=== PATIENT | female | born 1970 | race Caucasian/White ===

== ENCOUNTER 2023-12-22 23:09 | Emergency (ER) | payer MEDICAID, SELFPAY ==
[2023-12-22] VITALS (11 sets, daily range): BP systolic 143–160; BP diastolic 89–111; PULSE 83–94; RESP 13–23; O2SAT 97–100
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
[2023-12-22] MEDS: fentaNYL 100 MCG/2 ML VIAL 50 MCG IVP ×2 (23:14→23:21)
[2023-12-22] MEDS: fentaNYL 100 MCG/2 ML VIAL ×2 (23:15→23:32)
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
[2023-12-22 23:34] LABS: Anion Gap 10.9 mmol/L (3-11); BUN 10 mg/dL (7-18); CO2 23.1 mmol/L (21.0-32.0); CREATININE 0.5 mg/dL (0.55-1.02); Calcium 9.3 mg/dL (8.5-10.1); Chloride 105 mmol/L (98-107); Estimated GFR 113.48 (mL/min/1.73m2); Glucose 92 mg/dL (74-106); Potassium 3.9 mmol/L (3.5-5.1); Sodium 139 mmol/L (136-145)
[2023-12-22 23:44] LABS: Abs Immature Grans 0.09 10^3/uL (0.0-0.06); Absolute Basophil Count 0.07 10^3/uL (0.0-0.2); Absolute Eosinophil Count 0.04 10^3/uL (0.0-0.7); Absolute Monocyte Count 0.66 10^3/uL (0.1-0.8); Absolute Neutrophil Count 8.78 10^3/uL (1.2-6.7); Basophils % 0.6 %; Eosinophils % 0.4 %; HCT 28.7 % (36.0-46.0); HGB 8.2 g/dL (11.2-15.7); Immature Grans % 0.8 %; Lymphocytes % 11.2 %; MCH 18.6 pg (27.0-33.0); MCHC 28.6 % (32.0-36.0); MCV 65 fL (80-95); MPV 9.3 fL (8.0-11.0); Monocytes % 6.1 %; Neutrophils % 80.9 %; Platelet Count 322 10^3/uL (130-400); WBC 10.85 10^3/uL (4.4-10.8)
[2023-12-22] MEDS: Ondansetron 4 MG/2 ML VIAL IVP (23:44)
[2023-12-22 23:45] LABS: Absolute Lymphocyte Count 1.22 10^3/uL (1.2-3.4); Microcytosis 3+
[2023-12-22 23:50] LABS: Hypochromasia 2+
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
[2023-12-23] VITALS (32 sets, daily range): BP systolic 133–175; BP diastolic 82–110; PULSE 84–111; RESP 14–30; O2SAT 87–100
[2023-12-23] MEDS: Normal Saline - Diluent 50 ML VIAL IJ (00:07)
[2023-12-23] MEDS: Omnipaque 350 MG/ML 100 ML BTL IJ (00:10)
[2023-12-23 00:14] LABS: Amylase 32 U/L (25-115); Lipase 50 U/L (16-77); Troponin I < 50 ng/L (< or =60)
[2023-12-23] MEDS: fentaNYL 100 MCG/2 ML VIAL ×3 (00:14→01:28)
[2023-12-23] MEDS: Lidocaine 2% Multi-Dose 50 ML VIAL (00:26)
[2023-12-23] MEDS: fentaNYL 100 MCG/2 ML VIAL 50 MCG IVP ×2 (00:31→02:30)
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
--- OUTSIDE RECORDS SUMMARY | 2023-12-23 00:59 | XMS_ITS | Encounter Summary ---
Author Organization [facility] Address [address] [place] [address] Care Team Providers Care Supervisor Transcribing Operators Name Role Phone Phoenix Polanco MD Primary Care Provider + Encounter Details Date Type Department Care Team (Latest Contact Info) Description 03/15/2023 Travel Social History Tobacco Use Types Packs/Day Years Used Date Smoking Tobacco: Former Cigarettes 0.5 20 1 05/27/1996 - 03/26/2017 Smokeless Tobacco: Never Alcohol Use Standard Drinks/Week Comments Yes 21 (1 standard drink = 0.6 oz pure alcohol) a couple of white claws a night, pt is unsure of the size Interpersonal Safety Answer Date Record ed Physically Hurt Never 11/25/2019 Verbally Threaten Not on file 11/25/2019 Sex and Gender Information Value Date Recorded Sex Assigned at Female 02/05/2020 13:48 EDT Gender Identity Female 06/26/2019 14:43 EST Sexual Orientation Not on file documented as of this encounter Functional Status Functional Status Response Date of Assess ment Because of a physical, menta l, or emotional condition, does this person have difficulty doing errands alone such as visiting a doctor's office or shopping? Yes 10/01/2019 Cognitive Status Response Date of Assessm ent Because of a physical, menta l, or emotional condition, does this person have serious difficulty concentrating, remembering, or making decisions? No 10/01/2019 documented as of this encounter Plan of Treatment Not on file documented as of this encounter Visit Diagnoses Not on filedocumented in this encounter Additional Health Concerns Infection Onset Date Last Indicated Resolved Time R/O COVID-19 03/15/2023 03/15/2023 03/15/2023 17:4 2 EST documented as of this encounter Care Teams Supervisor Transcribing Operators Relationship Specialty Start Date End Date Phoenix Polanco MD [address] [place] [id number] PCP - General 12/27/13 documented as of this encounter
--- OUTSIDE RECORDS SUMMARY | 2023-12-23 00:59 | XMS_ITS | Encounter Summary ---
Author Organization [facility] Address [address] [place] [address] Care Team Providers Care Loan Workout Officer Name Role Phone Phoenix Polanco MD Primary Care Provider + Reason for Visit * Reason Comments Chest Pain Shortness of Breath BIBEMS from home. March dden onset aching central chest pain that radiates into lower back. + SOB, +dyspnea, +dry heaving. Temp 103.3 by EMS. Denies sick contacts. States she was in the ICU with sepsis in August. Encounter Details Date Type Department Care Team (Late st Contact Info) Description 03/15/2023 14:41 EST - 03/15/2023 19:17 EST Emergency [facility] Emergency Department - Main [address] [phone] Savana Andrews PA-C [address] [place] [phone] Ila Hankins MD [address] [place] [phone] Pneumonia of right upper lobe due to infectious organism (Primary Dx); Hepatic steatosis; Splenomegaly Discharge Disposition: Home or Self Care Social History Tobacco Use Types Packs/Day Years Used Date Smoking Tobacco: Former Cigarettes 0.5 20 1 05/27/1996 - 03/26/2017 Smokeless Tobacco: Never Tobacco Cessation:Counseling Given: Not Answered Alcohol Use Standard Drinks/Week Comments Yes 21 [...] on file documented as of this encounter Last Filed Vital Signs Vital Sign Reading Time Taken Comments Blood Pressure 103/68 03/15/2023 191 EST Pulse 102 03/15/20231910 EST Temperature 37.6 ??C (99.6 ??F) 03/15/2023 1748 EST Respiratory Rate 16 03/15/2023 191 EST Oxygen Saturation 98% 03/15/2023 191 EST Inhaled Oxygen Concentration - - Weight 86.2 kg (190 lb) 03/15/2023 1450 EST Height 165.1 cm (5' 5) 03/15/2023 1450 EST Body Mass Index 31.62 03/15/2023 1450 EST documented in this encounter Functional Status Functional Status Response [...] No 10/01/2019 documented as of this encounter Discharge Instructions * Discharge Instructions* Savana Andrews PA-C - 03/15/2023 18:46 EST You were seen in the emergency department for sudden onset lower back pain with ongoing cough You were found to have a pneumonia You were started on doxycycline, please take this twice a day for 7 days This was sent to our pharmacy upstairs As discussed, please take this with a full glass of water, wait 1 hour before lying flat after taking this medication to decrease chance of GI issues Please take Tylenol 650mg every 4-6 hours as needed for pain, do not exceed 4000mg a day. Also takeMotrin (Advil, Ibuprofen) 600mg every 8 hours as needed. Please stop if you get abdominal pain or bloody stools. Reasons to return to the emergency department include new or worsening pain or shortness of breath,inability to eat or drink, blood in your stool or vomit, or any other new or concerning symptoms toysalvatore * Attachments The following attachments cannot be sent through Care Everywhere. * Pneumonia (Pakistani) documented in this encounter Medications at Time of Discharge Medication Sig Dispensed Refills Start Date End Date acetaminophen (TYLENOL) 500 mg tablet Take 1,300 mg by mouth 3 times daily as needed for Pain. amitriptyline (ELAVIL) 5 mg/ml suspension Take 15 mg by mouth at bedtime. diclofenac sodium 1 % gelIndications:Pain in joint, multiple sites,Malaise and fatigue,MIKEY positive,Elevated sed rate,Microcytic anemia Apply 2g-4g of 1% gel to affected area 4 times daily. Maximum total body dose of 1% gel should not exceed 32 g per day 1 Tube 2 06/26/2019 DULoxetine (CYMBALTA) 60 mg capsule Take 40 mg by mouth daily. fluoxetine HCl (PROZAC ORAL) Take 60 mg by mouth daily. naltrexone (REVIA) 50 mg tablet Take 1 tablet daily for 7 days then increase to 2 tablets daily. 30 Tablet 1 08/26/2022 pantoprazole (PROTONIX) 40 mg tablet Take 1 Tablet by mouth 2 times daily. 60 Tablet 2 08/26/2022 pregabalin (LYRICA) 100 mg capsule Take 1 Capsule by mouth 3 times daily. thiamine (VITAMIN B1) 100 mg tablet Take 1 Tablet by mouth daily. 1 Tablet 08/27/2022 doxycycline (VIBRA-TABS) 100 mg tablet Take 1 Tablet by mouth 2 times daily for 7 days. 14 Tablet 03/15/2023 03/22/2023 documented as of this encounter Ordered Prescriptions Prescription Sig Dispensed Refills Start Date End Da te doxycycline (VIBRA-TABS) 100 mg tablet Take 1 Tablet by mouth 2 times daily for 7 days. 14 Tablet 03/15/2023 03/22/2023 documented in this encounter Discharge Disposition Disposition Code Departure Means Destination Comment s Home or Self Group Home documented in this encounter ED Notes * Debra Broussard, MEREDITH - 03/15/2023 1914 EST 1710: Report received from offgoing RN. 1745: Pt is resting in stretcher, she is eating, education provided on the need to stay NPO until imaging has resulted. Pt reports that her pain is a 4/10 and is a lot better. Declines having any needs at this time. 1835: Pt is resting in stretcher, asked to provide a urine sample. Provided with education on how to provide a clean catch urine sample. Pt ambulated to the bathroom independently and with a steady gait. 1914: DC instructions reviewed with Pt and her family members who are at bedside. Their questions were answered. Pt changed, gathered her belongings and ambulated out of the department independently and with a steady gait. * Umer Irby - 03/15/2023 1532 EST IUMER, notified Dr. HANKINS of PH VENOUS 7.61 on 03/15/2023 at 15:32. * Savana Andrews PA-C - 03/15/2023 1441 EST Images from the original note were not included. Emergency Department Note Emergency Department Visit Medical Decision Making This is a 52 y.o. female with PMHx of alcohol use disorder (~14 drinks/day), gastric bypass (2000 done at [facility], unclear what type),??steatohepatitis,??iron deficiency anemia, fibromyalgia, and former smoker who is presenting to the Emergency Department with sudden onset anterior chest discomfort radiating to lower back with associated shortness of breath and nausea. She has had a cough over the past few days. Has not taken COVID test at home. Vital signs here notable for mild temp of 100.6F, all other vital signs reassuring. She has symmetric pulses to radial and DP pulses. She has reproducible low back pain. She has no CVA tenderness. Lung sounds are hard to appreciate as patient is hyperventilating on my examination. Differential diagnosis includes infectious etiology such as COVID-19,influenza, pneumonia, she does have low back pain and chest discomfort however with teasing this out it seems as though the chest discomfort is mainly with coughing and low back pain is new and separate. She denies any IV drug use, no saddle paresthesias therefore seems less likely to be epidural abscess or acute cauda equina or cord compression Will obtain labs including: CBC, CMP, lactate, vbg, blood cultures. Will provide pain control, observe and reassess. ED Course EKG: Sinus rhythm at 99 bpm, normal axis, submillimeter ST depression in lead II, T wave flatteningin aVL and V4, no acute ST or T wave changes Relevant Data as of 03/15/23 190MonMar 15, 2023 1536 Lactic Acid: 1.9 Lactate normal [HG] 1537 WBC(!): 12.81 Mild leukocytosis [HG] 1542 Magnesium(!): 1.3 We will replete IV [HG] 1559 Troponin I (ng/mL): <0.034 Negative, seems less likely to be cardiac in nature. [HG] 1623 XR CHEST PORTABLE 1 VIEW IMPRESSION Ill-defined opacity in the right midlung, partially overlying the alisson, is concerning for pneumonialikely in the right lower lobe superior segment. A lateral radiograph would be helpful for confirmation. ?? [HG] 1743 Flu A RNA Result: Negative COVID and flu negative [HG] 1816 CT ANGIO CHEST IMPRESSION 1. No evidence of acute aortic syndrome. 2. Consolidation in the inferior right middle lobe consistent with pneumonia. ?? [HG] 1829 CT ANGIO ABDOMEN PELVIS 1. ??No evidence of vascular abnormality within the abdomen or pelvis. 2. ??Mild hyperemia of the cecum and ascending colon liquid intraluminal contents which can be seenin diarrheal illness. 3. ??Status post remote cholecystectomy with increased common bile duct diameter measuring 1.3 cm from 1 cm on ultrasound 08/24/2022. No radiopaque stone within the common bile duct. 4. ??Hepatic steatosis. 5. ??Splenomegaly. [HG] 1835 On reassessment, patient is resting comfortably. Reports feeling much improved at this time. Ihave informed her that her CT ultimately reveals that she has pneumonia. There is also evidence of a possible diarrheal illness. Patient denies any recent diarrhea. This could be reflective of Legionella, will send antigen through urine. We will give dose of doxycycline here. [HG] 1901 Discussed findings and plan. Return precautions given. Patient well appearing. Discharge home to follow up with PCP [HG] Relevant Data User Index [HG] Savana Andrews PA-C Medical Decision Making Hepatic steatosis: acute illness or injury Pneumonia of right upper lobe due to infectious organism: acute illness or injury Splenomegaly: acute illness or injury Amount and/or Complexity of Data Reviewed Independent Historian: friend and EMS Labs: ordered. Decision-making details documented in ED Course. Radiology: ordered. Decision-making details documented in ED Course. Risk OTC drugs. Prescription drug management. Imaging CT ANGIO ABDOMEN PELVIS Preliminary Result 1. No evidence of vascular abnormality within the abdomen or pelvis. 2. Mild hyperemia of the cecum and ascending colon liquid intraluminal contents which can be seen in diarrheal illness. 3. Status post remote cholecystectomy with increased common bile duct diameter measuring 1.3 cm from 1 cm on ultrasound 08/24/2022. No radiopaque stone within the common bile duct. 4. Hepatic steatosis. 5. Splenomegaly. CT ANGIO CHEST Final Result 1. No evidence of acute aortic syndrome. 2. Right upper lobe pneumonia. I have personally reviewed the images and the above interpretation and agree with the findings. [id number] XR CHEST PORTABLE 1 VIEW Final Result Ill-defined opacity in the right midlung, partially overlying the alisson, is concerning for pneumonialikely in the right lower lobe superior segment. A lateral radiograph would be helpful for confirmation. I have personally reviewed the images and the above interpretation and agree with the findings. [id number] The following problems were addressed: Final diagnoses: Pneumonia of right upper lobe due to infectious organism Hepatic steatosis Splenomegaly Chief complaint: Chief Complaint Patient presents with ??? Chest Pain ??? Shortness of Breath BIBEMS from home. Sudden onset aching central chest pain that radiates into lower back. + SOB, +dyspnea, +dry heaving. Temp 103.3 by EMS. Denies sick contacts. States she was in the ICU with sepsis in August. HPI: 52 y.o. female with PMHx of alcohol use disorder (~14 drinks/day), gastric bypass (2000 done at [facility], unclear what type),??steatohepatitis,??iron deficiency anemia, fibromyalgia, and former smoker who is presenting to the Emergency Department with sudden onset anterior chest discomfort radiating to lower back with associated shortness of breath and nausea. Patient reports for the last few days she has had a nonproductive cough. Reports that she has had chest pain with coughing. Also reports sudden onset pain and shortness of breath to her lower back. Reports nausea with dry heaving no true emesis. No constipation or diarrhea. Per reports from EMS, temp of 103.3F. She denies any feversat home, no urinary symptoms, no rash. Denies any trauma to her back, no heavy lifting. No urinary symptoms. Patient denies experiencing similar symptoms in the past. History was provided by: Patient, patient's family members at bedside, records Patient's pertinent PMH, FH, SH were reviewed and edited as necessary. Nurse note reviewed and confirmed. Physical Exam Patient Vitals for the past 24 hrs: BP Temp Temp src Resp SpO2 Height Weight 03/15/23 1450 118/80 38.1 ??C (100.6 ??F) Oral 18 98 % 165.1 cm (65) 86.2 kg (190 lb) A medical screening exam was performed. Physical Exam Gen: BP 118/80 (BP Cuff Location: Right arm, BP Patient Position: Sitting) Temp 38.1 ??C (100.6 ??F) (Oral) Resp 18 Ht 165.1 cm (65) Wt 86.2 kg (190 lb) SpO2 98% BMI 31.62 kg/m?? . In mild distress, writhing on stretcher, moving all fours. Eyes: Anicteric. ENT: Atraumatic. Oropharynx no tonsillar erythema or exudates. Resp: Normal resp rate. Nonproductive cough on examination. Slightly diminished breath sounds at the bases, no wheezing or rhonchi appreciated. CV: RRR. 2+ radial and DP pulses. GI: Nondistended. Nontender to palpation. MSK: No deformities, well perfused extremities. No midline C/T/L/S spine tenderness palpation. Mildtenderness to left paralumbar muscles without palpable spasming. Skin: Warm, dry. no rash, no bruising. Neuro: Normal speech. Awake,alert, oriented, GCS 15 Psych: Normal affect. Disposition: Home Condition on Discharge: Good Reasons to return to the ED were reviewed in detail. The patient agrees with this plan and disposition. This chart was generated using voice-recognition software. I have read the note but there are oftensubtle changes that are difficult to identify. Please contact me for clarification if necessary. Associated attestation - Ila Hankins MD - 03/15/2023 2155 EST A medical screening exam was performed. I reviewed this case with the Advanced Practice Provider (ALFONZO) and have reviewed the ALFONZO's note. I evaluated this patient [id number] and provided a substantive portion of the patient's care.. My personal evaluation included a face to face history and physical exam, review of nursing notes, reviewof vital signs, review of relevant records, and review of diagnostic data. Based on these elements I formulated, and/or participated substantively in the medical decision making, including assessing the level of risk of the patient's complaints and condition, establishing a diagnosis and/or selecting management options. I agree with the findings and plan as outlined in our combined note. My personal documentation is as follows: 52-year-old female presenting with significant chest pain.I evaluated her after she had gotten a CAT scan as well as some medications and she overall appeared well. Speaking full sentences and not requiring oxygen. Had some leukocytosis and got a CT angio of the chest, abdomen, pelvis due to concern for dissection. This was negative for dissection but didresult in pneumonia. Patient given prescription for antibiotics as well as return precautions. Appropriate for outpatient management, subsequently discharged. Ila Hankins MD, Attending Physician Final diagnoses: Pneumonia of right upper lobe due to infectious organism Hepatic steatosis Splenomegaly This note was dictated using [employer] Dictation Software. Attempts at proofreading have been made, however errors may still occasionally occur. documented in this encounter Plan of Treatment Not on file documented as of this encounter Procedures Procedure Name Priority Date/Time Associated Diagnosis Comments ECG REPORT - SCANNED 03/27/2023 6:44 EST URINE CHEMICAL (DIP) & SEDIMENT (MICRO) WITH REFLEX TO CULTURE Routine 03/15/2023 18:42 EST LEGIONELLA ANTIGEN DETECTION, URINE Routine 03/15/2023 18:[address] ANGIO ABDOMEN PELVIS STAT 03/15/2023 17:[address] ANGIO CHEST STAT 03/15/2023 17:30 EST ZZCOVID-19 TEST [facility] PCR STAT 03/15/2023 16:25 EST COVID-19 TESTING STAT 03/15/2023 16:2 5 EST ZZHN INFLUENZA A AND B, RSV PCR STAT 03/15/2023 16:25 EST BACTERIAL CULTURE, BLOOD STAT 03/15/2023 16:25 EST BACTERIAL CULTURE, BLOOD STAT 03/15/2023 15:50 EST XR CHEST PORTABLE 1 VIEW STAT 03/15/2023 15:15 EST LACTIC ACID WITH REFLEX - USE FOR INITIAL SEPSIS EVALUATION STAT 03/15/2023 15:01 EST HOLD BLUE TOP STAT 03/15/2023 15:01 EST BLOOD GASES, VENOUS STAT 03/15/2023 1 5:01 EST TROPONIN I STAT 03/15/2023 15:01 EST COMPLETE BLOOD COUNT AND DIFFERENTIAL STAT 03/15/2023 15:01 EST MAGNESIUM STAT 03/15/2023 15:01 EST BASIC METABOLIC PANEL (BMP) STAT 03/15/2023 15:01 EST EKG 12-LEAD STAT 03/15/2023 14:54 EST documented in this encounter Results * ECG REPORT - SCANNED (03/27/2023 6:44 EST) 03/27/2023 6:44 EST Scan 2 [employer] Operator PROCEDURE/MINOR SHILPA GICAL ORDERABLES * (ABNORMAL) UA CHEMICAL & SEDIMENT + REFLEX TO CULTURE (03/15/2023 18:42 EST) Color UA Yellow Colorless, Yellow 03/15/2023 19:23 [facility] Clarity UA Clear Clear 03/15/2023 19:23 [facility] Glucose UA Negative Negative mg/dL 03/15/2023 19:23 [facility] Bilirubin UA Negative Negative 03/15/2023 19:23 [facility] Ketones UA 1+(A) Negative 03/15/2023 19:23 [facility] Specific [place], Urine >1.050(H) 1.001 - 1.030 03/15/2023 19:23 [facility] Comment:Urine Specific Gravi ty results greater than 1.035 suggest possible interference from glucose or radiographic dye. Blood UA Negative Negative 03/15/2023 19:23 [facility] Urobilinogen UA 0.2 0.2-1.0 mg/dL mg/dL 03/15/2023 19:23 [facility] Nitrite UA Negative Negative 03/15/2023 19:23 [facility] Leukocyte Esterase UA Negative Negative 03/15/2023 19:23 [facility] Protein UA Trace(A) Negative mg/dL 03/15/2023 19:23 [facility] pH, UA 6.0 <8.5 03/15/2023 19:23 [facility] Urine RBC Count, Auto 0 - 2 0 - 2 Cells/HPF 03/15/2023 19:23 [facility] Urine WBC Count, Auto 0 - 3 0 - 3 Cells/HPF 03/15/2023 19:23 [facility] Urine Squamous Count, Auto Few(A) None Seen Cells/HPF 03/15/2023 19:23 [facility] Urine Hyaline Cast Count, Auto <=10 <=10 Casts/LPF 03/15/2023 19:23 EST [facility] Urine Bacteria Count, Auto None Seen None Seen Bacteria/HPF 03/15/2023 19:23 EST [facility] Urine URINE SPECIMEN OBTAINED BY CLEAN CATCH PROCEDURE / Unknown 03/15/2023 18:42 EST 03/15/2023 18:47 EST Narrative [facility] - 03/15/2023 19:23 EST NOTE: Reflex to Urine Culture test is not indicated based on Urine Sediment Analysis results. Urine Sediment Analysis results are unreliable on urines that are unrefrigerated for >2 hrs or refrigerated >8 hrs. Savana Andrews PA-C URINALYSIS ORDERABLE S Performing Organization Address City/[facility]/ZIP Co de Phone Number [facility] [address] [place] [address] * LEGIONELLA ANTIGEN DETECTION, URINE (03/15/2023 18:42 EST) Legionella Antigen Detection Negative Negative 03/15/2023 20:41 EST [facility] Urine URINE / Unknown Urine Collect / Unknown 03/15/2023 18:42 EST 03/15/2023 18:47 EST Savana Andrews PA-C MICROBIOLOGY - GENER AL ORDERABLES Performing Organization Address City/[facility] Co de Phone Number [facility] [address] [place] [address] * CT ANGIO ABDOMEN PELVIS (03/15/2023 17:30 EST) Anatomical Region Laterality Modality Body, Abdomen, Pelvis, Abdomen and Pelvis Computed Tomography 03/15/2023 21:4 3 EST Impressions 03/15/2023 21:43 EST 1. ??No evidence of vascular abnormality within the abdomen or pelvis. 2. ??Mild hyperemia of the cecum and ascending colon liquid intraluminal contents which can be seen in diarrheal illness. 3. ??Status post remote cholecystectomy with increased common bile duct diameter measuring 1.3 cm from 1 cm on ultrasound 08/24/2022. No radiopaque stone within the common bile duct. 4. ??Hepatic steatosis. 5. ??Splenomegaly. I have personally reviewed the images and the above interpretation and agree with the findings. [id number] Narrative 03/15/2023 21:[address] Angiogram of the Abdomen and Pelvis CLINICAL HISTORY: Sudden onset chest pain shortness of breath and low back pain; Sudden onset chest pain shortness of breath and low back pain; TECHNIQUE: Helical computed tomography was performed through the abdomen and pelvis before and after the uneventful intravenous administration of 95 mL of Omnipaque, including arterial and venous phase imaging. ??Oral contrast was not administered. Multiplanar reformatted images were generated from the source data. Maximum intensity projection and volume rendered 3-D reconstructions were generated/reviewed on an independent workstation. Total DLP is 3195.8 mGy*cm. COMPARISON: Ultrasound abdomen 08/24/2022. FINDINGS: VASCULAR STRUCTURES: The abdominal aorta is normal in course and caliber. ?? The major mesenteric vessels in the abdomen, including the celiac axis, superior mesenteric artery, inferior mesenteric artery, and their respective branches, are patent. The renal arteries are patent bilaterally. The right common, internal, and external iliac arteries are patent. The right common femoral artery is patent. The partially imaged right superficial femoral and profunda femoris arteries are patent. The left common, internal, and external iliac arteries are patent. The left common femoral artery is patent. The partially imaged left superficial femoral and profunda femoris arteries are patent. The imaged systemic venous structures are grossly within normal limits. INFERIOR THORAX/LUNG BASES: Mild atelectasis. No pleural or pericardial effusion. LIVER: Diffusely decreased attenuation of the liver. No hepatic mass identified on arterial or venous phase imaging. The portal and hepatic veins are patent. Scattered subcentimeter hypodensities, too small accurately characterize on CT, likely cyst. GALLBLADDER AND BILIARY SYSTEM: Status post remote cholecystectomy. The common bile duct measures 1.3 cm at the john hepatis, previously 1 cm on 08/24/2022. No radiopaque calculus within the common bile duct. There is mild intrahepatic duct dilation. PANCREAS: No suspicious lesion. Normal caliber main pancreatic duct. SPLEEN: The spleen is enlarged measuring 15.6 cm craniocaudal. No suspicious lesion. ADRENAL GLANDS: ??Unremarkable. GENITOURINARY: Kidneys enhance symmetrically. No suspicious lesion. Subcentimeter right lower renal pole hypodensity, too small to characterize on CT, likely cyst. No renal calculus, or hydroureteronephrosis. The bladder is grossly within normal limits. GASTROINTESTINAL: There is mild hyperemia of the cecum and ascending colon with liquid intraluminal contents. A normal appendix identified status post remote Saji-en-Y gastric bypass with gastrojejunostomy and jejunojejunostomy anastomoses. GENERAL: No free air or free fluid. LYMPH NODES: No enlarged lymph nodes within the abdomen or pelvis. OSSEOUS STRUCTURES: No aggressive osseous lesions. SOFT TISSUES: Unremarkable. Procedure Note Thony Severino MD - 03/15/2023 CT Angiogram of the Abdomen and Pelvis CLINICAL HISTORY: Sudden onset chest pain shortness of breath and low backpain; Sudden onset chest pain shortness of breath and low back pain; TECHNIQUE: Helical computed tomography was performed through the abdomenand pelvis before and after the uneventful intravenous administration of95 mL of Omnipaque, including arterial and venous phase imaging. Oralcontrast was not administered. Multiplanar reformatted images weregenerated from the source data. Maximum intensity projection and volumerendered 3-D reconstructions were generated/reviewed on an independentworkstation. Total DLP is 3195.8 mGy*cm. COMPARISON: Ultrasound abdomen 08/24/2022. FINDINGS: VASCULAR STRUCTURES: The abdominal aorta is normal in course and caliber. The major mesenteric vessels in the abdomen, including the celiac axis,superior mesenteric artery, inferior mesenteric artery, and theirrespective branches, are patent. The renal arteries are patent bilaterally. The right common, internal, and external iliac arteries are patent. Theright common femoral artery is patent. The partially imaged rightsuperficial femoral and profunda femoris arteries are patent. The left common, internal, and external iliac arteries are patent. Theleft common femoral artery is patent. The partially imaged leftsuperficial femoral and profunda femoris arteries are patent. The imaged systemic venous structures are grossly within normal limits. INFERIOR THORAX/LUNG BASES: Mild atelectasis. No pleural or pericardialeffusion. LIVER: Diffusely decreased attenuation of the liver. No hepatic massidentified on arterial or venous phase imaging. The portal and hepaticveins are patent. Scattered subcentimeter hypodensities, too smallaccurately characterize on CT, likely cyst. GALLBLADDER AND BILIARY SYSTEM: Status post remote cholecystectomy. Thecommon bile duct measures 1.3 cm at the john hepatis, previously 1 cm on08/24/2022. No radiopaque calculus within the common bile duct. There ismild intrahepatic duct dilation. PANCREAS: No suspicious lesion. Normal caliber main pancreatic duct. SPLEEN: The spleen is enlarged measuring 15.6 cm craniocaudal. Nosuspicious lesion. ADRENAL GLANDS: Unremarkable. GENITOURINARY: Kidneys enhance symmetrically. No suspicious lesion.Subcentimeter right lower renal pole hypodensity, too small tocharacterize on CT, likely cyst. No renal calculus, orhydroureteronephrosis. The bladder is grossly within normal limits. GASTROINTESTINAL: There is mild hyperemia of the cecum and ascending colonwith liquid intraluminal contents. A normal appendix identified statuspost remote Saji-en-Y gastric bypass with gastrojejunostomy andjejunojejunostomy anastomoses. GENERAL: No free air or free fluid. LYMPH NODES: No enlarged lymph nodes within the abdomen or pelvis. OSSEOUS STRUCTURES: No aggressive osseous lesions. SOFT TISSUES: Unremarkable. IMPRESSION 1. No evidence of vascular abnormality within the abdomen or pelvis. 2. Mild hyperemia of the cecum and ascending colon liquid intraluminalcontents which can be seen in diarrheal illness. 3. Status post remote cholecystectomy with increased common bile ductdiameter measuring 1.3 cm from 1 cm on ultrasound 08/24/2022. No radiopaquestone within the common bile duct. 4. Hepatic steatosis. 5. Splenomegaly. I have personally reviewed the images and the above interpretation andagree with the findings. [id number] Savana Andrews PA-C Chi CT ORDERABLES * CT ANGIO CHEST (03/15/2023 17:30 EST) Anatomical Region Laterality Modality Chest Computed Tomogra phy 03/15/2023 18:3 3 EST Impressions 03/15/2023 18:33 EST 1. ??No evidence of acute aortic syndrome. 2. ??Right upper lobe pneumonia. I have personally reviewed the images and the above interpretation and agree with the findings. [id number] Narrative 03/15/2023 18:[address] ANGIO CHEST ??03/15/2023 4:55 PM Clinical History/Comments: Sudden onset chest pain shortness of breath; Sudden onset chest pain shortness of breath; Technique: An initial unenhanced CT scan of the chest was performed. This was followed by a prospectively ECG-triggered CT angiogram of the chest with IV contrast material. 3D advanced post-processing was performed utilizing a combination of MIP and MPR techniques with physician participation and supervision. This CT used either dose modulation and/or iterative reconstruction techniques to lower radiation dose. Comparison: Chest x-ray same day, 08/22/2022. Findings: Opacification of the aorta is poor, but adequate. No dissection, aneurysm or other aortic abnormality identified. Lower neck: No abnormalities. Mediastinum and alisson (non-vascular): No enlarged mediastinal or hilar lymph nodes. ??The esophagus appears normal. Cardiovascular: The great vessels and cardiac chambers are normal in size. No evidence of central pulmonary embolism. Lungs and airways: Large central airways are patent. Mild diffuse airways thickening. There is airspace consolidation with surrounding groundglass opacity in the inferior aspect of the anterior segment of the right upper lobe (sagittal image 138). Scattered micronodules. Calcified granuloma in the posterior basal segment of the right lower lobe. Mild dependent atelectasis. Pleura: Normal. Upper abdomen (limited to upper abdomen, not optimized for abdominal imaging): A separate CT of the abdomen or abdomen and pelvis was performed on the same date. ??Please see that report. Chest wall soft tissues: Surgical clips present in the right breast. Calcification in the left axilla. Bones: No suspicious osseous lesions. Mild multilevel degenerative changes of the thoracic spine. ?? Procedure Note Benjie Pichardo MD - 03/15/2023 CT ANGIO CHEST 03/15/2023 4:55 PM Clinical History/Comments: Sudden onset chest pain shortness of breath; Sudden onset chest painshortness of breath; Technique: An initial unenhanced CT scan of the chest was performed. This wasfollowed by a prospectively ECG-triggered CT angiogram of the chest withIV contrast material. 3D advanced post-processing was performed utilizinga combination of MIP and MPR techniques with physician participation andsupervision. This CT used either dose modulation and/or iterative reconstructiontechniques to lower radiation dose. Comparison: Chest x-ray same day, 08/22/2022. Findings: Opacification of the aorta is poor, but adequate. No dissection, aneurysmor other aortic abnormality identified. Lower neck: No abnormalities. Mediastinum and alisson (non-vascular): No enlarged mediastinal or hilarlymph nodes. The esophagus appears normal. Cardiovascular: The great vessels and cardiac chambers are normal in size.No evidence of central pulmonary embolism. Lungs and airways: Large central airways are patent. Mild diffuse airwaysthickening. There is airspace consolidation with surrounding groundglass opacity inthe inferior aspect of the anterior segment of the right upper lobe(sagittal image 138). Scattered micronodules. Calcified granuloma in the posterior basal segmentof the right lower lobe. Mild dependent atelectasis. Pleura: Normal. Upper abdomen (limited to upper abdomen, not optimized for abdominalimaging): A separate CT of the abdomen or abdomen and pelvis was performedon the same date. Please see that report. Chest wall soft tissues: Surgical clips present in the right breast.Calcification in the left axilla. Bones: No suspicious osseous lesions. Mild multilevel degenerative changesof the thoracic spine. IMPRESSION 1. No evidence of acute aortic syndrome. 2. Right upper lobe pneumonia. I have personally reviewed the images and the above interpretation andagree with the findings. [id number] Savana Andrews PA-C IMG CT ORDERABLES * COVID-19 TEST [facility] PCR (03/15/2023 16:25 EST) Swab NASOPHARYNGEAL STRUCTURE / Unknown Swab / Unknown 03/15/2023 16:25 EST 03/15/2023 16:30 EST Savana Andrews PA-C MICROBIOLOGY - GENER AL ORDERABLES [facility] [address] [place] [id number] * BACTERIAL CULTURE, BLOOD (03/15/2023 16:25 EST) Organism ID No Growth at 5 days 03/20/2023 17:01 EST [facility] Blood VENOUS BLOOD / Unknown Venipuncture / Unknown 03/15/2023 16:25 EST 03/15/2023 16:47 EST Savana Andrews PA-C MICROBIOLOGY - GENER AL ORDERABLES Performing Organization Address [facility] de Phone Number [facility] [address] [place] [address] * COVID-19 TESTING (03/15/2023 16:25 EST) COVID-19 rt-PCR Result Negative Negative 03/15/2023 17:42 EST [facility] Comment: This test has not been FDA cleared or approved. This test has been authorized by FDA under an EUA for use by authorized laboratories. This test has been authorized only for detection of nucleic acid from 2019-nCoV, not for any other viruses or pathogens. This test is only authorized for the duration of the declaration that circumstances exist justifying the authorization of emergency use of in vitro diagnostic tests for detection and/or diagnosis of 2019-nCoV under section 564(b)(1) of Act, 21 U.S.C ?? 360bbb-3(b) (1), unless the authorization is terminated or revoked sooner. Negative results do not preclude 2019-nCoV infection and should not be used as the sole basis for treatment or other patient management decisions. Negative results must be combined with clinical observations, patient history, and epidemiological information. Performed on the [employer] GeneXpert Instrument Performing Lab GeneXpert [facility] 03/15/2023 17:42 EST [facility] Swab NASOPHARYNGEAL STRUCTURE / Unknown Swab / Unknown 03/15/2023 16:25 EST 03/15/2023 16:30 EST Savana Andrews PA-C MICROBIOLOGY - GENER AL ORDERABLES Performing Organization Address [facility] Co de Phone Number [facility] [address] [place] [address] * INFLUENZA A AND B,RSV PCR (03/15/2023 16:25 EST) FLU A RNA Result (FLARES) Negative Negative 03/15/2023 17:42 EST [facility] FLU B RNA Result (FLBRES) Negative Negative 03/15/2023 17:42 EST [facility] RSV RNA Result (RSVRES) Negative Negative 03/15/2023 17:42 EST [facility] Swab NASOPHARYNGEAL STRUCTURE / Unknown Swab / Unknown 03/15/2023 16:25 EST 03/15/2023 16:30 EST Savana Andrews PA-C MICROBIOLOGY - GENER AL ORDERABLES Performing Organization Address [facility] Co de Phone Number [facility] [address] [place] [address] * BACTERIAL CULTURE, BLOOD (03/15/2023 15:50 EST) Organism ID No Growth at 5 days 03/20/2023 16:01 EST [facility] Blood VENOUS BLOOD / Unknown Venipuncture / Unknown 03/15/2023 15:50 EST 03/15/2023 15:58 EST Savana Andrews PA-C MICROBIOLOGY - GENER AL ORDERABLES Performing Organization Address [facility] de Phone Number [facility] [address] [place] [address] * XR CHEST PORTABLE 1 VIEW (03/15/2023 15:15 EST) Anatomical Region Laterality Modality Computed Radiogr aphy 03/15/2023 15:5 1 EST Impressions 03/15/2023 15:51 EST Ill-defined opacity in the right midlung, partially overlying the alisson, is concerning for pneumonia likely in the right lower lobe superior segment. A lateral radiograph would be helpful for confirmation. I have personally reviewed the images and the above interpretation and agree with the findings. [id number] Narrative 03/15/2023 15:51 EST XR CHEST PORTABLE 1 VIEW ??03/15/2023 3:10 PM Clinical History/comments: shortness of breath; Comparison: Chest radiographs 08/22/2022. Technique: Single portable AP view of the chest. Findings: Lungs: In the right midlung, partially overlying the right alisson, there is a ill-defined opacity that is new from prior studies. The pulmonary vasculature is normal. Pleura: No visible pleural abnormalities. Cardiac and mediastinal contours: The cardiomediastinal silhouette is within normal limits for technique. Soft tissues and extrathoracic findings: No significant normality. Bones: Unremarkable for age. Procedure Note Phoenix Mon MD - 03/15/2023 XR CHEST PORTABLE 1 VIEW 03/15/2023 3:10 PM Clinical History/comments: shortness of breath; Comparison: Chest radiographs 08/22/2022. Technique: Single portable AP view of the chest. Findings: Lungs: In the right midlung, partially overlying the right alisson, there farhat ill-defined opacity that is new from prior studies. The pulmonaryvasculature is normal. Pleura: No visible pleural abnormalities. Cardiac and mediastinal contours: The cardiomediastinal silhouette iswithin normal limits for technique. Soft tissues and extrathoracic findings: No significant normality. Bones: Unremarkable for age. IMPRESSION Ill-defined opacity in the right midlung, partially overlying the alisson, isconcerning for pneumonia likely in the right lower lobe superior segment.A lateral radiograph would be helpful for confirmation. I have personally reviewed the images and the above interpretation andagree with the findings. [id number] Savana Andrews PA-C IM DIAGNOSTIC IMAGI NG ORDERABLES * HOLD BLUE TOP (03/15/2023 15:01 EST) Hold Hold 03/15/2023 16:15 EST [facility] Blood VENOUS BLOOD / Unknown Venipuncture / Unknown 03/15/2023 15:01 EST 03/15/2023 15:09 EST Savana Andrews PA-C LAB INFO SERVICE AND SUPPORT & PHONE RESULT [facility] [address] [place] [id number] * (ABNORMAL) MAGNESIUM (03/15/2023 15:01 EST) Magnesium 1.3(L) 1.7 - 2.8 mg/dL 03/15/2023 15:38 EST [facility] Comment:Slight hemolysis azeb ntified, interpret with caution as results may be affected due to hemolysis. Blood VENOUS BLOOD / Unknown Venipuncture / Unknown 03/15/2023 15:01 EST 03/15/2023 15:06 EST Savana DAVEC CHEMISTRY & BLOOD GA S ORDERABLES Performing Organization Address [facility] de Phone Number [facility] [address] [place] [address] * TROPONIN I (03/15/2023 15:01 EST) Pathologist [facility] Troponin I (ng/mL) <0.034 <0.034 ng/mL 03/15/2023 15:52 [facility] Comment:Slight hemolysis azeb ntified, interpret with caution as results may be affected due to hemolysis. Blood VENOUS BLOOD / Unknown Venipuncture / Unknown 03/15/2023 15:01 EST 03/15/2023 15:06 EST Narrative [facility] - 03/15/2023 15:52 EST The results of this assay can be falsely lowered due to the consumption of Biotin. Savana Andrews PA-C CHEMISTRY & BLOOD GA S ORDERABLES Performing Organization Address [facility] Phone Number [facility] [address] [place] [address] * (ABNORMAL) BASIC METABOLIC PANEL (BMP) (03/15/2023 15:01 EST) [facility] Sodium 139 136 - 145 mmol/L 03/15/2023 15:38 [facility] Potassium 3.6 3.5 - 5.0 mmol/L 03/15/2023 15:38 [facility] Comment:Slight hemolysis azeb ntified, interpret with caution as hemolysis will elevate potassium result. Chloride 104 96 - 110 mmol/L 03/15/2023 15:38 [facility] CO2 Total 23 22 - 32 mmol/L 03/15/2023 15:38 [facility] Anion Gap 12 5 - 14 mmol/L 03/15/2023 15:38 [facility] Glucose 119(H) 70 - 99 mg/dl 03/15/2023 15:38 [facility] Calcium 9.2 8.5 - 10.5 mg/dL 03/15/2023 15:38 [facility] BUN 10 10 - 26 mg/dL 03/15/2023 15:38 [facility] Comment: Slight hemolysis identified, interpret with caution as results may be affected due to hemolysis. Creatinine 0.42(L) 0.52 - 1.04 mg/dL 03/15/2023 15:38 [facility] eGFR 119 >60 mL/min/1.7 3m2 03/15/2023 15:38 [facility] Blood VENOUS BLOOD / Unknown Venipuncture / Unknown 03/15/2023 15:01 EST 03/15/2023 15:06 EST Savana Andrews PA-C CHEMISTRY & BLOOD GA S ORDERABLES [facility] [address] [place] [address] * (ABNORMAL) COMPLETE BLOOD COUNT AND DIFFERENTIAL (03/15/2023 15:01 EST) WBC 12.81(H) 4.00 - 12.40 K/cmm 03/15/2023 15:36 [facility] RBC 4.74 3.86 - 5.04 M/cmm 03/15/2023 15:36 [facility] Hemoglobin 9.3(L) 11.6 - 15.2 g/dL 03/15/2023 15:36 [facility] HCT 30.7(L) 34.9 - 44.4 % 03/15/2023 15:36 [facility] MCV 65(L) 81 - 98 fL 03/15/2023 15:36 [facility] MCH 19.6(L) 26.7 - 33.3 pg 03/15/2023 15:36 [facility] Hypochromia 3+ 03/15/2023 15:36 [facility] MCHC 30.3(L) 32.1 - 35.9 g/dL 03/15/2023 15:36 [facility] RDW-CV 20.1(H) <14.7 % 03/15/2023 15:36 [facility] RDW-SD 45.5 <50.4 fl 03/15/2023 15:36 [facility] Anisocytosis 2+ 03/15/2023 15:36 [facility] PLT 282 141 - 377 K/cmm 03/15/2023 15:36 [facility] MPV 03/15/2023 15:36 [facility] Comment:Not Available % Neutrophils 87.8 % 03/15/2023 15:36 [facility] % Lymphocytes 2.8 % 03/15/2023 15:36 [facility] % Monocytes 7.6 % 03/15/2023 15:36 [facility] % Eosinophils 0.0 % 03/15/2023 15:36 [facility] % Basophils 0.3 % 03/15/2023 15:36 [facility] % Immature Grans 1.5 % 03/15/20 15:36 [facility] Absolute Neutrophils 11.25(H) 2.20 - 8.85 K/cmm 03/15/2023 15:36 [facility] Absolute Lymphocytes 0.36(L) 1.09 - 3.30 K/cmm 03/15/2023 15:36 [facility] Absolute Monocytes 0.97(H) 0.10 - 0.80 K/cmm 03/15/2023 15:36 [facility] Absolute Eosinophils 0.00(L) 0.03 - 0.61 K/cmm 03/15/2023 15:36 [facility] ABS Basophils 0.04 0.01 - 0.11 K/cmm 03/15/2023 15:36 [facility] Absolute Immature Grans 0.19(H) 0.00 - 0.06 K/cmm 03/15/2023 15:36 [facility] Type of Differential: Auto 03/15/2023 15:36 [facility] Blood VENOUS BLOOD / Unknown Venipuncture / Unknown 03/15/2023 15:01 EST 03/15/2023 15:06 EST Savana Andrews PA-C PACKAGES & DNA PROBE ORDERABLES Performing Organization Address [facility] de Phone Number [facility] [address] [place] [address] * (ABNORMAL) BLOOD GASES, VENOUS (03/15/2023 15:01 EST) pH, Venous 7.61(HH) 7.31 - 7.41 03/15/2023 15:29 [facility] pCO2, Venous 25(L) 41 - 51 mmHg 03/15/2023 15:29 [facility] pO2, Venous 19(L) 30 - 50 mmHg 03/15/2023 15:29 [facility] tCO2, Venous 26 22 - 28 mmol/L 03/15/2023 15:29 [facility] Temperature 37.0 C 03/15/2023 15:29 [facility] Comment:Body Temp not noted. 37 degrees assumed. O2 Saturation, Venous 36(L) 60 - 85 % 03/15/2023 15:29 [facility] Oxygen Therapy (FIO2) 03/15/2023 15:29 [facility] Comment:Oxygen therapy not n oted in system. Base Level 4.30(H) -2.00 - 3.00 mmol/L 03/15/2023 15:29 [facility] Blood VENOUS BLOOD / Unknown Venipuncture / Unknown 03/15/2023 15:01 EST 03/15/2023 15:06 EST Savana Andrews PA-C CHEMISTRY & BLOOD GA S ORDERABLES Performing Organization Address [facility]/ZIP Co de Phone Number [facility] [address] [place] [address] * LACTIC ACID WITH REFLEX - USE FOR INITIAL SEPSIS EVALUATION (03/15/2023 15:01 EST) Lactic Acid 1.9 <=2.0 mmol/L 03/15/2023 15:34 EST [facility] Blood VENOUS BLOOD / Unknown Venipuncture / Unknown 03/15/2023 15:01 EST 03/15/2023 15:06 EST Savana Andrews PA-C CHEMISTRY & BLOOD GA S ORDERABLES [facility] [address] [place] [address] * EKG 12-LEAD (03/15/2023 14:54 EST) 03/15/2023 14:5 4 EST Narrative [facility] EKG - 03/24/2023 8:33 EST ?The Emergency ? Test Date: ?2023-03-15 Pat Name: ? NELA BOWER ? Department: ?? ED ? Room: ? GT30 Gender: ? Female ? 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 [id number] : ?1970 ? Requested By: CYNTHIA Ames Order Number: [id number] ? Reading : ?? GABO HOFFMAN MD ? Measurements Intervals ?[place] ? Rate: ? 99 ? P: ?41 CO: ? 136 ?QRS: ?11 QRSD: ? 85 ? T: ?30 QT: ? 393 ? QTc: ?505 ? Interpretive Statements SINUS RHYTHM NONSPECIFIC T-WAVE ABNORMALITY Automated Interpretation. ??Provider Interpretation to follow. Compared to ECG 08/22/2022 08:50:54 T-wave abnormality now present Sinus tachycardia no longer present I reviewed the tracing and have either agreed or edited the findings in this report. Electronically Signed On 03-24-2023 08:33:18 EST by GABO HOFFMAN MD. Procedure Note Gabo Hoffman MD - 03/24/2023 [facility] Test Date: 2023-03-15 Pat Name: NELA BOWER Department: ED Room: [facility] Gender: Female Ventilated Rib Fitter: [id number] : 1970 Requested By: CYNTHIA Ames Order Number: [id number] Reading MD: GABO HOFFMAN MD Measurements Intervals [place] Rate: 99 P: 41 CO: 136 QRS: 11 QRSD: 85 T: 30 QT: 393 QTc: 505 Interpretive Statements SINUS RHYTHM NONSPECIFIC T-WAVE ABNORMALITY Automated Interpretation. Provider Interpretation to follow. Compared to ECG 08/22/2022 08:50:54 T-wave abnormality now present Sinus tachycardia no longer present I reviewed the tracing and have either agreed or edited the findings inthis report. Electronically Signed On 03-24-2023 08:33:18 EST by GABO CERVANTES. Ryan Guzman DO CARDIAC ECG ORDERABL ES [facility] EKG documented in this encounter Visit Diagnoses Diagnosis Pneumonia of right upper lobe due to infectious organism- Primary Hepatic steatosis Other chronic nonalcoholic liver disease Splenomegaly documented in this encounter Administered Medications Inactive Administered Medications - up to 3 most recent administrations Medication Order MAR Action Action Date Dose Rate Site acetaminophen (TYLENOL) tablet 1,000 mg 1,000 mg, oral, NOW X1, 1 dose, On Mon03/15/23 at 1515, STAT Given 03/15/2023 15:40 EST 1,000 mg doxycycline (VIBRA-TABS) tablet 100 mg 100 mg, oral, NOW X1, 1 dose, On Mon03/15/23 at 1845, STAT Given 03/15/2023 19:11 EST 100 mg fentaNYL citrate (PF) injection 50 mcg 50 mcg, intravenous, NOW X1, 1 dose, On Mon03/15/23 at 1515, STAT Given 03/15/2023 15:17 EST 50 mcg iohexoL (OMNIPAQUE 350) solution 100 mL 100 mL, intravenous, Once in imaging, 1 dose, Starting on Mon03/15/23 at 1703, Until Mon03/15/23 at 1730, Routine, Imaging Protocol Orders Given 03/15/2023 17:30 EST 95 mL iohexoL (OMNIPAQUE 350) solution 100 mL 100 mL, intravenous, Once in imaging, 1 dose, Starting on Mon03/15/23 at 1702, Until Mon03/15/23 at 1730, Routine, Imaging Protocol Orders Given 03/15/2023 17:30 EST 95 mL magnesium sulfate 2 g in water 50 mL 2 g, intravenous, Administer over 60 Minutes, NOW X1, 1 dose, On 03/15/23 at 1545, STAT New Bag 03/15/2023 15:50 EST 2 g morphine injection 4 mg 4 mg, intravenous, NOW X1, 1 dose, On 03/15/23 at 1545, STAT Given 03/15/2023 15:48 EST 4 mg ondansetron (PF) (ZOFRAN) injection 4 mg 4 mg, intravenous, NOW X1, 1 dose, On 03/15/23 at 1515, STAT Given 03/15/2023 15:17 EST 4 mg documented in this encounter Active and Recently Administered Medications Times are shown in EST. Scheduled Medication Order 03/13/2023 03/14/2023 03/15/2023 acetaminophen (TYLENOL) tablet 1,000 mg (COMPLETED) 1,000 mg, oral, NOW X1, 1 dose, On Mon03/15/23 at 1515, STAT 1540 (Given - Provid er: Penelope Pearson RN) doxycycline (VIBRA-TABS) tablet 100 mg (COMPLETED) 100 mg, oral, NOW X1, 1 dose, On Mon03/15/23 at 1845, STAT 1911 (Given - Provid er: Debra Broussard RN) fentaNYL citrate (PF) injection 50 mcg (COMPLETED) 50 mcg, intravenous, NOW X1, 1 dose, On Mon03/15/23 at 1515, STAT 1517 (Given - Provid er: Penelope Pearson RN) iohexoL (OMNIPAQUE 350) solution 100 mL (COMPLETED) 100 mL, intravenous, Once in imaging, 1 dose, Starting on Mon03/15/23 at 1703, Until Mon03/15/23 at 1730, Routine, Imaging Protocol Orders 1730 (Given - Provid er: Quita Littlejohn) iohexoL (OMNIPAQUE 350) solution 100 mL (COMPLETED) 100 mL, intravenous, Once in imaging, 1 dose, Starting on Mon03/15/23 at 1702, Until Mon03/15/23 at 1730, Routine, Imaging Protocol Orders 173 (Given - Provid er: Quita Littlejohn) magnesium sulfate 2 g in water 50 mL (COMPLETED) 2 g, intravenous, Administer over 60 Minutes, NOW X1, 1 dose, On Mon03/15/23 at 1545, STAT 1550 (New Bag - Prov ider: Penelope Pearson RN)[id number] (Completed - Provider: Penelope Pearson RN) morphine injection 4 mg (COMPLETED) 4 mg, intravenous, NOW X1, 1 dose, On Mon03/15/23 at 1545, STAT 1548 (Given - Provid er: Penelope Pearson RN) ondansetron (PF) (ZOFRAN) injection 4 mg (COMPLETED) 4 mg, intravenous, NOW X1, 1 dose, On Mon03/15/23 at 1515, STAT 1517 (Given - Provid er: Penelope Pearson RN) documented in this encounter Additional Health Concerns Infection Onset Date Last Indicated Resolved Time R/O COVID-19 03/15/2023 03/15/2023 03/15/2023 17:4 2 EST documented as of this encounter Care Teams Loan Workout Officer Relationship Specialty Start Date End Date Phoenix Polanco MD [address] [place] [phone] PCP - General 12/27/13 documented as of this encounter
--- OUTSIDE RECORDS SUMMARY | 2023-12-23 00:59 | XMS_ITS | Referral Summary ---
Author Organization [facility] Address [address] [place] [address] Care Team Providers Care Research Nutritionist Name Role Phone Phoenix Polanco MD Primary Care Provider + Allergies Active Allergy Reactions Criticality Noted Date Comments Penicillins Rash Medium 06/26/2019 Medications Medication Sig Dispensed Refills Start Date End Date Status acetaminophen (TYLENOL) 500 mg tablet Take 1,300 mg by mouth 3 times daily as needed for Pain. Active fluoxetine HCl (PROZAC ORAL) Take 60 mg by mouth daily. Active pregabalin (LYRICA) 100 mg capsule Take 1 Capsule by mouth 3 times daily. Active DULoxetine (CYMBALTA) 60 mg capsule Take 40 mg by mouth daily. Active diclofenac sodium 1 % gelIndications:Pain in joint, multiple sites,Malaise and fatigue,MIKEY positive,Elevated sed rate,Microcytic anemia Apply 2g-4g of 1% gel to affected area 4 times daily. Maximum total body dose of 1% gel should not exceed 32 g per day 1 Tube 2 06/26/2019 Active amitriptyline (ELAVIL) 5 mg/ml suspension Take 15 mg by mouth at bedtime. Active naltrexone (REVIA) 50 mg tablet Take 1 tablet daily for 7 days then increase to 2 tablets daily. 30 Tablet 1 08/26/2022 Active pantoprazole (PROTONIX) 40 mg tablet Take 1 Tablet by mouth 2 times daily. 60 Tablet 2 08/26/2022 Active thiamine (VITAMIN B1) 100 mg tablet Take 1 Tablet by mouth daily. 1 Tablet 08/27/2022 Active Active Problems Problem Noted Date Diagnosed Date E coli bacteremia 08/23/2022 Upper GI bleed 08/22/2022 Acute blood loss anemia 08/22/2022 Alcohol use disorder 08/22/2022 Alcohol withdrawal syndrome without complication ([facility]) 08/22/2022 History of gastric bypass 08/22/2022 Severe sepsis ([facility]) 08/22/2022 Lactic acidosis 08/22/2022 Low back pain radiating to right leg 11/05/2015 AC (acromioclavicular) joint arthritis 5 Glenoid labral tear 06/30/2014 Superior glenoid labrum lesion 06/26/2014 Right shoulder pain 04/07/2014 SLAP (superior labrum from anterior to posterior ) tear 04/07/2014 Anemia Depression Social History Tobacco Use Types Packs/Day Years [...] 14:43 EST Sexual Orientation Not on file Last Filed Vital Signs Vital Sign Reading Time Taken Comments Blood Pressure 103/68 03/15/2023 1911 EST Pulse 102 03/15/2023 191 EST Temperature 37.6 ??C (99.6 ??F) 03/15/2023 1748 EST Respiratory Rate 16 03/15/2023 191 EST Oxygen Saturation 98% 03/15/2023 191 EST Inhaled Oxygen Concentration - - Weight 86.2 kg (190 lb) 03/15/2023 1450 EST Height 165.1 cm (5' 5) 03/15/2023 1450 EST Body Mass Index 31.62 03/15/2023 1450 EST Functional Status Functional Status Response Date of [...] concentrating, remembering, or making decisions? No 10/01/2019 Plan of Treatment Not on file Medical Devices Implanted Type Area Regional Merchandising Manager Device Identifier Shelf Expiration Date Model / Serial / Lot Right Shoulder Hardware-Mr Safe Procedures Procedure Name Priority Date/Time Associated Diagnosis Comments HEPATITIS C AB W REFLEX TO HCV RNA BY PCR Routine 06/26/2019 14:53 EST Pain in joint, multiple sites Malaise and fatigue Microcytic anemia Elevated sed rate MIKEY positive from Last 3 Months or Most Recently Relevant to Health Maintenance Results * HEPATITIS C AB W REFLEX TO HCV RNA BY PCR (06/26/2019 14:53 EST) Hep C Antibody Negative Negative 06/27/2019 9:36 EST [facility] Blood VENOUS BLOOD / Unknown Venipuncture / Unknown 06/26/2019 14:53 EST 06/26/2019 15:05 EST Deonte Bass MD CHEMISTRY & BLOOD GA S ORDERABLES [facility] [address] [place] [address] from Last 3 Months or Most Recently Relevant to Health Maintenance Advance Directives For more information, please contact: [phone] * Full Code (Latest Code Status on File) Date Activated Date Inactivated Comments 08/22/2022 16:43 08/26/2022 18:29 Question Answer Comments When the patient has NO PULSE: Full Code / CPR Who Made the Decision? Default/Not Discussed * Full Code Date Activated Date Inactivated Comments 06/26/2014 11:10 06/26/2014 16:25 Question Answer Comments Reason for decision includes: Full code consistent with overall plan of care Who participated in the discussion? Not Discusse d Care Teams Research Nutritionist Relationship Specialty Start Date End Date Phoenix Polanco MD [address] [place] [address] [place] [phone] PCP - General 12/27/13
--- OUTSIDE RECORDS SUMMARY | 2023-12-23 00:59 | XMS_ITS | Clinical Summary ---
Author Organization [facility] Address [address] [place] [address] Care Team Providers Care Senior Energy Consultant Name Role Phone Phoenix Polanco MD Primary [...] disorder 08/22/2022 Alcohol withdrawal syndrome without complication ([facility]) 08/22/2022 History of gastric bypass 08/22/2022 Severe sepsis ([facility]) 08/22/2022 Lactic acidosis 08/22/2022 Low back pain radiating to right leg 11/05/2015 AC (acromioclavicular) joint arthritis 5 Glenoid labral tear 06/30/2014 Superior glenoid labrum lesion 06/26/2014 Right shoulder pain 04/07/2014 SLAP (superior labrum from anterior to posterior ) tear 04/07/2014 Anemia Depression Surgical History Surgery Date Site/Laterality Comments GASTRIC BYPASS SURGERY 10/06/2000 CHOLECYSTECTOMY, OPEN 10/06/2000 LIVER BIOPSY 10/06/2000 SHOULDER SURGERY right shoulder arthr oscopic posterior labral repair, anterior inferior labral repair, biceps tenotomy, distal clavicle excision, and mini open subpectoral biceps tenodesis on 06-26-14 TUBAL LIGATION BREAST SURGERY biopsy UTERINE FIBROID SURGERY Medical History Medical History Date Comments Anemia Night sweats Arm pain Numbness Joint stiffness Arm weakness Anxiety Arthritis Substance abuse ([facility]) Depression Depression Family History Medical History Relation Comments Cancer Maternal Aunt breast cancer Cancer Maternal Grandmother breast canc er Cancer Mother breast cancer Relation Status Comments Father Alive Maternal Aunt Alive Maternal Grandmother Mother Alive Social History Tobacco Use Types Packs/Day Years [...] 14:43 EST Sexual Orientation Not on file Obstetrics History Last Filed Vital Signs Vital Sign Reading [...] Body Mass Index 31.62 03/15/2023 1450 EST Plan of Treatment Health Maintenance Due Date Last Done Comments Pneumococcal Immunization (1 of 2 - PCV) 1976 Hepatitis B Vaccine (1 of 3 - 19+ 3-dose series) 04/22 COVID-19 Vaccine (2022- season) 2022 Hepatitis C Screen Completed 06/26/2019 Medical Devices Implanted Type Area Library Services Coordinator Device Identifier Shelf Expiration Date Model / [...] C Antibody Negative Negative 06/27/2019 9:36 EST [facility] Blood VENOUS BLOOD / Unknown Venipuncture / Unknown 06/26/2019 14:53 EST 06/26/2019 15:05 EST Deonte Bass MD CHEMISTRY & BLOOD GA S ORDERABLES [facility] [address] [place] [address] from Last 3 Months or Most Recently Relevant to Health Maintenance Advance Directives For more information, please contact: [phone] * Full Code (Latest Code Status on [...] the discussion? Not Discusse d Care Teams Senior Energy Consultant Relationship Specialty Start Date End Date Phoenix Polanco MD [address] [employer] [place] [phone] PCP - General 12/27/13
--- OUTSIDE RECORDS SUMMARY | 2023-12-23 01:00 | XMS_ITS | Encounter Summary ---
Author Organization [facility] Address [address] [place] [address] Care Team Providers Care Assistant Teacher Name Role Phone Phoenix Polanco MD Primary Care Provider + Encounter Details Date Type Department Care Team (Late st Contact Info) Description 06/02/2021 Lab Requisition [facility] Pathology & Laboratory Medicine - [facility] [address] [place] [address] Outr Resulting Lab, Provider Social History Tobacco Use Types Packs/Day Years Used Date Smoking Tobacco: Former Cigarettes 0.5 20 1 05/27/1996 - 03/26/2017 Smokeless Tobacco: Never Alcohol Use Standard Drinks/Week Comments No 0 (1 standard drink = 0.6 oz pur e alcohol) quit 2014 Interpersonal Safety Answer Date Record ed Physically [...] Procedure Name Priority Date/Time Associated Diagnosis Comments CHLAMYDIA/N. GONORRHOEAE AMPLIFIED NUCLEIC ACID Routine 06/02/2021 13:03 EST documented in this encounter Results * CHLAMYDIA/N. GONORRHOEAE AMPLIFIED RNA (06/02/2021 13:03 EST) Neisseria gonorrhoeae Result Negative Negative 06/03/2021 13:25 EST [facility] Chlamydia trachomatis Result Negative Negative 06/03/2021 13:25 EST [facility] Swab ENTIRE VAGINA / Unknown 06/02/2021 13:03 EST 06/02/2021 22:17 EST Provider Outr Resulting Lab MICROBIOLOGY - GENERAL ORDERABLES Performing Organization Address City/State/[facility] Co de Phone Number [facility] [address] [place] [address] documented in this encounter Visit Diagnoses Not on filedocumented in this encounter Additional Health Concerns Infection Onset Date Last Indicated Resolved Time R/O COVID-19 08/22/2022 08/22/2022 08/22/2022 11:1 1 EDT R/O COVID-19 03/15/2023 03/15/2023 03/15/2023 17:4 2 EST documented as of this encounter Care Teams Assistant Teacher Relationship Specialty Start Date End Date Phoenix Polanco MD [address] [place] [phone] PCP - General 12/27/13 documented as of this encounter
--- OUTSIDE RECORDS SUMMARY | 2023-12-23 01:00 | XMS_ITS | Encounter Summary ---
Author Organization [facility] Address [address] [place] [address] Care Team Providers Care Wreath And Garland Maker Name Role Phone Phoenix Polanco MD Primary Care Provider + Encounter Details Date Type Department Care Team (Latest Contact Info) Description 06/29/2020 7:43 EST - 06/29/2020 23:59 EST Hospital Encounter [facility] Xray [address] [place], [place] [id number] Discharge Disposition: Home or Self Care Social [...] 14:43 EST Sexual Orientation Not on file COVID-19 Exposure Response Date Recorded In the last month, have you been in contact with someone who was confirmed or suspected to have Coronavirus / COVID-19? No / Unsure 06/29/2020 9:44 EST documented as of this encounter Functional Status [...] No 10/01/2019 documented as of this encounter Medications at Time of Discharge [...] ORAL) Take 60 mg by mouth daily. pregabalin (LYRICA) 100 mg capsule Take 1 Capsule by mouth 3 times daily. hydrOXYchloroQUINE (PLAQUENIL) 200 mg tabletIndications:Inflam matory arthritis TAKE ONE TABLET BY MOUTH TWICE A DAY 180 Tab 3 11/13/2019 11/30/2020 documented as of this encounter Discharge Disposition Disposition Code Departure Means Destination Home or Self Care documented in this encounter Plan of Treatment Not on file documented as of this encounter Procedures Procedure Name Priority Date/Time Associated Diagnosis Comments PAIN CLINIC FL SACROILIAC JOINT INJECTION Routine 06/29/2020 10:24 EST documented in this encounter Results * PAIN CLINIC FL SACROILIAC JOINT INJECTION (06/29/2020 10:24 EST) Narrative 06/29/2020 11:10 EST This is a non-reportable exam. Lila Dykes MD IMG OTHER IMAGING OR DERABLES documented in this encounter Visit Diagnoses Not on filedocumented in this encounter Care Teams Wreath And Garland Maker Relationship Specialty Start Date End Date Phoenix Polanco MD [address] [place] [phone] PCP - General 12/27/13 documented as of this encounter
--- OUTSIDE RECORDS SUMMARY | 2023-12-23 01:00 | XMS_ITS | Encounter Summary ---
Author Organization [facility] Address [address] [place] [address] Care Team Providers Care Case Management Rn Name Role Phone Phoenix Polanco MD Primary Care Provider + Encounter Details Date Type Department Care Team (Late st Contact Info) Description 10/28/2020 Orders Only [facility] Orthopedic Surgery - [facility] [address] [place] [address] Lala Haque, RN [address] [place] [address] Arthralgia of right lower leg (Primary Dx) Social History Tobacco Use Types Packs/Day Years [...] No 10/01/2019 documented as of this encounter Progress Notes * Lala Haque RN - 10/28/2020 1317 EDT MRI rescheduled and patient notified. documented in this encounter Plan of Treatment Not on file documented as of this encounter Visit Diagnoses Diagnosis Arthralgia of right lower leg- Primary Pain in joint, lower leg documented in this encounter Care Teams Case Management Rn Relationship Specialty Start Date End Date Phoenix Polanco MD [address] [place] [phone] PCP - General 12/27/13 documented as of this encounter
--- OUTSIDE RECORDS SUMMARY | 2023-12-23 01:00 | XMS_ITS | Encounter Summary ---
Author Organization [facility] Address [address] [place] [address] Care Team Providers Care Wardrobe Supervisor Name Role Phone Phoenix Polanco MD Primary Care Provider + Reason for Visit * Reason Comments Back Pain low back- SI * Office Procedure (Routine/Next Available) - Order Cancelled Specialty Diagnoses / Procedures Referred By Janak miguel Referred To Contact Pain Medicine Diagnoses Chronic bilateral low back pain without sciatica Mesfin Pena PA-C [address] [facility] [place] [address] [facility] [address] [place] [address] Referral ID Status Reason Start Date Expiration Date Visits Requested Visits Authorized [id number] Order Cancelled Specialty Services Required 05/19/2020 11/15/2020 1 1 Encounter Details Date Type Department Care Team (Latest Contact Info) Description 06/29/2020 9:45 EST Procedure visit [facility] [address] [place] [address] Lila Dykes MD [address] [facility] [address] [place] [address] Sacroiliac joint dysfunction (Primary Dx) Social History Tobacco Use Types [...] 9:44 EST documented as of this encounter Last Filed Vital Signs Vital Sign Reading Time Taken Comments Blood Pressure 140/85 06/29/2020 1011 EST Pulse 82 06/29/2020 1011 EST Temperature 35.7 ??C (96.2 ??F) 06/29/2020 0944 EST Respiratory Rate 20 06/29/2020 1011 EST Oxygen Saturation 100% 06/29/2020 0944 EST Inhaled Oxygen Concentration - - Weight - - Height - - Body Mass Index - - documented in this encounter Functional Status Functional [...] No 10/01/2019 documented as of this encounter Patient Instructions * Patient Instructions* Renée Mcclure RN - 06/29/2020 9:45 EST [facility] [address] [id number] Patient Instructions You have had your bilateral Sacroiliac Joint Injection. The purpose of this procedure has been to place medication which may help relieve your pain. Steroid may be used to decrease the swelling and nerve irritation which may be causing your pain. The following information should help you over the next few days regarding what you may expect. ??? Please take it easy for the rest of today. ??? DO NOT drive a car for the remainder of the day. ??? If you feel sore where the needle(s) entered for the block or develop a flare-up of pain over the next few days, please use ice on the area. You may leave the ice on for up to 20 minutes at a time. Do not use heat, as this may cause swelling. ??? As long as your primary doctor has indicated no restrictions, you may take a mild pain medicine, such as acetaminophen (Tylenol), ibuprofen (Advil, Nuprin, Motrin IB, etc.) or aspirin, if needed. ??? The steroid injection usually takes a few days to become effective. On average, you may notice some relief in 3 -5 days. However, it may take up to 10 - 14 days to know whether the injection was helpful. ??? If the block causes numbness/weakness, it should wear off within a few hours. ??? If the area that the needle(s) were inserted becomes hot, red, swollen, or increasingly tender,or if you develop a fever (100.5 or greater) or chills along with these symptoms, please call our office immediately. ??? If you develop increasingly severe back pain, continued numbness or weakness of the legs or changes in your bladder or bowel functions, please call our office immediately. Instructions for follow-up If you have any questions about your block, please call Patient Education Topic: Method: Handout and Verbal Taught to: Patient Barriers: None Outcomes: independent and verbalized understanding Eloisa Gama RN documented in this encounter Progress Notes * Diana Katz MA - 06/29/2020 0945 EST [facility] Rooming Note Does patient have a Systems Administrator? yes Is patient NPO? (Solids since midnight & liquids for 4 hrs) no Blood Thinners: Is patient on Blood Thinners? no If yes, taking? If stopped, who authorized stopping? Related comments: Infections: Any recent infections, fever of illnesses? no If on antibiotics, is it 7-10 days past the date of completion of antibiotics? no : (for females of child-bearing age) Is there a chance current ? no Do you have any type of implanted device? no Vaccination: Have you had or are you planning to have a vaccination in the 2 weeks? no Other: * Lila Dykes MD - 06/29/2020 0945 EST Patient Name: Nela Granger : 1970 Date of Service: 06/29/2020 Requesting physician: Mesfin Pena PA-C Chief Complaint: Chief Complaint Patient presents with ??? Back Pain low back- SI Junior Loan Processor: Lila Dykes MD Screen Printing Stencil Preparer: None Procedure: Bilateral SIJ Interval History: Please refer to ortho note on 05/19/20 for full details regarding the patient's pain complaint. Patient currently denies any progressive weakness, unexplained fever, trauma or unexplained weight loss. The patient reports no recent changes in the character, quality, or distribution of the pain. There are no recent onset of new associated symptoms such as changes in strength, sensation, or bladder control. All previous medical records including current medications, anticoagulation status, anysigns of current infection, and new imaging were reviewed. Injection History: 06/29/2020: Bilateral SIJ Allergies Allergen Reactions ??? Penicillins Rash Current Outpatient Medications on File Prior to Visit Medication Sig Dispense Refill ??? acetaminophen (TYLENOL) 500 mg tablet Take 1,300 mg by mouth 3 times daily as needed for Pain. ??? amitriptyline (ELAVIL) 5 mg/ml suspension Take 15 mg by mouth at bedtime. ??? diclofenac sodium 1 % gel Apply 2g-4g of 1% gel to affected area 4 times daily. Maximum total body dose of 1% gel should not exceed 32 g per day 1 Tube 2 ??? DULoxetine (CYMBALTA) 60 mg capsule Take 40 mg by mouth daily. ??? fluoxetine HCl (PROZAC ORAL) Take 60 mg by mouth daily. ??? hydrOXYchloroQUINE (PLAQUENIL) 200 mg tablet TAKE ONE TABLET BY MOUTH TWICE A DAY 180 Tab 3 ??? pregabalin (LYRICA) 100 mg capsule Take 100 mg by mouth 3 times daily. No current facility-administered medications on file prior to visit. Patient Vitals for the past 24 hrs: BP Temp Temp src Pulse Resp SpO2 06/29/20 0944 116/66 35.7 ??C (96.2 ??F) Temporal 79 16 100 % Review of Systems: Negative for any fever, chills, nausea/vomiting, headaches, chest pain, palpitations, shortness of breath, bladder/bowel incontinence. No easy bruising, bleeding, anti-coagulation or known recent infections. Diagnostic studies:See EMR for details. Physical Exam: Vitals: BP 116/66 Pulse 79 Temp 35.7 ??C (96.2 ??F) (Temporal) Resp 16 SpO2 100% General: Patient is alert and oriented, no acute distress Lungs: symmetric chest rise, no evidence of labored breathing Skin: clear, warm, dry and intact and no rashes, bruises or petechiae noted over site of injection Assessment: 1. Sacroiliac joint dysfunction Plan: Ms. Nela Granger is a 50 y.o. female that presents to the pain clinic to undergo bilateral SIJ injection. All risks, benefits, and alternatives were thoroughly explained to Ms. Nela Granger who verbally communicated understanding of the management plan. I have independently reviewed the relevant imaging and plan to proceed with a bilateral SIJ injection. Followup: ortho Procedure: The patient gave informed written consent to proceed with this procedure following a detailed discussion of the risks and benefits associated with sacroiliac joint injection including but not limitedto infection, bleeding, allergic reaction, further exacerbation of current symptoms, neurological in jury, and lack of efficacy. The site was marked prior to the start of the procedure. The patient was then placed in the prone position, the skin over the area was prepped with chlorhexadine, and the site was marked and draped with sterile towels. Strict sterile technique was maintained throughout the procedure. A time out was performed with full staff present to identify the patient, verify the procedure being performed, and review allergies. Fluoroscopy was used to identify and align the corresponding sacroiliac joint. The skin and subcutaneous tissue over this level was anesthetized by injection of 1% lidocaine . A 22 guage 5 inch spinal needle was inserted into the posterior inferior aspect of the joint under fluoroscopic guidance bycoaxial techniqueAfter negative aspiration, 40 mg Depo-Medrol and 2 ml 0.5% Bupivacaine were injected into each joint for a total of 2.5 ml (5mL for bilateral joints). See nursing MAR for wasted medications The needle was then flushed and withdrawn. The patient tolerated the procedure well, there were no apparent complications, and she was discharged in stable condition. Written and verbal discharge instructions were reviewed with the patient prior to discharge. Pain Score (from Vitals) 06/29/2020 Initial score - Final score 6 Location BACK Comment - Emma Dykes MD 06/29/2020 9:57 * Renée Mcclure RN - 06/29/2020 0945 EST ATTENTION: This Checklist should be reviewed with the patient, provider, nurse/MA, and assistant professor of radiology in the room prior to local anesthetic administration. Site marking is to be done prior to patient being put in to position, preferably when initial exam is done. Sterile field, meds, abd flouro images should be prepared prior to the FINAL VERIFICATION/TIME-OUT. All activity in the room will cease so all team members participate in the surgical brief and have meaningful communication. The Attending is responsible for leading the final verification/daily moment process. The Nurse/MA will have in her possession the signed consent and the checklist when the surgical pause is performed so written and verbal verification are concluded to be in agreement. [Verified] Patient identifier #1: Full Name [Verified] Patient Identifier #2: Date of [Verified] Allergy to iodine, steroids, local anesthetics, band-aids? [Verified] Location of pain: Patient response: Left vs Right; cervical, thoracic, lumbar, etc. (verified written on consent) [Verified] Site marked [Verified] Safety devices in place: Grounding pad; X-rays available. [Verified] Consent signed in chart [Verified] Consented procedure matches scheduled procedure. documented in this encounter Plan of Treatment Not on file documented as of this encounter Visit Diagnoses Diagnosis Sacroiliac joint dysfunction- Primary Disorders of sacrum documented in this encounter Administered Medications Inactive Administered Medications - up to 3 most recent administrations Medication Order MAR Action Action Date Dose Rate Site bupivacaine (PF) (MARCAINE) 0.5% injection 4 mL 4 mL, intra-articular, NOW X1, 1 dose, On Mon06/29/20 at 1030, Routine Given by Other 06/29/2020 10:07 EST 4 mL methylPREDNISolone ACETATE (DEPO-MEDROL) injection 80 mg 80 mg, intra-articular, NOW X1, 1 dose, On Mon06/29/20 at 1030, Routine Given by Other 06/29/2020 10:07 EST 80 mg documented in this encounter Care Teams Wardrobe Supervisor Relationship Specialty Start Date End Date Phoenix Polanco MD [address] [place] [phone] PCP - General 12/27/13 documented as of this encounter
--- OUTSIDE RECORDS SUMMARY | 2023-12-23 01:00 | XMS_ITS | Encounter Summary ---
Author Organization [facility] Address [address] [place] [address] Care Team Providers Care Shirt Trimmer Name Role Phone Phoenix Polanco MD Primary Care Provider + Encounter Details Date Type Department Care Team (Latest Contact Info) Description 12/19/2019 Travel Social History Tobacco Use Types Packs/Day [...] have Coronavirus / COVID-19? No / Unsure 12/19/2019 16:05 EDT documented as of this encounter Functional Status [...] on filedocumented in this encounter Care Teams Shirt Trimmer Relationship Specialty Start Date End Date Phoenix Polanco MD [address] [place] [address] PCP - General 12/27/13 documented as of this encounter
--- OUTSIDE RECORDS SUMMARY | 2023-12-23 01:00 | XMS_ITS | Encounter Summary ---
Author Organization [facility] Address [address] [place] [address] Care Team Providers Care Manager Human Resources Name Role Phone Phoenix Polanco MD Primary Care Provider + Reason for Visit * Reason Comments Pain Encounter Details Date Type Department Care Team (Late st Contact Info) Description 07/15/2020 9:00 EDT Telemedicine [facility] - [address] [place] [address] Mesfin Pena PA-C [address] [facility] [place] [address] Chronic bilateral low back pain without sciatica (Primary Dx) Social History Tobacco Use Types [...] as of this encounter Progress Notes * Mesfin Pena PA-C - 07/15/2020 0900 EDT Ms. Granger is a 50 y.o. pleasant female who is having a ZOOM FU today, 07/15/2020, post B/L SI jointinjections (06/29/2020). The patient reports NO relief of symptoms after the injections at all. In 05/19/2020, Ms. Granger had a FU PRN. The patient reports NO significant improvement since her last visit. ?? In 02/19/2020, Ms.??Lefor??had a FU post??SPECT-CT??(02/03/2020). The patient reports NO significant improvement since??her??last visit. ? In 12/16/2019,??Ms.??Elkin??had a??FU post??B/L L4-L5/L5-S1 facet injections??(06/08/2017). The patient reports??some relief of symptoms after the injections for about a week.? In??03/08/2017, Ms.??Elkin??had a??FU??PRN. The patient reports??being back to preinjection status. ??She states that previous facet injections offered 70% relief for about a month.? In 01/29/2016,??Ms.??Lefor??had a??FU post L4-L5/L5-S1 B/L facet injections (01/15/2016). The patient reports 70% ongoing relief of symptoms after the injections. She is very please with the outcome. ? Ms.??Elkin??presented to the clinic for the fist time in 11/05/2015, with with 80% LBP and 20% RLE pain affecting the lateral aspect of her thigh; there is also continuous numbness in the medial aspect of her right knee. The patient reports acute onset of symptoms that started in December 2014. She cannot recall any precipitating event. Symptoms subsided within three weeks, but flare ups are still present. Symptoms are intermittent; flare ups are taking place every three weeks and last about aweek at a time. She has tried in-home exercise program as recommended by PT, but she had no significant improvement. She has not tried CHIRO or injections. Standing and walking alleviate her symptoms. Sitting and bending forward aggravate her symptoms. She rates her pain as /10.? Back exam performed today, 05/19/2020: GAIT: Normal. NIKKI'S: POS. Gaenslen's test: POS SI compression test: POS ? Today,??07/15/2020,, I independently reviewed the following: ?? SPECT-CT from prior work-up in December 2019:?? 1.??Minimally increased radiotracer uptake associated with right facet arthrosis at the L5-S1 level. 2. ??Minimally increased radiotracer uptake associated with degenerative arthrosis involving both sacroiliac joints. ? Plain radiographs (AP/Lat/Flex/Ex): 1. Five (5) non-rib bearing lumbar vertebrae 2. Facet arthropathy of the lower lumbar spine 3. Disc height reduction at L4-L5/L5-S1 conistent with degenerative disc disease 4. No fractures or pars defects noted ? MRI from prior work up in??September 2015: L2-L3: There is a small central disc herniation with mild mass effect on the ventral thecal sac. L3-L4: There is a small central disc herniation with mild mass effect on the ventral thecal sac. Global disc bulge and mild facet hypertrophy produce mild bilateral neural foraminal narrowing. L4-L5: There is a small central disc herniation with mild mass effect on the ventral thecal sac. Global disc bulge and mild facet hypertrophy produce mild bilateral neural foraminal narrowing. L5-S1: Global disc bulge produces minimal mass effect on the ventral thecal sac. A right paracentral annular tear is demonstrated. Global disc bulge and facet hypertrophy produce mild bilateral neural foraminal narrowing. ? Assessment 45 y.o. female with 1. LBP most likely from degenerative disc and facet disease??including sacroiliitis. SPECT concordant.?? 2. B/L L4-L5/L5-S1 facet injections??(06/08/2017)??provided some relief for one week only.?? 3. Patient has not been improving. 4. In 06/29/2020, B/L SI joint injection provided no relief of symptoms at all ? She has agreed to the following plan. ? Plan:?? 1. B/L L4-L5/L5-S1/S1-SA MBB.?? 2. Continue with in-home exercise program.?? 3. Continue activity as tolerated.?? 4. Follow-up post??MBB versus RFA -if no relief from MBB, discuss L5-S1 ALEXANDR.? CC: Dr. Sherri Mahoney?Chepe??was available for consultation; a consultation was not required. TELEMEDICINE VIDEO VISIT Today's visit was provided through telemedicine video conferencin minutes. The location of the patient : Home The location of the provider: Office The concept of ???Telemedicine?? has been described to the patient.? Patient has been informed of the anticipated benefits and possible risks.? Patient understands the information provided regardingtelemedicine, has had the opportunity to ask questions about this information, and all questions have been answered to patient???s satisfaction. Patient consents for the use of telemedicine in his/her medical care and authorizes the transmission of any relevant medical information to providers and their staff involved in patient???s medical or mental health care. The following staff and their role did participate in today's encounter visit: Mesfin Pena PA-C documented in this encounter Plan of Treatment Not on file documented as of this encounter Visit Diagnoses Diagnosis Chronic bilateral low back pain without sciatica- Primary documented in this encounter Care Teams Manager Human Resources Relationship Specialty Start Date End Date Phoenix Polanco MD [address] [place] [address] PCP - General 12/27/13 documented as of this encounter
--- OUTSIDE RECORDS SUMMARY | 2023-12-23 01:00 | XMS_ITS | Encounter Summary ---
Author Organization [facility] Address [address] [place] [address] Care Team Providers Care Correctional Supervisor Lieutenant Name Role Phone Phoenix Polanco MD Primary Care Provider + Reason for Visit * Reason Comments Other Encounter Details Date Type Department Care Team (Late st Contact Info) Description 11/26/2020 [facility] Rheumatology & Immunology - [facility] [address] [place], [place] [id number] Deonte Bass MD [address] [place] [phone] Other Social History Tobacco Use Types Packs/Day Years [...] No 10/01/2019 documented as of this encounter Ordered Prescriptions Prescription Sig Dispensed Refills Start Date End Da te hydrOXYchloroQUINE (PLAQUENIL) 200 mg tabletIndications:Inflam matory arthritis TAKE ONE TABLET BY MOUTH TWICE A DAY 180 Tablet 11/30/2020 08/22/2022 documented in this encounter Miscellaneous Notes * Telephone Encounter - Bridget Smith RN - 11/30/2020 9131 EDT Spoke with pt who stated has been over one year since eye exam. Has been out of Plaquenil for 1 and1/2 days. Pt stated in middle of divorce, has since moved. Address and phone number updated. No change in insurance until possibly when divorce is final. Pt uses different [facility], located on [facility]. Reminded pt to have eye exam done. Will send script for 3 month supply with NO refills. If pt runs due for another refill, need to call clinic with eye appt date for more refills. Pt verbalized understanding. Will also need to schedule FU appt. Last seen September 2019. * Telephone Encounter - Bridget Smith RN - 11/26/2020 1256 EDT Refill request from pt's pharmacy for Plaquenil. Unable to find in pt chart if eye exam was done. Message sent to pt inquiring if this was done. Will await pt reply before refilling medication. documented in this encounter Plan of Treatment Not on file documented as of this encounter Visit Diagnoses Diagnosis Inflammatory arthritis Unspecified inflammatory polyarthropathy documented in this encounter Discontinued Medications Medication Sig Discontinue Reason Start Date End Da te hydrOXYchloroQUINE (PLAQUENIL) 200 mg tabletIndications:Inflam matory arthritis TAKE ONE TABLET BY MOUTH TWICE A DAY 11/13/2019 11/30/2020 documented as of this encounter Care Teams Correctional Supervisor Lieutenant Relationship Specialty Start Date End Date Phoenix Polanco MD [address] [place] [phone] PCP - General 12/27/13 documented as of this encounter
--- OUTSIDE RECORDS SUMMARY | 2023-12-23 01:00 | XMS_ITS | Encounter Summary ---
Author Organization [facility] Address [address] [place] [address] Care Team Providers Care Detail Maker And Fitter Name Role Phone Phoenix Polanco MD Primary Care Provider + Encounter Details Date Type Department Care Team (Late st Contact Info) Description 12/17/2019 Orders Only [facility] Radiology - [facility] [address] [place], [place] [address] Aroldo Duran MD [address] [facility], [address] [place] [address] Social History Tobacco Use Types Packs/Day Years [...] on filedocumented in this encounter Care Teams Detail Maker And Fitter Relationship Specialty Start Date End Date Phoenix Polanco MD [address] [place] [phone] PCP - General 12/27/13 documented as of this encounter
--- OUTSIDE RECORDS SUMMARY | 2023-12-23 01:00 | XMS_ITS | Encounter Summary ---
Author Organization [facility] Address [address] [place] [address] Care Team Providers Care Echo Tech Name Role Phone Phoenix Polanco MD Primary Care Provider + Reason for Visit * Reason Comments Pain Encounter Details Date Type Department Care Team (Late st Contact Info) Description 02/19/2020 8:30 EDT Telemedicine [facility] - [address] [place] [address] Mesfin Pena PA-C [address] [facility] [place] [address] Chronic bilateral low back pain [...] have Coronavirus / COVID-19? No / Unsure 02/03/2020 9:33 EDT documented as of this encounter Functional [...] Progress Notes * Mesfin Pena PA-C - 02/19/2020 0830 EDT Ms. Granger is a 49 y.o. pleasant female who returns to the clinic today, 02/19/2020, for FU post SPECT-CT (02/03/2020). The patient reports NO significant improvement since her last visit. In 12/16/2019, Ms. Granger had a FU post B/L L4-L5/L5-S1 facet injections (06/08/2017). The patient reports some relief of symptoms after the injections for about a week. ?? In 03/08/2017, Ms.??Elkin??had a FU??PRN. The patient reports??being back to preinjection status. ??She states that previous facet injections offered 70% relief for about a month.? In 01/29/2016,??Ms.??Elkin??had a??FU post L4-L5/L5-S1 B/L facet injections (01/15/2016). [...] symptoms. She rates her pain as /10.? Today,??02/19/2020,, I independently reviewed the following: ?? SPECT-CT from prior work-up in December 2019: 1. Minimally increased radiotracer uptake associated with right facet arthrosis at the L5-S1 level. 2. Minimally increased radiotracer uptake associated with degenerative arthrosis involving both sacroiliac joints. Plain radiographs (AP/Lat/Flex/Ex): 1. Five (5) non-rib [...] most likely from degenerative disc and facet disease including sacroiliitis. SPECT concordant. 2. B/L L4-L5/L5-S1 facet injections (06/08/2017) provided some relief for one week only. ? She has agreed to the following plan. ? Plan:?? 1. B/L SI joint injections. 2. Continue with in-home exercise program. 3. Continue activity as tolerated. 4. Follow-up post B/L SI joint injections. ? Dr. Cooper was available for consultation; a consultation was not required. ?? TELEMEDICINE VIDEO VISIT Today's visit was provided through telemedicine video conferencin minutes The location of the patient : Home [...] Primary documented in this encounter Care Teams Echo Tech Relationship Specialty Start Date End Date Phoenix Polanco MD [address] [place] [address] PCP - General 12/27/13 documented as of this encounter
--- OUTSIDE RECORDS SUMMARY | 2023-12-23 01:00 | XMS_ITS | Encounter Summary ---
Author Organization [facility] Address [address] [place] [address] Care Team Providers Care Academic Affairs Director Name Role Phone Phoenix Polanco MD Primary Care Provider + Encounter Details Date Type Department Care Team (Latest Contact Info) Description 04/27/2020 10:13 EST - 04/27/2020 23:59 EST Hospital Encounter [facility] [address] [place] [address] Chronic pain of right knee Discharge Disposition: Home or Self Care Social [...] Procedure Name Priority Date/Time Associated Diagnosis Comments XR KNEE RIGHT 1-2 VIEWS Routine 04/27/2020 10:25 EST Chronic pain of right knee documented in this encounter Results * XR KNEE RIGHT 1-2 VIEWS (04/27/2020 10:25 EST) Anatomical Region Laterality Modality Lower Extremities Right Computed Radio graphy 04/27/2020 16:5 2 EST Impressions 04/27/2020 16:52 EST FINDINGS / IMPRESSION: * ??One view right knee * ??No significant patellofemoral osteophyte formation. Normal mineralization. Narrative 04/27/2020 16:52 EST EXAM/TECHNIQUE: XR KNEE RIGHT 1-2 VIEWS ??04/27/2020 10:20 AM HISTORY: ??Right knee pain COMPARISON: None. Procedure Note Thai Zarate MD - 04/27/2020 EXAM/TECHNIQUE: XR KNEE RIGHT 1-2 VIEWS 04/27/2020 10:20 AM HISTORY: Right knee pain COMPARISON: None. IMPRESSION FINDINGS / IMPRESSION: * One view right knee * No significant patellofemoral osteophyte formation. Normalmineralization. Briseyda Bynum NP IMG DIAGNOSTIC IMAGING ORDERABLES documented in this encounter Visit Diagnoses Diagnosis Chronic pain of right knee documented in this encounter Care Teams Academic Affairs Director Relationship Specialty Start Date End Date Phoenix Polanco MD [address] [place] [phone] PCP - General 12/27/13 documented as of this encounter
--- OUTSIDE RECORDS SUMMARY | 2023-12-23 01:00 | XMS_ITS | Encounter Summary ---
Author Organization [facility] Address [address] [place] [address] Care Team Providers Care Property Utilization Manager Name Role Phone Phoenix Polanco MD Primary Care Provider + Encounter Details Date Type Department Care Team (Latest Contact Info) Description 08/22/2022 Travel Social History Tobacco Use Types Packs/Day [...] Exposure Response Date Recorded In the last 10 days, have yo u been in contact with someone who was confirmed or suspected to have Coronavirus/COVID-19? No / Unsure 08/22/2022 8:41 EDT documented as of this encounter Functional [...] COVID-19 08/22/2022 08/22/2022 08/22/2022 11:1 1 EDT documented as of this encounter Care Teams Property Utilization Manager Relationship Specialty Start Date End Date Phoenix Polanco MD [address] [place] [phone] PCP - General 12/27/13 documented as of this encounter
--- OUTSIDE RECORDS SUMMARY | 2023-12-23 01:00 | XMS_ITS | Encounter Summary ---
Author Organization [facility] Address [address] [place] [address] Care Team Providers Care Natural Resource Technician Name Role Phone Phoenix Polanco MD Primary Care Provider + Reason for Visit * Reason Onset Date Comments Referral Request 04/02/2020 Encounter Details Date Type Department Care Team (Late st Contact Info) Description 04/02/2020 Telephone [facility] Interventional Pain [address] [place] [address] Unknown, Doctor MD Referral Request Social History Tobacco Use Types Packs/Day Years [...] No 10/01/2019 documented as of this encounter Miscellaneous Notes * Telephone Encounter - Arlene Anderson - 04/02/2020 1309 EST LM with PCP office referral department. Referral asks if pt should be starting opioids for pain relief. Informed office our clinic does not do an opioid pain consults. documented in this encounter Plan of Treatment Not on file documented as of this encounter Visit Diagnoses Not on filedocumented in this encounter Care Teams Natural Resource Technician Relationship Specialty Start Date End Date Phoenix Polanco MD [address] [place] [phone] PCP - General 12/27/13 documented as of this encounter
--- OUTSIDE RECORDS SUMMARY | 2023-12-23 01:00 | XMS_ITS | Encounter Summary ---
Author Organization [facility] Address [address] [place] [address] Care Team Providers Care Fisher Hand Line Name Role Phone Phoenix Polanco MD Primary Care Provider + Reason for Referral * Radiology Services (Routine) - Closed Specialty Diagnoses / Procedures Referred By Janak miguel Referred To Contact Nuclear Medicine Diagnoses Chronic bilateral low back pain without sciatica Procedures NM BONE SPECT Mesfin Pena PA-C [address] [place] [phone] Referral ID Status Reason Start Date Expiration Date Visits Re quested Visits Authorized [id number] Closed 12/16/2019 1 1 Reason for Visit * Reason Comments Pain Encounter Details Date Type Department Care Team (Late st Contact Info) Description 12/16/2019 14:30 EDT Office Visit [facility] Spine Program - [place] [address] [place] [address] Mesfin Pena PA-C [address] [place] [phone] Chronic bilateral low back pain without [...] Sign Reading Time Taken Comments Blood Pressure - - Pulse - - Temperature - - Respiratory Rate - - Oxygen Saturation - - Inhaled Oxygen Concentration - - Weight 113.4 kg (250 lb) 12/16/2019 1431 EDT Height 165.1 cm (5' 5) 12/16/2019 1431 EDT Body Mass Index 41.6 12/16/2019 1431 EDT documented in this encounter Functional Status Functional [...] Progress Notes * Mesfin Pena PA-C - 12/16/2019 1430 EDT Ms. Granger is a 49 y.o. pleasant female who returns to the clinic today, 12/16/2019, for FU post B/LL4-L5/L5-S1 facet injections (06/08/2017). The patient reports some relief of symptoms after the injections for about a week. In 03/08/2017, Ms. Granger had a FU PRN. The patient reports being back to preinjection status. She states that previous facet injections offered 70% relief for about a month. ? In 01/29/2016, had a FU post L4-L5/L5-S1 B/L facet injections (01/15/2016). The patient reports 70% ongoing relief of symptoms after the injections. She is very please with the outcome. ?Elkin??presented to the clinic for the fist time [...] her symptoms. She rates her pain as 1/10. ? Today, 12/16/2019,, I independently reviewed the following: ?? Plain radiographs (AP/Lat/Flex/Ex): 1. Five (5) non-rib [...] most likely from degenerative disc and facet disease. 2. B/L L4-L5/L5-S1 facet injections (06/08/2017) provided some relief for one week only. ? She has agreed to the following plan. ? Plan: 1. SPECT CT. 2. Continue with in-home exercise program. 3. Continue activity as tolerated. 4. Follow-up post SPECT CT. ? Dr. Clifton was available for consultation; a consultation was not required. documented in this encounter Plan of Treatment Not on file documented as of this encounter Results * NM BONE SPECT (02/03/2020 14:03 EDT) Anatomical Region Laterality Modality Body Nuclear Medicine 02/03/2020 14:3 9 EDT Impressions 02/03/2020 14:39 EDT 1. ??Minimally increased radiotracer uptake associated with right facet arthrosis at the L5-S1 level. 2. ??Minimally increased radiotracer uptake associated with degenerative arthrosis involving both sacroiliac joints. Narrative 02/03/2020 14:39 EDT NM BONE SPECT ??02/03/2020 1:00 PM Signs and Symptoms: ??Back pain or radiculopathy, > 6 wks Comparison: MRI lumbar spine from 10/04/2015. Lumbar spine radiograph from 11/05/2015. Technique: Two and one half hours after the IV injection of 19.4 mCi Tc-99m MDP, planar images of the lumbar spine ??were obtained. SPECT/CT images of the lumbar spine were also obtained. Findings: Planar images The distribution of radiotracer within the bones is normal. The kidneys are normal in position and demonstrate symmetric excretion. There is a normal clearance of radiotracer from the soft tissues. SPECT/CT Minimally increased radiotracer uptake associated with facet arthrosis at the L5-S1 level on the right. Minimally increased radiotracer uptake involving both sacroiliac joints is associated with mild sclerosis along both the sacral and iliac margins of both sacroiliac joints consistent with degenerative arthrosis.. 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 Jejunojejunostomy is within the left mid abdomen. Gallbladder is surgically absent. Procedure Note Benjie Pichardo MD - 02/03/2020 NM BONE SPECT 02/03/2020 1:00 PM Signs and Symptoms: Back pain or radiculopathy, > 6 wks Comparison: MRI lumbar spine from 10/04/2015. Lumbar spine radiograph from11/05/2015. Technique: Two and one half hours after the IV injection of 19.4 mCi Tc-99m MDP,planar images of the lumbar spine were obtained. SPECT/CT images of thelumbar spine were also obtained. Findings: Planar images The distribution of radiotracer within the bones is normal. The kidneysare normal in position and demonstrate symmetric excretion. There is anormal clearance of radiotracer from the soft tissues. SPECT/CT Minimally increased radiotracer uptake associated with facet arthrosis atthe L5- S1 level on the right. Minimally increased radiotracer uptake involving both sacroiliac joints isassociated with mild sclerosis along both the sacral and iliac margins ofboth sacroiliac joints consistent with degenerative arthrosis.. Low-dose CT obtained for attenuation correction and co-registration showsexpected postsurgical changes from prior Saji-en-Y gastric bypass.Jejunojejunostomy is within the left mid abdomen. Gallbladder issurgically absent. IMPRESSION 1. Minimally increased radiotracer uptake associated with right facetarthrosis at the L5-S1 level. 2. Minimally increased radiotracer uptake associated with degenerativearthrosis involving both sacroiliac joints. Mesfin Pena PA-C IMG NM ORDERAB LES documented in this encounter Visit Diagnoses Diagnosis Chronic bilateral low back pain without sciatica- Primary Chronic bilateral low back pain without sciatica documented in this encounter Care Teams Fisher Hand Line Relationship Specialty Start Date End Date Phoenix Polanco MD [address] [place] [address] [place] [phone] PCP - General 12/27/13 documented as of this encounter
--- OUTSIDE RECORDS SUMMARY | 2023-12-23 01:00 | XMS_ITS | Encounter Summary ---
Author Organization [facility] Address [address] [place] [address] Care Team Providers Care Liquefaction Supervisor Name Role Phone Phoenix Polanco MD Primary Care Provider + Encounter Details Date Type Department Care Team (Late st Contact Info) Description 10/26/2021 Lab Requisition [facility] Pathology & Laboratory Medicine - [facility] [address] [place] [address] Lazaro Harper MD [address] [place] [address] [phone] Encounter for other general examination Social History Tobacco Use Types Packs/Day Years [...] Procedure Name Priority Date/Time Associated Diagnosis Comments PAP TEST Today 10/21/2021 15:28 EDT Encounter for other general examination HPV DNA DETECTION WITH GENOTYPING, PCR Today 10/21/2021 15:28 EDT Encounter for other general examination documented in this encounter Results * HUMAN PAPILLOMAVIRUS (HPV) DETECTION-HIGH RISK TYPES (10/21/2021 15:28 EDT) HPV other High Risk types, PCR Negative Negative 11/04/2021 7:13 EDT [facility] Comment:No E6 or E7 mRNA is detected from HPV types 16,18,31,33,35,39,45,51,52,56,58,59,66, and 68 by aerospace control and warning systems mediated amplification. Papanicolaou smear specimen (specimen) CERVIX UTERI STRUCTURE / Unknown 10/21/2021 15:28 EDT 11/02/2021 10:11 EDT Lazaro Harper MD MICROBIOLOGY - GENERAL ORDERABLES [facility] [address] [place] [address] * PAP TEST (10/21/2021 15:28 EDT) Specimens A. Cervix and/or Endocervix , ThinPrep Imaging System with Manual Evaluation 11/04/2021 7:13 EDT [facility] Specimen Adequacy Satisfactory for Evaluation - transformation zone component present 11/04/2021 7:13 EDT [facility] General Categorization Negative for intraepithelial lesion or malignancy 11/04/2021 7:13 EDT [facility] Descriptive Diagnosis Reactive cellular changes associated with inflammation present (includes repair). 11/04/2021 7:13 EDT [facility] Attestation By the signature below, the attending physician certifies that they have personally conducted a gross and/or microscopic examination of the described specimens and rendered or confirmed the above diagnosis. 11/04/2021 7:13 EDT [facility] at 0713 Clinical History SEE BELOW 11/05/19 7:13 EDT [facility] HPV The result for the Human Papillomavirus (HPV) Detection-High Risk Types is Negative. No E6 or E7 mRNA is detected from HPV types 16,18,31,33,35,39 ,45,51,52,56,58,5 9,66, and 68 by aerospace control and warning systems mediated amplification.Candida ting was performed on specimen [id number] and was resulted on 11/04/2021 0708 EDT by CLAUDIA, LAB INSTRUMENT RESULTS IN 11/04/2021 7:13 EDT [facility] Performing Lab [facility] 11/04/2021 7:13 T [facility] Scanned Images 11/04/2021 7:13 EDT [facility] Papanicolaou smear specimen (specimen) CERVIX UTERI STRUCTURE / Unknown 10/21/2021 15:28 EDT 10/26/2021 14:17 EDT Lazaro Harper MD PATHOLOGY OR DERABLES [facility] [address] [place] [address] documented in this encounter Visit Diagnoses Diagnosis Encounter for other general examination documented in this encounter Additional Health Concerns Infection Onset Date Last Indicated Resolved Time R/O COVID-19 08/22/2022 08/22/2022 08/22/2022 11:1 1 EDT R/O COVID-19 03/15/2023 03/15/2023 03/15/2023 17:4 2 EST documented as of this encounter Care Teams Liquefaction Supervisor Relationship Specialty Start Date End Date Phoenix Polanco MD [address] [facility] [phone] PCP - General 12/27/13 documented as of this encounter
--- OUTSIDE RECORDS SUMMARY | 2023-12-23 01:00 | XMS_ITS | Encounter Summary ---
Author Organization [facility] Address [address] [place] [address] Care Team Providers Care Rehabilitation Services Aide Name Role Phone Phoenix Polanco MD Primary Care Provider + Encounter Details Date Type Department Care Team (Late st Contact Info) Description 10/21/2021 Lab Requisition [facility] Pathology & Laboratory Medicine - [facility] [address] [place] [address] Outr Resulting Lab, Provider Social History Tobacco [...] Procedure Name Priority Date/Time Associated Diagnosis Comments HSV (HERPES SIMPLEX VIRUS) MOLECULAR DETECTION, PCR Routine 10/21/2021 15:28 EDT documented in this encounter Results * (ABNORMAL) HERPES SIMPLEX VIRUS MOLECULAR DETECTION, PCR (10/21/2021 15:28 EDT) Herpes Simplex Virus Molecular Detection 1, PCR Negative Negative 10/22/2021 15:12 EDT [facility] Herpes Simplex Virus Molecular Detection 2, PCR Positive(A) Negative 10/22/2021 15:12 EDT [facility] Swab PERINEAL / Unknown 15:28 EDT 10/21/2021 21:55 EDT Provider Outr Resulting Lab MICROBIOLOGY - GENERAL ORDERABLES Performing Organization Address City/State/[facility] Co de Phone Number [facility] [address] [place] [address] documented in this encounter Visit Diagnoses Not on filedocumented in this encounter Additional Health Concerns Infection Onset Date Last Indicated Resolved Time R/O COVID-19 08/22/2022 08/22/2022 08/22/2022 11:1 1 EDT R/O COVID-19 03/15/2023 03/15/2023 03/15/2023 17:4 2 EST documented as of this encounter Care Teams Rehabilitation Services Aide Relationship Specialty Start Date End Date Phoenix Polanco MD [address] [place] [phone] PCP - General 12/27/13 documented as of this encounter
--- OUTSIDE RECORDS SUMMARY | 2023-12-23 01:00 | XMS_ITS | Encounter Summary ---
Author Organization [facility] Address [address] [place] [address] Care Team Providers Care Wind Tunnel Engineer Name Role Phone Phoenix Polanco MD Primary Care Provider + Encounter Details Date Type Department Care Team (Latest Contact Info) Description 06/29/2020 Travel Social History Tobacco Use Types Packs/Day [...] on filedocumented in this encounter Care Teams Wind Tunnel Engineer Relationship Specialty Start Date End Date Phoenix Polanco MD [address] [facility] [place] [phone] PCP - General 12/27/13 documented as of this encounter
--- OUTSIDE RECORDS SUMMARY | 2023-12-23 01:00 | XMS_ITS | Encounter Summary ---
Author Organization [facility] Address [address] [place] [address] Care Team Providers Care Him Manager Name Role Phone Phoenix Polanco MD Primary Care Provider + Reason for Visit * Reason Comments Other Encounter Details Date Type Department Care Team (Late st Contact Info) Description 11/12/2019 [facility] Rheumatology & Immunology - [facility] [address] [place], [place] [phone] Deonte Bass MD [address] [place] [phone] Other Social History Tobacco Use Types Packs/Day Years Used Date Smoking Tobacco: Former Cigarettes 0.5 20 1 05/27/1996 - 03/26/2017 Smokeless Tobacco: Never Alcohol Use Standard Drinks/Week Comments No 0 (1 standard drink = 0.6 oz pur e alcohol) quit 2014 Sex and Gender Information Value Date Recorded [...] End Da te hydrOXYchloroQUINE (PLAQUENIL) 200 mg tabletIndications:Inflamma tory arthritis TAKE ONE TABLET BY MOUTH TWICE A DAY 180 Tab 3 11/13/2019 11/30/2020 documented in this encounter Plan of Treatment Not on file documented as of this encounter Visit Diagnoses Diagnosis Inflammatory arthritis- Primary Unspecified inflammatory polyarthropathy documented in this encounter Discontinued Medications Medication Sig Discontinue Reason Start Date End Da te hydroxychloroquine (PLAQUENIL) 200 mg tabletIndications:Inflamm atory arthritis Take 1 Tab by mouth 2 times daily. 07/31/2019 11/13/2019 documented as of this encounter Care Teams Him Manager Relationship Specialty Start Date End Date Phoenix Polanco MD [address] [place] [phone] PCP - General 12/27/13 documented as of this encounter
--- OUTSIDE RECORDS SUMMARY | 2023-12-23 01:00 | XMS_ITS | Encounter Summary ---
Author Organization [facility] Address [address] [place] [address] Care Team Providers Care Sales Correspondent Name Role Phone Phoenix Polanco MD Primary Care Provider + Reason for Visit * Reason Comments Pain Encounter Details Date Type Department Care Team (Late st Contact Info) Description 05/19/2020 14:15 EST Office Visit [facility] Spine Program - [address] [place] [address] Mesfin Pena PA-C [address] [facility] [place] [address] Chronic bilateral low back pain [...] - - Weight 113.4 kg (250 lb) 05/19/2020 1413 EST Height 165.1 cm (5' 5) 05/19/2020 1413 EST Body Mass Index 41.6 05/19/2020 1413 EST documented in this encounter Functional Status [...] Progress Notes * Mesfin Pena PA-C - 05/19/2020 1415 EST Ms. Granger is a 50 y.o. pleasant female who returns to the clinic today, 05/19/2020, for FU PRN. Thepatient reports NO significant improvement since her last visit. In 02/19/2020, Ms. Granger had a FU post SPECT-CT (02/03/2020). The patient reports NO significant improvement since her last visit. ? In 12/16/2019, had a FU post??B/L L4-L5/L5-S1 facet injections??(06/08/2017). The patientreports??some relief of symptoms after the injections for about a week.? In??03/08/2017, .??Elkin??had a??FU??PRN. The patient reports??being back to preinjection status. ??She states that previous facet injections offered 70% relief for about a month.? In 01/29/2016,??Ms.??Elkin??had a??FU post L4-L5/L5-S1 B/L facet injections (01/15/2016). The patient reports 70% ongoing relief of symptoms after the injections. She is very please with the outcome. ? Ms.?Som??presented to the clinic for the fist time [...] Back exam performed today, 05/19/2020: GAIT: Normal. NKIKI'S: POS. Gaenslen's test: POS SI compression test: POS Today,??05/19/2020,, I independently reviewed the following: ?? SPECT-CT [...] sacroiliitis. SPECT concordant. 2. B/L L4-L5/L5-S1 facet injections??(06/08/2017)??provided some relief for one week only.?? 3. Patient has not been improving. ? She has agreed to the following plan. ? Plan:?? 1. B/L SI joint injections.?? 2. Continue with in-home exercise program.?? 3. Continue activity as tolerated.?? 4. Follow-up post?? B/L SI joint injections.? Citlalig??was available for consultation; a consultation was not required. documented in this encounter Plan of Treatment Not on file documented as of this encounter Visit Diagnoses Diagnosis Chronic bilateral low back pain without sciatica- Primary documented in this encounter Care Teams Sales Correspondent Relationship Specialty Start Date End Date Phoenix Polanco MD [address] [place] [phone] PCP - General 12/27/13 documented as of this encounter
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
--- OUTSIDE RECORDS SUMMARY | 2023-12-23 01:00 | XMS_ITS | Encounter Summary ---
Author Organization [facility] Address [address] [place] [address] Care Team Providers Care Maintenance Services Dispatcher Name Role Phone Phoenix Polanco MD Primary Care Provider + Reason for Visit * Reason Onset Date Comments Appointment Related 11/27/2019 Encounter Details Date Type Department Care Team (Late st Contact Info) Description 11/27/2019 Telephone [facility] Ophthalmology - [address] [address] Sara Long MD [address] [place] [address], [address] [place] [address] Appointment Related Social History Tobacco Use Types Packs/Day Years [...] encounter Miscellaneous Notes * Telephone Encounter - Catia Bonilla - 11/27/2019 1143 EDT Spoke with the patient about her bumped July appointment with Dr. Long. She stated that she recently got and she is waiting to hear from her insurance regarding coverage. At this time she declines to reschedule the visit, not knowing if her insurance will cover her visit with Dr. Long. She stated she may be seen in another office due to coverage. Invited a return call if she wished to reschedule the visit. Catia Bonilla 11/27/19 11:44 documented in this encounter Plan of Treatment Not on file documented as of this encounter Visit Diagnoses Not on filedocumented in this encounter Care Teams Maintenance Services Dispatcher Relationship Specialty Start Date End Date Phoenix Polanco MD [address] [place] [address] PCP - General 12/27/13 documented as of this encounter
--- OUTSIDE RECORDS SUMMARY | 2023-12-23 01:00 | XMS_ITS | Encounter Summary ---
Author Organization [facility] Address [address] [place] [address] Care Team Providers Care Lasting Room Supervisor Name Role Phone Phoenix Polanco MD Primary Care Provider + Encounter Details Date Type Department Care Team (Latest Contact Info) Description 02/03/2020 Travel Social History Tobacco Use Types Packs/Day [...] on filedocumented in this encounter Care Teams Lasting Room Supervisor Relationship Specialty Start Date End Date Phoenix Polanco MD [address] [place] [address] PCP - General 12/27/13 documented as of this encounter
--- OUTSIDE RECORDS SUMMARY | 2023-12-23 01:00 | XMS_ITS | Encounter Summary ---
Author Organization [facility] Address [address] [place] [address] Care Team Providers Care Irrigation Service Technician Name Role Phone Phoenix Polanco MD Primary Care Provider + Reason for Visit * Reason Onset Date Comments Other 02/19/2021 Encounter Details Date Type Department Care Team (Late st Contact Info) Description 02/19/2021 Telephone [facility] Sports Medicine Program - [address] [address] Mor Chanel MD [address] [place] [phone] Other Social History Tobacco Use Types Packs/Day [...] encounter Miscellaneous Notes * Telephone Encounter - Nirali Zee MA - 02/19/2021 5711 EDT 02/19/21: Email sent to PA department to obtain a new PA on right knee Monovisc injection, as patient did not show for her 02/09/21 appointment and has rescheduled to 03/02/21, but the prior authorization expires on 02/10/21. documented in this encounter Plan of Treatment Not on file documented as of this encounter Visit Diagnoses Not on filedocumented in this encounter Care Teams Irrigation Service Technician Relationship Specialty Start Date End Date Phoenix Polanco MD [address] [place] [address] PCP - General 12/27/13 documented as of this encounter
--- OUTSIDE RECORDS SUMMARY | 2023-12-23 01:00 | XMS_ITS | Encounter Summary ---
Author Organization [facility] Address [address] [place] [address] Care Team Providers Care Kennel Manager Dog Track Name Role Phone Phoenix Polanco MD Primary Care Provider + Reason for Referral * Radiology Services (Routine) - Closed Specialty Diagnoses / Procedures Referred By Contac t Referred To Contact Nuclear Medicine Diagnoses Chronic bilateral low back pain without sciatica Procedures NM BONE SPECT Mesfin Pena PA-C [address] [place] [address] Referral ID Status Reason Start Date Expiration Date Visits Re quested Visits Authorized [id number] Closed 12/16/2019 1 1 Reason for Visit * Radiology Services (Routine) - Closed Specialty Diagnoses / Procedures Referred By Contac lamont Referred To Contact Nuclear Medicine Diagnoses Chronic bilateral low back pain without sciatica Procedures NM BONE SPECT Mesfin Pena PA-C [address] [place] [address] Referral ID Status Reason Start Date Expiration Date Visits Re quested Visits Authorized [id number] Closed 12/16/2019 1 1 Encounter Details Date Type Department Care Team (Latest Contact Info) Description 02/03/2020 9:34 EDT Hospital Encounter [facility] Radiology Nuclear Medicine and PET - [address] [address] Chronic bilateral low back pain without sciatica Discharge Disposition: Home or Self Care Social [...] Procedure Name Priority Date/Time Associated Diagnosis Comments NM BONE SINGLE ZONE WITH SPECT/CT Routine 02/03/2020 14:03 EDT Chronic bilateral low back pain without sciatica documented in this encounter Results * NM BONE SPECT [...] with degenerativearthrosis involving both sacroiliac joints. Mesfin OLIVO NM ORDERAB LES documented in this encounter Visit Diagnoses Diagnosis Chronic bilateral low back pain without sciatica documented in this encounter Administered Medications Inactive Administered Medications - up to 3 most recent administrations Medication Order MAR Action Action Date Dose Rate Site technetium (Tc-99m) methylene diphosphonate (MDP) injection 18 millicurie 18 millicurie, intravenous, NOW X1, 1 dose, On 02/03/20 at 1100, Routine, Imaging Protocol Orders Given 02/03/2020 10:00 EDT 19.42 millicuries documented in this encounter Care Teams Kennel Manager Dog Track Relationship Specialty Start Date End Date Phoenix Polanco MD [address] [place] [address] [place] [address] PCP - General 12/27/13 documented as of this encounter
--- OUTSIDE RECORDS SUMMARY | 2023-12-23 01:00 | XMS_ITS | Encounter Summary ---
Author Organization [facility] Address [address] [place] [address] Care Team Providers Care Metal Sprayer Protective Coating Name Role Phone Phoenix Polanco MD Primary Care Provider + Encounter Details Date Type Department Care Team (Latest Contact Info) Description 01/19/2021 10:51 EDT - 01/19/2021 23:59 EDT Hospital Encounter [facility] [address] [place], [place] [id number] Right knee pain, unspecified chronicity Discharge Disposition: Home or Self Care Social [...] 3 times daily. hydrOXYchloroQUINE (PLAQUENIL) 200 mg tabletIndications:Infl ammatory arthritis TAKE ONE TABLET BY MOUTH TWICE A DAY 180 Tablet 11/30/2020 08/22/2022 ibuprofen (MOTRIN) 200 mg tablet Take 800 mg by mouth as needed for Pain (Has been often lately.). 08/26/2022 documented as of this encounter Discharge Disposition Disposition Code Departure Means Destination Home or Self Care documented in this encounter Plan of Treatment Not on file documented as of this encounter Procedures Procedure Name Priority Date/Time Associated Diagnosis Comments XR KNEE RIGHT 1-2 VIEWS Routine 01/19/2021 10:57 EDT Right knee pain, unspecified chronicity documented in this encounter Results * XR KNEE RIGHT 1-2 VIEWS (01/19/2021 10:57 EDT) Anatomical Region Laterality Modality Lower Extremities Right Computed Radio graphy 01/26/2021 15:2 3 EDT Impressions 01/26/2021 15:23 EDT FINDINGS / IMPRESSION: PA weightbearing view with flexion of both knees show no discrete fracture on either side. The medial and lateral femorotibial joint spaces are grossly preserved bilaterally. The lack of lateral and axial views limits the assessment for joint effusion and evaluation of the patellofemoral compartment on both knees. Mineralization is age appropriate. Soft tissues are grossly unremarkable. Narrative 01/26/2021 15:23 EDT EXAM/TECHNIQUE: XR KNEE RIGHT 1-2 VIEWS, XR KNEE LEFT 1-2 VIEWS ??01/19/2021 11:15 AM HISTORY: ?? Right knee pain / left for comparison COMPARISON: Radiographs of both knees dated May 02, 2019. Procedure Note Enrique Blanton MD - 01/26/2021 EXAM/TECHNIQUE: XR KNEE RIGHT 1-2 VIEWS, XR KNEE LEFT 1-2 VIEWS 01/19/2021 11:15 AM HISTORY: Right knee pain / left for comparison COMPARISON: Radiographs of both knees dated May 02, 2019. IMPRESSION FINDINGS / IMPRESSION: PA weightbearing view with flexion of both knees show no discrete fractureon either side. The medial and lateral femorotibial joint spaces aregrossly preserved bilaterally. The lack of lateral and axial views limitsthe assessment for joint effusion and evaluation of the patellofemoralcompartment on both knees. Mineralization is age appropriate. Soft tissuesare grossly unremarkable. Mor Chanel MD IMG DIAGNOSTIC IMAGING ORDERABLES documented in this encounter Visit Diagnoses Diagnosis Right knee pain, unspecified chronicity documented in this encounter Care Teams Metal Sprayer Protective Coating Relationship Specialty Start Date End Date Phoenix Polanco MD [address] [facility] [place] [address] PCP - General 12/27/13 documented as of this encounter
--- OUTSIDE RECORDS SUMMARY | 2023-12-23 01:00 | XMS_ITS | Encounter Summary ---
Author Organization [facility] Address [address] [place] [address] Care Team Providers Care Manager Terminal Name Role Phone Phoenix Polanco MD Primary Care Provider + Encounter Details Date Type Department Care Team (Latest Contact Info) Description 01/19/2021 10:50 EDT Hospital Encounter [facility] [address] [place] [address] Right knee pain, unspecified chronicity Discharge Disposition: [...] Priority Date/Time Associated Diagnosis Comments XR KNEE LEFT 1-2 VIEWS Routine 01/19/2021 10:57 EDT Right knee pain, unspecified chronicity documented in this encounter Results * XR KNEE LEFT 1-2 VIEWS (01/19/2021 10:57 EDT) Anatomical Region Laterality Modality Lower Extremities Left Computed Radio graphy 01/26/2021 15:2 3 EDT [...] chronicity documented in this encounter Care Teams Manager Terminal Relationship Specialty Start Date End Date Phoenix Polanco MD [address] [place] [address] PCP - General 12/27/13 documented as of this encounter
--- OUTSIDE RECORDS SUMMARY | 2023-12-23 01:00 | XMS_ITS | Encounter Summary ---
Author Organization [facility] Address [address] [place] [address] Care Team Providers Care Doctor Assistant Name Role Phone Phoenix Polanco MD Primary Care Provider + Reason for Visit * Reason Onset Date Comments Appointment Related 01/09/2020 Encounter Details Date Type Department Care Team (Late st Contact Info) Description 01/09/2020 Telephone [facility] Rheumatology & Immunology - [facility] [address] [place], [place] [phone] Deonte Bass MD [address] [place] [phone] Appointment Related Social History Tobacco Use Types [...] encounter Miscellaneous Notes * Telephone Encounter - Veronica Rosenberg - 01/09/2020 1719 EDT PAS Message: patient called to cancel appointment with Deonte Bass MD on 01/09 at 11:40 due to work conflict. Patient would like a call back to reschedule? She'll call documented in this encounter Plan of Treatment Not on file documented as of this encounter Visit Diagnoses Not on filedocumented in this encounter Additional Health Concerns Infection Onset Date Last Indicated Resolved Time R/O COVID-19 08/22/2022 08/22/2022 08/22/2022 11:1 1 EDT R/O COVID-19 03/15/2023 03/15/2023 03/15/2023 17:4 2 EST documented as of this encounter Care Teams Doctor Assistant Relationship Specialty Start Date End Date Phoenix Polanco MD [address] [place] [phone] PCP - General 12/27/13 documented as of this encounter
--- OUTSIDE RECORDS SUMMARY | 2023-12-23 01:00 | XMS_ITS | Encounter Summary ---
Author Organization [facility] Address [address] [place] [address] Care Team Providers Care At Risk Paraprofessional Name Role Phone Phoenix Polanco MD Primary Care Provider + Reason for Visit * Reason Comments Knee Pain Right knee pain and is here to go over her MRI Follow-up Encounter Details Date Type Department Care Team (Latest Contact Info) Description 01/04/2021 14:00 EDT Office Visit [facility] Orthopedic Surgery - [facility] [address] [place] [address] Briseyda Bynum NP [address] [place] [address] Primary osteoarthritis of right knee (Primary Dx); 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 Right Knee - Follow-up ??? Knee Pain Right knee pain and is here to go over her MRI Patient Active Problem List Diagnosis Date Noted ??? Depression ??? Low back pain radiating to right leg 11/05/2015 ??? AC (acromioclavicular) joint arthritis 06/30/2014 ??? Glenoid labral tear 06/30/2014 ??? Superior glenoid labrum lesion 06/26/2014 ??? Right shoulder pain 04/07/2014 ??? SLAP (superior labrum from anterior to posterior) tear 04/07/2014 ??? Anemia SUBJECTIVE: I am seeing the patient today for MRI follow up. It is her RIGHT knee; she is a past patient of for her shoulder and would like to see him again. She describes catching and locking of the right knee. Past Medical History: Diagnosis Date ??? Anemia ??? Anxiety ??? Arm pain ??? Arm weakness ??? Arthritis ??? Depression ??? Depression ??? Joint stiffness ??? Night sweats ??? Numbness ??? Substance abuse ([facility]) Past Surgical History: Procedure Laterality Date ??? BREAST SURGERY biopsy ??? CHOLECYSTECTOMY, OPEN 10/06/2000 ??? GASTRIC BYPASS SURGERY 10/06/2000 ??? LIVER BIOPSY 10/06/2000 ??? SHOULDER SURGERY right shoulder arthroscopic posterior labral repair, anterior inferior labral repair, biceps tenotomy, distal clavicle excision, and mini open subpectoral biceps tenodesis on 06-26-14 ??? TUBAL LIGATION ??? UTERINE FIBROID SURGERY Current Outpatient Medications Medication ??? acetaminophen (TYLENOL) 500 mg tablet ??? amitriptyline (ELAVIL) 5 mg/ml suspension ??? diclofenac sodium 1 % gel ??? DULoxetine (CYMBALTA) 60 mg capsule ??? fluoxetine HCl (PROZAC ORAL) ??? hydrOXYchloroQUINE (PLAQUENIL) 200 mg tablet ??? pregabalin (LYRICA) 100 mg capsule No current facility-administered medications for this visit. Allergies Allergen Reactions ??? Penicillins Rash REVIEW OF SYSTEMS: Documented on the patient intake form. These were reviewed by me. Pertinent positives mentioned above. REVIEW OF IMAGING: .Right KNEE MRI was visualized independently by myself and shows Narrative &Impression MR KNEE WO CONTRAST RIGHT 12/22/2020 7:00 AM ?? CLINICAL HISTORY: internal derangement/catching/locking, r/o medial meniscal tear warranting surgery ?? TECHNIQUE: Routine multiplanar and multisequence MR images of the right knee were obtained without contrast administration. ?? COMPARISON: Knee radiographs dated April 27, 2020 and October 01, 2019. ?? FINDINGS: ?? Cruciate Ligaments: ACL: Intact. PCL: Intact. ?? Medial Compartment: Medial Meniscus: There is no discrete tear of the medial meniscus, however there is partial extrusion of the meniscus into the medial gutter with suspected partially torn posterior root ligament. Cartilage: There is high-grade thinning on the weightbearing portion of the medial femoral condyle with milder chondral thinning on the weightbearing portions of the medial tibial plateau. Medial and Posteromedial Supporting Structures: There is bowing from mass effect secondary to the after mentioned extruded meniscus without evidence of discrete tearing. ?? Lateral Compartment: Lateral Meniscus: No discrete tear. Cartilage: There is a focal area of basilar, chondral delamination on the mesial aspect of the weightbearing portion of the lateral tibial plateau, which measures approximately 6 mm (coronal PD image#19, sagittal T2 image #17) Lateral and Posterolateral Supporting Structures: Intact. ?? Patellofemoral Compartment: Extensor Mechanism: Intact. Cartilage: There is minimal superficial irregularity and the patellar cartilage with preserved thickness. There is a small focus of chondrosis at the junction of the medial trochlea and anterior aspect of the medial femoral condyle (sagittal T2 image #12, axial PD image #15). [place]: Intact. ?? Bones: No abnormal bone marrow signal. ?? Joint Space: Small joint effusion with findings of synovitis in the posterior aspect of Hoffa's fatpad. Moderate sized Elizabeth's cyst which measures 5 centimeters ?? Extra-articular Soft Tissues: Unremarkable. ? IMPRESSION MRI RIGHT KNEE: 1. Partial extrusion of the medial meniscus into the medial gutter with suspicion of a partial undersurface tear involving the posterior root ligament. No discrete medial meniscus tear seen. Alternatively, the meniscal extrusion can be related to at least moderate joint space narrowing in the medial femorotibial ?? 2. High-grade chondral thinning along the weightbearing portion of the medial femoral condyle, milder chondral thinning along the responding medial tibial plateau. ?? 3. Focal area of basilar, chondral delamination on the mesial aspect of the weightbearing portion of the lateral tibial plateau, measuring approx. 6 mm in length. ?? 4. Small right knee joint effusion with findings of synovitis. Elizabeth's cyst which measures up to 5 cm in length. ASSESSMENT: DJD right knee Degenerative MMT MEDICAL DECISION-MAKING and PLAN: Patient Education: She will meet with Dr. Chanel to discuss any surgical options. She also asked me as she was leaving to look at her ankle (left) She had pain over the posterior tib and ATFL. No real laxity to drawer testing. Pain with ROM, inversion/eversion. N/V status intact I would recommend an ASO brace she obtain through online sources and gave her a tubi dialysis social worker. Diagnostic and Non-operative treatment plan: As a result of our discussion, we have agreed to proceed with the following diagnostic plan: An appropriate informed choice non-operative treatment discussion was completed and we have collectively agreed to proceed with the following therapeutic plan: Continued activity modification to limit symptoms I considered having her meet with a health softball coach to discuss lifestyle management of her pain. Will hold off until she sees Dr. Chanel. ICD-10-CM ICD-9-CM 1. Primary osteoarthritis of right knee M17.11 715.16 AMB CONS/FOLLOW UP ORTHOPEDICS 2. 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 Chanel for her right knee. ASO for her left ankle. I spent a total of 30 minutes on the date of this encounter meeting with the patient and reviewing documentation/coordinating care as described in the above note. No procedures were performed at the time of the visit. 2 Dr. Dennison was available for consultation. Discharge summary was scanned indicating final diagnosis, findings, plan, medications administered,prescriptions written, prescriptions dispensed, and instructions to patient. I discussed all of the above verbally with patient, no barriers to understanding. The patient indicated understanding and agrees to the above plan. 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
--- OUTSIDE RECORDS SUMMARY | 2023-12-23 01:00 | XMS_ITS | Encounter Summary ---
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 Briseyda Bynum NP [address] [place] [address] Mor Chanel MD [address] [place] [phone] Referral ID Status Reason Start Date Expiration Date Visits Requested Visits Authorized [id number] Order Cancelled Specialty Services Required 01/04/2021 1 1 Encounter Details Date Type Department Care Team (Latest Contact Info) Description 01/19/2021 10:00 EDT Office Visit [facility] - [address] [place] [address] Mor Chanel MD [address] [place] [phone] Right knee pain, unspecified chronicity (Primary Dx); Primary osteoarthritis of right knee Social History Tobacco Use [...] as of this encounter Progress Notes * Laverne Araya MD - 01/19/2021 1000 EDT Chief complaint: Right knee pain HPI: Patient has had about 2 years of right knee pain, which acutely worsened in March 2020 after she tripped over a hose and fell directly onto the right knee onto a tile floor. Since then she has been taking NSAIDs which helped somewhat with the knee pain, of note she takes NSAIDs at baseline due to her fibromyalgia. She is had 1 corticosteroid injection on 04/27/2020 with Briseyda Bynum which resulted in approximately 1 day of relief of the knee pain. Has not had prior surgery on this knee, no bracing, no physical therapy. She describes the pain as worse when standing, walking, or with any activity longer than about 20 minutes. Pain improves with ice, resting, diclofenac gel, NSAIDs, acetaminophen. Occasionally has numbness on the medial aspect of her knee. PMH: Fibromyalgia, lumbar spine degeneration Medications: Duloxetine, pregabalin PSH: 06/26/2014 (Dr. Chanel) right arthroscopic anterior and posterior labral repair, arthroscopic distal clavicle excision, mini open subpectoral biceps tenodesis, tubal ligation, gastric bypass, uterine ablation Social history: Lives in [place] with her adult daughter, is in the process of a divorce. 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 She has a sit and stand desk and can tolerate approximately 15 minutes of standing every hour. Objective: Examination of bilateral lower extremities demonstrates hypersensitivity along the entire medial aspect of the knee extending proximal and distal to the joint line, with the most significant tenderness along the medial joint line. Pain with Stephon with internal rotation of the tibia. Sensation slightly decreased in the medial aspect of the calf.. Slight increased laxity with Romaine, which is symmetric to the contralateral side. No increased laxity with varus or valgus stress or posterior drawer.. Crepitus within the knee with range of motion. Palpable DP pulses bilaterally Imagin01/19/2021 bilateral weightbearing PA flexion; 10/01/2019 bilateral weightbearing PA radiographs demonstrate mild amount of medial joint space narrowing 12/22/2020 right knee MRI demonstrates no discrete medial meniscal tear, medial meniscus extrusion cartilage degeneration throughout the medial compartment both on the femoral and tibial side, Elizabeth'scyst Assessment and plan: 50-year-old female with right knee osteoarthritis. We discussed that arthroscopic surgery would likely not benefit her at this time as there is no target. We discussed other options for her osteoarthritis including physical therapy, weight loss (which she is doing a great job already of working on). We will give her a prescription for medial offloading brace as well as submit for prior authorization for gel injection. LAVERNE ARAYA MD 01/19/2021 11:13 Attestation statement: I performed or was present during the sharpe or critical portions of the visit and participated in the management of the patient. I agree with the findings and plan of care documented in the resident's/fellow's note.' documented in this encounter Plan of Treatment Not on file documented as of this encounter Results * XR KNEE RIGHT [...] Mor Chanel MD IMG DIAGNOSTIC IMAGING ORDERABLES * XR KNEE LEFT 1-2 VIEWS (01/19/2021 [...] Visit Diagnoses Diagnosis Right knee pain, unspecified chronicity- Primary Primary osteoarthritis of right knee Primary localized osteoarthrosis, lower leg Right knee pain, unspecified chronicity Right knee pain, unspecified chronicity documented in this encounter Historical Medications * This list may reflect changes made after this encounter. Medication Sig Dispensed Refills Start Date End Date ibuprofen (MOTRIN) 200 mg tablet Take 800 mg by mouth as needed for Pain (Has been often lately.). 08/26/2022 added in this encounter Orders Equipment Count Last Ordered Date First Orde red Date GENERIC ORTHO VENDOR DME 1 01/19/2021 documented in this encounter Care Teams Nutrition Internship Relationship Specialty Start Date End Date Phoenix Polanco MD [address] [place] [address] PCP - General 12/27/13 documented as of this encounter
--- OUTSIDE RECORDS SUMMARY | 2023-12-23 01:00 | XMS_ITS | Encounter Summary ---
Author Organization [facility] Address [address] [place] [address] Care Team Providers Care Repair Service Clerk Name Role Phone Phoenix Polanco MD Primary Care Provider + Encounter Details Date Type Department Care Team (Late st Contact Info) Description 10/02/2019 Telephone [facility] Rheumatology & Immunology - [facility] [address] [place], [place] [phone] Romero Spears NP [address] [facility] [place] [address] Social History Tobacco Use Types [...] encounter Miscellaneous Notes * Telephone Encounter - Romero Spears APRN - 10/02/2019 0905 EDT Spoke with Pt- reviewed mild bilateral OA with bilateral knee xray with mild OA medial femorotibialand patellofemoral joint compartments and small Suprapatellar effusion right, minimal suprapatellareffusion left. This can be mechanical. EKG doing well- can continue with HCQ and fluoxetine, can have repeat EKG in 6 months if continues on HCQ. Pt did not have any further questions. documented in this encounter Plan of Treatment Not on file documented as of this encounter Visit Diagnoses Not on filedocumented in this encounter Additional Health Concerns Infection Onset Date Last Indicated Resolved Time R/O COVID-19 08/22/2022 08/22/2022 08/22/2022 11:1 1 EDT R/O COVID-19 03/15/2023 03/15/2023 03/15/2023 17:4 2 EST documented as of this encounter Care Teams Repair Service Clerk Relationship Specialty Start Date End Date Phoenix Polanco MD [address] [place] [address] PCP - General 12/27/13 documented as of this encounter
--- OUTSIDE RECORDS SUMMARY | 2023-12-23 01:00 | XMS_ITS | Encounter Summary ---
Author Organization [facility] Address [address] [place] [address] Care Team Providers Care Commercial Construction Estimator Name Role Phone Phoenix Polanco MD Primary Care Provider + Encounter Details Date Type Department Care Team (Late st Contact Info) Description 2020 Orders Only [facility] Orthopedic Surgery - [facility] [address] [place] [address] Briseyda Bynum NP [address] [place] [phone] Chronic pain of right knee (Primary Dx) Social History Tobacco Use Types [...] significant patellofemoral osteophyte formation. Normalmineralization. Briseyda Bynum SPOT WASHER IMG DIAGNOSTIC IMAGING ORDERABLES documented in this encounter Visit Diagnoses Diagnosis Chronic pain of right knee- Primary Chronic pain of right knee documented in this encounter Care Teams Commercial Construction Estimator Relationship Specialty Start Date End Date Phoenix Polanco MD [address] [place] [phone] PCP - General 12/27/13 documented as of this encounter
--- OUTSIDE RECORDS SUMMARY | 2023-12-23 01:00 | XMS_ITS | Encounter Summary ---
Author Organization [facility] Address [address] [place] [address] Care Team Providers Care Foundry Finisher Name Role Phone Phoenix Polanco MD Primary Care Provider + Reason for Visit * Reason Onset Date Comments Appointment Related 02/19/2021 Encounter Details Date Type Department Care Team (Late st Contact Info) Description 02/19/2021 Telephone [facility] Sports Medicine Program - [address] [address] Mor Chanel MD [address] [place] [phone] Appointment Related Social History Tobacco Use Types [...] Encounter - Nirali Zee MA - 02/19/2021 0247 EDT Left a voicemail. Appointment scheduled on 03/02/21 at 3 PM. Please call the scheduling line at [phone] to reschedule, if needed. documented in this encounter Plan of Treatment Not on file documented as of this encounter Visit Diagnoses Not on filedocumented in this encounter Care Teams Foundry Finisher Relationship Specialty Start Date End Date Phoenix Polanco MD [address] [place] [phone] PCP - General 12/27/13 documented as of this encounter
--- OUTSIDE RECORDS SUMMARY | 2023-12-23 01:00 | XMS_ITS | Encounter Summary ---
Author Organization [facility] Address [address] [place] [address] Care Team Providers Care Automotive Sales Professional Name Role Phone Phoenix Polanco MD Primary Care Provider + Reason for Visit * Auth/Cert (Routine) Specialty Diagnoses / Procedures Referred By Janak miguel Referred To Contact Diagnoses Upper GI bleed Alcohol withdrawal syndrome without complication ([facility]) Referral ID Status Reason Start Date Expiration Date Visits Re quested Visits Authorized [id number] 1 1 Encounter Details Date Type Department Care Team (Late st Contact Info) Description 08/25/2022 16:14 EDT Anesthesia Event [facility] Endoscopy - [facility] [place] [address] [place], [place] [address] Phan Thomas MD [address] [facility], [address] [place] [phone] Deborah Chase MD [address] [place] [phone] Anesthesia Record Procedure Summary Procedure Name Responsible Anesthesiologist Anesthesia Start Time Anesthesia Stop Time UPPER ENDOSCOPY Phan Thomas MD 08/25/22 1614 08/25/22 1631 Events Date Time Event Comment 08/25/2022 1614 An Start The patient was re-evaluated immediately before moderate or deep sedation use, before anesthesia induction, or before the anesthesia procedure. 1614 An Start Data 1616 Anesthesia Ready 1628 an stop data 1631 An Stop 1631 Handoff to RN I completed my handoff to the receiving nurse during which we: 1. Identified the patient 2. Identified the responsible provider 3. Reviewed the pertinent medical history 4. Discussed the surgical course 5. Reviewed intra-op anesthesia management and issues during anesthesia 6. Set expectations for post-procedure period 7. Allowed opportunity for questions and acknowledgement of understanding. Meds Name Total propOFol (DIPRIVAN) injection 50 mg propOFol injection 150,345 mcg * Agents Name O2 N2O Air Aux O2 flow * Blood No blood administrations on file. Lines, Drains, and Airways Type Details Placement Removal Peripheral IV 08/25/22; 1306; 08/22 05/16; 20; 1.25; B Cota Introcan; Anterior, Left; Forearm; Inserted by RN; 1; None; 2% Chlorhexidine with IPA; 08/26/22; 1630; Discharged; No complications, Dressing applied 08/25/22 1306 by Mason Vicente RN 08/26/22 1630 by Jackeline Garvey RN documented in this encounter Social History Tobacco Use Types Packs/Day Years [...] No 10/01/2019 documented as of this encounter OR Notes * Anesthesia Postprocedure Evaluation - Phan Thomas MD - 08/25/2022 1631 EDT Patient: Vanna Granger Vital signs were reviewed with the recovery nurse. Complete vitals history is available in the [facility]. Vitals Value Taken Time BP 08/25/22 1631 Temp 08/25/22 1631 Resp 23 08/25/22 1631 Pulse From Oximetry 76 BPM 08/25/22 1631 SpO2 100 % 08/25/22 1631 Heart Rate 77 BPM 08/25/22 1631 Vitals shown include unvalidated device data. Last Pain Score - Numeric Pain Level (Scale 1-10): 6 (under breast pain, always there) Type of Anesthesia - MAC Anesthesia Post Evaluation Post-procedure vitals reviewed and are stable. Level of consciousness: awake Temperature status: normothermia Respiratory status: airway patent, O2 Sat-appropriate for condition and nasal cannula Cardiovascular status: acceptable Hydration status: adequate Nausea/Vomiting: none Pain management: adequate Post-Op Assessment: patient tolerated procedure well with no complications Patient participation: able to participate Disposition: inpatient Anesthesia Complications: No apparent anesthesia complications * Anesthesia Preprocedure Evaluation - Phan Thomas MD - 08/25/2022 1534 EDT Images from the original note were not included. Anesthesia Preprocedure Evaluation Patient Medical History, including Anesthesia History reviewed. Chart and Nursing Notes reviewed, including NPO status and Medication History. Additional ROS/History Findings: Nela Granger is a 52 y.o. female presenting for below. Planned procedure: Upper endoscopy PMHx significant for admission for acute blood loss anemia, e. Coli bacteremia, hx of gastric bypass, alcohol use disorder. BMI 28. Received 1 u of pRBCs today after AM hgb of 6.4. Prior intubation history: METs >4 Anesthesia history: No personal or family history of anesthetic complications. Social history: Social History Tobacco Use Smoking Status Former ??? Packs/day: 0.50 ??? Years: 20.00 ??? Pack years: 10.00 ??? Types: Cigarettes ??? Quit date: 03/26/2017 ??? Years since quittin.4 Smokeless Tobacco Never Social History Substance and Sexual Activity Drug Use No Social History Substance and Sexual Activity Alcohol Use No Comment: quit 2014 Allergies Allergen Reactions ??? Penicillins Rash Review of Systems Constitutional: Negative. Respiratory: Negative. Cardiovascular: Negative. Gastrointestinal: Positive for abdominal pain and blood in stool. Past Medical History: Diagnosis Date ??? Anemia ??? Anxiety ??? Arm pain ??? Arm weakness ??? Arthritis ??? Depression ??? Depression ??? Joint stiffness ??? Night sweats ??? Numbness ??? Substance abuse (HCC-CMS) (HCC) Relevant Problems Other (+) AC (acromioclavicular) joint arthritis Physical Exam Airway Mallampati: II TM distance: >3 FB Neck ROM: full Cardiovascular - normal exam Dental - normal exam Pulmonary - normal exam Abdominal Anesthesia Plan ASA 3 Anesthesia Type - MAC Block for post-op pain? No Anesthesia plan and risks discussed. Informed consent obtained from patient. Specific risks discussed were dental injury, nausea and vomiting. Code status discussed? Yes The preoperative history and physical which was performed within 30 days of this procedure, has been reviewed and the clinically appropriate elements of the physical examination have been repeated. There are no changes to the documented history and physical or, if so, such changes are documented inthis note PAT Note Notes from 07/26/22 through 08/25/22 No notes of this type exist for this encounter. Electronically signed by [facility] MD at 08/25/2022 16:24 EDT documented in this encounter Plan of Treatment Not on file documented as of this encounter Visit Diagnoses Not on filedocumented in this encounter Administered Medications Inactive Administered Medications - up to 3 most recent administrations Medication Order MAR Action Action Date Dose Rate Site propOFol (DIPRIVAN) injection intravenous, PRN, Starting on Barbie 08/25/22 at 1618, Until Barbie 08/25/22 at 1631, Routine, Anesthesia Intraprocedure Given 08/25/2022 16:18 EDT 50 mg propOFol (DIPRIVAN) injection intravenous, FA IP EQF CONTINUOUS PRN FOR ONE STEP MEDS, Starting on Barbie 08/25/22 at 1616, Until Barbie 08/25/22 at 1631, Routine, Anesthesia Intraprocedure New Bag 08/25/2022 16:16 EDT 130 mcg/kg/min 60.138 mL/hr documented in this encounter Care Teams Automotive Sales Professional Relationship Specialty Start Date End Date Phoenix Polanco MD [address] [place] [phone] PCP - General 12/27/13 documented as of this encounter
--- OUTSIDE RECORDS SUMMARY | 2023-12-23 01:00 | XMS_ITS | Encounter Summary ---
Author Organization [facility] Address [address] [place] [address] Care Team Providers Care Central Sterilization Technician Name Role Phone Phoenix Polanco MD Primary Care Provider + Reason for Visit * Reason Comments Withdrawal BIBEMS from home, x2 days of FLANNERY, weakness, tremors, chills, nausea, dizziness, cough, and fever. Pt is decreasing her Etoh intake and believes she is detoxing from alcohol, normally drinks ~14 standard drinks per day (vodka) Last drink 08/21/22 @ 1430./ Arrives tremulous, tachy, febrile and anxious, A&Ox3. Denies Sz hx. * Auth/Cert (Routine) Specialty Diagnoses / Procedures [facility] Referred To Contact Diagnoses Upper GI bleed Alcohol withdrawal syndrome without complication ([facility]) Referral ID Status Reason Start Date Expiration Date Visits Re quested Visits Authorized [id number] 1 1 Encounter Details Date Type Department Care Team (Late st Contact Info) Description 08/22/2022 8:30 EDT - 08/26/2022 16:19 EDT Hospital Encounter [facility] General Medicine Unit [address] [place], [place] [id number] Ryan Dejesus MD [address] [facility], [address] [place] [phone] Darlene Serrano MD [address] [facility], [address] [place] [phone] Alexandr Faulkner MD [address] [facility] [address] [place] [phone] Anna Abad MD [address] [place] [address] Alcohol withdrawal syndrome without complication (HCC-CMS) (Primary Dx); E coli bacteremia; Upper GI bleed Discharge Disposition: Home or Self Care Social [...] 8:41 EDT documented as of this encounter Last Filed Vital Signs Vital Sign Reading Time Taken Comments Blood Pressure 98/58 08/26/2022 1300 EDT Pulse 76 08/25/2022 1542 EDT Temperature 36.3 ??C (97.3 ??F) 08/26/2022 1300 EDT Respiratory Rate 16 08/26/2022 1300 EDT Oxygen Saturation 93% 08/26/2022 1300 EDT Inhaled Oxygen Concentration - - Weight 77.1 kg (170 lb) 08/22/2022 0839 EDT Height 165.1 cm (5' 5) 08/22/2022 0839 EDT Body Mass Index 28.29 08/22/2022 0839 EDT documented in this encounter Functional Status [...] 10/01/2019 documented as of this encounter Discharge Summaries * Anna Abad MD - 08/26/2022 1553 EDT HOSPITAL MEDICINE DISCHARGE SUMMARY Primary Care Provider: Phoenix Polanco Attending Physician: No att. providers found Admit Date: 08/22/22 Discharge Date: 08/26/22 Disposition (location): home with her parents Condition at Discharge: Improved Reason for Admission (chief complaint): fevers Principal/Final Diagnosis: Alcohol withdrawal syndrome without complication (HCC) Additional Problems Managed in the Hospital: Active Hospital Problems Diagnosis Date Noted ??? *Alcohol withdrawal syndrome without complication (HCC) 08/22/2022 ??? E coli bacteremia 08/23/2022 ??? Upper GI bleed 08/22/2022 ??? Acute blood loss anemia 08/22/2022 ??? Alcohol use disorder 08/22/2022 ??? History of gastric bypass 08/22/2022 ??? Severe sepsis ([facility]) 08/22/2022 ??? Lactic acidosis 08/22/2022 Resolved Hospital Problems No resolved problems to display. Transition of care: [facility] Transition of Care report automatically routed to PCP office on discharge.Additional handoff communication performed via: asked patient to call PCP office and schedule f/u appt in the next week Clinical Issues Needing Follow-up 1. Pertinent medication changes: - cefpodoxime BID for total of 10 days of abx for E Coli bacteremia - BID PPI x 8 weeks for GI bleed - naltrexone 50mg once daily > 100mg daily if tolerating - stop NSAIDs - consider further OP wkup for possible cirrhosis (AUD, thrombocytopenia and RUQ US with steatosis vs fibrosis, repeat Fib4 once abstinent from alcohol for period of time) 2. Recommended follow-up tests/procedures needed: [ ] screening colonoscopy if not UTD 3. Anticoagulation on discharge: No 4. Changes to goals of care at time of discharge (if applicable): none Hospital Course: Nela Bower??is a 52 y.o.??female??with a past medical history significant for alcohol use disorder (~14 drinks/day), gastric bypass (2000 done at [facility], unclear what type),??steatohepatitis,??iron deficiency anemia, fibromyalgia, and former smoker??presents with acute blood loss anemia secondary to suspected upper GI bleed in the setting of smoking history,??chronic NSAID use, and h/o gastric bypass. Found to have e coli bacteremia with likely GI source in s/o GI bleed. She received a total of 3u pRBC and underwent EGD with GI that showed old blood in her stomach but no active bleeding or obvious source of GI bleed. Her diet was advanced and she had normal bowel movements, without hematochezia or melena. She was discharged on BID PPI and with instructions to complete course of cefpodoxime for treatment of E Coli bacteremia. She was instructed to stop taking NSAIDs and follow up with her PCP for further management recommendations for her fibromyalgia. She was interested in starting naltrexone for management of alcohol cravings. She stated she was not interested in rehab but planning to go to AA meetings. Relevant Imaging/Procedures Performed: EGD Results Pending at Discharge: Test results still pending from this admission None I personally spent < 30 minutes reviewing the chart, evaluating and examining the patient, counseling and preparing the patient for discharge, and coordinating follow up. Anna Abad MD 08/28/2022 21:29 documented in this encounter Medications at Time [...] Tablet by mouth daily. 1 Tablet 08/27/2022 cefpodoxime (VANTIN) 200 mg tablet Take 1 Tablet by mouth every 12 hours for 5 days. 9 Tablet 08/26/2022 08/31/2022 documented as of this encounter Ordered Prescriptions Prescription Sig Dispensed Refills Start Date End Da te thiamine (VITAMIN B1) 100 mg tablet Take 1 Tablet by mouth daily. 1 Tablet 08/27/2022 pantoprazole (PROTONIX) 40 mg tablet Take 1 Tablet by mouth 2 times daily. 60 Tablet 2 08/26/2022 naltrexone (REVIA) 50 mg tablet Take 1 tablet daily for 7 days then increase to 2 tablets daily. 30 Tablet 1 08/26/2022 cefpodoxime (VANTIN) 200 mg tablet Take 1 Tablet by mouth every 12 hours for 5 days. 9 Tablet 08/26/2022 08/31/2022 documented in this encounter Discharge Disposition Disposition Code Departure Means Destination Home or Self Mcfp documented in this encounter Progress Notes * Pat Boland RN - 08/26/2022 1619 EDT CM Discharge Note CASE MANAGEMENT DISCHARGE NOTE DISCHARGE DATE/TIME: 08/26 1629 DESTINATION: Home with parents (If discharging to [facility]) COVID swab ordered and completed: TRANSPORTATION: Parents PHARMACY/PRESCRIPTIONS: ACC MEDS TO BEDS UTILIZED : YES/NO Y Patient and/or family who participated in discharge plan: OTHER: * Cass Walton RN - 08/25/2022 1845 EDT Assumed care of pt @0700. Vss. A/Ox3. Independent / continent. No major changes during AM shift. 6.4 - MD notified -! Unit given. On a clear liquid diet. EGD done today. Safety maintained. POC followed. Medx administered per jun. Call light within reach. Will continue to monitor. * Anna Abad MD - 08/25/2022 1129 EDT Medicine Progress Note Service Date: 08/25/2022 Admit Date: 08/22/2022 8:30 Reason for Admission: 52 y.o. female admitted with a chief complaint of fevers and now with a principal diagnosis of E Coli bacteremia and acute blood loss anemia. 24 Hour Events: NAEON Subjective/Objective Subjective Feeling ok. Not as steady on her feet walking around but overall much improved compared to a coupledays ago. Had a BM this morning that she reported looked orange in color. No obvious bright red blood. No melena. Has not had anything to eat or drink since last night in case of possible EGD. She states she is amenable to getting this done today. Review of Systems A ten point review of systems was performed and was negative except for pertinent positives noted in the HPI Objective Vital Signs Temp: [36.7 ??C (98 ??F)-37.2 ??C (99 ??F)] , Heart Rate: [92 BPM] , Resp: [16] , BP: (91-104)/(54-57) , SpO2: [95 %-97 %] Physical Exam Gen: sitting on side of bed, appears alert, NAD HEENT: atraumatic, moist mucus membranes Cardiac: RRR, no m/r/g Lungs: CTAB Abd: +BS, soft, nondistended, nontender to palpation LE: no LE edema bilat Neuro: alert and oriented Psych: appropriate Is PICC or central line present? No, PICC/Central line not present. Medications Reviewed Labs Reviewed Imaging US ABDOMEN LIMITED Final Result 1. Diffusely echogenic liver parenchyma, which can be seen in the setting of steatosis and/or fibrosis. No focal liver lesion. 2. Status post cholecystectomy. I have personally reviewed the images and the above interpretation and agree with the findings. XR CHEST PORTABLE 1 VIEW Final Result No evidence of active disease in the chest, within the limitations of this single portable view. Assessment/Plan Assessment Nela Bower is a 52 y.o. female with a past medical history significant for alcohol use disorder (~14 drinks/day), gastric bypass (2000 done at [facility], unclear what type), steatohepatitis, irondeficiency anemia, fibromyalgia, and former smoker presents with acute blood loss anemia secondary to suspected upper GI bleed in the setting of smoking history, chronic NSAID use, and h/o gastric bypass. Found to have e coli bacteremia with likely GI source in s/o GI bleed. Hgb 6.4 this AM. Will given additional 1u pRBC now. Patient NPO for possible EGD. Plan Suspected upper GI bleed Acute blood loss anemia NSAIDs use History of gastric bypass (2000) History of naproxen for past 4 months, added ibuprofen past week. Hgb 7 5/4 > 6.4 today. From discussion with patient today does not sound like she has had obvious bright red blood in stool or melena in last 24hrs. Tolerated full liquid diet yesterday without issue. - GI consulted, likely EGD today - NPO (except for meds) for now while waiting for EGD - PO pantoprazole 40 mg BID ?? E Coli bacteremia Suspect GI source (in s/o GI bleed) - CTX 08/22 - 08/24 - start cefpodoximine 200mg BID today, plan to complete total of 10 days abx Alcohol withdrawal syndrome Alcohol use disorder 14 drinks/day. Last drink 08/21/22 at 2:30 pm. No history of withdrawal. S/p lorazepam 2 mg IV + loading phenobarbital 5 mg/kg . Not interested in rehab at this time. Planning to start going to AA meetings as OP. - d/c CIWA - folate and thiamine - naltrexone 50mg daily ?? Thrombocytopenia Elevated INR Lab abnormalities + h/o heavy alcohol use history c/f cirrhosis. Fib4 1.9. - RUQ US with hepatic steatosis vs fibrosis, GI recommending OP f/u - Daily CBC, INR ?? Tobacco use - Nicotine replacement ordered ?? 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 Checklist VTE Prophylaxis: hold for now, SCDs Code Status: Full Discharge Plan: pending clinical course Consults: DOMINIC Abad MD 08/25/2022 11:31 * Pat Boland RN - 08/25/2022 1044 EDT Case Management Progress Note Level of Care: Acute Discharge plan/estimated date: With her parents AMANDA unknown [facility] Medicaid Status: [facility] Barriers to d/c: 1. Medical- Support Network: Cesar Franco (Father) [phone] (H) Irish Franco (Step parent) Next Steps: Awaiting Medical readiness CM-RN will continue to follow patient's clinical course and recommendations from the medical team for discharge. Pat Boland RN-BC, BSN, CCM, CMSRN, CCTM Project Intern II Pager: [phone] Email: [email or web address] * Cass Walton RN - 08/24/2022 1805 EDT Assumed care of pt @0700. Vss. A/Ox3. Independent / continent. No major changes during AM shift. K+2.6 MD notified - replaced. Hem currently 7.0. On a full liquid diet. Safety maintained. POC followed. Medx administered per jun. Call light within reach. Will continue to monitor. * Anna Abad MD - 08/24/2022 0557 EDT Medicine Progress Note Service Date: 08/24/2022 Admit Date: 08/22/2022 8:30 Reason for Admission: 52 y.o. female admitted with a chief complaint of fevers and now with a principal diagnosis of E Coli bacteremia and acute blood loss anemia. 24 Hour Events: T100.5F Subjective/Objective Subjective Feeling better compared to yesterday. Tolerating CLD so far. Amenable to increasing to full liquid diet for lunch. Denies FLANNERY, CP, SOB, abdominal pain, dysuria, diarrhea. Review of Systems A ten point review of systems was performed and was negative except for pertinent positives noted in the HPI Objective Vital Signs Temp: [36.5 ??C (97.7 ??F)-39.3 ??C (102.8 ??F)] , Heart Rate: [74 BPM-120 BPM] , Resp: [16-21] , BP: (91-115)/(53-66) , SpO2: [96 %-99 %] Physical Exam Gen: sitting up in bed, alert, appears comfortable HEENT: atraumatic, moist mucus membranes Cardiac: RRR, no m/r/g Lungs: CTAB Abd: +BS, soft, nondistended LE: no LE edema bilat Neuro: alert and oriented Psych: appropriate Is PICC or central line present? No, PICC/Central line not present. Medications Reviewed Labs Reviewed Imaging US ABDOMEN LIMITED Final Result 1. Diffusely echogenic liver parenchyma, which can be seen in the setting of steatosis and/or fibrosis. No focal liver lesion. 2. Status post cholecystectomy. I have personally reviewed the images and the above interpretation and agree with the findings. XR CHEST PORTABLE 1 VIEW Final Result No evidence of active disease in the chest, within the limitations of this single portable view. Assessment/Plan Assessment Nela Bower is a 52 y.o. female with a past medical history significant for alcohol use disorder (~14 drinks/day), gastric bypass (2000 done at [facility], unclear what type), steatohepatitis, irondeficiency anemia, fibromyalgia, and former smoker presents with acute blood loss anemia secondary to suspected upper GI bleed in the setting of smoking history, chronic NSAID use, and h/o gastric bypass. Found to have e coli bacteremia with likely GI source in s/o GI bleed. Plan Suspected upper GI bleed Acute blood loss anemia NSAIDs use History of gastric bypass (2000) History of naproxen for past 4 months, added ibuprofen past week. Hgb 7. - GI consulted, holding off on EGD for now - Pantoprazole 40 mg IV BID > PO - Advance diet as tolerated ?? E Coli bacteremia Suspect combination of alcohol use and acute blood loss. - continue CTX 2g q24hrs, plan to transition to PO tomorrow Alcohol withdrawal syndrome Alcohol use disorder 14 drinks/day. Last drink 08/21/22 at 2:30 pm. No history of withdrawal. - CIWA monitoring - Consider additional phenobarbital for CIWA > 12 - S/p lorazepam 2 mg IV + loading phenobarbital 5 mg/kg - Folate and thiamine - patient expressed interest in starting naltrexone in coming days, ordered to start 08/25 ?? Thrombocytopenia Elevated INR Lab abnormalities + h/o heavy alcohol use history c/f cirrhosis. Fib4 1.9. - Daily CBC - RUQ today with hepatic steatosis vs fibrosis, will discuss further wkup with GI ?? Tobacco use - Nicotine replacement ordered ?? 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 Checklist VTE Prophylaxis: hold for now, SCDs Code Status: Full Discharge Plan: pending clinical course Consults: DOMINIC Abad MD 08/24/2022 5:57 * Pat Boland RN - 08/23/2022 1223 EDT Initial Case Management/Social Work Assessment and Discharge Plan/Readmission Risk Assessment REASON FOR ADMISSION: Alcohol withdrawal syndrome without complication (HCC) Patient understands reason for admission: Yes PATIENT INFO VERIFIED: PCP, Contact Info, Address Type of housing (single family, condo, apartment, correction, single room occupancy, [facility] funded hotel room, group long-term) - Own apartment Who does the patient live with? self Does the patient have access to their own bedroom/bathroom/kitchen - or is it shared with others? Own LIVING ARRANGEMENTS AND ACCESSIBILITY ISSUES: Living Arrangements: Alone Levels: 1 Stairs to enter: 0 Handicap access: None Bathroom located on bedroom level?: Yes What in home social supports are available to the patient? Family member(s) Is 14/11 care available? No ADVANCED DIRECTIVES, POA &/or COLST IN PLACE: Healthcare Directive: No, patient does not have advance directive for healthcare treatment Information Provided on Healthcare Directives: No Information on Healthcare Directives Requested: No DIRECTIVES FOR FINANCES: TRANSPORTATION: Transportation: Family, Self Expected Discharge on IV Antibiotics: No Transportation Additional Details: self Final Discharge Destination: With parents Patient expects to be discharged to: With parents CULTURAL, TENRIISM and/or LANGUAGE factors affecting health care/discharge planning: Spiritual/Cultural Requests: None Insurance Information: Medical Insurance: Yes Type of insurance: Commercial insurance Commercial coverage: BCBS [place] Referred to patient financial services: No Nutrition: DISCHARGE RISK ASSESSMENT: Lives at home with limited or no community support Total # selected above: Score of 1 - 2: This patient is at LOW RISK for re-hospitalization Tentative plan to address the risk of re-hospitalization for those at HIGH MODERATE RISK: Bring risk factors to attention of team to be addressed RAPT TOOL: Age: 50-65 Gender: Female Ambulation distance: 2 or more blocks (600ft) Gait device: None Community Services: Home health, MOW, SASH-none of one time a week Will you live with someone who will care for you?: No RAPT Tool Score: 8 Patient expects to be discharged to: With parents SBIRT: SASQ (Single Alcohol Screening Question) How many times in the past year have you had 4 or more drinks in a single day?: More than once How many times in the past year have you used an illegal drug or used a prescription medication fornon-medical reasons?: More than once Intervention in place/initiated?: No, not indicated FUNCTIONAL STATUS: Activities patient requires assistance: None Assistive Devices: None COMMUNITY RESOURCES/SUPPORTS: Primary Care Provider: Phoenix Polacno PCP Verified: Specialists: None Type of Home Health Services: None DME Provider: Pharmacy: [id number] - [place], [place] - [address] [address] [facility] [address] [facility] [id number] [facility] - [place], [place] - [address] [facility] [address] [facility] - [place], [place] - [address] [facility], [place] [address] Home Health: Other: [facility] TRANSITION PLAN: Move in with her parents, no other needs Funeral Director And Embalmer in to speak with patient. 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 Lives currently in her own apartment by herself but states this week she is moving in with her parents. Denies need for case management assistance. CM-RN will continue to follow patient's clinical course and recommendations from the medical team for discharge. Pat Boland RN-BC, BSN, CCM, CMSRN, CCTM Project Intern II Pager: [phone] Email: [email or web address] PAT BOLAND RN 08/23/2022 12:23 * Anna Abad MD - 08/23/2022 0601 EDT Medicine Progress Note Service Date: 08/23/2022 Admit Date: 08/22/2022 8:30 Reason for Admission: 52 y.o. female admitted with a chief complaint of fevers and now with a principal diagnosis of E Coli bacteremia and acute blood loss anemia. 24 Hour Events: admitted Subjective/Objective Subjective Vanna states she feels 75% better today compared to yesterday. States she still feels a little shaky. Wondering if related to alcohol withdrawal or blood infection. States she last tried to quit drinking ~2 weeks ago. Clifford badly for the day. Denies h/o alcohol withdrawal seizures, hallucinations. States she is done drinking. Interested in medication options for helping to manage alcohol use disorder. Discussed naltrexone. Review of Systems A ten point review of systems was performed and was negative except for pertinent positives noted in the HPI Objective Vital Signs Temp: [36.6 ??C (97.8 ??F)-38.9 ??C (102.1 ??F)] , Heart Rate: [79 BPM-134 BPM] , Resp: [21-39] , BP: (90-131)/(43-79) , SpO2: [92 %-100 %] Physical Exam Gen: laying in bed on her side, NAD, intermittently tremulous HEENT: atraumatic, moist mucus membranes Cardiac: RRR, no m/r/g Lungs: CTAB Abd: +BS, soft, nondistended LE: no LE edema bilat Neuro: alert and oriented Psych: appropriate Is PICC or central line present? No, PICC/Central line not present. Medications Reviewed Labs Reviewed: K 5.2, AST 51, hgb 6.7 (5.1), WBC 14.56 (11.45), platelets 137 Imaging Reviewed: No new imaging. Assessment/Plan Assessment Nela Bower is a 52 y.o. female with a past medical history significant for alcohol use disorder (~14 drinks/day), gastric bypass (2000 done at [facility], unclear what type), steatohepatitis, irondeficiency anemia, fibromyalgia, and former smoker presents with acute blood loss anemia secondary to suspected upper GI bleed in the setting of smoking history, chronic NSAID use, and h/o gastric bypass. Plan Suspected upper GI bleed Acute blood loss anemia NSAIDs use History of gastric bypass (2000) History of naproxen for past 4 months, added ibuprofen past week. - Hgb 6.7, up from 5.1 s/p 2u pRBCs. Hold off on additional transfusions for now given HDS, no further episodes of melena per patient this AM - GI consulted, given HDS, no further episodes of melena, bacteremia and withdrawing holding off onEGD for now - Pantoprazole 40 mg IV BID - Clear liquid diet - f/u AM CBC ?? E Coli bacteremia Suspect combination of alcohol use and acute blood loss. - continue CTX 2g q24hrs, transition to PO when able Alcohol withdrawal syndrome Alcohol use disorder 14 drinks/day. Last drink 08/21/22 at 2:30 pm. No history of withdrawal. - CIWA monitoring - Consider additional phenobarbital for CIWA > 12 - S/p lorazepam 2 mg IV + loading phenobarbital 5 mg/kg - Folate and thiamine - patient expressed interest in starting naltrexone in coming days ?? Thrombocytopenia Alcohol use and blood loss. - Daily CBC ?? Tobacco use - Nicotine replacement ordered ?? 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 Checklist VTE Prophylaxis: hold for now, consider starting tomorrow, SCDs Code Status: Full Discharge Plan: pending clinical course Consults: DOMINIC Abad MD 08/23/2022 6:02 * Kathrine Dan RN - 08/23/2022 7442 EDT FOUR EYES SKIN ASSESSMENT Four Eyes skin assessment was performed on admission to the unit by Kathrine Dan RN and STEPHANY Velarde All skin intact verified by: Kathrine Dan RN. Last Messi Score: 16 Instructions: ??? Add LDA for any identified wounds ??? Add [place] image for any suspected PI or non surgical wounds ??? Order wound consult if suspected PI identified ? ? If Messi is < or = to 16, initiate Pressure Injury Prevention Bundle ([id number]). 08/23/2022 2:29 documented in this encounter H&P Notes * Alexandr Faulkner MD - 08/22/2022 1531 EDT Medicine Admission History & Physical Service Date: 08/22/2022 Admit Date: 08/22/2022 8:30 Primary Care Provider: Phoenix Polanco Chief Complaint: weakness HPI Nela Bower is a 52 y.o. female with a past medical history of alcohol use disorder (~14 drinks/day), gastric bypass (2000 done at [facility], unclear what type), steatohepatitis, iron deficiency anemia (post-menopausal), depression, fibromyalgia, and former smoker presented to the [facility] ED for two day history of a constellation of symptoms including weakness, tremors, fevers/chills, nausea, dizziness, and cough. Four months ago she started taking naproxen about every other day for fibromyalgia. Shortly after, she started noticing she was having dark, tarry stool that smelled especially foul. This was the first such instance noticing this. About one week ago, she then added ibuprofen 600 mg twice daily to her regimen. After this, started having progressively worsening fatigue, dizziness, and weakness. Otherwise, no other medication changes. Does have occasional lower abdominal pain, but this is not exacerbated by anything in particular, such as eating. Has been trying to cut down on her alcohol intake to around 3 drinks/day. Did this so she could take better care of her parents, whom she just moved in with. She had previously quit drinking in 2014 and had not experienced any withdrawal symptoms. Over the past several days, started having fine tremors, headache, and chills. Her last drink was approximately 24 hours ago. Denies any history of seizures or hallucinations. Also notes she has had a cough over the past week and chest pain secondary to that. No sputum, hemoptysis, hematemesis, dysuria, diarrhea/constipation, falls or loss of consciousness. ED course - Vitals: temp 102.1 F, HR 109, BP 111/66 mmHg, RR 28, spO2 94% on room air. - Labs: Normal CMP, other than albumin 3.1. Lactic acid 2.9. CBC notable for WBC 11.45, Hg 5.1 (MCV58), PLT 140, INR 1.3. - Imaging: Chest X-ray: no acute abnormalities. - EKG: Sinus tachycardia. QTc 472. - Therapeutics: 2 units pRBC's, lactated ringers 2L Review of Systems A complete 10 point ROS was performed and pertinent positive and negative findings listed in HPI, otherwise negative. Past Medical History: Diagnosis Date ??? Anemia ??? Anxiety ??? Arm pain ??? Arm weakness ??? Arthritis ??? Depression ??? Depression ??? Joint stiffness ??? Night sweats ??? Numbness ??? Substance abuse ([facility]) (HCC) Past Surgical History: Procedure Laterality Date ??? BREAST SURGERY biopsy ??? CHOLECYSTECTOMY, OPEN 10/06/2000 ??? GASTRIC BYPASS SURGERY 10/06/2000 ??? LIVER BIOPSY 10/06/2000 ??? SHOULDER SURGERY right shoulder arthroscopic posterior labral repair, anterior inferior labral repair, biceps tenotomy, distal clavicle excision, and mini open subpectoral biceps tenodesis on 06-26-14 ??? TUBAL LIGATION ??? UTERINE FIBROID SURGERY Social History Tobacco Use ??? Smoking status: Former Packs/day: 0.50 Years: 20.00 Pack years: 10.00 Types: Cigarettes Quit date: 03/26/2017 Years since quittin.4 ??? Smokeless tobacco: Never Substance Use Topics ??? Alcohol use: No Comment: quit 2014 Family History Problem Relation Age of Onset ??? Cancer Mother breast cancer ??? Cancer Maternal Aunt breast cancer ??? Cancer Maternal Grandmother breast cancer Allergies Allergen Reactions ??? Penicillins Rash Objective Vitals Temp: [36.6 ??C (97.8 ??F)-38.9 ??C (102.1 ??F)] , Heart Rate: [79 BPM-108 BPM] , Pulse: [72-112] ,Resp: [21-28] , BP: (90-111)/(43-70) , SpO2: [94 %-100 %] , Numeric Pain Level (Scale 1-10): 9 Weight: Weight : 77.1 kg (170 lb) Body mass index is 28.29 kg/m??. Physical Exam General: Alert, cooperative, well-appearing, in no acute distress. Psych: Mood and affect appropriate. Eyes: Sclera without icterus, conjunctiva clear. HENT: Normocephalic, atraumatic. No nasal drainage. Moist mucous membranes. Heart: Tachycardic regular rhythm. Normal S1 and S2, no extra heart sounds. No JVD. Lungs: Clear to auscultation bilaterally, no wheezes, crackles, or ronchi. Abdomen: Soft, non-tender, non-distended. No rebound or guarding. Well healed midline scar. Extremities: Atraumatic. No clubbing, cyanosis, or edema. Skin: Warm and dry. No rashes, ecchymosis, or lesions. Musculoskeletal: Full range of motion of all joints. Neuro: Provoked rotational nystagmus with finger follow. No diadochokinesia. No asterixis. Alert and oriented to person, place, and time. Speech clear and fluent, intact. Follows commands appropriately; appropriate use of language. LABS I have personally reviewed Recent Labs 08/22/22 0900 WBC 11.45 RBC 3.22* HGB 5.1* HCT 18.8* MCV 58* MCH 15.8* MCHC 27.1* PLT 140* NEUTROABS 9.88* Recent Labs 08/22/22 0900 NA 139 K 3.5 CL 105 CO2 24 BUN 10 CREATININE 0.56 CALCIUM 8.4* LABALBU 3.1* Recent Labs 08/22/22 1003 PROTIME 15.2* INR 1.3* Recent Labs 08/22/22 0900 TBIL 0.7 ALKPHOS 78 AST 24 ALT 22 Lab Results Component Value Date COLOR Yellow 06/26/2019 CLARITYU Clear 06/26/2019 GLUCOSEU Negative 06/26/2019 BILIRUBINUR Negative 06/26/2019 KETONES Negative 06/26/2019 LABSPEC 1.018 06/26/2019 UROBILINOGEN Normal 06/26/2019 NITRITE Negative 06/26/2019 LEUKESTER 2+ (A) 06/26/2019 PROTEINUA Negative 06/26/2019 PHUR 6.0 06/26/2019 RBCU 0 - 2 06/26/2019 WBCU 4 - 10 (A) 06/26/2019 SQUAMOUSUA Moderate (A) 06/26/2019 LABCAST <=10 06/26/2019 BACTERIA None Seen 06/26/2019 MICROBIOLOGY Blood cultures x2 (peripheral) 08/22/22 - 1 bottles growing Gram negative bacilli at 10 hours RADIOLOGY XR CHEST PORTABLE 1 VIEW Result Date: 08/22/2022 No evidence of active disease in the chest, within the limitations of this single portable view. Assessment Nela Bower is a 52 y.o. female with a past medical history significant for alcohol use disorder (~14 drinks/day), gastric bypass (2000 done at [facility], unclear what type), steatohepatitis, irondeficiency anemia, fibromyalgia, and former smoker presents with acute blood loss anemia secondary to suspected upper GI bleed in the setting of smoking history, chronic NSAID use, and above mentioned gastric bypass. On arrival, she was febrile to 102.1 F with a shock index of 1.2 and lactic acid 2.9. Blood cultures (1/2 bottles) growing Gram negative bacilli at 10 hours. Meets sepsis criteria. Suspected source to be GI in origin. Chest X-ray is unremarkable and is not complaining of any urinary symptoms. Following two units pRBC's and two liters lactated ringers, her pressures have improved (MAP 70's --> 90's). Course is also complicated by alcohol withdrawal. No history of withdrawal or abdominal imaging. Liver biopsy in 2000 with serohepatitis. FIB-4 score 1.83 today. T. Bili 0.7. No signs of decompensated cirrhosis on examination. Currently being monitored on CIWA. Certainly the co-existing problem of severe sepsis will confound scoring. Plan Suspected upper GI bleed Acute blood loss anemia NSAIDs use History of gastric bypass (2000) History of naproxen for past 4 months, added ibuprofen past week. - GI aware of admission, will see patient on Monday, appreciate assistance - 2 units pRBC's in ED - Pantoprazole 40 mg IV BID - Clear liquid diet - NPO at midnight for possible EGD Severe sepsis Gram negative bacilli bacteremia Lactic acidosis, resolved Suspect combination of alcohol use and acute blood loss. Shock index 1.2. Low suspicion for infectious etiology. - 2L lactated ringers and blood products in ED - Ceftriaxone 2g IV daily (started 08/22) - F/u blood culture speciation Alcohol withdrawal syndrome Alcohol use disorder 14 drinks/day. Last drink 08/21/22 at 2:30 pm. No history of withdrawal. - CIWA monitoring - Consider additional phenobarbital for CIWA > 12 (note: scoring will likely be confounded by co-existing sepsis and bacteremia) - S/p lorazepam 2 mg IV + loading phenobarbital 5 mg/kg - Folate and thiamine Thrombocytopenia Alcohol use and blood loss. - Daily CBC Tobacco use - Nicotine replacement ordered Chronic Non-Active Conditions Fibromyalgia: [employer] pregabalin Depression: [employer] fluoxetine Checklist VTE Prophylaxis: holding in setting of acute blood loss anemia Code Status: Full Discharge Plan: pending clinical course Consults: GI Admission Status: Inpatient. Anticipated duration of hospitalization is greater than two midnights due to upper GI bleed. Bar Rivera MD Internal Medicine PGY-1 Pager# [phone] 08/22/22 15:31 I have interviewed and examined the patient on 08/22/22. I have personally reviewed all laboratory and radiographic data as well as applicable prior records. I agree with findings and plan of care as documented by the resident. Additions/changes in blue italics. Alexandr Faulkner MD documented in this encounter Consult Notes * Mario Castillo MD - 08/25/2022 1632 EDT Procedure Performed EGD Indications for Exam Melena Procedure Technique A physical exam was performed. Informed consent was obtained from the patient after explaining all the risks (perforation, bleeding, infection and adverse effects to the medicine), benefits and alternatives to the procedure which the patient appeared to understand and so stated. The patient was connected to the monitoring devices and placed in the left lateral position. Continuous oxygen was provided with a nasal cannula and IV medicine administered through a indwelling cannula. After adequate sedation was achieved the gastroscope was inserted under direct vision into the esophagus and then carefully advanced to the Second part of duodenum. The Second part of duodenum was identified by visual landmarks. The scope was subsequently removed slowly while carefully examining the color, texture, anatomy, and integrity of the mucosa on withdrawal. The patient was subsequently transferred to the recovery area in satisfactory condition. Estimated Blood Loss: None Complications None Medications MAC Anesthesia See Anesthesia Record Findings Esophagus: Normal Stomach: Stomach remnant without old blood, no lesions identified Duodenum: Normal in appearance Diagnosis No source of GI bleeding identified on EGD Recommendations Advance diet as tolerated Elective colonoscopy w/ MAC as an outpatient could be considered * Mario Castillo MD - 08/23/2022 0857 EDT Images from the original note were not included. INITIAL GI CONSULT NOTE: Reason for Consultation/Chief Complaint: melena Attending Physician: Anna Abad MD Admit date: 08/22/2022 Assessment/Plan: Nela Bower is a 52 y.o. female with a PMH of depression, iron deficiency anemia, uterine ablation for anemia, low back pain, anxiety, substance abuse ETOH, gastric bypass surgery 2000 (liver biopsy with marked steatosis at that time), cholecystectomy 2000, former smoker now presenting with melena. Differential diagnosis for a hemodynamically stable upper GI bleed in a non- cirrhotic patient include peptic ulcer disease (NSAID, ETOH, H. Pylori), Toshia-Rodriguez tear, esophagitis, gastropathy, ulceration, malignancy and AVM. Course complicated by acute alcohol withdrawal and E. coli bacteremia. Patient with brown bowel movements on exam today. Would favor management of alcohol withdrawal and E. coli bacteremia prior to performing EGD, this can be performed in the coming days unless patient develops acute GI bleeding. Recommendations: 1. Advance diet as tolerated, will determine EGD timing pending clinical course 2. Please ensure 2 point IV access 3. keep active Type and screen 4. PPI IV BID 5. Transfuse for h<7 6. If the patient develops active bleeding in the interim, they should be medically stabilized and escalated to higher level of care (ie ICU) for more urgent EGD. 7. Recommend alcohol abstinence, consider medications outpatient to reduce cravings as patient prefers not to attend rehabilitation at this time Case discussed with GI attending Dr. Powell, who agrees with the above assessment and plan. Attending addendum to follow. GI team to follow. Please feel free to call the GI Consult pager if there is an acute change in the patient's clinical status or if you require additional assistance/clarification. HPI: Nela Bower is a 52 y.o. female with PMH of depression, iron deficiency anemia, uterine ablation for anemia, low back pain, anxiety, substance abuse ETOH, gastric bypass surgery 2000 (liver biopsy with marked steatosis at that time), cholecystectomy 2000, former smoker now presenting with melena. Patient reports having black stools for the last 2 to 3 months. She states these occur daily in the same frequency as her normal bowel movements, where as they are previously brown prior to this time. She notes chronic fatigue due to fibromyalgia, no specific lightheadedness, hematemesis, hematochezia. She does note some vague abdominal pain. Malaise was the reason for presentation to the ED. Patient reports she takes roughly 2 tablets of Aleve every few days and 3 tablets of Advil on top of the Aleve every few days as well (total of 5 tablets of NSAIDs up to daily). She reports she had a colonoscopy and upper endoscopy for iron deficiency anemia in the past, although [facility]. She does states the reason for bleeding at that time was from uterine source. Patient denies hematuria or vaginal bleeding. Patient states she is not interested in rehabilitation as she doesnot have 3 months to spare to undergo treatment. She is unsure if she is taking any medical therapyfor alcohol cravings. Patient drinks roughly 6 alcoholic beverages daily, was previously sober for several years, but started drinking again in the fall due to stress regarding to her brother who is getting an amputation.Prior to this, she was previously healthy and saw her PCP 6 months ago, no acute issues or concernsper patient report. Patient currently smoking half a pack per day, has smoked roughly this amount for 20 to 30 years. Occasional marijuana use, no recreational drug use including cocaine or IV drugs.Patient is planning to move in with her parents to take care of them Per notes w/ Heme-Onc 2019; - Patient with history NSAIDs intake and changes in the stool: I suspect iron deficiency anemia secondary to NSAID use and possible slow GI bleed although we will follow-up on the results of pendingstudies today - Per patient she had upper endoscopy and colonoscopy about 7 years ago with intent to evaluate for iron deficiency although does not know the results of the study (I was unable to locate those records)...underwent an uterine ablation in order to control anemia. In the ED, temperature 38.9, pulse 109, respirations 20, blood pressure 111/66, 94% on room air. Labs showed lactic acid 2.9, creatinine 0.56, albumin 3.1, ALT 22, AST 24, total bilirubin 0.7, total alk phos 78, white blood cell count 11.45, hemoglobin 5.1, MCV 58, platelets 140, INR 1.3. Blood cultures pending. Chest x-ray without active disease. Patient given 2 L lactated Ringer's, 1 g Tylenol. GI specifics: Last EGD: None in [facility] Last colonoscopy none in [facility] ROS: Completed ROS performed except as discussed in HPI, all systems reviewed and negative. Past Medical History: Diagnosis Date ??? Anemia ??? Anxiety ??? Arm pain ??? Arm weakness ??? Arthritis ??? Depression ??? Depression ??? Joint stiffness ??? Night sweats ??? Numbness ??? Substance abuse ([facility]) (HCC) Past Surgical History: Procedure Laterality Date ??? BREAST SURGERY biopsy ??? CHOLECYSTECTOMY, OPEN 10/06/2000 ??? GASTRIC BYPASS SURGERY 10/06/2000 ??? LIVER BIOPSY 10/06/2000 ??? SHOULDER SURGERY right shoulder arthroscopic posterior labral repair, anterior inferior labral repair, biceps tenotomy, distal clavicle excision, and mini open subpectoral biceps tenodesis on 06-26-14 ??? TUBAL LIGATION ??? UTERINE FIBROID SURGERY Current Facility-Administered Medications Medication Dose Route Frequency Provider Last Rate Last Admin ??? cefTRIAXone (ROCEPHIN) 2,000 mg in sodium chloride (NS MBP) 50 mL IVPB 2,000 mg intravenous Q24H Bar Rivera MD Stopped at 08/23/22 0627 ??? FLUoxetine (PROZAC) capsule 80 mg 80 mg oral DAILY Bar Rivera MD 80 mg at 08/23/22 1012 ??? folic acid (FOLVITE) tablet 1 mg 1 mg oral DAILY Bar Rivera MD 1 mg at 08/23/22 1012 Or ??? folic acid 1 mg in sodium chloride (NS) 0.9 % 50 mL IVPB 1 mg intravenous DAILY Bar Rivera MD ??? lidocaine (PF) 10 mg/mL (1 %) injection 2 mg 2 mg intradermal PRN Bar Rivera MD ??? nicotine polacrilex (COMMIT) 2 mg lozenge 2 mg 2 mg oral Q1H PRN Bar Rivera MD ??? ondansetron (ZOFRAN-ODT) disintegrating tablet 4 mg 4 mg oral Q4H PRN Bar Rivera MD ??? pantoprazole (PROTONIX) injection 40 mg 40 mg intravenous BID Bar Rivera MD 40 mg at 08/23/22 1013 ??? polyethylene glycol 3350 (MIRALAX) packet 17 g 17 g oral Daily PRN Bar Rivera MD ??? pregabalin (LYRICA) capsule 200 mg 200 mg oral TID Bar Rivera MD 200 mg at 08/23/22 1420 ??? ramelteon (ROZEREM) tablet 8 mg 8 mg oral AT BEDTIME PRN Bar Rivera MD ??? thiamine (VITAMIN B1) tablet 100 mg 100 mg oral DAILY Bar Rivera MD 100 mg at Or ??? thiamine (VITAMIN B-1) injection 100 mg 100 mg intramuscular DAILY Bar Rivera MD Or ??? thiamine (VITAMIN B-1) 100 mg in sodium chloride (NS) 0.9 % 50 mL IVPB 100 mg intravenous DAILYBar Rivera MD Allergies Allergen Reactions ??? Penicillins Rash Family History Problem Relation Age of Onset ??? Cancer Mother breast cancer ??? Cancer Maternal Aunt breast cancer ??? Cancer Maternal Grandmother breast cancer Social History Socioeconomic History ??? Marital status: Spouse name: Not on file ??? Number of children: Not on file ??? Years of education: Not on file ??? Highest education level: Not on file Occupational History ??? Not on file Tobacco Use ??? Smoking status: Former Packs/day: 0.50 Years: 20.00 Pack years: 10.00 Types: Cigarettes Quit date: 03/26/2017 Years since quittin.4 ??? Smokeless tobacco: Never Substance and Sexual Activity ??? Alcohol use: No Comment: quit 2014 ??? Drug use: No ??? Sexual activity: Not on file Other Topics Concern ??? Not on file Social History Narrative ??? Not on file Social Determinants of Health Financial Resource Strain: Not on file Food Insecurity: Not on file Transportation Needs: Not on file Physical Activity: Not on file Stress: Not on file Social Connections: Not on file Housing Stability: Not on file Physical Exam: Last Vitals: BP 109/65 Pulse 74 Temp 36.8 ??C (98.3 ??F) (Oral) Resp 21 Ht 165.1 cm (65) Wt 77.1 kg (170 lb) SpO2 98% BMI 28.29 kg/m?? Vitals: 08/23/22 0324 08/23/22 0604 08/23/22 0826 08/23/22 1000 BP: 94/59 91/53 115/61 109/65 BP Cuff Location: Right arm Right arm Right arm BP Patient Position: Semi fowlers Semi fowlers Lying left side Pulse: 74 Resp: 22 21 Temp: 37.2 ??C (99 ??F) 36.5 ??C (97.7 ??F) 36.8 ??C (98.3 ??F) TempSrc: Oral Oral Oral SpO2: 96% 99% 98% Weight: Height: General appearance: Laying comfortably in bed in no acute distress HEENT: Normocephalic, atraumatic. No scleral icterus Pulm: Normal respiratory effort. CV: Tachycardia Abdomen: Nondistended. Nontender to palpation without rebound or guarding. Skin: No jaundice Extremities: No edema Neurologic: A&Ox4, no asterixis, tremors bilaterally Labs: Data reviewed. I have reviewed all lab results Imaging: XR CHEST PORTABLE 1 VIEW Final Result No evidence of active disease in the chest, within the limitations of this single portable view. Portions of this document may have been prepared with speech recognition software or keyboard senior data architect techniques. Minor irregularities or keyboarding misprints may be present. Recommendations at top of note Mario Castillo M.D. Gastroenterology Fellow Associated attestation - Greg Powell MD PhD - 08/23/2022 1518 EDT I have seen and examined the patient along with gastroenterology fellow Dr. Mario Castillo, and I agree with his findings and recommendations. The most likely cause of melena is acid-peptic disease. Given the absence of active gastrointestinal bleeding at this time, diagnostic endoscopy is a reasonable next step, but its timing will depend on stabilization of other active medical issues. Greg Powell MD, PhD Attending Physician Gastroenterology & Hepatology documented in this encounter ED Notes * Magda Suarez RN - 08/24/2022 0320 EDT Accessed chart to find location of patient to send medication to floor. * Arlene Smith RN - 08/22/2022 2041 EDT I, ARLENE SMITH RN, notified admitting doctor Miguel of positive blood cultures after 10hrs on 08/22/2022 at 2042 * Francine Guerrero RN - 08/22/2022 1834 EDT Pt had large liquid bowel movement, bed changed, pt able to use bedside commode without assistance.Poly care provided as well as water provided for pt. * Francine Guerrero RN - 08/22/2022 1831 EDT Spoke with MD olamide about pt's status, no new orders. * Francine Guerrero RN - 08/22/2022 1728 EDT Assumed care, agree with past notes Pt diaphoretic, tachycardic to mid 150s, stiff upper extremities, chills and tachypnic to the mid 30s. Phenobarb started, BP WNL, will ctm. * Kathi Villaseñor - 08/22/2022 0950 EDT I, Kathi Villaseñor, notified SIM MURRAY RN of LACTIC ACID 2.9 HEMOGLOBIN 5.1 HEMATOCRIT 18.8 on 08/22/2022 at 9:50. * Ryan Dejesus MD - 08/22/2022 0855 EDTAssociated Order(s): Critical Care Emergency Department Visit I, Ryan Dejesus MD, performed a history and exam of this patient and discussed the case with theresident. I have reviewed and edited this note, and the documentation is consistent with my findings, assessment and plan. I fully participated in the medical decision making. Medical Decision Making 52-year-old female with a history of anxiety and fibromyalgia who is presenting with 36 hours of fever, chills, headache, nausea, and generalized malaise in the setting of self detox from alcohol use. She reports drinking approximately 10-14 standard drinks per day, however only drank 3 drinks per day yesterday. On arrival she is tachycardic with a fever of 38.9. She is also tachypneic. Exam is notable for moderate tremulousness. Otherwise no acute exam findings. In this patient, I am most concerned for potential development of delirium tremens in the setting of acute alcohol withdrawal. Patient may also be suffering from sepsis, although an infectious sourceis unclear. We will obtain an infectious work-up including a chest x-ray, urinalysis, blood cultures, and a lactate. We also obtain an EKG. We will obtain a CBC and CMP. We will administer a dose of Tylenol for the patient's fever. We will administer an LR bolus as well. We will treat the patient'spresumed alcohol withdrawal with 2 mg of IV Ativan. With the finding of the patient's elevated lactate, we will continue fluid administration. With herdrop in hemoglobin, we will administer 2 units of PRBCs. Her weakness and lactate elevation may be in the setting of anemia. Patient has remained hemodynamically stable while in the emergency department. I discussed the case with the admitting hospitalist, who is kindly agreed to admit the patient for acute alcohol withdrawal and symptomatic anemia. Patient was stable at time of admission. Relevant Data as of 08/22/22 1644 MonAugust 22, 2022 0854 EKG with sinus tachycardia at a rate of 114, normal axis, normal R wave progression. TN is 146. QRS is 90, QTc is 410 by computer population. Q waves noted in lead III. No acute ST or T wave abnormalities noted. [CW] 1639 I.N.R.(!): 1.3 [CW] 1640 Pro Time(!): 15.2 [CW] 1640 Lactic Acid: 0.9 [CW] 1640 Lactic Acid(!!): 2.9 [CW] 1640 Sodium: 139 [CW] 1640 Potassium: 3.5 [CW] 1640 Glucose, Serum(!): 112 [CW] 1640 CO2: 24 [CW] 1640 AST: 24 [CW] 1640 ALT: 22 [CW] 1640 Anion Gap: 10 [CW] 1640 Hemoglobin(!!): 5.1 [CW] 1640 WBC: 11.45 [CW] 1640 PLT(!): 140 [CW] 1640 XR CHEST PORTABLE 1 VIEW CXR without acute pathology [CW] Relevant Data User Index [CW] Tho Wills MD PhD An EKG was obtained and independently interpreted. Laboratory data was reviewed. Medical Decision Making In brief medically complex 52-year-old female with critical anemia. Patient has chronic anemia but had a seven-point hematocrit drop today which could be explain some of her weakness. In addition patient was also febrile and sepsis may be a part of the differential versus delirium tremens. Patient in alcohol withdrawal and was try to manage this at home but was amenable to admission for anemia and withdrawal. Medically stable at this time with no hypertension. Alcohol withdrawal syndrome without complication (HCC): acute illness or injury Amount and/or Complexity of Data Reviewed Independent Historian: parent Labs: ordered. Decision-making details documented in ED Course. Radiology: ordered and independent interpretation performed. Decision-making details documented in ED Course. ECG/medicine tests: ordered and independent interpretation performed. Decision- making details documented in ED Course. Risk OTC drugs. Prescription drug management. Decision regarding hospitalization. Final diagnoses: Alcohol withdrawal syndrome without complication (HCC) Disposition: Admitted Chief complaint: RENEE Bower is a 52 y.o. female with history of anxiety, fibromyalgia presenting with 36 hours offever, chills, headache, nausea, cough, and malaise in the setting of self detox from alcohol. Patient reports that she drinks approximately 10-14 standards per day. She drank 3 drinks yesterday, buthas not anything to drink in the past 36 hours. She also reports fever and chills starting yesterday, with preceding headache. She has had dry heaving, but minimal actual emesis. She has also had increased tremulousness and dizziness. History was provided by: Patient and EMS Records reviewed include: N/A Patient's pertinent PMH, FH, SH were reviewed and edited as necessary. Nursing notes reviewed. A medical screening exam was performed. Physical Exam BP 90/70 Pulse 72 Temp 36.6 ??C (97.8 ??F) (Oral) Resp 22 Ht 165.1 cm (65) Wt 77.1 kg (170 lb) SpO2 100% BMI 28.29 kg/m?? Physical Exam Vitals and nursing note reviewed. Constitutional: Appearance: Normal appearance. She is not toxic-appearing or diaphoretic. Comments: Tremulous HENT: Head: Normocephalic and atraumatic. Nose: Nose normal. Mouth/Throat: Mouth: Mucous membranes are moist. Pharynx: Oropharynx is clear. Eyes: Extraocular Movements: Extraocular movements intact. Conjunctiva/sclera: Conjunctivae normal. Pupils: Pupils are equal, round, and reactive to light. Cardiovascular: Rate and Rhythm: Regular rhythm. Tachycardia present. Heart sounds: Normal heart sounds. Pulmonary: Effort: Pulmonary effort is normal. Breath sounds: Normal breath sounds. No stridor. No wheezing, rhonchi or rales. Abdominal: General: Abdomen is flat. There is no distension. Palpations: Abdomen is soft. There is no mass. Tenderness: There is no abdominal tenderness. There is no guarding or rebound. Musculoskeletal: General: No swelling. Normal range of motion. Cervical back: Normal range of motion and neck supple. Right lower leg: No edema. Left lower leg: No edema. Skin: General: Skin is warm and dry. Findings: No erythema or rash. Neurological: General: No focal deficit present. Mental Status: She is alert and oriented to person, place, and time. Psychiatric: Mood and Affect: Mood normal. Behavior: Behavior normal. Procedures Critical Care Performed by: Ryan Dejesus MD Authorized by: Ryan Dejesus MD Critical care provider statement: Critical care time (minutes): 60 Critical care start time: 08/22/2022 8:55 Critical care end time: 08/22/2022 9:55 Critical care time was exclusive of: Separately billable procedures and treating other patients andteaching time Critical care was necessary to treat or prevent imminent or life-threatening deterioration of the following conditions: Cardiac failure, sepsis, circulatory failure and toxidrome Critical care was time spent personally by me on the following activities: Blood draw for specimens, discussions with primary provider, review of old charts, examination of patient, ordering and review of laboratory studies, ordering and review of radiographic studies and ordering and performing treatments and interventions documented in this encounter Miscellaneous Notes * Plan of Care - Jackeline Garvey RN - 08/26/2022 1625 EDT Nursing Discharge Note D: Patient noted with discharge orders to: home . A: Prescriptions faxed to pharmacy. Pt will potato picker at [facility] pharmacy on way out. Reviewed discharge instructions and prescriptions with Patient. IV d/c'd. Belongings collected and sent home with patient. R: Patient verbalized understanding of discharge instructions and denied further questions. Jackeline Garvey RN 08/26/2022 16:27 * Plan of Care - Kimmie Thurman RN - 08/26/2022 1437 EDT Problem: Safety: Goal: Will remain free from falls Outcome: Ongoing Problem: Infection: Goal: Signs and symptoms of infection will decrease Outcome: Ongoing Data: Assumed care at 0700. Aox4, RA, family at the bedside. VSS. Pain 0/10. Reg Diet, no N/V, no BM. Voids per bathroom. Independent. Action: Meds per eMAR. Hourly rounding. Response: At this time patient is resting in bed. Ready to go home. Safety measures in place. [facility]. KIMMIE THURMAN RN 08/26/2022 14:39 * Plan of Care - Isai Canales RN - 08/25/2022 0658 EDT Data: Pt is alert and oriented. Pt is independent when using the commode. Pt rated her pain as 5/10on her chest. Pt stated that it was not a new pain. Action: Administered medications per emar. Hourly check completed. Response: Pt slept well during the shift. Call light within the reach. ISAI CANALES RN 08/25/2022 6:59 * Plan of Care - Kathrine Dan RN - 08/24/2022 0357 EDT Data: Assumed care of patient at 1900. Patient was tired at the beginning of this shift. Action: Assisted patient to get comfortable in bed, HS meds given per MAR, lights & TV out, door shut to promote rest and call light is within reach. Hourly rounding done. Response: Patient slept well the rest of the night awakening only for bathroom use then back to bed. KATHRINE DAN RN 08/24/2022 3:57 * Plan of Care - Marya Vela - 08/23/2022 9277 EDT Problem: Daily Care Plan Goals Goal: Care Plan Documentation Flowsheets (Taken 08/23/2022 1721) Area of Focus: Pain/ Comfort Goal This Shift: Pt will remain comfortable this shift Note: Data: Assumed care of pt @ 1400. Pt a&o x 3, able to make needs known. Pt continent and ambulatory to commode. Action: Administered meds per MAR, provided fresh drink and put call brown within reach. Clustered care to promote rest. Response: Pt in bed, visiting with family. No other needs at this time. Marya Vela 08/23/2022 17:52 * Plan of Care - Chavez Poon RN - 08/23/2022 1537 EDT Problem: Daily Care Plan Goals Goal: Care Plan Documentation Outcome: Ongoing Flowsheets (Taken 08/23/2022 1000) Area of Focus: Pain/ Comfort Goal This Shift: Pt will remain in comfort Data: Pt A/Ox3, Independent, commode at bedside, diet increased from NPO to clear liquid diet, VSQ4 Action: Gave meds per MAR, hourly rounds, provided clear liquid diet menu, monitored for any bleeding in BM, clustered care to promote rest, CIWA monitoring Response: pt was anxious in the AM about not being able to eat, once diet was changed pt was happy and calm, no blood in BM today, pt resting in bed, call brown w/in reach, family at bedside CHAVEZ POON RN 08/23/2022 15:38 * Plan of Care - Kathrine Dan RN - 08/23/2022 0327 EDT Data: Patient was a new admit from the ED this shift with ETOH withdrawal and symptomatic anemia. Patient was alert & oriented x's 3 but tired upon arrival. Action: Assisted patient to get comfortable in bed, HS meds given per MAR, lights & TV out, door shut to promote rest and call light is within reach. Hourly rounding done. CIWA scoring done per orders. Response: Patient slept well the rest of the night awakening only for bathroom use then back to bed. KATHRINE DAN RN 08/23/2022 3:28 documented in this encounter Plan of Treatment Not on file documented as of this encounter Procedures Procedure Name Priority Date/Time Associated Diagnosis Comments ECG REPORT - SCANNED 09/06/2022 12:20 EDT ECG REPORT - SCANNED 09/06/2022 12:20 EDT PROTIME Routine 08/26/2022 8:52 EDT COMPLETE BLOOD COUNT Routine 08/26/2022 8:52 EDT COMPREHENSIVE METABOLIC PANEL (CMP) Routine 08/26/2022 8:52 EDT UPPER ENDOSCOPY PROCEDURE Routine 08/25/2022 16:41 EDT TRANSFUSE RED BLOOD CELLS Routine 08/25/2022 13:09 EDT TYPE AND SCREEN Routine 08/25/2022 12:14 EDT PREPARE RED BLOOD CELLS Routine 08/25/2022 11:28 EDT Upper GI bleed PROTIME STAT 08/25/2022 8:15 EDT COMPLETE BLOOD COUNT STAT 08/25/2022 8:15 EDT COMPREHENSIVE METABOLIC PANEL (CMP) STAT 08/25/2022 8:15 EDT BASIC METABOLIC PANEL (BMP) STAT 08/24/2022 14:57 EDT US ABDOMEN LIMITED Routine 08/24/2022 9: 43 EDT COMPLETE BLOOD COUNT AND DIFFERENTIAL STAT 08/24/2022 6:10 EDT COMPREHENSIVE METABOLIC PANEL (CMP) STAT 08/24/2022 6:10 EDT COMPLETE BLOOD COUNT Routine 08/23/2022 10:29 EDT COMPREHENSIVE METABOLIC PANEL (CMP) Routine 08/23/2022 10:29 EDT ZZLACTIC ACID STAT 08/22/2022 13:58 EDT TRANSFUSE RED BLOOD CELLS STAT 08/22/2022 12:55 EDT TRANSFUSE RED BLOOD CELLS STAT 08/22/2022 11:08 EDT PROTIME Routine 08/22/2022 10:03 EDT TYPE AND SCREEN STAT 08/22/2022 10:03 EDT PREPARE RED BLOOD CELLS Routine 08/22/2022 9:55 EDT PREPARE RED BLOOD CELLS STAT 08/22/2022 9:55 EDT XR CHEST PORTABLE 1 VIEW STAT 08/22/2022 9:05 EDT LACTIC ACID WITH REFLEX - USE FOR INITIAL SEPSIS EVALUATION STAT 08/22/2022 9:00 EDT ZZCOVID-19 TEST [facility] PCR Today 08/22/2022 9:00 EDT COVID-19 TESTING Routine 08/22/2022 9:00 EDT ZZHN INFLUENZA A AND B, RSV PCR Routine 08/22/2022 9:00 EDT BACTERIAL CULTURE, BLOOD STAT 08/22/2022 9:00 EDT BACTERIAL CULTURE, BLOOD STAT 08/22/2022 9:00 EDT COMPLETE BLOOD COUNT AND DIFFERENTIAL STAT 08/22/2022 9:00 EDT COMPREHENSIVE METABOLIC PANEL (CMP) STAT 08/22/2022 9:00 EDT ED CRITICAL CARE Routine 08/22/2022 8:55 EDT ED CRITICAL CARE Routine 08/22/2022 8:55 EDT EKG 12-LEAD STAT 08/22/2022 8:50 EDT documented in this encounter Results * ECG REPORT - SCANNED (09/06/2022 12:20 EDT) 09/06/2022 12:2 0 EDT Scan 2 Engineering Equipment Operator PROCEDURE/MINOR SHILPA GICAL ORDERABLES * ECG REPORT - SCANNED (09/06/2022 12:20 EDT) 09/06/2022 12:2 0 EDT Scan 2 Engineering Equipment Operator PROCEDURE/MINOR SHILPA GICAL ORDERABLES * (ABNORMAL) COMPLETE BLOOD COUNT (08/26/2022 8:52 EDT) WBC 9.34 4.00 - 12.40 K/cmm 08/26/2022 9:38 [facility] RBC 3.98 3.86 - 5.04 M/cmm 08/26/2022 9:38 [facility] Hemoglobin 7.6(L) 11.6 - 15.2 gm/dL 08/26/2022 9:38 [facility] HCT 26.9(L) 34.9 - 44.4 % 08/26/2022 9:38 [facility] MCV 68(L) 81 - 98 fl 08/26/2022 9:38 [facility] MCH 19.1(L) 26.7 - 33.3 pg 08/26/2022 9:38 [facility] Hypochromia 3+ 08/26/2022 9:38 [facility] MCHC 28.3(L) 32.1 - 35.9 gm/dL 08/26/2022 9:38 [facility] RDW-CV 29.1(H) <14.7 % 08/26/2022 9:38 [facility] RDW-SD 68.6(H) <50.4 fl 08/26/2022 9:38 [facility] Anisocytosis 3+ 08/26/2022 9:38 [facility] PLT 226 141 - 377 K/cmm 08/26/2022 9:38 [facility] MPV 08/26/2022 9:38 [facility] Comment:Not Available Blood VENOUS BLOOD / Unknown Venipuncture / Unknown 08/26/2022 8:52 EDT 08/26/2022 9:13 EDT Anna Abad MD HEMATOLOGY & PF4 ORD ERABLES [facility] [address] [place] [address] * (ABNORMAL) COMPREHENSIVE METABOLIC PANEL (CMP) (08/26/2022 8:52 EDT) Sodium 136 136 - 145 mmol/L 08/26/2022 9:35 [facility] Potassium 3.7 3.5 - 5.0 mmol/L 08/26/2022 9:35 [facility] Chloride 105 96 - 110 mmol/L 08/26/2022 9:35 [facility] CO2 Total 25 22 - 32 mmol/L 08/26/2022 9:35 [facility] Glucose 102(H) 70 - 100 mg/dL 08/26/2022 9:35 [facility] BUN 9(L) 10 - 26 mg/dL 08/26/2022 9:35 [facility] Creatinine 0.53 0.52 - 1.04 mg/dL 08/26/2022 9:35 [facility] eGFR 113 >60 mL/min/1.7 3m2 08/26/2022 9:35 [facility] Total Protein 6.4 6.3 - 8.2 g/dL 08/26/2022 9:35 [facility] Albumin 2.9(L) 3.4 - 4.9 g/dL 08/26/2022 9:35 [facility] Alkaline Phosphatase 64 38 - 126 U/L 08/26/2022 9:35 EDT [facility] AST 25 15 - 46 U/L 08/26/2022 9:35 T [facility] ALT 20 <35 U/L 08/26/2022 9:35 [facility] Bilirubin, Total <0.5 <1.4 mg/dL 08/27/19 9:35 EDT [facility] Calcium 8.4(L) 8.5 - 10.5 mg/dL 08/26/2022 9:35 T [facility] Albumin/Globulin Ratio 0.8(L) 1.0 - 2.5 08/26/2022 9:35 EDT [facility] Anion Gap 6 5 - 14 08/26/2022 9:35 [facility] Blood VENOUS BLOOD / Unknown Venipuncture / Unknown 08/26/2022 8:52 EDT 08/26/2022 9:13 EDT Anna Abad MD CHEMISTRY & BLOOD GA S ORDERABLES [facility] [address] [place] [address] * PROTIME (08/26/2022 8:52 EDT) I.N.R. 1.0 0.9 - 1.1 Ratio 08/26/2022 9:43 EDT [facility] Pro Time 10.7 9.7 - 12.8 secs 08/26/2022 9:43 EDT [facility] Blood VENOUS BLOOD / Unknown Venipuncture / Unknown 08/26/2022 8:52 EDT 08/26/2022 9:29 EDT Narrative [facility] - 08/26/2022 9:43 EDT Moderate Intensity Coumadin INR = 2.0-3.0 Adjustments in anticoagulant therapy dose should be based on the INR and NOT on the Protime. Anna Abad MD HEMATOLOGY & PF4 ORD ERABLES [facility] [address] [place] [id number] * UPPER ENDOSCOPY PROCEDURE (08/25/2022 16:41 EDT) Anatomical Region Laterality Modality Endoscopy Narrative 08/25/2022 16:41 EDT Procedure Performed EGD Indications for Exam Melena Procedure Technique A physical exam was performed. Informed consent was obtained from the patient after explaining all the risks (perforation, bleeding, infection and adverse effects to the medicine), benefits and alternatives to the procedure which the patient appeared to understand and so stated. ??The patient was connected to the monitoring devices and placed in the left lateral position. Continuous oxygen was provided with a nasal cannula and IV medicine administered through a indwelling cannula. After adequate sedation was achieved the gastroscope was inserted under direct vision into the esophagus and then carefully advanced to the Second part of duodenum. The Second part of duodenum was identified by visual landmarks. The scope was subsequently removed slowly while carefully examining the color, texture, anatomy, and integrity of the mucosa on withdrawal. The patient was subsequently transferred to the recovery area in satisfactory condition. Estimated Blood Loss: None Complications None Medications MAC Anesthesia See Anesthesia Record Findings Esophagus: Normal Stomach: Stomach remnant without old blood, no lesions identified, anatomy s/p gastric bypass Duodenum: Normal in appearance Diagnosis No source of GI bleeding identified on EGD Recommendations Advance diet as tolerated Elective colonoscopy w/ MAC as an outpatient could be considered The??procedure??was??performed??by??Dr. Mario Castillo M.D. in the presence of Dr. Greg Powell. The attending physician was in the room for the entire procedure. This electronic signature authenticates all electronic and/or handwritten documentation, including orders, generated by the signer during the episode of care contained in this record. 08/25/2022 04:41:34 PM By Greg Powell MD Greg Powell MD PhD GI PROCEDURE OR DERABLES * TRANSFUSE RED BLOOD CELLS (08/25/2022 15:43 EDT) Blood Anna Abad MD NURSING TREATMENT - BLOOD ADMINISTRATION * TRANSFUSE RED BLOOD CELLS (08/25/2022 15:43 EDT) Blood Anna Abad MD NURSING TREATMENT - BLOOD ADMINISTRATION * TYPE AND SCREEN (08/25/2022 12:14 EDT) ABO AB 08/25/2022 14:06 EDT [facility] Rh Factor Positive 08/25/2022 14:06 EDT [facility] Antibody Screen Negative 08/25/2022 14:06 EDT [facility] Specimen Expires: 08/28/2022 @ 23:59 08/25/2022 14:06 EDT [facility] Blood VENOUS BLOOD / Unknown Venipuncture / Unknown 08/25/2022 12:14 EDT 08/25/2022 12:30 EDT Anna Abad MD BLOOD BANK TESTS Performing Organization Address City/[facility] Co de Phone Number [facility] [address] [facility] [place] [address] * PREPARE RED BLOOD CELLS (08/25/2022 11:28 EDT) Product Code E6976I27 [facility] Donor Number [id number] U [facility] Unit ABO A [facility] Unit Rh POS [facility] Unit Status TR^Transfuse [facility] BLOOD [facility] Product Expiration Date [id number] [facility] Unit Blood Type Code 6200 [facility] Volume 330 [facility] Coding System [id number] [facility] Blood 08/25/2022 11:2 8 EDT Anna Abad MD BLOOD BANK ORDERABLE S [facility] [address] [place] [address] * PROTIME (08/25/2022 8:15 EDT) I.N.R. 1.0 0.9 - 1.1 Ratio 08/25/2022 8:44 [facility] Pro Time 11.7 9.7 - 12.8 secs 08/25/2022 8:44 [facility] Blood VENOUS BLOOD / Unknown Venipuncture / Unknown 08/25/2022 8:15 EDT 08/25/2022 8:28 EDT Narrative [facility] - 08/25/2022 8:44 EDT Moderate Intensity Coumadin INR = 2.0-3.0 Adjustments in anticoagulant therapy dose should be based on the INR and NOT on the Protime. Anna Abad MD HEMATOLOGY & PF4 ORD ERABLES [facility] [address] [place] [address] * (ABNORMAL) COMPLETE BLOOD COUNT (08/25/2022 8:15 EDT) [facility] WBC 10.58 4.00 - 12.40 K/cmm 08/25/2022 8:55 [facility] RBC 3.54(L) 3.86 - 5.04 M/cmm 08/25/2022 8:55 [facility] Hemoglobin 6.4(LL) 11.6 - 15.2 gm/dL 08/25/2022 8:55 [facility] HCT 22.5(L) 34.9 - 44.4 % 08/25/2022 8:55 [facility] MCV 64(L) 81 - 98 fl 08/25/2022 8:55 [facility] MCH 18.1(L) 26.7 - 33.3 pg 08/25/2022 8:55 [facility] Hypochromia 3+ 08/25/2022 8:55 [facility] MCHC 28.4(L) 32.1 - 35.9 gm/dL 08/25/2022 8:55 [facility] RDW-CV 28.2(H) <14.7 % 08/25/2022 8:55 [facility] RDW-SD 62.2(H) <50.4 fl 08/25/2022 8:55 [facility] Anisocytosis 3+ 08/25/2022 8:55 [facility] PLT 167 141 - 377 K/cmm 08/25/2022 8:55 EDT [facility] MPV 08/25/2022 8:55 EDT [facility] Comment:Not Available Blood VENOUS BLOOD / Unknown Venipuncture / Unknown 08/25/2022 8:15 EDT 08/25/2022 8:28 EDT Anna Abad MD HEMATOLOGY & PF4 ORD ERABLES [facility] [address] [place] [address] * (ABNORMAL) COMPREHENSIVE METABOLIC PANEL (CMP) (08/25/2022 8:15 EDT) Sodium 139 136 - 145 mmol/L 08/25/2022 8:46 [facility] Potassium 3.6 3.5 - 5.0 mmol/L 08/25/2022 8:46 [facility] Chloride 106 96 - 110 mmol/L 08/25/2022 8:46 [facility] CO2 Total 25 22 - 32 mmol/L 08/25/2022 8:46 [facility] Glucose 90 70 - 100 mg/dL 08/25/2022 8:46 [facility] BUN 11 10 - 26 mg/dL 08/25/2022 8:46 [facility] Creatinine 0.67 0.52 - 1.04 mg/dL 08/25/2022 8:46 [facility] eGFR 106 >60 mL/min/1.7 3m2 08/25/2022 8:46 [facility] Total Protein 5.4(L) 6.3 - 8.2 g/dL 08/25/2022 8:46 EDT [facility] Albumin 2.4(L) 3.4 - 4.9 g/dL 08/25/2022 8:46 [facility] Alkaline Phosphatase 59 38 - 126 U/L 08/25/2022 8:46 [facility] AST 23 15 - 46 U/L 08/25/2022 8:46 [facility] ALT 20 <35 U/L 08/25/2022 8:46 [facility] Bilirubin, Total <0.5 <1.4 mg/dL 08/26/19 8:46 [facility] Calcium 8.4(L) 8.5 - 10.5 mg/dL 08/25/2022 8:46 [facility] Albumin/Globulin Ratio 0.8(L) 1.0 - 2.5 08/25/2022 8:46 [facility] Anion Gap 8 5 - 14 08/25/2022 8:46 [facility] Blood VENOUS BLOOD / Unknown Venipuncture / Unknown 08/25/2022 8:15 EDT 08/25/2022 8:28 EDT Anna Abad MD CHEMISTRY & BLOOD GA S ORDERABLES Performing Organization Address City/State/[facility] Co de Phone Number [facility] [address] [place] [address] * (ABNORMAL) BASIC METABOLIC PANEL (BMP) (08/24/2022 14:57 EDT) Sodium 135(L) 136 - 145 mmol/L 08/24/2022 15:19 [facility] Potassium 3.3(L) 3.5 - 5.0 mmol/L 08/24/2022 15:19 [facility] Chloride 105 96 - 110 mmol/L 08/24/2022 15:19 [facility] CO2 Total 23 22 - 32 mmol/L 08/24/2022 15:19 [facility] Anion Gap 7 5 - 14 08/24/2022 15:19 [facility] Glucose 132(H) 70 - 100 mg/dL 08/24/2022 15:19 EDT [facility] Calcium 8.1(L) 8.5 - 10.5 mg/dL 08/24/2022 15:19 EDT [facility] BUN 13 10 - 26 mg/dL 08/24/2022 15:19 T [facility] Creatinine 0.64 0.52 - 1.04 mg/dL 08/24/2022 15:19 T [facility] eGFR 108 >60 mL/min/1.73 m2 08/24/2022 15:19 T [facility] Blood VENOUS BLOOD / Unknown Venipuncture / Unknown 08/24/2022 14:57 EDT 08/24/2022 15:01 EDT Anna Abad MD CHEMISTRY & BLOOD GA S ORDERABLES Performing Organization Address City/State/[facility] Co de Phone Number [facility] [address] [place] [address] * US ABDOMEN LIMITED (08/24/2022 9:43 EDT) Anatomical Region Laterality Modality Abdomen, Body Ultrasound 08/24/2022 11:2 4 EDT Impressions 08/24/2022 11:24 EDT 1. ??Diffusely echogenic liver parenchyma, which can be seen in the setting of steatosis and/or fibrosis. No focal liver lesion. 2. ??Status post cholecystectomy. I have personally reviewed the images and the above interpretation and agree with the findings. Narrative 08/24/2022 11:24 EDT US ABDOMEN LIMITED ??08/24/2022 8:30 AM SIGNS AND SYMPTOMS/COMMENTS: alcohol use d/o, thrombocytopenia COMPARISON: None available TECHNIQUE: Grayscale and Doppler ultrasound evaluation of the right upper quadrant of the abdomen was performed. FINDINGS: PANCREAS: The visualized portions of the pancreatic head, neck, and body demonstrate no mass or ductal dilation. LIVER: The liver measures 16.7 cm in length, which is normal. Diffusely echogenic liver parenchyma. No suspicious liver lesion. Normal direction of flow in the main portal vein. No nodularity of the hepatic capsule. RIGHT KIDNEY: The right kidney measures 14.6 cm in length. No hydronephrosis. Incidental note made of a simple benign 1.4 cm cyst in the lower pole. GALLBLADDER: Status post cholecystectomy BILE DUCTS: The common duct measures 10 mm in diameter at the john hepatis, which is mildly dilated, likely owing to postcholecystectomy state. PROXIMAL ABDOMINAL AORTA / IVC: Normal Procedure Note Tico Allen MD - 08/24/2022 US ABDOMEN LIMITED 08/24/2022 8:30 AM SIGNS AND SYMPTOMS/COMMENTS: alcohol use d/o, thrombocytopenia COMPARISON: None available TECHNIQUE: Grayscale and Doppler ultrasound evaluation of the right upperquadrant of the abdomen was performed. FINDINGS: PANCREAS: The visualized portions of the pancreatic head, neck, and bodydemonstrate no mass or ductal dilation. LIVER: The liver measures 16.7 cm in length, which is normal. Diffuselyechogenic liver parenchyma. No suspicious liver lesion. Normal directionof flow in the main portal vein. No nodularity of the hepatic capsule. RIGHT KIDNEY: The right kidney measures 14.6 cm in length. Nohydronephrosis. Incidental note made of a simple benign 1.4 cm cyst in thelower pole. GALLBLADDER: Status post cholecystectomy BILE DUCTS: The common duct measures 10 mm in diameter at the portahepatis, which is mildly dilated, likely owing to postcholecystectomystate. PROXIMAL ABDOMINAL AORTA / IVC: Normal IMPRESSION 1. Diffusely echogenic liver parenchyma, which can be seen in the settingof steatosis and/or fibrosis. No focal liver lesion. 2. Status post cholecystectomy. I have personally reviewed the images and the above interpretation andagree with the findings. Anna Abad MD [facility] US ORDERABLES * (ABNORMAL) COMPREHENSIVE METABOLIC PANEL (CMP) (08/24/2022 6:10 EDT) Sodium 135(L) 136 - 145 mmol/L 08/24/2022 6:59 EDT [facility] Potassium 2.6(LL) 3.5 - 5.0 mmol/L 08/24/2022 6:59 EDT [facility] Comment: Sample retested, result confirmed Chloride 103 96 - 110 mmol/L 08/24/2022 6:59 [facility] CO2 Total 23 22 - 32 mmol/L 08/24/2022 6:59 [facility] Glucose 105(H) 70 - 100 mg/dL 08/24/2022 6:59 [facility] BUN 13 10 - 26 mg/dL 08/24/2022 6:59 [facility] Creatinine 0.62 0.52 - 1.04 mg/dL 08/24/2022 6:59 [facility] eGFR 108 >60 mL/min/1.7 3m2 08/24/2022 6:59 [facility] Total Protein 5.4(L) 6.3 - 8.2 g/dL 08/24/2022 6:59 [facility] Albumin 2.5(L) 3.4 - 4.9 g/dL 08/24/2022 6:59 [facility] Alkaline Phosphatase 66 38 - 126 U/L 08/24/2022 6:59 [facility] AST 25 15 - 46 U/L 08/24/2022 6:59 [facility] ALT 22 <35 U/L 08/24/2022 6:59 [facility] Bilirubin, Total <0.5 <1.4 mg/dL 08/25/19 6:59 [facility] Calcium 8.2(L) 8.5 - 10.5 mg/dL 08/24/2022 6:59 [facility] Albumin/Globulin Ratio 0.9(L) 1.0 - 2.5 08/24/2022 6:59 [facility] Anion Gap 9 5 - 14 08/24/2022 6:59 [facility] Blood VENOUS BLOOD / Unknown Venipuncture / Unknown 08/24/2022 6:10 EDT 08/24/2022 6:18 EDT Anna Abad MD CHEMISTRY & BLOOD GA S ORDERABLES [facility] [address] [place] [address] * (ABNORMAL) COMPLETE BLOOD COUNT AND DIFFERENTIAL (08/24/2022 6:10 EDT) WBC 13.09(H) 4.00 - 12.40 K/cmm 08/24/2022 6:36 EDT [facility] RBC 3.85(L) 3.86 - 5.04 M/cmm 08/24/2022 6:36 [facility] Hemoglobin 7.0(L) 11.6 - 15.2 gm/dL 08/24/2022 6:36 [facility] HCT 24.0(L) 34.9 - 44.4 % 08/24/2022 6:36 [facility] MCV 62(L) 81 - 98 fl 08/24/2022 6:36 [facility] MCH 18.2(L) 26.7 - 33.3 pg 08/24/2022 6:36 [facility] Hypochromia 3+ 08/24/2022 6:36 [facility] MCHC 29.2(L) 32.1 - 35.9 gm/dL 08/24/2022 6:36 [facility] RDW-CV 27.9(H) <14.7 % 08/24/2022 6:36 [facility] RDW-SD 59.3(H) <50.4 fl 08/24/2022 6:36 [facility] Anisocytosis 3+ 08/24/2022 6:36 [facility] PLT 140(L) 141 - 377 K/cmm 08/24/2022 6:36 [facility] MPV 08/24/2022 6:36 [facility] Comment:Not Available % Neutrophils 83.9 % 08/24/2022 6:36 [facility] % Lymphocytes 5.0 % 08/24/2022 6:36 [facility] % Monocytes 9.5 % 08/24/2022 6:36 [facility] % Eosinophils 0.2 % 08/24/2022 6:36 [facility] % Basophils 0.3 % 08/24/2022 6:36 [facility] % Immature Grans 1.1 % 08/25/19 6:36 [facility] Absolute Neutrophils 10.98(H) 2.20 - 8.85 K/cmm 08/24/2022 6:36 [facility] Absolute Lymphocytes 0.66(L) 1.09 - 3.30 K/cmm 08/24/2022 6:36 [facility] Absolute Monocytes 1.24(H) 0.10 - 0.80 K/cmm 08/24/2022 6:36 [facility] Absolute Eosinophils 0.03 0.03 - 0.61 K/cmm 08/24/2022 6:36 [facility] ABS Basophils 0.04 0.01 - 0.11 K/cmm 08/24/2022 6:36 [facility] Absolute Immature Grans 0.14(H) 0.00 - 0.06 K/cmm 08/24/2022 6:36 [facility] Type of Differential: Auto 08/24/2022 6:36 [facility] Blood VENOUS BLOOD / Unknown Venipuncture / Unknown 08/24/2022 6:10 EDT 08/24/2022 6:18 EDT Anna Abad MD PACKAGES & DNA PROBE ORDERABLES [facility] [address] [place] [address] * (ABNORMAL) COMPREHENSIVE METABOLIC PANEL (CMP) (08/23/2022 10:29 EDT) Sodium 138 136 - 145 mmol/L 08/23/2022 11:30 T [facility] Potassium 3.2(L) 3.5 - 5.0 mmol/L 08/23/2022 11:30 [facility] Chloride 105 96 - 110 mmol/L 08/23/2022 11:30 [facility] CO2 Total 22 22 - 32 mmol/L 08/23/2022 11:30 [facility] Glucose 87 70 - 100 mg/dL 08/23/2022 11:30 [facility] BUN 15 10 - 26 mg/dL 08/23/2022 11:30 [facility] Creatinine 0.54 0.52 - 1.04 mg/dL 08/23/2022 11:30 [facility] eGFR 112 >60 mL/min/1.7 3m2 08/23/2022 11:30 [facility] Total Protein 6.1(L) 6.3 - 8.2 g/dL 08/23/2022 11:30 [facility] Albumin 3.0(L) 3.4 - 4.9 g/dL 08/23/2022 11:30 [facility] Alkaline Phosphatase 77 38 - 126 U/L 08/23/2022 11:30 [facility] AST 51(H) 15 - 46 U/L 08/23/2022 11:30 [facility] ALT 29 <35 U/L 08/23/2022 11:30 [facility] Bilirubin, Total 0.7 <1.4 mg/dL 08/24/19 11:30 [facility] Calcium 8.4(L) 8.5 - 10.5 mg/dL 08/23/2022 11:30 [facility] Albumin/Globulin Ratio 1.0 1.0 - 2.5 08/23/2022 11:30 [facility] Anion Gap 11 5 - 14 08/23/2022 11:30 [facility] Blood VENOUS BLOOD / Unknown Venipuncture / Unknown 08/23/2022 10:29 EDT 08/23/2022 10:53 EDT Bar Rivera MD CHEMISTRY & BLOOD G ORDERABLES [facility] [address] [place] [address] * (ABNORMAL) COMPLETE BLOOD COUNT (08/23/2022 10:29 EDT) WBC 14.56(H) 4.00 - 12.40 K/cmm 08/23/2022 11:07 [facility] RBC 3.72(L) 3.86 - 5.04 M/cmm 08/23/2022 11:07 [facility] Hemoglobin 6.7(LL) 11.6 - 15.2 gm/dL 08/23/2022 11:07 [facility] HCT 23.1(L) 34.9 - 44.4 % 08/23/2022 11:07 [facility] MCV 62(L) 81 - 98 fl 08/23/2022 11:07 [facility] MCH 18.0(L) 26.7 - 33.3 pg 08/23/2022 11:07 [facility] Hypochromia 3+ 08/23/2022 11:07 [facility] MCHC 29.0(L) 32.1 - 35.9 gm/dL 08/23/2022 11:07 [facility] RDW-CV 27.3(H) <14.7 % 08/23/2022 11:07 [facility] RDW-SD 59.0(H) <50.4 fl 08/23/2022 11:07 [facility] Anisocytosis 3+ 08/23/2022 11:07 [facility] PLT 137(L) 141 - 377 K/cmm 08/23/2022 11:07 [facility] MPV 08/23/2022 11:07 [facility] Comment:Not Available Blood VENOUS BLOOD / Unknown Venipuncture / Unknown 08/23/2022 10:29 EDT 08/23/2022 10:53 EDT Bar Rivera MD HEMATOLOGY & PF4 OR DERABLES Performing Organization Address City/[facility]/ZIP Co de Phone Number [facility] [address] [place] [address] * TRANSFUSE RED BLOOD CELLS (08/22/2022 14:10 EDT) Blood Ryan Dejesus MD NURSING TREATMENT - BLOOD ADMINISTRATION * TRANSFUSE RED BLOOD CELLS (08/22/2022 14:10 EDT) Blood Ryan Dejesus MD NURSING TREATMENT - BLOOD ADMINISTRATION * LACTIC ACID (08/22/2022 13:58 EDT) Lactic Acid 0.9 <=2.0 mmol/L 08/22/2022 14:21 EDT [facility] Blood VENOUS BLOOD / Unknown Venipuncture / Unknown 08/22/2022 13:58 EDT 08/22/2022 14:02 EDT Tho Wills MD PhD CHEMISTRY & BLOOD GAS ORDERABLES Performing Organization Address City/[facility] Co de Phone Number [facility] [address] [place] [address] * TRANSFUSE RED BLOOD CELLS (08/22/2022 12:45 EDT) Blood Ryan Dejesus MD NURSING TREATMENT - BLOOD ADMINISTRATION * (ABNORMAL) PROTIME (08/22/2022 10:03 EDT) I.N.R. 1.3(H) 0.9 - 1.1 Ratio 08/22/2022 10:33 EDT [facility] Pro Time 15.2(H) 9.7 - 12.8 secs 08/22/2022 10:33 EDT [facility] Blood VENOUS BLOOD / Unknown Venipuncture / Unknown 08/22/2022 10:03 EDT 08/22/2022 10:11 EDT Narrative [facility] - 08/22/2022 10:33 EDT Moderate Intensity Coumadin INR = 2.0-3.0 Adjustments in anticoagulant therapy dose should be based on the INR and NOT on the Protime. Ryan Dejesus MD HEMATOLOGY & PF4 OR DERABLES Performing Organization Address City/[facility]/ZIP Co de Phone Number [facility] [address] [place] [address] * TYPE AND SCREEN (08/22/2022 10:03 EDT) ABO AB 08/22/2022 10:55 EDT [facility] Rh Factor Positive 08/22/2022 10:55 EDT [facility] Antibody Screen Negative 08/22/2022 10:55 EDT [facility] Specimen Expires: 08/25/2022 @ 23:59 08/22/2022 10:55 EDT [facility] Blood VENOUS BLOOD / Unknown Venipuncture / Unknown 08/22/2022 10:03 EDT 08/22/2022 10:14 EDT Ryan Dejesus MD BLOOD BANK TESTS Performing Organization Address City/[facility]/ZIP Co de Phone Number [facility] [address] [place] [address] * PREPARE RED BLOOD CELLS (08/22/2022 9:55 EDT) Product Code [id number] [facility] B[facility]OD [facility] Donor Number [id number] U [facility] B[facility] Unit ABO A [facility] B[facility]OD [facility] Unit Rh POS [facility] BLOOD [facility] Unit Status TR^Transfuse [facility] BLOOD BANK Product Expiration Date [id number] [facility] Unit Blood Type Code 6200 [facility] Volume 330 [facility] BLOOD BANK Coding System [id number] [facility] BLOOD BANK 08/22/2022 9:55 EDT Ryan Dejesus MD BLOOD BANK ORDERABL ES Performing Organization Address City/[facility]/ZIP Co de Phone Number [facility] [address] [facility] [place] [address] * PREPARE RED BLOOD CELLS (08/22/2022 9:55 EDT) Product Code [id number] [facility] BLOOD BANK Donor Number [id number] U [facility] BLOOD BANK Unit ABO A [facility] BLOOD BANK Unit Rh POS [facility] BLOOD BANK Unit Status TR^Transfuse [facility] BLOOD BANK Product Expiration Date [facility] Unit Blood Type Code 6200 [facility] Volume 330 [facility] BLOOD BANK Coding System [id number] [facility] Blood 08/22/2022 9:55 EDT Ryan Dejesus MD BLOOD BANK ORDERABL ES Performing Organization Address [facility] Co de Phone Number [facility] [address] [facility] [place] [address] * XR CHEST PORTABLE 1 VIEW (08/22/2022 9:05 EDT) Anatomical Region Laterality Modality Computed Radiogr aphy 08/22/2022 9:10 EDT Impressions 08/22/2022 9:10 EDT No evidence of active disease in the chest, within the limitations of this single portable view. Narrative 08/22/2022 9:10 EDT XR CHEST PORTABLE 1 VIEW ??08/22/2022 8:50 AM Clinical History/Comments: dyspnea, cough x24 hours Comparison: Chest x-ray dated 06/26/2019 Technique: Frontal view of the chest was performed. Findings: Cardiomediastinal silhouette and pulmonary vascularity appear normal. No pleural effusion or pneumothorax. The lungs are clear. Bones and soft tissues appear unremarkable. Procedure Note Gayathri Crook MD - 08/22/2022 XR CHEST PORTABLE 1 VIEW 08/22/2022 8:50 AM Clinical History/Comments: dyspnea, cough x24 hours Comparison: Chest x-ray dated 06/26/2019 Technique: Frontal view of the chest was performed. Findings: Cardiomediastinal silhouette and pulmonary vascularity appear normal. Nopleural effusion or pneumothorax. The lungs are clear. Bones and softtissues appear unremarkable. IMPRESSION No evidence of active disease in the chest, within the limitations of thissingle portable view. Tho Wills MD PhD IMG DIAGNOSTIC PAUL GING ORDERABLES * COVID-19 TEST [facility] PCR (08/22/2022 9:00 EDT) Swab ENTIRE NASOPHARYNX / Unknown Swab / Unknown 08/22/2022 9:00 EDT 08/22/2022 9:19 EDT Tho Wills MD PhD MICROBIOLOGY - GEN ERAL ORDERABLES [facility] [address] [place] [id number] * COVID-19 TESTING (08/22/2022 9:00 EDT) COVID-19 rt-PCR Result Negative Negative 08/22/2022 11:11 EDT [facility] Comment: This test has [...] history, and epidemiological information. Performed on the [employer] Instrument Performing Lab Gene[employer]pert [facility] 08/22/2022 11:11 EDT [facility] Swab ENTIRE NASOPHARYNX / Unknown Swab / Unknown 08/22/2022 9:00 EDT 08/22/2022 9:19 EDT Tho Wills MD PhD MICROBIOLOGY - GEN ERAL ORDERABLES Performing Organization Address [facility]/ZIP Co de Phone Number [facility] [address] [place] [address] * INFLUENZA A AND B,RSV PCR (08/22/2022 9:00 EDT) FLU A RNA Result (FLARES) Negative Negative 08/22/2022 11:11 EDT [facility] FLU B RNA Result (FLBRES) Negative Negative 08/22/2022 11:11 EDT [facility] RSV RNA Result (RSVRES) Negative Negative 08/22/2022 11:11 EDT [facility] Swab ENTIRE NASOPHARYNX / Unknown Swab / Unknown 08/22/2022 9:00 EDT 08/22/2022 9:19 EDT Tho Wills MD PhD MICROBIOLOGY - GEN ERAL ORDERABLES Performing Organization Address [facility] de Phone Number [facility] [address] [place] [phone] * (ABNORMAL) LACTIC ACID WITH REFLEX - USE FOR INITIAL SEPSIS EVALUATION (08/22/2022 9:00 EDT) Lactic Acid 2.9(HH) <=2.0 mmol/L 08/22/2022 9:43 EDT [facility] Blood VENOUS BLOOD / Unknown Venipuncture / Unknown 08/22/2022 9:00 EDT 08/22/2022 9:20 EDT Tho Wills MD PhD CHEMISTRY & BLOOD GAS ORDERABLES Performing Organization Address City/[facility]/ZIP Co de Phone Number [facility] [address] [place] [address] * (ABNORMAL) COMPREHENSIVE METABOLIC PANEL (CMP) (08/22/2022 9:00 EDT) Sodium 139 136 - 145 mmol/L 08/22/2022 9:42 [facility] Potassium 3.5 3.5 - 5.0 mmol/L 08/22/2022 9:42 [facility] Chloride 105 96 - 110 mmol/L 08/22/2022 9:42 [facility] CO2 Total 24 22 - 32 mmol/L 08/22/2022 9:42 [facility] Glucose 112(H) 70 - 100 mg/dL 08/22/2022 9:42 [facility] BUN 10 10 - 26 mg/dL 08/22/2022 9:42 [facility] Creatinine 0.56 0.52 - 1.04 mg/dL 08/22/2022 9:42 [facility] eGFR 111 >60 mL/min/1.7 3m2 08/22/2022 9:42 [facility] Total Protein 6.7 6.3 - 8.2 g/dL 08/22/2022 9:42 [facility] Albumin 3.1(L) 3.4 - 4.9 g/dL 08/22/2022 9:42 [facility] Alkaline Phosphatase 78 38 - 126 U/L 08/22/2022 9:42 [facility] AST 24 15 - 46 U/L 08/22/2022 9:42 [facility] ALT 22 <35 U/L 08/22/2022 9:42 [facility] Bilirubin, Total 0.7 <1.4 mg/dL 08/23/19 9:42 [facility] Calcium 8.4(L) 8.5 - 10.5 mg/dL 08/22/2022 9:42 [facility] Albumin/Globulin Ratio 0.9(L) 1.0 - 2.5 08/22/2022 9:42 [facility] Anion Gap 10 5 - 14 08/22/2022 9:42 [facility] Blood VENOUS BLOOD / Unknown Venipuncture / Unknown 08/22/2022 9:00 EDT 08/22/2022 9:20 EDT Tho Wills MD PhD CHEMISTRY & BLOOD GAS ORDERABLES [facility] [address] [place] [address] * (ABNORMAL) COMPLETE BLOOD COUNT AND DIFFERENTIAL (08/22/2022 9:00 EDT) WBC 11.45 4.00 - 12.40 K/cmm 08/22/2022 9:44 [facility] RBC 3.22(L) 3.86 - 5.04 M/cmm 08/22/2022 9:44 [facility] Hemoglobin 5.1(LL) 11.6 - 15.2 gm/dL 08/22/2022 9:44 [facility] HCT 18.8(LL) 34.9 - 44.4 % 08/22/2022 9:44 [facility] MCV 58(L) 81 - 98 fl 08/22/2022 9:44 [facility] MCH 15.8(L) 26.7 - 33.3 pg 08/22/2022 9:44 [facility] Hypochromia 3+ 08/22/2022 9:44 [facility] MCHC 27.1(L) 32.1 - 35.9 gm/dL 08/22/2022 9:44 [facility] RDW-CV 23.4(H) <14.7 % 08/22/2022 9:44 [facility] RDW-SD 47.2 <50.4 fl 08/22/2022 9:44 [facility] Anisocytosis 2+ 08/22/2022 9:44 [facility] PLT 140(L) 141 - 377 K/cmm 08/22/2022 9:44 [facility] MPV 08/22/2022 9:44 [facility] Comment:Not Available % Neutrophils 86.3 % 08/22/2022 9:44 [facility] % Lymphocytes 2.4 % 08/22/2022 9:44 [facility] % Monocytes 10.5 % 08/22/2022 9:44 [facility] % Eosinophils 0.0 % 08/22/2022 9:44 [facility] % Basophils 0.3 % 08/22/2022 9:44 [facility] % Immature Grans 0.5 % 08/23/19 9:44 [facility] Absolute Neutrophils 9.88(H) 2.20 - 8.85 K/cm 08/22/2022 9:44 [facility] Absolute Lymphocytes 0.27(L) 1.09 - 3.30 K/cm 08/22/2022 9:44 [facility] Absolute Monocytes 1.20(H) 0.10 - 0.80 K/cm 08/22/2022 9:44 [facility] Absolute Eosinophils 0.00(L) 0.03 - 0.61 K/cm 08/22/2022 9:44 [facility] ABS Basophils 0.04 0.01 - 0.11 K/cm 08/22/2022 9:44 [facility] Absolute Immature Grans 0.06 0.00 - 0.06 K/cm 08/22/2022 9:44 [facility] Type of Differential: Auto 08/22/2022 9:44 [facility] Blood VENOUS BLOOD / Unknown Venipuncture / Unknown 08/22/2022 9:00 EDT 08/22/2022 9:19 EDT Tho Wills MD PhD PACKAGES & DNA PRO BE ORDERABLES [facility] [address] [place] [address] * (ABNORMAL) BACTERIAL CULTURE, BLOOD (08/22/2022 9:00 EDT) Organism ID Escherichia coli(AA) VITEK SUSCEPTIBILITY 08/24/2022 12:26 EDT [facility] Comment: Detected at 10 hours Specimen tested for 8 gram negative organism identification targets and 6 antibiotic resistance determinant targets, by micro array technology. Blood VENOUS BLOOD / Unknown Venipuncture / Unknown 08/22/2022 9:00 EDT 08/22/2022 9:42 EDT Narrative Organism Antibiotic Method Susceptibility Escherichia coli Amikacin VITEK SUSCEPTIBILITY <=2 ug/mL: Susceptible Escherichia coli Ampicillin VITEK SUSCEPTIBILITY >=32 ug/mL: Resistant Escherichia coli Ampicillin Sulbactam VITEK SUSCEPTIBI LITY >=32 ug/mL: Resistant Escherichia coli Cefepime VITEK SUSCEPTIBILITY <=1 ug/mL: Susceptible Escherichia coli Ceftazidime VITEK SUSCEPTIBILITY <=1 ug/mL: Susceptible Escherichia coli Ceftriaxone VITEK SUSCEPTIBILITY <=1 ug/mL: Susceptible Escherichia coli Ciprofloxacin VITEK SUSCEPTIBILITY <=0.25 ug/mL: Susceptible Escherichia coli Ertapenem VITEK SUSCEPTIBILITY <=0.5 ug/mL: Susceptible Escherichia coli Gentamicin VITEK SUSCEPTIBILITY <=1 ug/mL: Susceptible Escherichia coli Meropenem VITEK SUSCEPTIBILITY <=0.25 ug/mL: Susceptible Escherichia coli Piperacillin Tazobactam VITEK SUSCEPT IBILITY <=4 ug/mL: Susceptible Escherichia coli Tobramycin VITEK SUSCEPTIBILITY <=1 ug/mL: Susceptible Escherichia coli Trimethoprim-Sulfame tho xazole VITEK SUSCEPTIBILITY <=20 ug/mL: Susceptible Escherichia coli Cefpodoxime VITEK SUSCEPTIBILITY Susceptible Tho Wills MD PhD MICROBIOLOGY - GEN ERAL ORDERABLES [facility] [address] [place] [address] * (ABNORMAL) BACTERIAL CULTURE, BLOOD (08/22/2022 9:00 EDT) Organism ID Escherichia coli(AA) 08/24/2022 8:58 EDT [facility] Comment: Detected at 11 hours [place] morphology consistent with other culture from same site/ source collected on the same day. Blood VENOUS BLOOD / Unknown Venipuncture / Unknown 08/22/2022 9:00 EDT 08/22/2022 9:41 EDT Tho Wills MD PhD MICROBIOLOGY - GEN ERAL ORDERABLES Performing Organization Address [facility] [facility] Co de Phone Number [facility] [address] [place] [address] * [place] CRITICAL CARE ILL/INJURED PATIENT INIT 30-74 MIN, HC - CRITICAL CARE ILL/INJURED PATIENT INIT 30-74 MIN (08/22/2022 8:55 EDT) Narrative [facility] EKG - 08/22/2022 8:55 EDT Ryan Dejesus MD ? 08/22/2022 14:38 Critical Care Performed by: Ryan Dejesus MD Authorized by: Ryan Dejesus MD Critical care provider statement: ??Critical care time (minutes): ??60 ??Critical care start time: ??08/22/2022 8:55 ??Critical care end time: ??08/22/2022 9:55 ??Critical care time was exclusive of: ??Separately billable procedures and treating other patients and teaching time ??Critical care was necessary to treat or prevent imminent or life-threatening deterioration of the following conditions: ??Cardiac failure, sepsis, circulatory failure and toxidrome ??Critical care was time spent personally by me on the following activities: ??Blood draw for specimens, discussions with primary provider, review of old charts, examination of patient, ordering and review of laboratory studies, ordering and review of radiographic studies and ordering and performing treatments and interventions Ryan Dejesus MD PROCEDURE/MINOR SHILPA GICAL ORDERABLES Performing Organization Address [facility] Co de Phone Number [facility] EKG * EKG 12-LEAD (08/22/2022 8:50 EDT) 08/22/2022 8:50 EDT Narrative [facility] EKG - 09/06/2022 12:04 EDT ?[facility] Emergency ? Test Date: ?2022-08-22 Pat Name: ? NELA CHELI ? Department: ?? ED ? Room: ? AC16 Gender: ? Female ? Postdoctoral Fellow: ?? [id number] : ?1970 ? Requested By: SHANELL MARTINEZ T Order Number: [id number] ? Reading MD: ?? OLIVIA ZEGLIN MD ? Measurements Intervals ?[place] ? Rate: ? 114 ?P: ?59 TN: ? 146 ?QRS: ?46 QRSD: ? 90 ? T: ?51 QT: ? 342 ? QTc: ?472 ? Interpretive Statements SINUS TACHYCARDIA ABNORMAL RHYTHM ECG Automated Interpretation. ??Provider Interpretation to follow. Compared to ECG 10/01/2019 11:14:52 Sinus rhythm no longer present I reviewed the tracing and have either agreed or edited the findings in this report. Electronically Signed On 09-06-2022 12:04:17 EDT by OLIVIA TRACY MD. Procedure Note Olivia Tracy MD - 09/06/2022 [facility] Emergency Test Date: 2022-08-22 Pat Name: NELA BOWER Department: ED Room: [facility] Gender: Female Postdoctoral Fellow: [id number] : 1970 Requested By: SHANELL Rivero Order Number: [id number] Reading MD: OLIVIA TRACY MD Measurements Intervals [place] Rate: 114 P: 59 TN: 146 QRS: 46 QRSD: 90 T: 51 QT: 342 QTc: 472 Interpretive Statements SINUS TACHYCARDIA ABNORMAL RHYTHM ECG Automated Interpretation. Provider Interpretation to follow. Compared to ECG 10/01/2019 11:14:52 Sinus rhythm no longer present I reviewed the tracing and have either agreed or edited the findings inthis report. Electronically Signed On 09-06-2022 12:04:17 EDT by YUSUF KHOURY. Tho Wills MD PhD CARDIAC ECG ORDERA BLES [facility] EKG documented in this encounter Visit Diagnoses Diagnosis Alcohol withdrawal syndrome without complication (HCC-CMS)- Primary Alcohol withdrawal syndrome without complication (HCC-CMS) E coli bacteremia Bacteremia Upper GI bleed Hemorrhage of gastrointestinal tract, unspecified Upper GI bleed Hemorrhage of gastrointestinal tract, unspecified Acute blood loss anemia Acute posthemorrhagic anemia Alcohol use disorder History of gastric bypass Bariatric surgery status Severe sepsis (HCC-CMS) Lactic acidosis Acidosis E coli bacteremia Bacteremia documented in this encounter Admitting Diagnoses Diagnosis Upper GI bleed Hemorrhage of gastrointestinal tract, unspecified Alcohol withdrawal syndrome without complication ([facility]) documented in this encounter Administered Medications Inactive Administered Medications - up to 3 most recent administrations Medication Order MAR Action Action Date Dose Rate Site acetaminophen (TYLENOL) tablet 1,000 mg 1,000 mg, oral, NOW X1, 1 dose, On Mon08/22/22 at 0845, STAT Given 08/22/2022 8:52 EDT 1,000 mg acetaminophen (TYLENOL) tablet 650 mg 650 mg, oral, EVERY 6 HOURS PRN, Starting on 08/23/22 at 2108, Until Mon08/26/22 at 1829, Pain, Fever, Routine Given 08/24/2022 20:38 EDT 650 mg Given 08/23/2022 21:30 EDT 650 mg atropine 0.1 mg/mL syringe 0.5 mg 0.5 mg, intravenous, PRN, Starting on Barbie 08/25/22 at 1627, Until Mon08/26/22 at 1829, Symptomatic HR < 50, Routine, Recovery (only) cefpodoxime (VANTIN) tablet 200 mg 200 mg, oral, EVERY 12 HOURS, 7 doses, First dose on Barbie 08/25/22 at 1145, Last dose on Mon08/28/22 at 0900, Routine Given 08/26/2022 8:29 EDT 200 mg Given 08/25/2022 20:36 EDT 200 mg Given 08/25/2022 12:12 EDT 200 mg cefTRIAXone (ROCEPHIN) 2,000 mg in sodium chloride (NS MBP) 50 mL IVPB 2,000 mg, intravenous, Administer over 30 Minutes, EVERY 24 HOURS, 7 doses, First dose on Mon08/22/22 at 2100, Last dose on Mon08/28/22 at 2100, Type of Therapy: Definitive, Based on Cultures, Suspected Indication (Select all that apply): Other, Other Indication: Gram negative bacteremia, ID Consult: No, STAT New Bag 08/24/2022 20:38 EDT 2,000 mg New Bag 08/23/2022 21:06 EDT 2,000 mg New Bag 08/22/2022 21:00 EDT 2,000 mg FLUoxetine (PROZAC) capsule 80 mg 80 mg, oral, DAILY, First dose on Mon08/23/22 at 0900, Until Discontinued, Routine Given 08/26/2022 8:30 EDT 80 mg Given 08/25/2022 8:40 EDT 80 mg Given 08/24/2022 8:31 EDT 80 mg folic acid (FOLVITE) tablet 1 mg 1 mg, oral, DAILY, First dose on Mon08/23/22 at 0900, Until Discontinued, Routine, Release Given 08/26/2022 8:30 EDT 1 mg Given 08/25/2022 8:40 EDT 1 mg Given 08/24/2022 8:31 EDT 1 mg folic acid 1 mg in sodium chloride (NS) 0.9 % 50 mL IVPB 1 mg, intravenous, Administer over 30 Minutes, DAILY, First dose on Mon08/23/22 at 0900, Until Discontinued, Routine, Release lactated ringers (LR) infusion 30 mL/hr, intravenous, PRN, Starting on Mon08/25/22 at 1555, Until Mon08/26/22 at 1829, Routine, Preprocedure New Bag 08/25/2022 15:55 EDT 30 mL/hr 30 mL/hr lactated ringers (LR) infusion at 75 mL/hr, intravenous, CONTINUOUS, Starting on Mon08/25/22 at 1645, Until Mon08/26/22 at 1829, Routine, Recovery (only) lactated ringers BOLUS 1,000 mL 1,000 mL, intravenous, NOW X1, 1 dose, On Mon08/22/22 at 0845, STAT New Bag 08/22/2022 9:08 EDT 1,000 mL lactated ringers BOLUS 1,000 mL 1,000 mL, intravenous, NOW X1, 1 dose, On Mon08/22/22 at 1145, STAT New Bag 08/22/2022 11:39 EDT 1,000 mL lidocaine (PF) 10 mg/mL (1 %) injection 2 mg 2 mg, intradermal, PRN, 2 doses, Starting on Mon08/25/22 at 1555, Until Mon08/26/22 at 1829, line access, Routine, Preprocedure LORazepam (ATIVAN) injection 2 mg 2 mg, intravenous, NOW X1, 1 dose, On Mon08/22/22 at 0900, STAT Given 08/22/2022 9:05 EDT 2 mg naloxone (NARCAN) injection 0.2 mg 0.2 mg, intravenous, PRN, Starting on Mon08/25/22 at 1627, Until Mon08/26/22 at 1829, Opioid Reversal, Routine, Recovery (only) naltrexone (REVIA) tablet 50 mg 50 mg, oral, DAILY, First dose on Mon08/25/22 at 0900, Until Discontinued, Routine Given 08/26/2022 8:30 EDT 50 mg Given 08/25/2022 8:39 EDT 50 mg ondansetron (PF) (ZOFRAN) injection 4 mg 4 mg, intravenous, PRN, Starting on Mon08/25/22 at 1555, Until Mon08/26/22 at 1829, Nausea, Vomiting, Routine, Intraprocedure ondansetron (ZOFRAN-ODT) disintegrating tablet 4 mg 4 mg, oral, EVERY 4 HOURS PRN, Starting on Mon08/22/22 at 1643, Until Mon08/26/22 at 1829, Nausea, Routine Given 08/26/2022 2:34 EDT 4 mg pantoprazole (PROTONIX) injection 40 mg 40 mg, intravenous, 2 TIMES DAILY, First dose on Mon08/22/22 at 2100, Until Discontinued, Routine Given 08/24/2022 8:30 EDT 40 mg Given 08/23/2022 21:06 EDT 40 mg Given 08/23/2022 10:13 EDT 40 mg pantoprazole (PROTONIX) tablet 40 mg 40 mg, oral, 2 TIMES DAILY, First dose on Mon08/24/22 at 2100, Until Discontinued, Routine Given 08/26/2022 8:30 EDT 40 mg Given 08/25/2022 20:36 EDT 40 mg Given 08/25/2022 8:39 EDT 40 mg PHENobarbital (LUMINAL) 5 mg/kg = 284.7 mg in sodium chloride (NS) 0.9 % 50 mL IVPB 284.7 mg (rounded from 285 mg = 5 mg/kg ? 57 kg Eunice weight), intravenous, Administer over 30 Minutes, NOW X1, 1 dose, On Mon08/22/22 at 1700, Indication of Use: Alcohol Withdrawal, Cumulative PHENobarbital dose reviewed? Yes - Less than 20 mg/kg, STAT Given 08/22/2022 17:24 EDT 284.7 mg potassium chloride SA (K-DUR) tablet 40 mEq 40 mEq, oral, NOW X1, 1 dose, On Mon08/24/22 at 0800, Routine Given 08/24/2022 8:33 EDT 40 mEq potassium chloride SA (K-DUR) tablet 40 mEq 40 mEq, oral, NOW X1, 1 dose, On Mon08/24/22 at 0800, Routine Given 08/24/2022 8:30 EDT 40 mEq potassium chloride SA (K-DUR) tablet 40 mEq 40 mEq, oral, NOW X1, 1 dose, On Mon08/24/22 at 1545, Routine Given 08/24/2022 16:12 EDT 40 mEq pregabalin (LYRICA) capsule 100 mg 100 mg, oral, NOW X1, 1 dose, On Mon08/22/22 at 2230, Routine Given 08/22/2022 22:47 EDT 100 mg pregabalin (LYRICA) capsule 200 mg 200 mg, oral, 3 TIMES DAILY, First dose (after last modification) on Mon08/23/22 at 0900, Until Discontinued, Routine Given 08/26/2022 14:29 EDT 200 mg Given 08/26/2022 8:30 EDT 200 mg Given 08/25/2022 20:36 EDT 200 mg ramelteon (ROZEREM) tablet 8 mg 8 mg, oral, AT BEDTIME PRN, Starting on Mon08/22/22 at 1643, Until Mon08/26/22 at 1829, Sleep, Routine Given 08/25/2022 20:41 EDT 8 mg Given 08/24/2022 20:38 EDT 8 mg Given 08/23/2022 21:30 EDT 8 mg sodium chloride 0.9 % (flush) flush 5 mL 5 mL, intravenous, EVERY 8 HOURS, First dose on Mon08/25/22 at 1615, Until Discontinued, Routine, Preprocedure Given 08/26/2022 8:29 EDT 5 mL sodium chloride 0.9 % (flush) flush 5 mL 5 mL, intravenous, PRN, Starting on Mon08/25/22 at 1555, Until Mon08/26/22 at 1829, Line Care, Routine, Preprocedure Given 08/25/2022 16:59 EDT 5 mL Given 08/25/2022 15:54 EDT 5 mL sodium chloride 0.9 % (NS) infusion 30 mL/hr, intravenous, PRN, Starting on Barbie 08/25/22 at 1555, Until Mon08/26/22 at 1829, Routine, Preprocedure thiamine (VITAMIN B-1) 100 mg in sodium chloride (NS) 0.9 % 50 mL IVPB 100 mg, intravenous, Administer over 15 Minutes, DAILY, 5 doses, First dose on Mon08/23/22 at 0900, Last dose on 08/27/22 at 0900, Routine, Release thiamine (VITAMIN B-1) injection 100 mg 100 mg, intramuscular, DAILY, 5 doses, First dose on Mon08/23/22 at 0900, Last dose on 08/27/22 at 0900, Routine, Release thiamine (VITAMIN B1) tablet 100 mg 100 mg, oral, DAILY, 5 doses, First dose on Mon08/23/22 at 0900, Last dose on 08/27/22 at 0900, Routine, Release Given 08/26/2022 8:30 EDT 100 mg Given 08/25/2022 8:40 EDT 100 mg Given 08/24/2022 8:30 EDT 100 mg documented in this encounter Discontinued Medications Medication Sig Discontinue Reason Start Date End Da te hydrOXYchloroQUINE (PLAQUENIL) 200 mg tabletIndications:Inflam matory arthritis TAKE ONE TABLET BY MOUTH TWICE A DAY Therapy completed 11/30/2020 08/22/2022 ibuprofen (MOTRIN) 200 mg tablet Take 800 mg by mouth as needed for Pain (Has been often lately.). 08/26/2022 documented as of this encounter Active and Recently Administered Medications Times are shown in EDT. Scheduled Medication Order 08/24/2022 08/25/2022 08/26/2022 cefpodoxime (VANTIN) tablet 200 mg 200 mg, oral, EVERY 12 HOURS, 7 doses, First dose on Barbie 08/25/22 at 1145, Last dose on Mon08/28/22 at 0900, Routine 1212 (Given - Provider: Cass Walton RN)2035 (Given - Provider: Isai Canales RN) 0829 (Given - Provider: Kimmie Thurman, RN) cefTRIAXone (ROCEPHIN) 2,000 mg in sodium chloride (NS MBP) 50 mL IVPB (CANCELED) 2,000 mg, intravenous, Administer over 30 Minutes, EVERY 24 HOURS, 7 doses, First dose on Mon08/22/22 at 2100, Last dose on Mon08/28/22 at 2100, Type of Therapy: Definitive, Based on Cultures, Suspected Indication (Select all that apply): Other, Other Indication: Gram negative bacteremia, ID Consult: No, STAT 2037 (New Bag - Provider: Isai Canales RN) FLUoxetine (PROZAC) capsule 80 mg 80 mg, oral, DAILY, First dose on Mon08/23/22 at 0900, Until Discontinued, Routine 0831 (Given - Provider: Cass Walton RN) 0840 (Given - Provider: Cass Walton RN) 0830 (Given - Provider: Kimmie Thurman, MEREDITH) folic acid (FOLVITE) tablet 1 mg(Linked Group 1) 1 mg, oral, DAILY, First dose on Mon08/23/22 at 0900, Until Discontinued, Routine, Release 0831 (Given - Provider: Cass Walton RN) 0840 (Given - Provider: Cass Walton RN) 0830 (Given - Provider: Kimmie Thurman, MEREDITH) folic acid 1 mg in sodium chloride (NS) 0.9 % 50 mL IVPB(Linked Group 1) 1 mg, intravenous, Administer over 30 Minutes, DAILY, First dose on Mon08/23/22 at 0900, Until Discontinued, Routine, Release 0831 (See Alternative - Provider: Cass Walton RN) 0840 (See Alternative - Provider: Cass Walton RN) 0830 (See Alternative - Provider: Kimmie Thurman, MEREDITH) naltrexone (REVIA) tablet 50 mg 50 mg, oral, DAILY, First dose on Mon08/25/22 at 0900, Until Discontinued, Routine 0839 (Given - Provider: Cass Walton RN) 0830 (Given - Provider: Kimmie Thurman, RN) pantoprazole (PROTONIX) injection 40 mg (CANCELED) 40 mg, intravenous, 2 TIMES DAILY, First dose on Mon08/22/22 at 2100, Until Discontinued, Routine 0830 (Given - Provider: Cass Walton RN) pantoprazole (PROTONIX) tablet 40 mg 40 mg, oral, 2 TIMES DAILY, First dose on Mon08/24/22 at 2100, Until Discontinued, Routine 2037 (Given - Provider: Isai Canales RN) 0839 (Given - Provider: Cass Walton RN)2035 (Given - Provider: Isai Canales RN) 0830 (Given - Provider: Kimmie Thurman RN) potassium chloride SA (K-DUR) tablet 40 mEq (COMPLETED) 40 mEq, oral, NOW X1, 1 dose, On Mon08/24/22 at 0800, Routine 0833 (Given - Provider: Cass Walton RN) potassium chloride SA (K-DUR) tablet 40 mEq (COMPLETED) 40 mEq, oral, NOW X1, 1 dose, On Mon08/24/22 at 0800, Routine 0830 (Given - Provider: Cass Walton RN) potassium chloride SA (K-DUR) tablet 40 mEq (COMPLETED) 40 mEq, oral, NOW X1, 1 dose, On Mon08/24/22 at 1545, Routine 1612 (Given - Provider: Cass Walton RN) pregabalin (LYRICA) capsule 200 mg 200 mg, oral, 3 TIMES DAILY, First dose (after last modification) on Mon08/23/22 at 0900, Until Discontinued, Routine 0830 (Given - Provider: Cass Walton RN)1429 (Given - Provider: Cass Walton RN)2037 (Given - Provider: Isai Canales RN) 0840 (Given - Provider: Cass Walton RN)1336 (Given - Provider: Cass Walton RN)2035 (Given - Provider: Isai Canales RN) 0830 (Given - Provider: Kimmie Thurman, MEREDITH)1429 (Given - Provider: Kimmie Thurman RN) sodium chloride 0.9 % (flush) flush 5 mL(Linked Group 2) 5 mL, intravenous, EVERY 8 HOURS, First dose on Mon08/25/22 at 1615, Until Discontinued, Routine, Preprocedure 1615 (Canceled Entry - Provider: Batch Job User Admin - Comment: Automatically canceled at discontinue of medication order) 0211 (Not Given - Provider: Isai Canales RN - Reason: Other)0829 (Given - Provider: Kimmie Thurman, MEREDITH)1624 (Not Given - Provider: Jackeline Garvey RN - Reason: Loss of IV access) thiamine (VITAMIN B-1) 100 mg in sodium chloride (NS) 0.9 % 50 mL IVPB(Linked Group 3) 100 mg, intravenous, Administer over 15 Minutes, DAILY, 5 doses, First dose on Mon08/23/22 at 0900, Last dose on Mon08/27/22 at 0900, Routine, Release 0830 (See Alternative - Provider: Cass Walton RN) 0840 (See Alternative - Provider: Cass Walton RN) 0830 (See Alternative - Provider: Kimmie Thurman, MEREDITH) thiamine (VITAMIN B-1) injection 100 mg(Linked Group 3) 100 mg, intramuscular, DAILY, 5 doses, First dose on Mon08/23/22 at 0900, Last dose on Mon08/27/22 at 0900, Routine, Release 0830 (See Alternative - Provider: Cass Walton, MEREDITH) 0840 (See Alternative - Provider: aCss Walton RN) 0830 (See Alternative - Provider: Kimmie Thurman, MEREDITH) thiamine (VITAMIN B1) tablet 100 mg(Linked Group 3) 100 mg, oral, DAILY, 5 doses, First dose on Mon08/23/22 at 0900, Last dose on Mon08/27/22 at 0900, Routine, Release 0830 (Given - Provider: Cass Walton, MEREDITH) 0840 (Given - Provider: Cass Walton, MEREDITH) 0830 (Given - Provider: Kimmie Thurman, RN) Continuous Medication Order 08/24/2022 08/25/2022 08/26/2022 lactated ringers (LR) infusion at 75 mL/hr, intravenous, CONTINUOUS, Starting on Barbie 08/25/22 at 1645, Until Mon08/26/22 at 1829, Routine, Recovery (only) 1631 (IV Resume - Provider: Virginie Castro - Comment: 750 ml remaining in RL bag)1659 (IV Stopped - Provider: Virginie Castro - Comment: total pre, procedure and post) PRN Medication Order 08/24/2022 08/25/2022 08/26/2022 acetaminophen (TYLENOL) tablet 650 mg 650 mg, oral, EVERY 6 HOURS PRN, Starting on Tu08/23/22 at 2108, Until Mon08/26/22 at 1829, Pain, Fever, Routine 2037 (Given - Provider: Isai Canales RN) atropine 0.1 mg/mL syringe 0.5 mg 0.5 mg, intravenous, PRN, Starting on Barbie 08/25/22 at 1627, Until Mon08/26/22 at 1829, Symptomatic HR < 50, Routine, Recovery (only) lactated ringers (LR) infusion(Linked Group 4) 30 mL/hr, intravenous, PRN, Starting on Barbie 08/25/22 at 1555, Until Mon08/26/22 at 1829, Routine, Preprocedure 1555 (New Bag - Provider: Virginie Castro) lidocaine (PF) 10 mg/mL (1 %) injection 2 mg 2 mg, intradermal, PRN, 4 doses, Starting on 08/22/22 at 1643, Until Mon08/26/22 at 1829, peripheral intravenous catheter placement, Routine lidocaine (PF) 10 mg/mL (1 %) injection 2 mg 2 mg, intradermal, PRN, 2 doses, Starting on Barbie 08/25/22 at 1555, Until Mon08/26/22 at 1829, line access, Routine, Preprocedure naloxone (NARCAN) injection 0.2 mg 0.2 mg, intravenous, PRN, Starting on Barbie 08/25/22 at 1627, Until Mon08/26/22 at 1829, Opioid Reversal, Routine, Recovery (only) nicotine polacrilex (COMMIT) 2 mg lozenge 2 mg 2 mg, oral, EVERY 1 HOUR PRN, Starting on 08/22/22 at 1643, Until Mon08/26/22 at 1829, Smoking Cessation, Routine ondansetron (PF) (ZOFRAN) injection 4 mg 4 mg, intravenous, PRN, Starting on Barbie 08/25/22 at 1555, Until Mon08/26/22 at 1829, Nausea, Vomiting, Routine, Intraprocedure ondansetron (ZOFRAN-ODT) disintegrating tablet 4 mg 4 mg, oral, EVERY 4 HOURS PRN, Starting on Mon08/22/22 at 1643, Until Mon08/26/22 at 1829, Nausea, Routine 0234 (Given - Provider: Isai Canales RN) polyethylene glycol 3350 (MIRALAX) packet 17 g 17 g, oral, DAILY PRN, Starting on Mon08/22/22 at 1643, Until Mon08/26/22 at 1829, Constipation, Routine ramelteon (ROZEREM) tablet 8 mg 8 mg, oral, AT BEDTIME PRN, Starting on Mon08/22/22 at 1643, Until Mon08/26/22 at 1829, Sleep, Routine 2037 (Given - Provider: Isai Canales RN) 2040 (Given - Provider: Isai Canales RN) sodium chloride 0.9 % (flush) flush 5 mL 5 mL, intravenous, PRN, Starting on Mon08/25/22 at 1555, Until Mon08/26/22 at 1829, Line Care, Routine, Preprocedure 1554 (Given - Provider: Virginie Castro)1659 (Given - Provider: Virginie Castro) sodium chloride 0.9 % (NS) infusion(Linked Group 4) 30 mL/hr, intravenous, PRN, Starting on Mon08/25/22 at 1555, Until Mon08/26/22 at 1829, Routine, Preprocedure 1555 (See Alternative - Provider: Virginie Castro) Linked Groups Order Group 1: folic acid (FOLVITE) tablet 1 mgJump to med 1 mg, oral, DAILY, First dose on Mon08/23/22 at 0900, Until Discontinued, Routine, Release Or folic acid 1 mg in sodium chloride (NS) 0.9 % 50 mL IVPBJump to med 1 mg, intravenous, Administer over 30 Minutes, DAILY, First dose on Mon08/23/22 at 0900, Until Discontinued, Routine, Release Group 2: Insert Saline Lock (CANCELED) Routine, ONE TIME, On Mon08/25/22 at 1600, For 1 occurrence, Preprocedure And sodium chloride 0.9 % (flush) flush 5 mLJump to med 5 mL, intravenous, EVERY 8 HOURS, First dose on Mon08/25/22 at 1615, Until Discontinued, Routine, Preprocedure Group 3: thiamine (VITAMIN B1) tablet 100 mgJump to med 100 mg, oral, DAILY, 5 doses, First dose on Mon08/23/22 at 0900, Last dose on Mon08/27/22 at 0900, Routine, Release Or thiamine (VITAMIN B-1) injection 100 mgJump to med 100 mg, intramuscular, DAILY, 5 doses, First dose on Mon08/23/22 at 0900, Last dose on Mon08/27/22 at 0900, Routine, Release Or thiamine (VITAMIN B-1) 100 mg in sodium chloride (NS) 0.9 % 50 mL IVPBJump to med 100 mg, intravenous, Administer over 15 Minutes, DAILY, 5 doses, First dose on Mon08/23/22 at 0900, Last dose on Mon08/27/22 at 0900, Routine, Release Group 4: sodium chloride 0.9 % (NS) infusionJump to med 30 mL/hr, intravenous, PRN, Starting on Mon08/25/22 at 1555, Until Mon08/26/22 at 1829, Routine, Preprocedure Or lactated ringers (LR) infusionJump to med 30 mL/hr, intravenous, PRN, Starting on Mon08/25/22 at 1555, Until Mon08/26/22 at 1829, Routine, Preprocedure documented in this encounter Orders Medications Ordered That Adin ht Not Have Been Administered Count Last Ordered Date First Ordered Date atropine 0.1 mg/mL syringe 0.5 mg 1 023 cefpodoxime (VANTIN) tablet 200 mg 1 2022 diphenhydrAMINE (BENADRYL) injection 25 mg 1 08/25/2022 lactated ringers (LR) infusion 1 08/25/2022 lidocaine (PF) 10 mg/mL (1 % ) injection 2 mg 3 08/25/2022 08/22/2022 naloxone (NARCAN) injection 0.2 mg 1 2022 ondansetron (PF) (ZOFRAN) injection 4 mg 1 08/25/2022 sodium chloride 0.9 % (NS) infusion 1 08/25 folic acid 1 mg in sodium ch loride (NS) 0.9 % 50 mL IVPB 1 08/22/2022 nicotine polacrilex (COMMIT) 2 mg lozenge 2 mg 1 08/22/2022 PHENobarbital 285 mg IV syringe 6.5 mg/mL 1 08/22/2022 polyethylene glycol 3350 (IN RALAX) packet 17 g 1 08/22/2022 pregabalin (LYRICA) capsule 100 mg 2 2022 thiamine (VITAMIN B-1) 100 m g in sodium chloride (NS) 0.9 % 50 mL IVPB 1 08/22/2022 thiamine (VITAMIN B-1) injection 100 mg 1 0 08/22/2022 Diet Count Last Ordered Date First Orde red Date DISCHARGE DIET 1 08/26/2022 Nursing Count Last Ordered Date First Orde red Date ACTIVITY INSTRUCTIONS 1 08/26/2022 BATHING INSTRUCTIONS 1 08/26/2022 DRIVING INSTRUCTIONS 1 08/26/2022 CONTRAINDICATION TO ANTICOAG ULATION THERAPY 1 08/22/2022 IV Count Last Ordered Date First Orde red Date IV REQUEST 1 08/25/2022 Admission Count Last Ordered Date First Orde red Date ADMIT TO INPATIENT 1 08/22/2022 Transfer Count Last Ordered Date First Orde red Date ED BED REQUEST 1 08/22/2022 Discharge Count Last Ordered Date First Orde red Date DISCHARGE PATIENT 1 08/26/2022 Legal Count Last Ordered Date First Orde red Date MISCELLANEOUS DISCHARGE INSTRUCTIONS 1 08/2022 documented in this encounter Additional Health Concerns Infection Onset Date Last Indicated Resolved Time R/O COVID-19 08/22/2022 08/22/2022 08/22/2022 11:1 1 EDT documented as of this encounter Care Teams Central Sterilization Technician Relationship Specialty Start Date End Date Phoenix Polanco MD [address] [place] [phone] PCP - General 12/27/13 documented as of this encounter
--- OUTSIDE RECORDS SUMMARY | 2023-12-23 01:00 | XMS_ITS | Encounter Summary ---
Author Organization [facility] Address [address] [place] [address] Care Team Providers Care Football Coach Name Role Phone Phoenix Polanco MD Primary Care Provider + Reason for Visit * Reason Onset Date Comments Appointment Related 01/21/2021 Encounter Details Date Type Department Care Team (Late st Contact Info) Description 01/21/2021 Telephone [facility] Medicine Program - [address] [address] Mor Chanel MD [address] [place] [phone] Appointment Related Social History Tobacco Use [...] Telephone Encounter - Nirali Zee MA - 01/21/2021 1047 EDT Monovisc injection is scheduled for Monday02/09/21 at 3:00 PM. documented in this encounter Plan of Treatment Not on file documented as of this encounter Visit Diagnoses Not on filedocumented in this encounter Care Teams Football Coach Relationship Specialty Start Date End Date Phoenix Polanco MD [address] [place] [phone] PCP - General 12/27/13 documented as of this encounter
--- OUTSIDE RECORDS SUMMARY | 2023-12-23 01:00 | XMS_ITS | Encounter Summary ---
Author Organization [facility] Address [address] [place] [address] Care Team Providers Care Distributed [employer] Consultant Name Role Phone Phoenix Polanco MD Primary Care Provider + Reason for Referral * Radiology Services (Routine) - Closed Specialty Diagnoses / Procedures Referred By Contac t Referred To Contact Radiology Diagnoses Internal derangement of right knee Procedures MR KNEE WO CONTRAST RIGHT Briseyda Bynum NP [address] [place] [phone] Referral ID Status Reason Start Date Expiration Date Visits Re quested Visits Authorized [id number] Closed 07/22/2020 01/18/2021 1 1 Reason for Visit * Reason Comments Follow-up Pain * Consult (Routine) - Closed Specialty Diagnoses / Procedures Referred By Janak miguel Referred To Contact Orthopedic Surgery Diagnoses Pain in right knee Phoenix Polanco MD [address] [place] [phone] [facility] [address] [place] [address] Referral ID Status Reason Start Date Expiration Date Visits Re quested Visits Authorized [id number] Closed 1 1 Encounter Details Date Type Department Care Team (Latest Contact Info) Description 06/08/2020 10:30 EST Telemedicine [facility] Orthopedic Surgery - [place] Jose D Ghotra [address] [place] [address] Briseyda Bynum, PERMIT TECHNICIAN [address] [place] [phone] Primary osteoarthritis of right knee (Primary Dx); Internal derangement of right knee; Class 2 severe obesity due to excess calories with serious comorbidity in adult, unspecified BMI ([facility]) Social History Tobacco Use Types Packs/Day Years [...] this encounter Progress Notes * Briseyda Bynum, UX SPECIALIST - 06/08/2020 1030 EST CC: Right knee pain Patient Active Problem List Diagnosis ??? Anemia ??? Right shoulder pain ??? SLAP (superior labrum from anterior to posterior) tear ??? Superior glenoid labrum lesion ??? AC (acromioclavicular) joint arthritis ??? Glenoid labral tear ??? Low back pain radiating to right leg ??? Depression SUBJECTIVE: I am seeing the patient today as a follow up for RIGHT knee pain. The concept of ???Telemedicine?? has been described to the patient.? Patient has been informed of the anticipated benefits and possible risks.? Patient understands the information provided regarding telemedicine, has had the opportunity to ask questions about this information, and all questions have been answered to patient???s satisfaction. Patient consents for the use of telemedicine in his/her medical care and authorizes the transmission of any relevant medical information to providers and their staff involved in patient???s medical or mental health care. Nela states her knee continues to catch and lock. I gave her a cortisone injection on 04/27/2020which gave her relief for just a few days. Her biggest concern now is catching/locking. She feels quite limited by this. Past Medical History: Diagnosis Date ??? Anemia ??? Anxiety ??? Arm pain ??? Arm weakness ??? Arthritis ??? Depression ??? Depression ??? Joint stiffness ??? Night sweats ??? Numbness ??? Substance abuse ([facility]) Past Surgical History: Procedure Laterality Date ??? [...] reviewed by me. Pertinent positives mentioned above. PHYSICAL EXAM: 50 y.o. Patient is in no acute distress, mood and affect appropriate, alert No exam was undergone today because this was a telemedicine visit today. REVIEW OF IMAGING:RIGHT xrays obtained previously and independently visualized by me, demonstrate: mild to moderate medial tibial femoral joint narrowing consistent with mild to moderate osteoarthritis ASSESSMENT: RIGHT knee degenerative osteoarthritis/internal derangement resulting in marked pain and catching/locking. MEDICAL DECISION-MAKING and PLAN: Diagnostic and Non-operative treatment plan: As a result of our discussion, we have agreed to proceed with the following diagnostic plan: Although this patient has some risk factors, her age/weight and degenerative findings on her xrays,I will proceed with an MRI to look at the medial meniscus. She has seen Dr. Chanel previously for her shoulder and would like to return to see him for possible arthroscopic debridement surgery. She understands and I have carefully reviewed with her that her weight/degenerative disease are concerns given her age. Arthroscopic surgery may give her temporary relief but may not fully resolve her symptoms. An appropriate informed choice non-operative treatment discussion was completed and we have collectively agreed to proceed with the following therapeutic plan: Continued activity modification to limit symptoms Surgical options: We did discuss that this patient may be a candidate for arthroscopic surgery. I spent a total of 15 minutes on the date of this encounter meeting with the patient and reviewing documentation/coordinating care as described in the above note. There was no procedure done today. Dr. Dennison was available for consultation. documented in this encounter Plan of Treatment Not on file documented as of this encounter Results * MR KNEE WO CONTRAST RIGHT (12/22/2020 7:42 EDT) Anatomical Region Laterality Modality Lower Extremities Right Magnetic Reson ance 12/24/2020 8:39 EDT Narrative 12/24/2020 8:39 EDT MR KNEE WO CONTRAST RIGHT ??12/22/2020 7:00 AM CLINICAL HISTORY: internal derangement/catching/locking, r/o medial meniscal tear warranting surgery TECHNIQUE: Routine multiplanar and multisequence MR images of the right knee were obtained without contrast administration. COMPARISON: Knee radiographs dated April 27, 2020 and October 01, 2019. FINDINGS: Cruciate Ligaments: ACL: Intact. PCL: Intact. Medial Compartment: Medial Meniscus: There is no [...] extruded meniscus without evidence of discrete tearing. Lateral Compartment: Lateral Meniscus: No discrete tear. Cartilage: There is a focal area of basilar, chondral delamination on the mesial aspect of the weightbearing portion of the lateral tibial plateau, which measures approximately 6 mm (coronal PD image #19, sagittal T2 image #17) Lateral and Posterolateral Supporting Structures: Intact. Patellofemoral Compartment: Extensor Mechanism: Intact. Cartilage: There is minimal superficial irregularity and the patellar cartilage with preserved thickness. There is a small focus of chondrosis at the junction of the medial trochlea and anterior aspect of the medial femoral condyle (sagittal T2 image #12, axial PD image #15). Retinacula: Intact. Bones: No abnormal bone marrow signal. Joint Space: ??Small joint effusion with findings of synovitis in the posterior aspect of Hoffa's fat pad. Moderate sized Elizabeth's cyst which measures 5 centimeters Extra-articular Soft Tissues: Unremarkable. IMPRESSION MRI RIGHT KNEE: 1. ??Partial extrusion of the medial meniscus into the medial gutter with suspicion of a partial undersurface tear involving the posterior root ligament. No discrete medial meniscus tear seen. Alternatively, the meniscal extrusion can be related to at least moderate joint space narrowing in the medial femorotibial 2. ??High-grade chondral thinning along the weightbearing portion of the medial femoral condyle, milder chondral thinning along the responding medial tibial plateau. 3. ??Focal area of basilar, chondral delamination on the mesial aspect of the weightbearing portion of the lateral tibial plateau, measuring approx. 6 mm in length. 4. ??Small right knee joint effusion with findings of synovitis. Elizabeth's cyst which measures up to 5 cm in length. I have personally reviewed the images and the above interpretation and agree with the findings. Procedure Note Enrique Blanton MD - 12/24/2020 MR KNEE WO CONTRAST RIGHT 12/22/2020 7:00 AM CLINICAL HISTORY: internal derangement/catching/locking, r/o medialmeniscal tear warranting surgery TECHNIQUE: Routine multiplanar and multisequence MR images of the rightknee were obtained without contrast administration. COMPARISON: Knee radiographs dated April 27, 2020 and October 01, 2019. FINDINGS: Cruciate Ligaments: ACL: Intact. PCL: Intact. Medial Compartment: Medial Meniscus: There is no discrete tear of the medial meniscus, howeverthere is partial extrusion of the meniscus into the medial gutter withsuspected partially torn posterior root ligament. Cartilage: There is high-grade thinning on the weightbearing portion ofthe medial femoral condyle with milder chondral thinning on theweightbearing portions of the medial tibial plateau. Medial and Posteromedial Supporting Structures: There is bowing from masseffect secondary to the after mentioned extruded meniscus without evidenceof discrete tearing. Lateral Compartment: Lateral Meniscus: No discrete tear. Cartilage: There is a focal area of basilar, chondral delamination on themesial aspect of the weightbearing portion of the lateral tibial plateau,which measures approximately 6 mm (coronal PD image #19, sagittal T2 image#17) Lateral and Posterolateral Supporting Structures: Intact. Patellofemoral Compartment: Extensor Mechanism: Intact. Cartilage: There is minimal superficial irregularity and the patellarcartilage with preserved thickness. There is a small focus of chondrosisat the junction of the medial trochlea and anterior aspect of the medialfemoral condyle (sagittal T2 image #12, axial PD image #15). Retinacula: Intact. Bones: No abnormal bone marrow signal. Joint Space: Small joint effusion with findings of synovitis in theposterior aspect of Hoffa's fat pad. Moderate sized Elizabeth's cyst whichmeasures 5 centimeters Extra-articular Soft Tissues: Unremarkable. IMPRESSION MRI RIGHT KNEE: 1. Partial extrusion of the medial meniscus into the medial gutter withsuspicion of a partial undersurface tear involving the posterior rootligament. No discrete medial meniscus tear seen. Alternatively, themeniscal extrusion can be related to at least moderate joint spacenarrowing in the medial femorotibial 2. High-grade chondral thinning along the weightbearing portion of themedial femoral condyle, milder chondral thinning along the respondingmedial tibial plateau. 3. Focal area of basilar, chondral delamination on the mesial aspect ofthe weightbearing portion of the lateral tibial plateau, measuring approx.6 mm in length. 4. Small right knee joint effusion with findings of synovitis. Elizabeth'scyst which measures up to 5 cm in length. I have personally reviewed the images and the above interpretation andagree with the findings. Briseyda Bynum PERMIT TECHNICIAN IMG MRI ORDERA BLES documented in this encounter Visit Diagnoses Diagnosis Primary osteoarthritis of right knee- Primary Primary localized osteoarthrosis, lower leg Internal derangement of right knee Unspecified internal derangement of knee Class 2 severe obesity due to excess calories with serious comorbidity in adult, unspecified BMI ([facility]) Internal derangement of right knee Unspecified internal derangement of knee documented in this encounter Care Teams [employer] Consultant Relationship Specialty Start Date End Date Phoenix Polanco MD [address] [place] [phone] PCP - General 12/27/13 documented as of this encounter
--- OUTSIDE RECORDS SUMMARY | 2023-12-23 01:00 | XMS_ITS | Encounter Summary ---
Author Organization [facility] Address [address] [place] [address] Care Team Providers Care Forest Scientist Name Role Phone Phoenix Polanco MD Primary Care Provider + Encounter Details Date Type Department Care Team (Latest Contact Info) Description 08/17/2020 Travel Social History Tobacco Use Types Packs/Day [...] have Coronavirus / COVID-19? No / Unsure 08/17/2020 14:15 EDT documented as of this encounter Functional [...] on filedocumented in this encounter Care Teams Forest Scientist Relationship Specialty Start Date End Date Phoenix Polanco MD [address] [place] [phone] PCP - General 12/27/13 documented as of this encounter
--- OUTSIDE RECORDS SUMMARY | 2023-12-23 01:00 | XMS_ITS | Encounter Summary ---
Author Organization [facility] Address [address] [place] [address] Care Team Providers Care Catering Cook Name Role Phone Phoenix Polanco MD Primary Care Provider + Reason for Visit * Reason Comments Knee Pain Right knee pain for several months with some swelling and catching * Consult (Routine) - Closed Specialty Diagnoses / Procedures Referred By Janak miguel Referred To Contact Orthopedic Surgery Diagnoses Pain in right knee Phoenix Polanco MD [address] [place] [phone] [facility] [address] [address] Referral ID Status Reason Start Date Expiration Date Visits Re quested Visits Authorized [id number] Closed 1 1 Encounter Details Date Type Department Care Team (Latest Contact Info) Description 04/27/2020 10:15 EST Office Visit [facility] Orthopedic Surgery - [address] [place] [address] Briseyda Bynum NP [address] [place] [address] Primary osteoarthritis of right knee (Primary Dx); Class 2 severe obesity due to excess calories with serious comorbidity in adult, unspecified BMI ([facility]) Social History Tobacco Use Types Packs/Day Years [...] - - Weight 113.4 kg (250 lb) 04/27/2020 1013 EST Height 165.1 cm (5' 5) 04/27/2020 1013 EST Body Mass Index 41.6 04/27/2020 1013 EST documented in this encounter Functional Status [...] this encounter Patient Instructions * Patient Instructions* Mecca Delcid - 04/27/2020 10:15 EST Post-Injection Care The information below is provided to help you manage your post-injection experience. Please feel free to call if you have any concerns after receiving your injection. Medications used in your injection today may include: ??? Marcaine (a long-acting anesthetic) ??? Lidocaine (a short-acting anesthetic) ??? Steroid (synthetic cortisone, e.g. Depo-Medrol) ??? Euflexxa or Gel-One (viscoelastic supplementation) Normal findings after the injection include: ??? Soreness, slight throbbing or swelling at the injection site for up to two days. ??? Two to three days for the pain to be relieved. ??? Increased joint pain or discomfort for the first 24 to 48 hours before the steroid takes effect. Recommendations after injection: ??? Rest the injected extremity for the next TWO DAYS (no exercise or strenuous activity). ??? Apply ice to the injection area for 10 to 15 minutes every hour or two for the first day. ??? Take Tylenol (acetaminophen) or Advil (ibuprofen) as directed by executive manager, if not contraindicated. ??? No swimming for 24 hours. No soaking or hot tub for 48 hours. Please contact our office if the following occurs: ??? Severe itching or rash anywhere on your body. If this is accompanied by shortness of breath, please go to your nearest Emergency Room. ??? Extreme redness, swelling or warmth at the injection site. These symptoms could be signs of an early infection, which is rare. The amount and duration of pain relief from an injection varies widely between patients. Some report pain relief for months, while other patients report only a few weeks of relief. DIABETIC WARNING: If you are diabetic, this injection may elevate your blood sugars for the next one to five days. Please monitor your blood sugars closely. If they fail to return to your acceptable level, please see your primary care physician. Thank you for choosing the [facility] for your care. If you have any questions after receiving an injection, or if your pain does not subside, please call at [phone] and let us know. Our goal is to lessen your pain and improve your function. documented in this encounter Progress Notes * Kristie Cisneros - 04/27/2020 1015 EST REVIEW OF SYSTEMS: Yes No Yes No Fever/Chills x Joint pain x Fatigue x Muscle pain x Night sweats x Morning stiffness x Weight change x If yes, duration 1 hr Gain or loss? Numbness/tingling Feet and hands Headaches x If yes, where? Dizziness x Muscle weakness x Chest pain x Excessive thirst x Shortness of breath x Change in mood x Cough x Nervous or anxious x Nausea/vomiting x Sad or depressed x Abdomnial pains/cramps x Excessive bruising x Heartburn/Reflux x Urinary Changes x Rash x Balance Issues x * Fletcher Briseyda Rodriguezu, AUTOMOTIVE WINDOW TINTER - 04/27/2020 1015 ESTAssociated Order(s): Large Joint Injection/Arthrocentesis: R knee Chief Complaint Patient presents with ??? Knee Pain Right knee pain for several months with some swelling and catching Patient Active Problem List Diagnosis Date Noted ??? Depression Priority: Medium ??? Low back pain radiating to right leg 11/05/2015 Priority: Medium ??? AC (acromioclavicular) joint arthritis 06/30/2014 ??? Glenoid labral tear 06/30/2014 ??? Superior glenoid labrum lesion 06/26/2014 ??? Right shoulder pain 04/07/2014 ??? SLAP (superior labrum from anterior to posterior) tear 04/07/2014 ??? Anemia SUBJECTIVE: I am seeing the patient today as a new patient who presents for RIGHT knee pain. For several monthsyina describes knee pain; recently seeing her software implementation project manager in September 2019. She has described progressive RIGHT knee pain and swelling. She has a burning, stabbing pain. She also has some catching painwithin the knee. She recently was placed on prednisone by her primary care provider. [facility] of multiple joint complaints; she has been told she has an autoimmune disease but not specifically RA or Lupus. She takes lyrica, cymbalta, tylenol arthritis meds. 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 She does some walking, three dogs, two kids at home. She wakes at 3:15am every day and goes to bed at 8. Her children are older but living at home, one daughter who has returned (20 years old). [facility]'s there. Description of pain includes: Character: burning, sharp Location: patellofemoral joint medially Duration: varies Context: movements Severity: 9/10 at times Radiation: no Interferes with sleep: sometimes Relieving factors: rest What makes it worse: movements Hobbies/Exercise: See above Marital/living status: Prior treatment has included: Physical therapy: no Medication: see above, no ansaids, she is anemic Injection: no Assistive device: no Surgical: None for this joint. Past Medical History: Diagnosis Date ??? Anemia ??? Anxiety ??? Arm pain ??? Arm weakness ??? Arthritis ??? Depression ??? Depression ??? Joint stiffness ??? Night sweats ??? Numbness ??? Substance abuse ([facility]) Past Surgical History: Procedure Laterality Date ??? [...] y.o. Patient is in no acute distress, appears normal, mood and affect appropriate, alert and oriented x3. Good historian. Skin: Intact, no rashes, no bruises. Eyes: Sclerae clear. Cardiovascular: Capillary refill normal. Respiratory: Regular, unlabored, without audible wheezing. Musculoskeletal: Arises from a seated position with pain. Ambulates with pain. Pelvis and Hips: No tenderness or masses, hip ROM is symmetric without reproduction of patient's presenting leg complaint(s) RIGHT KNEE: Skin: Intact to inspection and palpation. No prior incisions/scars No effusion. Standing alignment Genu valgum ROM 0 to 110 Manual muscle testing: Knee extension 4/5 and knee flexion 4/5 She does have tenderness over the medial compartment, does not have tenderness over the lateral compartment and does not have tenderness over the patellofemoral compartment. She does have a positive Stephon. She does not a palpable Elizabeth's cyst. Ligament testing: A/P and V/V testing reveals no pathologic laxity or fixed deformity Valgus stress no laxity Varus stress no laxity Romaine neg PCL drawer testing neg Apprehension testing painful LEFT KNEE: Skin: Intact to inspection and palpation. No prior incisions/scars No effusion. Standing alignment: genu valgum ROM 0 to 110 Manual muscle testing: Knee extension 4/5 and knee flexion 4/5 She does not have tenderness over the medial compartment, does not have tenderness over the lateralcompartment and does not have tenderness over the patellofemoral compartment. She does not have a positive Stephon. She does not a palpable Elizabeth's cyst. Ligament testing: A/P and V/V testing reveals no pathologic laxity or fixed deformity Valgus stress no laxity Varus stress neg Romaine neg PCL drawer testing neg Apprehension testing neg Lower leg and ankles/feet: normal skin integrity and functional ROM. Neurologic: Intact sensation and reflexes in both lower extremities. Normal symmetric strength in lower legs, ankle and feet Lymphadenopathy: none noted REVIEW OF IMAGING: .Right KNEE xrays obtained previously and patella view today and independently visualized by me, demonstrate: mild to moderate medial joint narrowing, mild PF djd ASSESSMENT: right knee osteoarthritis resulting in marked pain. Obesity MEDICAL DECISION-MAKING and PLAN: Diagnostic and Non-operative treatment plan: As a result of our discussion, we have agreed to proceed with the following diagnostic plan: injection Weight loss Education She questions more diagnostic testing (MRI) although I believe it is premature An appropriate informed choice non-operative treatment discussion was completed and we have collectively agreed to proceed with the following therapeutic plan: Continued activity modification to limit symptoms Recommendation: Physical therapy for home program or referral for out patient physical therapy given. Eval and Treat: weight loss, core conditioning. Rx: instruct in home exercise program for core & lower extremity strengthening/balance. Utilize a pool-based program as neded for low-impact, if land-based program is not well tolerated. Intra-articular cortisteroid/bupivicaine/lidocaine injection offered Procedure: Large Joint Injection/Arthrocentesis: R knee on 04/27/2020 10:57 Indications: pain and joint swelling Details: 20 G needle, medial approach Medications: 40 mg methylPREDNISolone ACETATE 40 mg/mL; 7 mL bupivacaine (PF) 0.5%; 5 mL lidocaine (PF) 10 mg/mL (1 %) Outcome: tolerated well, no immediate complications Procedure, treatment alternatives, risks and benefits explained, specific risks discussed. Consent was given by the patient. Immediately prior to procedure a time out was called to verify the correctpatient, procedure, equipment, field support technician and site/side marked as required. Patient was prepped and draped in the usual sterile fashion. visco supplementation was also discussed today Assistive device for ambulation offered Surgical options: TKA however patient is only 50 years old and too young for this. Weight loss should be considered. I did question her regarding meeting with our Health and hitting coach to discuss this but she was not interested at this time. . The patient was evaluated by myself today face to face for 40minutes evaluation with the time spentin education and counseling for DJD and her need to lose weight. Another 10 minutes was spent with her injection. Dr. Dennison was available for consultation. There are no Patient Instructions on file for this visit. documented in this encounter Plan of Treatment Not on file documented as of this encounter Procedures Procedure Name Priority Date/Time Associated Diagnosis Comments LARGE JOINT INJECTION/ARTHROCE NTESIS Routine 04/27/2020 10:15 EST Primary osteoarthritis of right knee documented in this encounter Results * CT ARTHROCENTESIS ASPIR&/INJ MAJOR JT/BURSA W/O US (04/27/2020 10:15 EST) Narrative [facility] POINT OF CARE - 04/27/2020 10:15 EST Briseyda Bynum APRN ? 04/27/2020 11:27 Large Joint Injection/Arthrocentesis: R knee on 04/27/2020 10:57 Indications: pain and joint swelling Details: 20 G needle, medial approach Medications: 40 mg methylPREDNISolone ACETATE 40 mg/mL; 7 mL bupivacaine (PF) 0.5%; 5 mL lidocaine (PF) 10 mg/mL (1 %) Outcome: tolerated well, no immediate complications Procedure, treatment alternatives, risks and benefits explained, specific risks discussed. Consent was given by the patient. Immediately prior to procedure a time out was called to verify the correct patient, procedure, equipment, field support technician and site/side marked as required. Patient was prepped and draped in the usual sterile fashion. Briseyda Bynum SURGICAL ENDOSCOPIST PROCEDURE/MAYLIN R SURGICAL ORDERABLES UVN POINT OF CARE documented in this encounter Visit Diagnoses Diagnosis Primary osteoarthritis of right knee- Primary Primary localized osteoarthrosis, lower leg Class 2 severe obesity due to excess calories with serious comorbidity in adult, unspecified BMI ([facility]) documented in this encounter Administered Medications Inactive Administered Medications - up to 3 most recent administrations Medication Order MAR Action Action Date Dose Rate Site bupivacaine (PF) (MARCAINE) 0.5% injection 7 mL 7 mL, injection, Once PRN Procedure, 1 dose, Starting on Mon04/27/20 at 1057, Until Mon04/27/20 at 1057, Routine Given 04/27/2020 10:57 EST 7 mL lidocaine (PF) 10 mg/mL (1 %) injection 5 mL 5 mL, other, Once PRN Procedure, 1 dose, Starting on Mon04/27/20 at 1057, Until Mon04/27/20 at 1057, Routine Given 04/27/2020 10:57 EST 5 mL methylPREDNISolone ACETATE (DEPO-MEDROL) injection 40 mg 40 mg, intra-articular, Once PRN Procedure, 1 dose, Starting on Mon04/27/20 at 1057, Until Mon04/27/20 at 1057, Routine Given 04/27/2020 10:57 EST 40 mg documented in this encounter Care Teams Catering Cook Relationship Specialty Start Date End Date Phoenix Polanco MD [address] [place] [address] PCP - General 12/27/13 documented as of this encounter
--- OUTSIDE RECORDS SUMMARY | 2023-12-23 01:00 | XMS_ITS | Encounter Summary ---
Author Organization [facility] Address [address] [place] [address] Care Team Providers Care Casino Runner Name Role Phone Phoenix Polanco MD Primary Care Provider + Encounter Details Date Type Department Care Team (Late st Contact Info) Description 12/29/2020 Orders Only [facility] Orthopedic Surgery - [facility] [address] [place] [address] Briseyda Bynum NP [address] [place] [address] Right hip pain (Primary Dx) Social History Tobacco Use Types [...] as of this encounter Visit Diagnoses Diagnosis Right hip pain- Primary Pain in joint, pelvic region and thigh documented in this encounter Care Teams Casino Runner Relationship Specialty Start Date End Date Phoenix Polanco MD [address] [place] [address] PCP - General 12/27/13 documented as of this encounter
--- OUTSIDE RECORDS SUMMARY | 2023-12-23 01:00 | XMS_ITS | Encounter Summary ---
Author Organization [facility] Address [address] [place] [address] Care Team Providers Care Employment Service Specialist Name Role Phone Phoenix Polanco MD Primary Care Provider + Reason for Visit * Reason Onset Date Comments Immunizations 06/17/2020 Encounter Details Date Type Department Care Team (Late st Contact Info) Description 06/17/2020 Telephone [facility] Interventional Pain [address] [facility] [place] [address] Lila Dykes MD [address] [facility] [address] [place] [address] Immunizations Social History Tobacco Use Types Packs/Day Years [...] encounter Miscellaneous Notes * Telephone Encounter - Diana Katz MA - 06/17/2020 0909 EST Called patient to verify whether or not she have received any vaccinations in the past two weeks orplan on receiving any vaccinations in the next two weeks. Left voicemail. documented in this encounter Plan of Treatment Not on file documented as of this encounter Visit Diagnoses Not on filedocumented in this encounter Care Teams Employment Service Specialist Relationship Specialty Start Date End Date Phoenix Polanco MD [address] [place] [address] PCP - General 12/27/13 documented as of this encounter
--- OUTSIDE RECORDS SUMMARY | 2023-12-23 01:00 | XMS_ITS | Encounter Summary ---
Author Organization [facility] Address [address] [place] [address] Care Team Providers Care Folder Taper Operator Name Role Phone Phoenix Polanco MD Primary Care Provider + Reason for Visit * Radiology Services (Routine) - Closed Specialty Diagnoses / Procedures Referred By Janak miguel Referred To Contact Nuclear Medicine Diagnoses Chronic bilateral low back pain without sciatica Procedures NM BONE SPECT Mesfin Pena PA-C [address] [facility] [place] [address] Referral ID Status Reason Start Date Expiration Date Visits Re quested Visits Authorized [id number] Closed 12/16/2019 1 1 Encounter Details Date Type Department Care Team (Latest Contact Info) Description 02/03/2020 9:35 EDT - 02/03/2020 23:59 EDT Hospital En[facility] Radiology Nuclear Medicine and PET - [facility] [address] [place] [address] Discharge Disposition: Home or Self Care Social [...] involving both sacroiliac joints. Mesfin Pena PA-C [facility] NM ORDERAB LES documented in this encounter Visit Diagnoses Not on filedocumented in this encounter Care Teams Folder Taper Operator Relationship Specialty Start Date End Date Phoenix Polanco MD [address] [place] [address] PCP - General 12/27/13 documented as of this encounter
--- OUTSIDE RECORDS SUMMARY | 2023-12-23 01:00 | XMS_ITS | Encounter Summary ---
Author Organization [facility] Address [address] [place] [address] Care Team Providers Care Scrub Woman Name Role Phone Phoenix Polanco MD Primary Care Provider + Reason for Referral * Radiology Services (Routine) - Closed Specialty Diagnoses / Procedures Referred By Contac t Referred To Contact Radiology Diagnoses Internal derangement of right knee Procedures MR KNEE WO CONTRAST RIGHT Briseyda Bynum NP [address] [place] [address] Referral ID Status Reason Start Date Expiration Date Visits Re quested Visits Authorized [id number] Closed 07/22/2020 01/18/2021 1 1 Reason for Visit * Radiology Services (Routine) - Closed Specialty Diagnoses / Procedures Referred By Contac t Referred To Contact Radiology Diagnoses Internal derangement of right knee Procedures MR KNEE WO CONTRAST RIGHT Briseyda Bynum NP [address] [place] [address] Referral ID Status Reason Start Date Expiration Date Visits Re quested Visits Authorized [id number] Closed 07/22/2020 01/18/2021 1 1 Encounter Details Date Type Department Care Team (Latest Contact Info) Description 12/22/2020 6:42 EDT - 12/22/2020 23:59 EDT Hospital Encounter [facility] [address] [place] [address] Internal derangement of right knee Discharge Disposition: Home or [...] A DAY 180 Tablet 11/30/2020 08/22/2022 documented as of this encounter Discharge Disposition Disposition Code Departure Means Destination Home or Self Care documented in this encounter Plan of Treatment Not on file documented as of this encounter Procedures Procedure Name Priority Date/Time Associated Diagnosis Comments MR KNEE WO CONTRAST RIGHT Routine 12/22/2020 7:42 EDT Internal derangement of right knee documented in this encounter Results * MR KNEE WO [...] interpretation andagree with the findings. Briseyda Bynum FARM LABORER IMG MRI ORDERA BLES documented in this encounter Visit Diagnoses Diagnosis Internal derangement of right knee Unspecified internal derangement of knee documented in this encounter Care Teams Scrub Woman Relationship Specialty Start Date End Date Phoenix Polanco MD [address] [place] [address] PCP - General 12/27/13 documented as of this encounter
--- OUTSIDE RECORDS SUMMARY | 2023-12-23 01:00 | XMS_ITS | Encounter Summary ---
Author Organization [facility] Address [address] [place] [address] Care Team Providers Care Horticultural Farm Manager Name Role Phone Phoenix Polanco MD Primary Care Provider + Encounter Details Date Type Department Care Team (Late st Contact Info) Description 12/17/2019 Orders Only [facility] Radiology - [facility] [address] [place], [place] [id number] Aroldo Duran MD [address] [facility] [place] [place] [address] Social History Tobacco Use Types [...] on filedocumented in this encounter Care Teams Horticultural Farm Manager Relationship Specialty Start Date End Date Phoenix Polanco MD [address] [place] [address] PCP - General 12/27/13 documented as of this encounter
--- OUTSIDE RECORDS SUMMARY | 2023-12-23 01:00 | XMS_ITS | Encounter Summary ---
Author Organization [facility] Address [address] [place] [address] Care Team Providers Care Circuit Court Judge Name Role Phone Phoenix Polanco MD Primary Care Provider + Reason for Visit * Reason Onset Date Comments Appointment Related 05/28/2020 Encounter Details Date Type Department Care Team (Late st Contact Info) Description 05/28/2020 Telephone [facility] Interventional Pain [address] [facility] [place] [address] Lila Dykes MD [address] [facility] [address] [place] [address] Appointment Related Social History Tobacco Use Types [...] encounter Miscellaneous Notes * Telephone Encounter - [address] - 05/28/2020 1056 EST Patient called to schedule appointment off a referral New appointment is 06/29/20 at 9:[address] Dykes Reviewed safety information, having a interstate bus driver and COVID protocol documented in this encounter Plan of Treatment Not on file documented as of this encounter Visit Diagnoses Not on filedocumented in this encounter Care Teams Circuit Court Judge Relationship Specialty Start Date End Date Phoenix Polanco MD [address] [place] [address] PCP - General 12/27/13 documented as of this encounter
--- OUTSIDE RECORDS SUMMARY | 2023-12-23 01:01 | XMS_ITS | Encounter Summary ---
Author Organization [facility] Address [address] [place] [address] Care Team Providers Care Senior Mechanical Estimator Name Role Phone Phoenix Polanco MD Primary Care Provider + Reason for Visit * Reason Onset Date Comments Coordination Of Care 04/23/2019 Encounter Details Date Type Department Care Team (Late st Contact Info) Description 04/23/[address] [facility] Cancer [facility] Hematology & Oncology - [facility] [address], [place] [id number] Esperanza Arreguin MD [address] [place], [place] [id number] Coordination Of Care Social History Tobacco Use Types Packs/Day [...] as visiting a doctor's office or shopping? No 06/08/2017 Cognitive Status Response Date of Assessm ent Because of a physical, menta l, or emotional condition, does this person have serious difficulty concentrating, remembering, or making decisions? No 06/08/2017 documented as of this encounter Miscellaneous Notes * Telephone Encounter - Arlene Sinha RN - 04/23/2019 1616 EST 1616 Called pt and LMOM advising she is due for labs and it looks like she was supposed to re-schedule iron infusions but that has not been re-scheduled yet. Asked for call back. documented in this encounter Plan of Treatment Not on file documented as of this encounter Results * (ABNORMAL) FERRITIN (06/26/2019 14:54 EST) Ferritin 2(L) 10 - 291 ng/mL 06/27/2019 11:35 EST [facility] Blood VENOUS BLOOD / Unknown Venipuncture / Unknown 06/26/2019 14:54 EST 06/26/2019 15:04 EST Esperanza Arreguin MD CHEMISTRY & BLOOD G ORDERABLES Performing Organization Address City/[facility] Co de Phone Number [facility] [address] [place] [address] * TYPE AND SCREEN (06/26/2019 14:53 EST) ABO AB 06/26/2019 16:57 EST [facility] Rh Factor Positive 06/26/2019 16:57 EST [facility] Antibody Screen Negative 06/26/2019 16:57 EST [facility] Specimen Expires: 06/29/2019 @ 23:59 06/26/2019 16:57 EST [facility] Blood VENOUS BLOOD / Unknown Venipuncture / Unknown 06/26/2019 14:53 EST 06/26/2019 15:01 EST Esperanza Arreguin MD BLOOD BANK TESTS Performing Organization Address City/[facility]/ZIP Co de Phone Number [facility] [address] [place] [address] * (ABNORMAL) COMPLETE BLOOD COUNT (06/26/2019 14:53 EST) WBC 6.50 4.00 - 12.40 K/cmm 06/26/2019 15:19 [facility] RBC 4.33 3.86 - 5.04 M/cmm 06/26/2019 15:19 [facility] Hemoglobin 7.2(L) 11.6 - 15.2 gm/dL 06/26/2019 15:19 [facility] HCT 26.0(L) 34.9 - 44.4 % 06/26/2019 15:19 [facility] MCV 60(L) 81 - 98 fl 06/26/2019 15:19 [facility] MCH 16.6(L) 26.7 - 33.3 pg 06/26/2019 15:19 [facility] Hypochromia 3+ 06/26/2019 15:19 [facility] MCHC 27.7(L) 32.1 - 35.9 gm/dL 06/26/2019 15:19 [facility] RDW-CV 21.3(H) <14.7 % 06/26/2019 15:19 [facility] RDW-SD 43.8 <50.4 fl 06/26/2019 15:19 [facility] Anisocytosis 2+ 06/26/2019 15:19 [facility] PLT 357 141 - 377 K/cmm 06/26/2019 15:19 [facility] MPV 9.9 9.5 - 12.7 fl 06/26/2019 15:19 [facility] Blood VENOUS BLOOD / Unknown Venipuncture / Unknown 06/26/2019 14:53 EST 06/26/2019 15:01 EST Esperanza Arreguin MD HEMATOLOGY & PF4 OR DERABLES [facility] [address] [place] [address] documented in this encounter Visit Diagnoses Diagnosis Iron deficiency anemia due to chronic blood loss- Primary Iron deficiency anemia secondary to blood loss (chronic) documented in this encounter Care Teams Senior Mechanical Estimator Relationship Specialty Start Date End Date Phoenix Polanco MD [address] [facility] [id number] PCP - General 12/27/13 documented as of this encounter
--- OUTSIDE RECORDS SUMMARY | 2023-12-23 01:01 | XMS_ITS | Encounter Summary ---
Author Organization [facility] Address [address] [place] [address] Care Team Providers Care Bulb Sorter Name Role Phone Phoenix Polanco MD Primary Care Provider + Reason for Referral * Radiology Services (Routine) - Closed Specialty Diagnoses / Procedures Referred By Contac t Referred To Contact Diagnoses Pain in joint, multiple sites Malaise and fatigue MIKEY positive Elevated sed rate Microcytic anemia Procedures XR HAND LEFT 1-2 VIEWS Deonte Bass MD [address] [place] [phone] Referral ID Status Reason Start Date Expiration Date Visits Re quested Visits Authorized [id number] Closed 06/26/2019 1 1 * Radiology Services (Routine) - Closed Specialty Diagnoses / Procedures Referred By Contac t Referred To Contact Diagnoses Pain in joint, multiple sites Malaise and fatigue MIKEY positive Elevated sed rate Microcytic anemia Procedures XR HAND RIGHT 1-2 VIEWS Deonte Bass MD [address] [place] [address] Referral ID Status Reason Start Date Expiration Date Visits Re quested Visits Authorized [id number] Closed 06/26/2019 1 1 * PT/OT/ST (Routine) - Closed Specialty Diagnoses / Procedures Referred By Contac t Referred To Contact Diagnoses Pain in joint, multiple sites Malaise and fatigue MIKEY positive Elevated sed rate Microcytic anemia Deonte Bass MD [address] [place] [address] Referral ID Status Reason Start Date Expiration Date V isits Requested Visits Authorized [id number] Closed Specialty Services Required 06/26/2019 1 1 Question Answer Reason for Request: Chronic low back pain, shoulder pain, hip pain/bursitis. * Radiology Services (Routine) - Closed Specialty Diagnoses / Procedures Referred By Contac t Referred To Contact Diagnoses Pain in joint, multiple sites Malaise and fatigue MIKEY positive Elevated sed rate Microcytic anemia Procedures XR CHEST 2 VIEWS Deonte Bass MD [address] [place] [address] Referral ID Status Reason Start Date Expiration Date Visits Re quested Visits Authorized [id number] Closed 06/26/2019 1 1 Reason for Visit * Reason Comments New Patient Visit * Referral (Routine) - Closed Specialty Diagnoses / Procedures Referred By Contac t Referred To Contact Rheumatology Diagnoses Other fatigue Pain in unspecified joint Phoenix Polanco MD [address] [place] [phone] [place] [address] Rheumatology [address] [place] [address] Referral ID Status Reason Start Date Expiration Date Visits Re quested Visits Authorized [id number] Closed 1 1 Encounter Details Date Type Department Care Team (Latest Contact Info) Description 06/26/2019 13:00 EST Office Visit [facility] - [facility] [place] [address] [place] [address] Deonte Bass MD [address] [facility] [address] [place] [address] Pain in joint, multiple sites (Primary Dx); Malaise and fatigue; MIKEY positive; Elevated sed rate; Microcytic anemia Social History Tobacco Use Types Packs/Day Years [...] Sign Reading Time Taken Comments Blood Pressure 115/72 06/26/2019 1247 EST Pulse 95 06/26/2019 1247 EST Temperature - - Respiratory Rate - - Oxygen Saturation - - Inhaled Oxygen Concentration - - Weight 112.5 kg (248 lb) 06/26/2019 1247 EST Height 164.3 cm (5' 4.7) 06/26/2019 1247 EST Body Mass Index 41.65 06/26/2019 1247 EST documented in this encounter Functional Status Functional Status Response Date of Assess ment Because of a physical, menta l, or emotional condition, does this person have difficulty doing errands alone such as visiting a doctor's office or shopping? Yes 06/26/2019 Cognitive Status Response Date of Assessm ent Because of a physical, menta l, or emotional condition, does this person have serious difficulty concentrating, remembering, or making decisions? Yes 06/26/2019 documented as of this encounter Patient Instructions * Patient Instructions* Deonte Bass MD - 06/26/2019 13:00 EST 1. Work up to date has remained relatively negative for underlying autoimmune disease such as lupusor rheumatoid arthritis except for borderline elevated inflammatory markers, ESR and elevated MIKEY 2. We will explore possible causes of your symptoms 3. Please go down to the 3rd floor radiology for a chest x-ray and hand x-rays. 4. Please go down to the 2nd floor laboratory for blood work and a urine tet 5. You do have evidence of wear and tear arthritis of the shoulder and the spine (degenerative discdisease) 6. Degenerative osteoarthritis is also likely contributing to symptoms 7. Due to your anemia, do not take oral NSAID's. 8. Continue tylenol 1000 mg orally every 8 hours as needed 9. May try topical aspercreme with lidocaine 4% (cream or patch)/salonpas lidocaine 4% patch or capzasin cream or icy/hot or biofreeze up to 4x/day to affected muscles and joints. 10. If OK with Dr. Arreguin, you can try topical diclofenac gel 1%. Apply to affected muscles and joints up to 4x/day 11. Schedule physical therapy 12. Follow up in 3-4 months with Romero Spears NP documented in this encounter Ordered Prescriptions Prescription Sig Dispensed Refills Start Date End Da te diclofenac sodium 1 % gelIndications:Pain in joint, multiple sites,Malaise and fatigue,MIKEY positive,Elevated sed rate,Microcytic anemia Apply 2g-4g of 1% gel to affected area 4 times daily. Maximum total body dose of 1% gel should not exceed 32 g per day 1 Tube 2 06/26/2019 documented in this encounter Progress Notes * Deonte Bass MD - 06/26/2019 1300 EST Images from the original note were not included. DIVISION OF RHEUMATOLOGY AND CLINICAL IMMUNOLOGY CONSULT NOTE Date of Service: 06/26/2019 Patient seen in consultation at the request of Phoenix Polanco, * for rheumatological evaluation for joint pain. Chief Complaint Patient presents with ??? New Patient Visit HISTORY OF PRESENT ILLNESS: Ms. Nela Granger is a 49 y.o. female with history of anxiety/depression and history of heavy alcohol use sober since 2014, gastric bypass surgery (2000), right shoulder arthroscopic posterior labral repair, anterior inferior labral repair, biceps tenotomy, distal clavicle excision, and mini open subpectoral biceps tenodesis on 06-26-14, iron deficiency anemia who presents today for rheumatological evaluation for joint pain Following with Dr. Arreguin in Hematology for HENRIK Receiving IV iron replacement therapy. 9-7 years of prior NSAID use with possible PUD. Has not had formal GI evaluation for this. Describes increased stomach upset/discomfort. Injection History: 05/2017: repeat b/l facet injection L4L5, L5S1 12/2015: lumbar facet joint injection at L4L5, L5S1 b/l - excellent relief for > 1 year Scheduled to follow up [facility] Diffuse arthralgia. Joints that bother the pt currently: Neck: Stiffness and aches. Worse in the morning. Low back: Pain/stiffness with radicular symptoms, right > left. Shoulders: S/p right RTC /shoulder surgery/repair. Aches. Left shoulder aches with overuse. Elbows: Pain/stiffness Wrists: Aches. Sharp pains with certain movements. Wakes up in the AM with pain Fingers: Diffuse PIP joint stiffness and DIP joint stiffness/pain with flexion. 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 Hips: Bilateral, R >L, lateral hip pain. Does wake her up at night Knees: Pain/stiffness/swelling Ankles: Pain/stiffness. AM swelling. AM stiffness for 30 minutes Feet/ toes: Denies Joints swelling- AM stiffness- Pain at night- Therapies tried and failed- Recent course of prednisone burst without relief. Therapies that helped - Oral NSAID's. Tylenol 1500 mg orally with relief., heating pad. 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 ROS: General: + nights sweats and chills during the day. Currently perimenopausal. Denies fevers, chills, night sweats, weight loss Skin: Patches of skin with pruritic bumps on innter thighs and anteror shins and forearms. Denies photosensitivity, Raynaud's phenomenon. ENT: Denies iritis/uveitis, sicca, nasal/oral sores/ulcers, xerostomia or dysphagia Lungs: + chest discomfort. Prior to vacation in May 2019 in [place] developed cold like symptoms with chest pain and some shortness of breath. CVS: Some heart racing with sweating at times with anxiety. GI: Denies nausea, vomiting, diarrhea, hematochezia, melena : Denies hematuria, frequency or dysuria Hematologic: Denies history of DVT, PE or miscarriages Neurologic: Mild right hand numbness. B/l LE, R > L numbness Family Hx: Biologic Mother - osteoarthritis, RA, Cerebral Palsy, Asthma MGM - osteoarthritis Maternal Aunt - osteoarthritis Social Hx: Smoking - quit in 2018. Prior 20-30 year history of 1 ppd ETOH - denies. Quit in 2015. Former ETOH abuse. Drug - denies REVIEW OF SYSTEMS: Symptom Yes No Symptom Yes No Fever X Morning stiffness X Fatigue X Numbness/ tingling X Night sweats X Headaches X Weight change X Muscle weakness X Eye discomfort X Dysuria X Mouth/nose sores X Urinary frequency X Chest pain X Hematuria X Palpitations X Trouble sleeping X Dyspnea X Anxiety X Cough X Depression X Nausea/ vomiting X Change in mood X Abdominal pain X Skin rash/ changes X Blood in stools X Sun induced rash X Diarrhea X Raynaud's X Constipation X Itching X Joint pain X Hair loss X Muscle pain X Other X PMH PSH Past Medical History: Diagnosis Date ??? Anemia ??? Anxiety ??? Arm pain ??? Arm weakness ??? Arthritis ??? Depression ??? Depression ??? Joint stiffness ??? Night sweats ??? Numbness ??? Substance abuse ([facility]) Past Surgical History: Procedure Laterality Date ??? BREAST SURGERY biopsy ??? CHOLECYSTECTOMY, OPEN 10/06/2000 ??? GASTRIC BYPASS SURGERY 10/06/2000 ??? LIVER BIOPSY 10/06/2000 ??? SHOULDER SURGERY right shoulder arthroscopic posterior labral repair, anterior inferior labral repair, biceps tenotomy, distal clavicle excision, and mini open subpectoral biceps tenodesis on 06-26-14 ??? TUBAL LIGATION ??? UTERINE FIBROID SURGERY ALLERGIES Allergies Allergen Reactions ??? Penicillins Rash SOCIAL HISTORY FAMILY HISTORY Social History Tobacco Use ??? Smoking status: Former Smoker Packs/day: 0.50 Years: 20.00 Pack years: 10.00 Last attempt to quit: 03/26/2017 Years since quittin.2 ??? Smokeless tobacco: Never Used Substance Use Topics ??? Alcohol use: No Comment: quit 2014 Family History Problem Relation Age of Onset ??? Cancer Mother breast cancer ??? Cancer Maternal Aunt breast cancer ??? Cancer Maternal Grandmother breast cancer MEDICATIONS: Medications Prior to Today's Visit Medication Sig ??? acetaminophen (TYLENOL) 500 mg tablet Take 1,000 mg by mouth as needed for Pain. ??? DULoxetine (CYMBALTA) 60 mg capsule Take 60 mg by mouth daily. ??? FLUoxetine (PROZAC) 20 mg capsule Take 40 mg by mouth daily. ??? fluoxetine HCl (PROZAC ORAL) Take 40 mg by mouth daily. ??? ibuprofen (MOTRIN) 200 mg tablet Take 200 mg by mouth every 6 hours as needed. ??? naproxen sodium (ALEVE) 220 mg capsule Take by mouth. ??? pregabalin (LYRICA) 100 mg capsule Take 100 mg by mouth 2 times daily. ??? pregabalin (LYRICA) 50 mg capsule Take 50 mg by mouth 3 times daily. No facility-administered medications prior to visit. OBJECTIVE: Blood pressure 115/72, pulse 95, height 164.3 cm (64.7), weight (!) 112.5 kg (248 lb), last menstrual period 06/25/2018. General: No acute distress. Alert, fully oriented, pleasant, conversant. HEENT: Conjunctivae/corneas clear. Pupils equal, Sclerae anicteric. Mucus membranes moist; oropharynx clear. Neck supple, symmetrical, trachea midline Lungs: Clear to auscultation bilaterally. Heart: Regular rate and rhythm, S1, S2 present, no murmur Abdomen: Soft, non-tender, non-distended. Extremities: Extremities without cyanosis or edema. Skin: Multiple tattoos. Musculoskeletal: Spine: Lower thoracic and lumbar paraspinal muscle tenderness. No other significant tenderness. Normal range of motion of the spine. Shoulder/Elbow: No significant tenderness, swelling, effusions, erythema or warmth is present. Appropriate range of motion present. Wrist/Hand: Right 2nd-3rd MCP and PIP joint tenderness. Left 1st CMC joint tenderness. Left 2nd-3rdMCP and PIP joint tenderness. No nailfold capillary changes. No significant tenderness, swelling, effusions, erythema or warmth is present. Appropriate range of motion present. Hips/Knee: Bilateral valgus genu deformities with knee creptiance. No significant tenderness, swelling, effusions, erythema or warmth is present. Appropriate range of motion present. Ankle/Foot: Tenderness/discomfort over the dorsum of the right and left foot without MTP, PIP and DIP tenderness. No significant tenderness, swelling, effusions, erythema or warmth is present. Appropriate range of motion present. Labs: Lab Results Component Value Date WBC 6.18 03/06/2019 WBC 5.50 09/13/2004 WBC 6.41 10/29/2002 WBC 5.74 03/28/2002 WBC 7.61 07/10/2001 HGB 7.5 (L) 03/06/2019 HGB 8.9 (L) 09/13/2004 HGB 11.3 (L) 10/29/2002 HGB 13.6 03/28/2002 HGB 12.8 07/10/2001 HCT 27.6 (L) 03/06/2019 HCT 28.4 (L) 09/13/2004 HCT 33.0 (L) 10/29/2002 HCT 39.9 03/28/2002 HCT 36.7 07/10/2001 MCV 63 (L) 03/06/2019 MCV 64 (L) 09/13/2004 MCV 78 (L) 10/29/2002 MCV 87 03/28/2002 MCV 86 07/10/2001 PLT 399 (H) 03/06/2019 PLT 364 (H) 09/13/2004 PLT 306 10/29/2002 PLT 253 03/28/2002 PLT 306 07/10/2001 Lab Results Component Value Date BUN 14 03/06/2019 CREATININE 0.43 (L) 03/06/2019 AST 24 03/06/2019 ALT 18 03/06/2019 Lab Results Component Value Date CRP <0.7 03/28/2002 Lab Results Component Value Date RF <20 05/01/2000 MIKEY Positive (A) 01/31/2019 Imaging: MR LUMBAR SPINE WO CONTRAST Order: [id number] Status: Final result ?Visible to patient: Yes (MyChart) Next appt: 07/05/2019 at 11:30 in Orthopedic Surgery (Mesfin Pena PA-C) Details Reading Physician Reading Date Result Priority Bernice Carbone MD 10/05/2015 Narrative & Impression MR LUMBAR SPINE WO CONTRAST 10/04/2015 3:21 PM Clinical History/Comments: Persistent low back pain. Comparison: None available. Technique: Sagittal T1, T2 and STIR, axial T1 and T2 and coronal T2 fat saturated MR images of the lumbar spine were obtained. Findings: Coronal T2-weighted images demonstrate mild T2 hyperintense signal at the inferior aspects of the sacroiliac joints bilaterally, likely degenerative. Mild lumbar levoscoliotic curvature is demonstrated. No eduar- or retrolisthesis is demonstrated. Vertebral body heights are preserved. Apart from scattered osseous hemangiomata and discogenic endplate changes, marrow signal intensity is unremarkable. There is mild disc space narrowing at L2-L3, L3-L4 and L4-L5 and minimal disc space narrowing at L5-S1 consistent with disc degeneration. Lower lumbar facet joint degeneration is noted. L2-L3: There is a small central disc [...] hypertrophy produce mild bilateral neural foraminal narrowing. The conus terminates normally at L1. Impression: 1. Mild lumbar levoscoliosis. 2. Lumbar degenerative disc and degenerative joint disease. 3. Central disc herniations at L2-L3, L3-L4 and L4-L5. 4. Right paracentral annular tear at L5-S1. 5. Mild multilevel neural foraminal narrowing due to global disc bulge and facet hypertrophy as described by level above. 6. T2 hyperintense signal abnormality at the inferior aspects of the sacroiliac joints bilaterally, likely degenerative in nature. CHEST PA AND LATERAL Order: [id number] Status: Final result ?Visible to patient: No (Not Released) Next appt: 07/05/2019 at 11:30 in Orthopedic Surgery (Mesfin Pena PA-C) Details Narrative PRE-OP ??GASTRIC BYPASS ??H/O ??PULM. DISEASE ?R/O ??? CARDIOMEGALY , PULM. DX PA AND LATERAL CHEST 09/28/00, 1330 hours COMPARISON: PA and lateral chest 05/22/95 DESCRIPTION: The soft tissues and bony structures are intact. The heart is normal in size and configuration. The lungs are clear. Mediastinal and hilar contours are normal. There is no pleural abnormality seen. IMPRESSION: Normal PA and lateral chest radiographs. D 09/28/00 T 10/02/00 /michelle Specimen Collected: 09/28/00 13:34 Pathology: IMPRESSION / PLAN: Ms. Nela Granger is a 49 y.o.female 1. Polyarthralgia, MIKEY 1:320 (speckled), Borderline Elevated ESR, negative CRP, RF negative, Lyme Ab positive with negative western blot - Denies other systemic symptoms including fevers, chills, night sweats, weight loss, skin rashes, photosensitivity,??iritis/uveitis, xerostomia, pleurisy, serositis, changes in bowel or bladder habits, hematocheiza, melena, dysuria, hematuria, frequency, itching, alopecia or Raynaud's phenomenon. Work up: 01/2019: - Microcytic anemia - No renal insufficiency - RF negative - ESR = 30 - CRP < 7.0 - Syphilis negative. - Lyme Ab positive with negative WB. 2001: Negative chest x-ray On examination she does describe right 1st CMM joint tenderness with symmetrical tenderness involving the 2nd-3rd MCP and PIP joints, bilaterally. No naifold capillary changes. Bilateral valgus genu deformities. Discomfort when palpating the dorsum of the right and left feet. Symptoms may represent an inflammatory arthritis such as rheumatoid arthritis (negative RF) vs crystalline arthritis such as CPPD. She does not exhibit findings suggestive of a connective tissue disease or vasculitis including photosensitive rash, sicca, xerostomia, hemoptysis, pleurisy or Raynaud's phenomenon. I will check the BRYCE's associated with MIKEY positivity in the setting of polyarthralgia as well as thyroid function with thyroid antibodies. I do suspect that she also has underlying primary degnerative osteoarthritis which typically involves the 1st CMC joints , PIP and DIP joints but can involve the MCP joints. She does have degenerative osteoarthritis. Due to HENRIK with possible peptic ucler/GI bleed with chronic NSAID use, oral NSAID's should be avoided. We can try a topical NSAID, diclofenac gel 1% up to 4x/day. If she develops stomach upset this should be avoided. Based on work up and persistent symptoms, we can consider a trial of csDMARD therapy such as hydroxcyhloroquine or sulfasalazine for a possible early seronegative inflammatory arthritis. 2. Multilevel degenerative disc disease 3. Right shoulder arthroscopic posterior labral repair, anterior inferior labral repair, biceps tenotomy, distal clavicle excision, and mini open subpectoral biceps tenodesis on 06-26-14 PATIENT INSTRUCTIONS: Patient Instructions 1. Work up to date has remained relatively negative for underlying autoimmune disease such as lupusor rheumatoid arthritis except for borderline elevated inflammatory markers, ESR and elevated MIKEY 2. Please go down to the 3rd floor radiology for a chest x-ray 3. Please go down to the 2nd floor laboratory for blood work and a urine tet 4. You do have evidence of wear and tear arthritis of the shoulder and the spine (degenerative discdisease) 5. Degenerative osteoarthritis is also likely contributing to symptoms 6. Due to your anemia, do not take oral NSAID's. 7. Can consider the addition of tylenol 1000 mg orally every 8 hours as needed 8. May try topical aspercreme with lidocaine 4% (cream or patch)/salonpas lidocaine 4% patch or capzasin cream or icy/hot or biofreeze up to 4x/day to affected muscles and joints. Patient verbalizes understanding and agrees with plan. There are no barriers to understanding/learning. Deonte Bass MD 06/26/2019 documented in this encounter Plan of Treatment Scheduled Referrals Name Type Priority Associated Diagnoses Orde r Schedule AMB CONS/FOLLOW UP PHYSICAL THERAPY Outpatient Referral Routine Pain in joint, multiple sites Malaise and fatigue MIKEY positive Elevated sed rate Microcytic anemia Ordered: 06/26/2019 documented as of this encounter Results * C4 COMPLEMENT (06/26/2019 14:54 EST) C4 Complement 26 13 - 39 mg/dL 06/27/2019 9:30 EST [facility] Blood VENOUS BLOOD / Unknown Venipuncture / Unknown 06/26/2019 14:54 EST 06/26/2019 15:04 EST Deonte Bass MD CHEMISTRY & BLOOD GA S ORDERABLES [facility] [address] [place] [address] * (ABNORMAL) URINE CHEMICAL (DIP) & SEDIMENT (MICRO) WITHOUT REFLEX TO CULTURE (06/26/2019 14:54 EST) Color UA Yellow Colorless, Yellow 06/26/2019 15:15 [facility] Clarity UA Clear Clear 06/26/2019 15:15 [facility] Glucose UA Negative Negative 06/26/2019 15:15 [facility] Bilirubin UA Negative Negative 06/26/2019 15:15 [facility] Ketones UA Negative Negative 06/26/2019 15:15 [facility] Specific [place], Urine 1.018 1.001 - 1.035 06/26/2019 15:15 [facility] Blood UA Negative Negative 06/26/2019 15:15 [facility] Urobilinogen UA Normal Normal mg/dL 06/26/2019 15:15 [facility] Nitrite UA Negative Negative 06/26/2019 15:15 [facility] Leukocyte Esterase UA 2+(A) Negative 06/26/2019 15:15 [facility] Protein UA Negative Negative 06/26/2019 15:15 [facility] pH, UA 6.0 4.6 - 8.0 06/26/2019 15:15 [facility] Urine RBC Count, Auto 0 - 2 0 - 2 Cells/HPF 06/26/2019 15:15 [facility] Urine WBC Count, Auto 4 - 10(A) 0 - 3 Cells/HPF 06/26/2019 15:15 [facility] Urine Squamous Count, Auto Moderate(A) None Seen Cells/HPF 06/26/2019 15:15 [facility] Urine Hyaline Cast Count, Auto <=10 <=10 Casts/LPF 06/26/2019 15:15 [facility] Urine Bacteria Count, Auto None Seen None Seen Bacteria/HP F 06/26/2019 15:15 [facility] Urine URINE SPECIMEN OBTAINED BY CLEAN CATCH PROCEDURE / Unknown Urine Collect / Unknown 06/26/2019 14:54 EST 06/26/2019 15:01 [facility] - 06/26/2019 15:15 [facility] Urine Sediment Analysis results are unreliable on urines that are unrefrigerated for >2 hrs or refrigerated >8 hrs. Deonte Bass MD URINALYSIS ORDERABLE S [facility] [address] [place] [address] * SCL 70 ANTIBODY, IGG, SERUM (06/26/2019 14:53 EST) Scl 70 Ab, IgG, S <0.2 <1.0 (Negative ) U 06/28/2019 8:54 EST [facility] Comment: Test Performed by: [facility] [address] [place] [address] [employer] Rep: Bar Negron M.D. Ph.D.; CLIA# [id number] Blood VENOUS BLOOD / Unknown Venipuncture / Unknown 06/26/2019 14:53 EST 06/26/2019 15:04 EST Deonte Bass MD IMMUNOLOGY AND SEROL OGJasmin ORDERABLES Performing Organization Address City/[facility] Co de Phone Number [facility] [address] [place] [address] * AIR BAG BUILDER ANTIBODIES BY DIANDRA (06/26/2019 14:53 EST) Pathologist [facility] AIR BAG BUILDER Antibody 4.5 <20.0 Units 06/27/2019 13:52 EST [facility] Comment: ? Negative: <20.0 Units ? Weak Positive: 20.0 - 39.9 Units ? Moderate Positive: 40.0 - 80.0 Units ? Strong Positive: >80.0 Units Results were obtained with the [employer] AIR BAG BUILDER DIANDRA. AIR BAG BUILDER values obtained with different negative turner's assay methods may not be used interchangeaby. ??The magnitude of the reported IgG levels cannot be be correlated to an endpoint titer. A positive result in the [employer] AIR BAG BUILDER DIANDRA indicates the presence of antibodies reactive with the AIR BAG BUILDER/Sm complex but cannot distinguish between anti-Sm and anti-AIR BAG BUILDER activity. Blood VENOUS BLOOD / Unknown Venipuncture / Unknown 06/26/2019 14:53 EST 06/26/2019 15:05 EST Deonte Bass MD IMMUNOLOGY AND SEROL OGY ORDERABLES Performing Organization Address [facility] de Phone Number [facility] [address] [place] [address] * (ABNORMAL) C3 COMPLEMENT (06/26/2019 14:53 EST) Pathologist [facility] C3 Complement 158(H) 81 - 157 mg/dL 06/27/2019 9:30 EST [facility] Blood VENOUS BLOOD / Unknown Venipuncture / Unknown 06/26/2019 14:53 EST 06/26/2019 15:01 EST Deonte Bass MD CHEMISTRY & BLOOD GA S ORDERABLES Performing Organization Address [facility] de Phone Number [facility] [address] [place] [address] * SSA ANTIBODIES BY DIANDRA (06/26/2019 14:53 EST) [facility] SSA Antibody 1.4 <20.0 Units 06/27/2019 13:43 EST [facility] Comment: ? Negative: <20.0 Units ? Weak Positive: 20.0 - 39.9 Units ? Moderate Positive: 40.0 - 80.0 Units ? Strong Positive: >80.0 Units Results were obtained with the Riidr QUANTA Lite SS-A DIANDRA. ??SS-A values obtained with different manufacturers' assay methods may not be used interchangeably. ??The magnitude of the reported IgG levels cannot be correlated to an endpoint titer. Blood VENOUS BLOOD / Unknown Venipuncture / Unknown 06/26/2019 14:53 EST 06/26/2019 15:01 EST Deonte Bass MD IMMUNOLOGY AND SEROL OGY ORDERABLES Performing Organization Address [facility] Co de Phone Number [facility] [address] [place] [address] * SSB ANTIBODIES BY DIANDRA (06/26/2019 14:53 EST) SSB Antibody 4.7 <20.0 Units 06/27/2019 13:43 EST [facility] Comment: ? Negative: <20.0 Units ? Weak Positive: 20.0 - 39.9 Units ? Moderate Positive: 40.0 - 80.0 Units ? Strong Positive: >80.0 Units Results were obtained with the FramehawkVA QUANTA Lite SS-B DIANDRA. ??SS-B values obtained with different manufacturers' assay methods may not be used interchangeably. ??The magnitude of the reported IgG levels cannot be correlated to an endpoint titer. Blood VENOUS BLOOD / Unknown Venipuncture / Unknown 06/26/2019 14:53 EST 06/26/2019 15:01 EST Deonte Bass MD IMMUNOLOGY AND SEROL [place] ORDERABLES Performing Organization Address City/State/[facility] Co de Phone Number [facility] [address] [place] [address] * SM (MCDERMOTT) ANTIBODY (06/26/2019 14:53 EST) SM (Mcdermott) Antibody 3.9 <20.0 Units 06/27/2019 13:56 EST [facility] Comment: ? Negative: <20.0 Units ? Weak Positive: 20.0 - 39.9 Units ? Moderate Positive: 40.0 - 80.0 Units ? Strong Positive: >80.0 Units Results were obtained with the [employer] QUANTA Lite Sm DIANDRA. ??Sm values obtained with different manufacturers' assay methods may not be used interchangeably. ??The magnitude of the reported IgG levels cannot be correlated to an endpoint titer. Blood VENOUS BLOOD / Unknown Venipuncture / Unknown 06/26/2019 14:53 EST 06/26/2019 15:05 EST Deonte Bass MD IMMUNOLOGY AND SEROL OGY ORDERABLES Performing Organization Address [facility] Co de Phone Number [facility] [address] [place] [address] * ANTI DNA (DOUBLE STRANDED) (06/26/2019 14:53 EST) Anti-DNA (Double Stranded) <12.3 <30.0 IU/mL 06/27/2019 13:34 EST [facility] Comment: ? Negative: ??<30.0 IU/mL ? Borderline Positive: ??30.0 - 75.0 IU/mL ? Positive: ??>75.0 IU/mL Results were obtained with the Reveal DataA Lite dsDNA SC DIANDRA assay on the AmusoX. Blood VENOUS BLOOD / Unknown Venipuncture / Unknown 06/26/2019 14:53 EST 06/26/2019 15:05 EST Deonte Bass MD IMMUNOLOGY AND SEROL OGY ORDERABLES Performing Organization Address [facility] de Phone Number [facility] [address] [place] [address] * HEPATITIS B SURFACE ANTIBODY (06/26/2019 14:53 EST) Hep B Surface Ab, Quantitative <3.1 See Note mIU/mL 06/27/2019 10:02 EST [facility] Comment: Reference Range for Hep B Surface Ab, Quant: Positive: >= 10.0 mIU/mL Negative: ??< 10.0 mIU/mL Patient is presumed to not be immune to infection with Hepatitis B Virus. Hep B Surface Ab, Qualitative Negative See Note 06/27/2019 10:02 EST [facility] Comment: Reference Range for Hep B Surface Ab, Qual: Unvaccinated: ??Negative Vaccinated: ??Positive Blood VENOUS BLOOD / Unknown Venipuncture / Unknown 06/26/2019 14:53 EST 06/26/2019 15:05 EST Deonte Bass MD CHEMISTRY & BLOOD GA S ORDERABLES Performing Organization Address City/[facility]/ZIP Co de Phone Number [facility] [address] [place] [address] * HEPATITIS C AB W REFLEX TO HCV RNA BY PCR (06/26/2019 14:53 EST) Hep C Antibody Negative Negative 06/27/2019 9:36 EST [facility] Blood VENOUS BLOOD / Unknown Venipuncture / Unknown 06/26/2019 14:53 EST 06/26/2019 15:05 EST Deonte Bass MD CHEMISTRY & BLOOD GA S ORDERABLES Performing Organization Address [facility] Co de Phone Number [facility] [address] [place] [address] * THYROID ANTIBODIES (06/26/2019 14:53 EST) Anti-Thyroglobulin <15 <=60 U/mL 2019 11:32 EST [facility] Thyroperoxidase Ab <28 <=60 U/mL 2019 11:32 EST [facility] Blood VENOUS BLOOD / Unknown Venipuncture / Unknown 06/26/2019 14:53 EST 06/26/2019 15:01 EST Deonte Bass MD CHEMISTRY & BLOOD GA S ORDERABLES Performing Organization Address City/[facility]/ZIP Co de Phone Number [facility] [address] [place] [address] * THYROID CASCADE (06/26/2019 14:53 EST) TSH 0.73 0.47 - 4.68 uIU/mL 06/26/2019 15:52 EST [facility] Blood VENOUS BLOOD / Unknown Venipuncture / Unknown 06/26/2019 14:53 EST 06/26/2019 15:01 EST Narrative [facility] - 06/26/2019 15:52 EST NOTE: TSH [place] is not recommended for patients in which pituitary or hypothalamic disorders are suspected. The results of this assay can be falsely lowered due to the consumption of Biotin. Deonte Bass MD CHEMISTRY & BLOOD GA S ORDERABLES Performing Organization Address City/[facility]/ZIP Co de Phone Number [facility] [address] [place] [address] * CCP ANTIBODIES (06/26/2019 14:53 EST) CCP Antibodies <2.5 <5.0 U/mL 06/27/2019 9:26 EST [facility] Blood VENOUS BLOOD / Unknown Venipuncture / Unknown 06/26/2019 14:53 EST 06/26/2019 15:01 EST Deonte Bass MD IMMUNOLOGY AND SEROL OGY ORDERABLES Performing Organization Address [facility] Co de Phone Number [facility] [address] [place] [address] * XR HAND LEFT 1-2 VIEWS (06/26/2019 14:29 EST) Anatomical Region Laterality Modality Upper Extremities Left Computed Radio graphy 06/28/2019 14:3 5 EST Impressions 06/28/2019 14:35 EST Findings/ Impression: PA and AP ball-catcher's views of both hands show no evidence of acute fracture or dislocation on either side. Suspect however mild periarticular osteopenia, no definite periarticular erosions are seen. Mild degenerative changes noted on both hands, more conspicuous degenerative changes seen on both wrists at the level of the triscaphe joints and to lesser extent at the 1st CMC joints bilaterally. Soft tissues are grossly unremarkable. I have personally reviewed the images and the above interpretation and agree with the findings. Narrative 06/28/2019 14:35 EST XR HAND RIGHT 1-2 VIEWS, XR HAND LEFT 1-2 VIEWS ??06/26/2019 2:18 PM Clinical History/Comments: Bilateral hand pain/PIP joints, MIKEY positive, RF negative, elevated ESR. ? Inflammatory arthritis Comparison: None. Procedure Note Enrique Blanton MD - 06/28/2019 XR HAND RIGHT 1-2 VIEWS, XR HAND LEFT 1-2 VIEWS 06/26/2019 2:18 PM Clinical History/Comments: Bilateral hand pain/PIP joints, MIKEY positive,RF negative, elevated ESR. ? Inflammatory arthritis Comparison: None. IMPRESSION Findings/ Impression: PA and AP ball-catcher's views of both hands show no evidence of acutefracture or dislocation on either side. Suspect however mild periarticularosteopenia, no definite periarticular erosions are seen. Mild degenerativechanges noted on both hands, more conspicuous degenerative changes seen onboth wrists at the level of the triscaphe joints and to lesser extent atthe 1st CMC joints bilaterally. Soft tissues are grossly unremarkable. I have personally reviewed the images and the above interpretation andagree with the findings. Deonte Bass MD IMG DIAGNOSTIC IMAGI NG ORDERABLES * XR HAND RIGHT 1-2 VIEWS (06/26/2019 14:29 EST) Anatomical Region Laterality Modality Upper Extremities Right Computed Radio graphy 06/28/2019 14:3 5 EST Impressions 06/28/2019 14:35 EST Findings/ Impression: PA and AP ball-catcher's views of both hands show no evidence of acute fracture or dislocation on either side. Suspect however mild periarticular osteopenia, no definite periarticular erosions are seen. Mild degenerative changes noted on both hands, more conspicuous degenerative changes seen on both wrists at the level of the triscaphe joints and to lesser extent at the 1st CMC joints bilaterally. Soft tissues are grossly unremarkable. I have personally reviewed the images and the above interpretation and agree with the findings. Narrative 06/28/2019 14:35 EST XR HAND RIGHT 1-2 VIEWS, XR HAND LEFT 1-2 VIEWS ??06/26/2019 2:18 PM Clinical History/Comments: Bilateral hand pain/PIP joints, MIKEY positive, RF negative, elevated ESR. ? Inflammatory arthritis Comparison: None. Procedure Note Enrique Blanton MD - 06/28/2019 XR HAND RIGHT 1-2 VIEWS, XR HAND LEFT 1-2 VIEWS 06/26/2019 2:18 PM Clinical History/Comments: Bilateral hand pain/PIP joints, MIKEY positive,RF negative, elevated ESR. ? Inflammatory arthritis Comparison: None. IMPRESSION Findings/ Impression: PA and AP ball-catcher's views of both hands show no evidence of acutefracture or dislocation on either side. Suspect however mild periarticularosteopenia, no definite periarticular erosions are seen. Mild degenerativechanges noted on both hands, more conspicuous degenerative changes seen onboth wrists at the level of the triscaphe joints and to lesser extent atthe 1st CMC joints bilaterally. Soft tissues are grossly unremarkable. I have personally reviewed the images and the above interpretation andagree with the findings. Deonte Bass MD IMG DIAGNOSTIC IMAGI NG ORDERABLES * XR CHEST 2 VIEWS (06/26/2019 14:28 EST) Anatomical Region Laterality Modality Computed Radiogr aphy 06/26/2019 15:4 0 EST Impressions 06/26/2019 15:40 EST 1. ??Normal chest radiograph. No evidence suggestive of sarcoidosis. I have personally reviewed the images and the above interpretation and agree with the findings. Narrative 06/26/2019 15:40 EST XR CHEST 2 VIEWS ??06/26/2019 2:19 PM CLINICAL HISTORY/COMMENTS: polyarthralgia, fatigue, MIKEY positive. ? Sarcoid COMPARISON: None. TECHNIQUE: Dual energy frontal radiograph reconstructed in normal, soft tissue, and bone windows as well as a lateral radiograph were obtained. FINDINGS: Soft tissues and extrathoracic findings: ??No abnormality. Bones: Normal for age. Cardiac and mediastinal contours: The cardiomediastinal silhouette is normal. Lungs: The lungs are clear. The pulmonary vascularity is normal. ?? Pleura/diaphragms: There is no evidence of pleural effusion or pneumothorax. Procedure Note Gayathri Crook MD - 06/26/2019 XR CHEST 2 VIEWS 06/26/2019 2:19 PM CLINICAL HISTORY/COMMENTS: polyarthralgia, fatigue, MIKEY positive. ? Sarcoid COMPARISON: None. TECHNIQUE: Dual energy frontal radiograph reconstructed in normal, soft tissue, andbone windows as well as a lateral radiograph were obtained. FINDINGS: Soft tissues and extrathoracic findings: No abnormality. Bones: Normal for age. Cardiac and mediastinal contours: The cardiomediastinal silhouette isnormal. Lungs: The lungs are clear. The pulmonary vascularity is normal. Pleura/diaphragms: There is no evidence of pleural effusion orpneumothorax. IMPRESSION 1. Normal chest radiograph. No evidence suggestive of sarcoidosis. I have personally reviewed the images and the above interpretation andagree with the findings. Deonte Bass MD IMG DIAGNOSTIC IMAGI NG ORDERABLES documented in this encounter Visit Diagnoses Diagnosis Pain in joint, multiple sites- Primary Malaise and fatigue Other malaise and fatigue MIKEY positive Other and unspecified nonspecific immunological findings Elevated sed rate Elevated sedimentation rate Microcytic anemia Iron deficiency anemia, unspecified Pain in joint, multiple sites Malaise and fatigue Other malaise and fatigue MIKEY positive Other and unspecified nonspecific immunological findings Elevated sed rate Elevated sedimentation rate Microcytic anemia Iron deficiency anemia, unspecified Pain in joint, multiple sites Malaise and fatigue Other malaise and fatigue MIKEY positive Other and unspecified nonspecific immunological findings Elevated sed rate Elevated sedimentation rate Microcytic anemia Iron deficiency anemia, unspecified Pain in joint, multiple sites Malaise and fatigue Other malaise and fatigue MIKEY positive Other and unspecified nonspecific immunological findings Elevated sed rate Elevated sedimentation rate Microcytic anemia Iron deficiency anemia, unspecified documented in this encounter Discontinued Medications Medication Sig Discontinue Reason Start Date End Da te FLUoxetine (PROZAC) 20 mg capsule Take 40 mg by mouth daily. Dose adjustment 06/26/2019 ibuprofen (MOTRIN) 200 mg tablet Take 200 mg by mouth every 6 hours as needed. Therapy completed 06/26/2019 naproxen sodium (ALEVE) 220 mg capsule Take by mouth. Therapy completed 06/26/2019 pregabalin (LYRICA) 50 mg capsule Take 50 mg by mouth 3 times daily. Dose adjustment 06/26/2019 documented as of this encounter Historical Medications * This list may reflect changes made after this encounter. Medication Sig Dispensed Refills Start Date End Date DULoxetine (CYMBALTA) 60 mg capsule Take 40 mg by mouth daily. pregabalin (LYRICA) 100 mg capsule Take 1 Capsule by mouth 3 times daily. fluoxetine HCl (PROZAC ORAL) Take 60 mg by mouth daily. added in this encounter Care Teams Bulb Sorter Relationship Specialty Start Date End Date Phoenix Polanco MD [address] [place] [address]. [place] [address] PCP - General 12/27/13 documented as of this encounter
--- OUTSIDE RECORDS SUMMARY | 2023-12-23 01:01 | XMS_ITS | Encounter Summary ---
Author Organization [facility] Address [address] [place] [address] Care Team Providers Care Battery Builder Name Role Phone Phoenix Polanco MD Primary Care Provider + Reason for Visit * Reason Onset Date Comments Appointment Related 04/28/2017 Encounter Details Date Type Department Care Team (Late st Contact Info) Description 04/28/2017 Telephone [facility] Interventional Pain [address] [facility] [place] [address] Aroldo Romero MD [address] [facility] [address] [place] [address] Appointment Related Social History Tobacco Use Types Packs/Day Years Used Date Smoking Tobacco: Every Day Cigarettes 0.5 20 Alcohol Use Standard Drinks/Week Comments No 0 (1 standard drink = 0.6 oz pur e alcohol) Interpersonal Safety Answer Date Record ed Physically [...] visiting a doctor's office or shopping? No 01/15/2016 Cognitive Status Response Date of Assessm ent Because of a physical, menta l, or emotional condition, does this person have serious difficulty concentrating, remembering, or making decisions? Yes 01/15/2016 documented as of this encounter Miscellaneous Notes * Telephone Encounter - Prosper Kelly - 04/28/2017 0737 EST PAS Message: Appointment scheduled for 10:45 am this morning MondayApril [address] Romero. Ebto cancel. documented in this encounter Plan of Treatment Not on file documented as of this encounter Visit Diagnoses Not on filedocumented in this encounter Care Teams Battery Builder Relationship Specialty Start Date End Date Phoenix Polanco MD [address] [place] [address] PCP - General 12/27/13 documented as of this encounter
--- OUTSIDE RECORDS SUMMARY | 2023-12-23 01:01 | XMS_ITS | Encounter Summary ---
Author Organization [facility] Address [address] [place] [address] Care Team Providers Care Arc Air Operator Name Role Phone Phoenix Polanco MD Primary Care Provider + Encounter Details Date Type Department Care Team (Latest Contact Info) Description 01/31/2019 11:09 EDT - 01/31/2019 11:[address] [facility] [address] [place] [address] Phoenix Polanco MD [address] [place] [phone] Discharge Disposition: Home or Self Care Social History Tobacco Use Types Packs/Day Years Used Date Smoking Tobacco: Former Cigarettes 0.5 20 1 05/27/1996 - 03/26/2017 Smokeless Tobacco: Never Alcohol Use Standard Drinks/Week Comments No 0 (1 standard drink = 0.6 oz pur e alcohol) Sex and Gender Information Value Date Recorded [...] No 06/08/2017 documented as of this encounter Discharge Diagnoses Diagnosis M25.50 Pain in unspecified joint-M25.50[ICD-10-CM] documented in this encounter Medications at Time of Discharge Medication Sig Dispensed Refills Start Date End Date acetaminophen (TYLENOL) 500 mg tablet Take 1,300 mg by mouth 3 times daily as needed for Pain. cyclobenzaprine (FLEXERIL) 10 mg tablet Take 10 mg by mouth as needed. 03/06/2019 FLUoxetine (PROZAC) 20 mg capsule Take 40 mg by mouth daily. 06/26/2019 hydrOXYzine (VISTARIL) 50 mg capsule Take 50 mg by mouth daily 03/06/2019 ibuprofen (MOTRIN) 200 mg tablet Take 200 mg by mouth every 6 hours as needed. 06/26/2019 documented as of this encounter Discharge Disposition Disposition Code Departure Means Destination Home or Self Care documented in this encounter Plan of Treatment Not on file documented as of this encounter Visit Diagnoses Not on filedocumented in this encounter Care Teams Arc Air Operator Relationship Specialty Start Date End Date Phoenix Polanco MD [address] [place] [phone] PCP - General 12/27/13 documented as of this encounter
--- OUTSIDE RECORDS SUMMARY | 2023-12-23 01:01 | XMS_ITS | Encounter Summary ---
Author Organization [facility] Address [address] [place] [address] Care Team Providers Care Hair Spinner Name Role Phone Phoenix Polanco MD Primary Care Provider + Reason for Referral * Radiology Services (Routine) - Closed Specialty Diagnoses / Procedures Referred By Contac t Referred To Contact Diagnoses Pain in joint, multiple sites Malaise and fatigue MIKEY positive Elevated sed rate Microcytic anemia Procedures XR CHEST 2 VIEWS Deonte Bass MD [address] [place] [address] Referral ID Status Reason Start Date Expiration Date Visits Re quested Visits Authorized [id number] Closed 06/26/2019 1 1 Reason for Visit * Radiology Services (Routine) - Closed Specialty Diagnoses / Procedures Referred By Contac t Referred To Contact Diagnoses Pain in joint, multiple sites Malaise and fatigue MIKEY positive Elevated sed rate Microcytic anemia Procedures XR CHEST 2 VIEWS Deonte Bass MD [address] [place] [address] Referral ID Status Reason Start Date Expiration Date Visits Re quested Visits Authorized [id number] Closed 06/26/2019 1 1 Encounter Details Date Type Department Care Team (Latest Contact Info) Description 06/26/2019 14:17 EST - 06/26/2019 23:59 [facility] Hospital Encounter [facility] Radiology Xray Outpatient - [address] [address] Pain in joint, multiple sites; Malaise and fatigue; MIKEY positive; Elevated sed rate; Microcytic anemia Discharge Disposition: Home or Self Care Social [...] Yes 06/26/2019 documented as of this encounter Medications at Time of Discharge Medication Sig Dispensed Refills Start Date End Date acetaminophen (TYLENOL) 500 mg tablet Take 1,300 mg by mouth 3 times daily as needed for Pain. diclofenac sodium 1 % gelIndications:Pain in joint, [...] 1 Capsule by mouth 3 times daily. documented as of this encounter Discharge Disposition Disposition Code Departure Means Destination Home or Self Care documented in this encounter Plan of Treatment Not on file documented as of this encounter Procedures Procedure Name Priority Date/Time Associated Diagnosis Comments XR CHEST 2 VIEWS Routine 06/26/2019 14:2 8 EST Pain in joint, multiple sites Malaise and fatigue MIKEY positive Elevated sed rate Microcytic anemia documented in this encounter Results * XR CHEST 2 VIEWS (06/26/2019 14:28 [...] Visit Diagnoses Diagnosis Pain in joint, multiple sites Malaise and fatigue Other malaise and fatigue MIKEY positive Other and unspecified nonspecific immunological findings Elevated sed rate Elevated sedimentation rate Microcytic anemia Iron deficiency anemia, unspecified documented in this encounter Care Teams Hair Spinner Relationship Specialty Start Date End Date Phoenix Polanco MD [address] [place] [address] PCP - General 12/27/13 documented as of this encounter
--- OUTSIDE RECORDS SUMMARY | 2023-12-23 01:01 | XMS_ITS | Encounter Summary ---
Author Organization [facility] Address [address] [place] [address] Care Team Providers Care Fish House Worker Name Role Phone Phoenix Polanco MD Primary Care Provider + Reason for Referral * Radiology Services (Routine) - Closed Specialty Diagnoses / Procedures Referred By Contac t Referred To Contact Diagnoses Pain in joint, multiple sites Malaise and fatigue MIKEY positive Elevated sed rate Microcytic anemia Procedures XR HAND RIGHT 1-2 VIEWS Deonte Bass MD [address] [place] [address] Referral ID Status Reason Start Date Expiration Date Visits Re quested Visits Authorized [id number] Closed 06/26/2019 1 1 Reason for Visit * Radiology Services (Routine) - Closed Specialty Diagnoses / Procedures Referred By Contac t Referred To Contact Diagnoses Pain in joint, multiple sites Malaise and fatigue MIKEY positive Elevated sed rate Microcytic anemia Procedures XR HAND RIGHT 1-2 VIEWS Deonte Bass MD [address] [place] [address] Referral ID Status Reason Start Date Expiration Date Visits Re quested Visits Authorized [id number] Closed 06/26/2019 1 1 Encounter Details Date Type Department Care Team (Latest Contact Info) Description 06/26/2019 14:17 EST - 06/26/2019 23:59 EST Hospital Encounter [facility] [place] [address] Pain in joint, multiple sites; Malaise and [...] Name Priority Date/Time Associated Diagnosis Comments XR HAND RIGHT 1-2 VIEWS Routine 06/26/2019 14:29 EST Pain in joint, multiple sites Malaise and fatigue MIKEY positive Elevated sed rate Microcytic anemia documented in this encounter Results * XR HAND RIGHT 1-2 VIEWS (06/26/2019 [...] unspecified documented in this encounter Care Teams Fish House Worker Relationship Specialty Start Date End Date Phoenix Polanco MD [address] [place] [phone] PCP - General 12/27/13 documented as of this encounter
--- OUTSIDE RECORDS SUMMARY | 2023-12-23 01:01 | XMS_ITS | Encounter Summary ---
Author Organization [facility] Address [address] [place] [address] Care Team Providers Care Certified Public Accountant Name Role Phone Phoenix Polanco MD Primary Care Provider + Reason for Visit * Reason Onset Date Comments Appointment Related 03/26/2019 Encounter Details Date Type Department Care Team (Late st Contact Info) Description 03/26/2019 Telephone [facility] [address] [phone] Chelsy Worthy, RN [address] [place] [address] Appointment Related Social History Tobacco Use Types [...] encounter Miscellaneous Notes * Telephone Encounter - Chelsy Wotrhy RN - 03/26/2019 0834 EST This FA Infusion nurse called patient to verify she was coming in today for Injectafer. Pt stated she forgot about the appointment and is home sick. She will call back to reschedule. documented in this encounter Plan of Treatment Not on file documented as of this encounter Visit Diagnoses Not on filedocumented in this encounter Care Teams Certified Public Accountant Relationship Specialty Start Date End Date Phoenix Polanco MD [address] [place] [address] [place] [id number] PCP - General 12/27/13 documented as of this encounter
--- OUTSIDE RECORDS SUMMARY | 2023-12-23 01:01 | XMS_ITS | Encounter Summary ---
Author Organization [facility] Address [address] [place] [address] Care Team Providers Care Print Production Coordinator Name Role Phone Phoenix Polanco MD Primary Care Provider + Encounter Details Date Type Department Care Team (Late st Contact Info) Description 01/31/2019 Results Only [facility] [phone] Phoenix Polanco MD [address] [place] [phone] Social History Tobacco Use Types Packs/Day Years [...] No 06/08/2017 documented as of this encounter Plan of Treatment Not on file documented as of this encounter Procedures Procedure Name Priority Date/Time Associated Diagnosis Comments SYPHILIS SEROLOGY Routine 01/31/2019 14: 34 EDT LYME AB Routine 01/31/2019 14:34 EDT ZZLYME IMMUNOBLOT CONFIRMATION Routine 01/31/2019 14:34 EDT RHEUMATOID FACTOR Routine 01/31/2019 14: 34 EDT C REACTIVE PROTEIN Routine 01/31/2019 14 :34 EDT ANTI NUCLEAR AB (MIKEY), IFA Routine 01/31/2019 14:34 EDT documented in this encounter Results * LYME IMMUNOBLOT CONFIRMATION (01/31/2019 14:34 EDT) IgG Immunoblot Negative 02/04/2019 14:29 [facility] Comment:Reference Range: Neg ative IgG Band(s) No bands detected. kDa 02/04/2019 14:29 [facility] IgM Immunoblot Negative 02/04/2019 14:29 [facility] Comment:Reference Range: Neg ative IgM Band(s) No bands detected. kDa 02/04/2019 14:29 [facility] Immunoblot Interp Specific serologic response to B. burgdorferi 02/04/2019 14:29 [facility] Comment: infection is not detected. ??This may indicate lack of infection, lack of seroconversion or low/undetectable antibody levels to B. burgdorferi. ??If clinically indicated, a new serum specimen should be submitted in 7-14 days. CDC criteria requires >=5 bands for IgG or >=2 bands for IgM for the Immunoblot to be considered postiive. ??Bands may be detected in patients without Lyme disease. Patterns not meeting CDC criteria should be interpreted with caution. Per CDC guidelines, Immunoblot testing should only be performed on specimens that are positive or equivocal by Immunoassay. Performing only the Immunoblot increases the possibility of false positive results. Results should be considered positive only when both the immunoassay and the Immunoblot are positive. BLOOD SPECIMEN / Unknown 01/31/2019 14:34 EDT 01/31/2019 18:59 EDT Phoenix Polanco MD IMMUNOLOGY AND S EROLOGY ORDERABLES Performing Organization Address [facility] Co de Phone Number [facility] [address] [place] [address] * SYPHILIS SEROLOGY (01/31/2019 14:34 EDT) Syphilis Serology Negative 02/01/2019 11:57 EDT [facility] Comment:Reference Range: Neg ative BLOOD SPECIMEN / Unknown 01/31/2019 14:34 EDT 01/31/2019 18:59 EDT Phoenix Polanco MD IMMUNOLOGY AND S EROLOGY ORDERABLES Performing Organization Address [facility] de Phone Number [facility] [address] [place] [address] * RHEUMATOID FACTOR (01/31/2019 14:34 EDT) Rheumatoid Factor 8 <12.5 IU/mL 02/01/2019 11:31 EDT [facility] BLOOD SPECIMEN / Unknown 01/31/2019 14:34 EDT 01/31/2019 18:59 EDT Phoenix Polanco MD CHEMISTRY & BLOO D GAS ORDERABLES Performing Organization Address [facility] de Phone Number [facility] [address] [place] [address] * LYME AB (01/31/2019 14:34 EDT) Lyme AB Positive 02/01/2019 11:50 EDT [facility] Comment: Reference Range: Negative Lyme Immunoblot confirmation added by reflex. BLOOD SPECIMEN / Unknown 01/31/2019 14:34 EDT 01/31/2019 18:59 EDT Phoenix Polanco MD IMMUNOLOGY AND S EROLOGY ORDERABLES Performing Organization Address [facility] Co de Phone Number [facility] [address] [place] [address] * (ABNORMAL) ANTI NUCLEAR ANTIBODY (01/31/2019 14:34 EDT) MIKEY Interpretation Positive(A) Negative 02/01/2019 13:55 EDT [facility] Comment: For titers greater than or equal to 1:160 (except the centromere and nucleolar patterns) it is recommended that specific, follow-up autoantibody testing (such as for dsDNA and Extractable Nuclear Antigens) be performed on all diffuse and/or speckled patterns. Cytoplasmic Pattern Noted, Speckled NOTE: For add-on testing, dsDNA is ashley for 7 days refrigerated, while Extractable Nuclear Antigens are only stable for 48 hours refrigerated. Results were obtained with the makemoji NOVA Lite HEp-2 MIKEY kit by indirect immunofluorescence. MIKEY Titer Pattern 1:320 Speckled 02/01/2019 13:55 EDT [facility] BLOOD SPECIMEN / Unknown 01/31/2019 14:34 EDT 01/31/2019 18:59 EDT Phoenix Polanco MD IMMUNOLOGY AND S EROLOGY ORDERABLES Performing Organization Address City/[facility]/ZIP Co de Phone Number [facility] [address] [place] [address] * C REACTIVE PROTEIN (01/31/2019 14:34 EDT) C Reactive Protein <7.0 <10.0 mg/L 01/31/2019 19:20 EDT [facility] BLOOD SPECIMEN / Unknown 01/31/2019 14:34 EDT 01/31/2019 18:59 EDT Phoenix Polanco MD CHEMISTRY & BLOO D GAS ORDERABLES [facility] [address] [place] [address] documented in this encounter Visit Diagnoses Not on filedocumented in this encounter Care Teams Print Production Coordinator Relationship Specialty Start Date End Date Phoenix Polanco MD [address] [place] [phone] PCP - General 12/27/13 documented as of this encounter
--- OUTSIDE RECORDS SUMMARY | 2023-12-23 01:01 | XMS_ITS | Encounter Summary ---
Author Organization [facility] Address [address] [place] [address] Care Team Providers Care Manager Home Name Role Phone Phoenix Polanco MD Primary Care Provider + Encounter Details Date Type Department Care Team (Late st Contact Info) Description 06/26/2019 14:45 EST Phlebotomy Only [facility] Phlebotomy [address] [place], [place] [id number] Risk Assessment Consultant, Acc Phlebotomy Iron deficiency anemia due to chronic blood loss; Pain in joint, multiple sites; Malaise and [...] Yes 06/26/2019 documented as of this encounter Plan of Treatment Not on file documented as of this encounter Procedures Procedure Name Priority Date/Time Associated Diagnosis Comments URINE CHEMICAL (DIP) & SEDIMENT (MICRO) WITHOUT REFLEX TO CULTURE Routine 06/26/2019 14:54 EST Pain in joint, multiple sites Malaise and fatigue MIKEY positive Elevated sed rate Microcytic anemia C4 COMPLEMENT Routine 06/26/2019 14:54 EST Pain in joint, multiple sites Malaise and fatigue MIKEY positive Elevated sed rate Microcytic anemia FERRITIN Routine 06/26/2019 14:54 EST Iron deficiency anemia due to chronic blood loss COMPREHENSIVE METABOLIC PANEL (ONCOLOGY USE ONLY-INC MG) STAT 06/26/2019 14:53 EST Iron deficiency anemia due to chronic blood loss SS-B (LA) ANTIBODY, IGG Routine 06/26/2019 14:53 EST Pain in joint, multiple sites Malaise and fatigue MIKEY positive Elevated sed rate Microcytic anemia ZZHN SSA ANTIBODIES BY DIANDRA Routine 06/26/2019 14:53 EST Pain in joint, multiple sites Malaise and fatigue MIKEY positive Elevated sed rate Microcytic anemia SM (MCDERMOTT) ANTIBODY, IGG Routine 06/26/2019 14:53 EST Pain in joint, multiple sites Malaise and fatigue MIKEY positive Elevated sed rate Microcytic anemia CCP ANTIBODIES Routine 06/26/2019 14:53 EST Pain in joint, multiple sites Malaise and fatigue MIKEY positive Elevated sed rate Microcytic anemia THYROID CASCADE Routine 06/26/2019 14:53 EST Pain in joint, multiple sites Malaise and fatigue MIKEY positive Elevated sed rate Microcytic anemia HEPATITIS C AB W REFLEX TO HCV RNA BY PCR Routine 06/26/2019 14:53 EST Pain in joint, multiple sites Malaise and fatigue Microcytic anemia Elevated sed rate MIKEY positive AUTOMATION CONSULTANT ANTIBODY, IGG Routine 06/26/2019 14: 53 EST Pain in joint, multiple sites Malaise and fatigue MIKEY positive Elevated sed rate Microcytic anemia SCL 70 ANTIBODY, IGG, SERUM Routine 06/26/2019 14:53 EST Pain in joint, multiple sites Malaise and fatigue MIKEY positive Elevated sed rate Microcytic anemia DOUBLE STRANDED DNA ANTIBODY, IGG Routine 06/26/2019 14:53 EST Pain in joint, multiple sites Malaise and fatigue MIKEY positive Elevated sed rate Microcytic anemia HEPATITIS B SURFACE ANTIBODY Routine 06/26/2019 14:53 EST Pain in joint, multiple sites Malaise and fatigue MIKEY positive Elevated sed rate Microcytic anemia COMPLETE BLOOD COUNT STAT 06/26/2019 14:53 EST Iron deficiency anemia due to chronic blood loss COMPLETE BLOOD COUNT AND DIFFERENTIAL STAT 06/26/2019 14:53 EST Iron deficiency anemia due to chronic blood loss TYPE AND SCREEN Routine 06/26/2019 14:53 EST Iron deficiency anemia due to chronic blood loss C3 COMPLEMENT Routine 06/26/2019 14:53 EST Pain in joint, multiple sites Malaise and fatigue MIKEY positive Elevated sed rate Microcytic anemia THYROID ANTIBODIES Routine 06/26/2019 14 :53 EST Pain in joint, multiple sites Malaise and fatigue MIKEY positive Elevated sed rate Microcytic anemia documented in this encounter Results * C4 COMPLEMENT (06/26/2019 14:54 EST) C4 Complement 26 13 - 39 mg/dL 06/27/2019 9:30 EST [facility] Blood VENOUS BLOOD / Unknown Venipuncture / Unknown 06/26/2019 14:54 EST 06/26/2019 15:04 EST Deonte Bass MD CHEMISTRY & BLOOD GA S ORDERABLES [facility] [address] [place] [phone] * (ABNORMAL) URINE CHEMICAL (DIP) & SEDIMENT (MICRO) WITHOUT REFLEX TO CULTURE (06/26/2019 14:[address] [facility]) Color UA Yellow Colorless, Yellow 06/26/2019 15:15 [facility] Clarity UA Clear Clear 06/26/2019 15:15 [facility] Glucose UA Negative Negative 06/26/2019 15:15 [facility] Bilirubin UA Negative Negative 06/26/2019 15:15 [facility] Ketones UA Negative Negative 06/26/2019 15:15 [facility] Specific [place], Urine 1.018 1.001 - 1.035 06/26/2019 15:15 [facility] Blood UA Negative Negative 06/26/2019 15:15 [facility] Urobilinogen UA Normal Normal mg/dL 06/26/2019 15:15 [facility] Nitrite UA Negative Negative 06/26/2019 15:15 [facility] Leukocyte Esterase UA 2+(A) Negative 06/26/2019 15:15 [facility] Protein UA Negative Negative 06/26/2019 15:15 [facility] pH, UA 6.0 4.6 - 8.0 06/26/2019 15:15 [facility] Urine RBC Count, Auto 0 - 2 0 - 2 Cells/HPF 06/26/2019 15:15 [facility] Urine WBC Count, Auto 4 - 10(A) 0 - 3 Cells/HPF 06/26/2019 15:15 [facility] Urine Squamous Count, Auto Moderate(A) None Seen Cells/HPF 06/26/2019 15:15 [facility] Urine Hyaline Cast Count, Auto <=10 <=10 Casts/LPF 06/26/2019 15:15 [facility] Urine Bacteria Count, Auto None Seen None Seen Bacteria/HP F 06/26/2019 15:15 [facility] Urine URINE SPECIMEN OBTAINED BY CLEAN CATCH PROCEDURE / Unknown Urine Collect / Unknown 06/26/2019 14:54 EST 06/26/2019 15:01 [facility] - 06/26/2019 15:15 EST Urine Sediment Analysis results are unreliable on urines that are unrefrigerated for >2 hrs or refrigerated >8 hrs. Deonte Bass MD URINALYSIS ORDERABLE S Performing Organization Address [facility] Co de Phone Number [facility] [address] [place] [address] * (ABNORMAL) FERRITIN (06/26/2019 14:54 EST) Pathologist [facility] Ferritin 2(L) 10 - 291 ng/mL 06/27/2019 11:35 EST [facility] Blood VENOUS BLOOD / Unknown Venipuncture / Unknown 06/26/2019 14:54 EST 06/26/2019 15:04 EST Esperanza Arreguin MD CHEMISTRY & BLOOD G ORDERABLES Performing Organization Address [facility] de Phone Number [facility] [address] [place] [address] * SCL 70 ANTIBODY, IGG, SERUM (06/26/2019 14:53 EST) Pathologist [facility] Scl 70 Ab, IgG, S <0.2 <1.0 (Negative ) U 06/28/2019 8:54 EST [facility] Comment: Test Performed by: [facility] [address] [place] [id number] Citrus Picker: Bar Negron M.D. Ph.D.; CLIA# [id number] Blood VENOUS BLOOD / Unknown Venipuncture / Unknown 06/26/2019 14:53 EST 06/26/2019 15:04 EST Deonte Bass MD IMMUNOLOGY AND SEROL OGY ORDERABLES Performing Organization Address [facility] Co de Phone Number [facility] [address] [place] [address] * AUTOMATION CONSULTANT ANTIBODIES BY DIANDRA (06/26/2019 14:53 EST) [facility] AUTOMATION CONSULTANT Antibody 4.5 <20.0 Units 06/27/2019 13:52 EST [facility] Comment: ? Negative: <20.0 Units ? Weak Positive: 20.0 - 39.9 Units ? Moderate Positive: 40.0 - 80.0 Units ? Strong Positive: >80.0 Units Results were obtained with the [employer] Quanta Lite AUTOMATION CONSULTANT DIANDRA. AUTOMATION CONSULTANT values obtained with different copyright clerk's assay methods may not be used interchangeaby. ??The magnitude of the reported IgG levels cannot be be correlated to an endpoint titer. A positive result in the Quanta Lite AUTOMATION CONSULTANT DIANDRA indicates the presence of antibodies reactive with the AUTOMATION CONSULTANT/Sm complex but cannot distinguish between anti-Sm and anti-AUTOMATION CONSULTANT activity. Blood VENOUS BLOOD / Unknown Venipuncture / Unknown 06/26/2019 14:53 EST 06/26/2019 15:05 EST Deonte Bass MD IMMUNOLOGY AND SEROL OGY ORDERABLES Performing Organization Address [facility] Co de Phone Number [facility] [address] [place] [address] * (ABNORMAL) C3 COMPLEMENT (06/26/2019 14:53 EST) C3 Complement 158(H) 81 - 157 mg/dL 06/27/2019 9:30 EST [facility] Blood VENOUS BLOOD / Unknown Venipuncture / Unknown 06/26/2019 14:53 EST 06/26/2019 15:01 EST Deonte Bass MD CHEMISTRY & BLOOD GA S ORDERABLES Performing Organization Address [facility] de Phone Number [facility] [address] [place] [address] * SSA ANTIBODIES BY DIANDRA (06/26/2019 14:53 EST) SSA Antibody 1.4 <20.0 Units 06/27/2019 13:43 EST [facility] Comment: ? Negative: <20.0 Units ? Weak Positive: 20.0 - 39.9 Units ? Moderate Positive: 40.0 - 80.0 Units ? Strong Positive: >80.0 Units Results were obtained with the INOVA QUANTA Lite SS-A DIANDRA. ??SS-A values obtained with different manufacturers' assay methods may not be used interchangeably. ??The magnitude of the reported IgG levels cannot be correlated to an endpoint titer. Blood VENOUS BLOOD / Unknown Venipuncture / Unknown 06/26/2019 14:53 EST 06/26/2019 15:01 EST Deonte Bass MD IMMUNOLOGY AND SEROL OGJasmin ORDERABLES Performing Organization Address [facility] de Phone Number [facility] [address] [place] [address] * SSB ANTIBODIES BY DIANDRA (06/26/2019 14:53 EST) Pathologist [facility] SSB Antibody 4.7 <20.0 Units 06/27/2019 13:43 EST [facility] Comment: ? Negative: <20.0 Units ? Weak Positive: 20.0 - 39.9 Units ? Moderate Positive: 40.0 - 80.0 Units ? Strong Positive: >80.0 Units Results were obtained with the INOVA QUANTA Lite SS-B DIANDRA. ??SS-B values obtained with different manufacturers' assay methods may not be used interchangeably. ??The magnitude of the reported IgG levels cannot be correlated to an endpoint titer. Blood VENOUS BLOOD / Unknown Venipuncture / Unknown 06/26/2019 14:53 EST 06/26/2019 15:01 EST Deonte Bass MD IMMUNOLOGY AND SEROL OGJasmin ORDERABLES Performing Organization Address [facility] de Phone Number [facility] [address] [place] [address] * SM (MCDERMOTT) ANTIBODY (06/26/2019 14:53 EST) SM (Mcdermott) Antibody 3.9 <20.0 Units 06/27/2019 13:56 EST [facility] Comment: ? Negative: <20.0 Units ? Weak Positive: 20.0 - 39.9 Units ? Moderate Positive: 40.0 - 80.0 Units ? Strong Positive: >80.0 Units Results were obtained with the JethroDataVA QUANTA Lite Sm DIANDRA. ??Sm values obtained with different manufacturers' assay methods may not be used interchangeably. ??The magnitude of the reported IgG levels cannot be correlated to an endpoint titer. Blood VENOUS BLOOD / Unknown Venipuncture / Unknown 06/26/2019 14:53 EST 06/26/2019 15:05 EST Deonte Bass MD IMMUNOLOGY AND SEROL [place] ORDERABLES Performing Organization Address [facility] de Phone Number [facility] [address] [place] [address] * ANTI DNA (DOUBLE STRANDED) (06/26/2019 14:53 EST) Pathologist [facility] Anti-DNA (Double Stranded) <12.3 <30.0 IU/mL 06/27/2019 13:34 [facility] Comment: ? Negative: ??<30.0 IU/mL ? Borderline Positive: ??30.0 - 75.0 IU/mL ? Positive: ??>75.0 IU/mL Results were obtained with the JethroDataVA QUANTA Lite dsDNA SC DIANDRA assay on the [employer]. Blood VENOUS BLOOD / Unknown Venipuncture / Unknown 06/26/2019 14:53 EST 06/26/2019 15:05 EST Deonte Bass MD IMMUNOLOGY AND SEROL [place] ORDERABLES Performing Organization Address [facility]/State/ZIP Co de Phone Number [facility] [address] [place] [address] * HEPATITIS B SURFACE ANTIBODY (06/26/2019 14:53 EST) Hep B Surface Ab, Quantitative <3.1 See Note mIU/mL 06/27/2019 10:02 [facility] Comment: Reference Range for Hep B Surface Ab, Quant: Positive: >= 10.0 mIU/mL Negative: ??< 10.0 mIU/mL Patient is presumed to not be immune to infection with Hepatitis B Virus. Hep B Surface Ab, Qualitative Negative See Note 06/27/2019 10:02 [facility] Comment: Reference Range for Hep B Surface Ab, Qual: Unvaccinated: ??Negative Vaccinated: ??Positive Blood VENOUS BLOOD / Unknown Venipuncture / Unknown 06/26/2019 14:53 EST 06/26/2019 15:05 EST Deonte Bass MD CHEMISTRY & BLOOD GA S ORDERABLES Performing Organization Address [facility]/ZIP Co de Phone Number [facility] [address] [place] [address] * HEPATITIS C AB W REFLEX TO HCV RNA BY PCR (06/26/2019 14:53 EST) Pathologist [facility] Hep C Antibody Negative Negative 06/27/2019 9:36 EST [facility] Blood VENOUS BLOOD / Unknown Venipuncture / Unknown 06/26/2019 14:53 EST 06/26/2019 15:05 EST Deonte Bass MD CHEMISTRY & BLOOD GA S ORDERABLES [facility] [address] [place] [address] * THYROID ANTIBODIES (06/26/2019 14:53 EST) Anti-Thyroglobulin <15 <=60 U/mL 2019 11:32 EST [facility] Thyroperoxidase Ab <28 <=60 U/mL 2019 11:32 EST [facility] Blood VENOUS BLOOD / Unknown Venipuncture / Unknown 06/26/2019 14:53 EST 06/26/2019 15:01 EST Deonte Bass MD CHEMISTRY & BLOOD GA S ORDERABLES Performing Organization Address [facility] Co de Phone Number [facility] [address] [place] [address] * THYROID CASCADE (06/26/2019 14:53 EST) Pathologist [facility] TSH 0.73 0.47 - 4.68 uIU/mL 06/26/2019 15:52 EST [facility] Blood VENOUS BLOOD / Unknown Venipuncture / Unknown 06/26/2019 14:53 EST 06/26/2019 15:01 EST Narrative [facility] - 06/26/2019 15:52 EST NOTE: TSH Blair is not recommended for patients in which pituitary or hypothalamic disorders are suspected. The results of this assay can be falsely lowered due to the consumption of Biotin. Deonte Bass MD CHEMISTRY & BLOOD GA S ORDERABLES Performing Organization Address [facility] Co de Phone Number [facility] [address] [place] [address] * CCP ANTIBODIES (06/26/2019 14:53 EST) [facility] CCP Antibodies <2.5 <5.0 U/mL 06/27/2019 9:26 EST [facility] Blood VENOUS BLOOD / Unknown Venipuncture / Unknown 06/26/2019 14:53 EST 06/26/2019 15:01 EST Deonte Bass MD IMMUNOLOGY AND SEROL OGY ORDERABLES Performing Organization Address [facility] Co de Phone Number [facility] [address] [place] [address] * (ABNORMAL) COMPREHENSIVE METABOLIC PANEL (ONCOLOGY USE ONLY-INC MG) (06/26/2019 14:53 EST) Pathologist [facility] Sodium 137 136 - 145 mEq/L 06/26/2019 15:20 EST [facility] Potassium 4.4 3.5 - 5.0 mEq/L 06/26/2019 15:20 [facility] Chloride 102 96 - 110 mEq/L 06/26/2019 15:20 [facility] CO2 Total 26 22 - 32 mEq/L 06/26/2019 15:20 [facility] Glucose 88 70 - 100 mg/dL 06/26/2019 15:20 [facility] BUN 16 10 - 26 mg/dL 06/26/2019 15:20 [facility] Creatinine 0.49(L) 0.52 - 1.04 mg/dL 06/26/2019 15:20 [facility] eGFR 116 >60 mL/min/1.7 3m2 06/26/2019 15:20 [facility] Comment:eGFR calculated valdez reese CKD-EPI equation for non- Americans. Multiply eGFR by 1.16 for patients. Total Protein 7.8 6.3 - 8.2 g/dL 06/26/2019 15:20 [facility] Albumin 4.7 3.4 - 4.9 g/dL 06/26/2019 15:20 [facility] Alkaline Phosphatase 90 38 - 126 U/L 06/26/2019 15:20 [facility] AST 23 15 - 46 U/L 06/26/2019 15:20 [facility] ALT 16 <35 U/L 06/26/2019 15:20 [facility] Bilirubin, Total <0.5 <1.4 mg/dL 06/26/19 20 15:20 [facility] Calcium 9.6 8.5 - 10.5 mg/dL 06/26/2019 15:20 [facility] Calculated Calcium 9.0 8.5 - 10.5 mg/dL 06/26/2019 15:20 [facility] Magnesium 1.9 1.7 - 2.8 mg/dL 06/26/2019 15:20 [facility] Blood VENOUS BLOOD / Unknown Venipuncture / Unknown 06/26/2019 14:53 EST 06/26/2019 15:01 [facility] - 06/26/2019 15:20 EST 2 Esperanza Arreguin MD CHEMISTRY & BLOOD G ORDERABLES [facility] [address] [place] [address] * (ABNORMAL) COMPLETE BLOOD COUNT AND DIFFERENTIAL (06/26/2019 14:53 EST) WBC 6.50 4.00 - 12.40 K/cmm 06/26/2019 15:19 [facility] RBC 4.33 3.86 - 5.04 M/cmm 06/26/2019 15:19 [facility] Hemoglobin 7.2(L) 11.6 - 15.2 gm/dL 06/26/2019 15:19 [facility] HCT 26.0(L) 34.9 - 44.4 % 06/26/2019 15:19 [facility] MCV 60(L) 81 - 98 fl 06/26/2019 15:19 [facility] MCH 16.6(L) 26.7 - 33.3 pg 06/26/2019 15:19 [facility] Hypochromia 3+ 06/26/2019 15:19 [facility] MCHC 27.7(L) 32.1 - 35.9 gm/dL 06/26/2019 15:19 [facility] RDW-CV 21.3(H) <14.7 % 06/26/2019 15:19 [facility] RDW-SD 43.8 <50.4 fl 06/26/2019 15:19 [facility] Anisocytosis 2+ 06/26/2019 15:19 [facility] PLT 357 141 - 377 K/cmm 06/26/2019 15:19 [facility] MPV 9.9 9.5 - 12.7 fl 06/26/2019 15:19 [facility] % Neutrophils 52.1 % 06/26/2019 15:19 [facility] % Lymphocytes 34.0 % 06/26/2019 15:19 [facility] % Monocytes 10.2 % 06/26/2019 15:19 [facility] % Eosinophils 1.7 % 06/26/2019 15:19 [facility] % Basophils 1.7 % 06/26/2019 15:19 [facility] % Immature Grans 0.3 % 06/26/19 20 15:19 [facility] Absolute Neutrophils 3.39 2.20 - 8.85 K/cmm 06/26/2019 15:19 [facility] Absolute Lymphocytes 2.21 1.09 - 3.30 K/cmm 06/26/2019 15:19 [facility] Absolute Monocytes 0.66 0.10 - 0.80 K/cmm 06/26/2019 15:19 [facility] Absolute Eosinophils 0.11 0.03 - 0.61 K/cmm 06/26/2019 15:19 [facility] ABS Basophils 0.11 0.01 - 0.11 K/cmm 06/26/2019 15:19 [facility] Absolute Immature Grans 0.02 0.00 - 0.06 K/cmm 06/26/2019 15:19 [facility] Type of Differential: Auto 06/26/2019 15:19 [facility] Blood VENOUS BLOOD / Unknown Venipuncture / Unknown 06/26/2019 14:53 EST 06/26/2019 15:01 EST Esperanza Arreguin MD PACKAGES & DNA PROB E ORDERABLES Performing Organization Address City/State/[facility] Co de Phone Number [facility] [address] [place] [phone] * TYPE AND SCREEN (06/26/2019 14:53 EST) ABO AB 06/26/2019 16:57 [facility] Rh Factor Positive 06/26/2019 16:57 [facility] Antibody Screen Negative 06/26/2019 16:57 [facility] Specimen Expires: 06/29/2019 @ 23:59 06/26/2019 16:57 [facility] Blood VENOUS BLOOD / Unknown Venipuncture / Unknown 06/26/2019 14:53 EST 06/26/2019 15:01 EST Esperanza Arreguin MD BLOOD BANK TESTS Performing Organization Address City/State/[facility] Co de Phone Number [facility] [address] [place] [address] * (ABNORMAL) COMPLETE BLOOD COUNT (06/26/2019 14:53 EST) WBC 6.50 4.00 - 12.40 K/cmm 06/26/2019 15:19 [facility] RBC 4.33 3.86 - 5.04 M/cmm 06/26/2019 15:19 [facility] Hemoglobin 7.2(L) 11.6 - 15.2 gm/dL 06/26/2019 15:19 [facility] HCT 26.0(L) 34.9 - 44.4 % 06/26/2019 15:19 [facility] MCV 60(L) 81 - 98 fl 06/26/2019 15:19 [facility] MCH 16.6(L) 26.7 - 33.3 pg 06/26/2019 15:19 [facility] Hypochromia 3+ 06/26/2019 15:19 [facility] MCHC 27.7(L) 32.1 - 35.9 gm/dL 06/26/2019 15:19 [facility] RDW-CV 21.3(H) <14.7 % 06/26/2019 15:19 [facility] RDW-SD 43.8 <50.4 fl 06/26/2019 15:19 [facility] Anisocytosis 2+ 06/26/2019 15:19 [facility] PLT 357 141 - 377 K/cmm 06/26/2019 15:19 [facility] MPV 9.9 9.5 - 12.7 fl 06/26/2019 15:19 [facility] Blood VENOUS BLOOD / Unknown Venipuncture / Unknown 06/26/2019 14:53 EST 06/26/2019 15:01 EST Esperanza Arreguin MD HEMATOLOGY & PF4 OR DERABLES [facility] [address] [place] [address] documented in this encounter Visit Diagnoses Diagnosis Iron deficiency anemia due to chronic blood loss Iron deficiency anemia secondary to blood loss (chronic) Pain in joint, multiple sites Malaise and fatigue Other malaise and fatigue MIKEY positive Other and unspecified nonspecific immunological findings Elevated sed rate Elevated sedimentation rate Microcytic anemia Iron deficiency anemia, unspecified documented in this encounter Care Teams Manager Home Relationship Specialty Start Date End Date Phoenix Polanco MD [address] [place], [place] [address] [id number] PCP - General 12/27/13 documented as of this encounter
--- OUTSIDE RECORDS SUMMARY | 2023-12-23 01:01 | XMS_ITS | Encounter Summary ---
Author Organization [facility] Address [address] [place] [address] Care Team Providers Care Sheet Rock Installer Name Role Phone Phoenix Polanco MD Primary Care Provider + Reason for Referral * Referral (Routine/Next Available) - Specialty Report Received Specialty Diagnoses / Procedures Referred By Janak miguel Referred To Contact Pain Medicine Diagnoses Low back pain radiating to right leg Mesfin Pena PA-C [address] [place] [address] [place] [address] [facility] [place] [address] Referral ID Status Reason Start Date Expiration Date Visits Requested Visits Authorized [id number] Specialty Report Received Specialty Services Required 7 1 1 Question Answer Reason for Request: Low back pain radiating to right leg Has the patient had 6 weeks of conservative treatment such as physicial therapy or NSAIDS? Yes Associated Notes: In [place] ISM Comments B/L L4-L5/L5-S1 facet injections Reason for Visit * Reason Comments Back Pain low Encounter Details Date Type Department Care Team (Late st Contact Info) Description 03/08/2017 10:15 EST Office Visit [facility] - [facility] [address] [place], [place] [phone] Mesfin Pena PA-C [address] [facility] [place] [address] Low back pain radiating to right leg (Primary Dx) Social History Tobacco Use [...] - Inhaled Oxygen Concentration - - Weight 90.7 kg (200 lb) 03/08/2017 1021 EST Height 165.1 cm (5' 5) 03/08/2017 1021 EST Body Mass Index 33.28 03/08/2017 1021 EST documented in this encounter Functional Status [...] Yes 01/15/2016 documented as of this encounter Progress Notes * Mesfin Pena PA - 03/08/2017 1015 EST Nela Granger is being seen as a consultation from Dr. Austin. Chief Complaint Patient presents with ??? Back Pain low The encounter diagnosis was Low back pain radiating to right leg. HPI Ms. Granger is a 46 y.o. pleasant female who returns to the clinic today, 03/08/2017, for FU PRN. The patient reports being back to preinjection status. She states that previous facet injections offered 70% relief for about a month. In 01/29/2016, Ms. Granger had a FU post L4-L5/L5-S1 B/L facet injections (01/15/2016). The patient reports 70% ongoing relief of symptoms after the injections. She is very please with the outcome. ?? Ms. Granger presented to the clinic for the fist time in 11/05/2015, with with 80% LBP and 20% RLE pain affecting the lateral aspect of her thigh; there is also continuous numbness in the medial aspectof her right knee. The patient reports acute onset of symptoms that started in December 2014. She cannot recall any precipitating event. Symptoms subsided within three weeks, but flare ups are stillpresent. Symptoms are intermittent; flare ups are taking place every three weeks and last about a week at a time. She has tried in-home exercise program as recommended by PT, but she had no significant improvement. She has not tried CHIRO or injections. Standing and walking alleviate her symptoms. Sitting and bending forward aggravate her symptoms. She rates her pain as 1/10. Today, 03/08/2017, I independently reviewed the following: Plain radiographs (AP/Lat/Flex/Ex): 1. Five (5) non-rib bearing lumbar vertebrae 2. Facet arthropathy of the lower lumbar spine 3. Disc height reduction at L4-L5/L5-S1 conistent with degenerative disc disease 4. No fractures or pars defects noted ? MRI from prior work up in September 2015: L2-L3: There is a small central [...] likely from degenerative disc and facet disease and 2. RLE pain along the L5 dermatome and paresthesias along the medial aspect of her lower leg specifically at pens anserinus; MRI not clearly concordant with RLE symptoms. 3. About a year ago lumbar facet injections provided 70% relief of symptoms for about a month. She is back to preinjection status She has agreed to the following plan. ?? Plan: 1. L4-L5/L5-S1 facet injections B/L 2. Continue with in-home exercise program 3. Continue activity as tolerated 4. Follow-up post facet injections; if great relief is provided, proceed with RFA. If no relief, discussed L5-S1 ALEXANDR Dr. Cooper was available for consultation; a consultation was not required. HPI Patient Active Problem List Diagnosis ??? Anemia ??? Right shoulder pain ??? SLAP (superior labrum from anterior to posterior) tear ??? Superior glenoid labrum lesion ??? AC (acromioclavicular) joint arthritis ??? Glenoid labral tear ??? Low back pain radiating to right leg Past Medical History: Diagnosis Date ??? Anemia ??? Anxiety ??? Arm pain ??? Arm weakness ??? Arthritis ??? Depression ??? Joint stiffness ??? Night sweats ??? Numbness ??? Substance abuse Past Surgical History: Procedure Laterality Date ??? BREAST SURGERY biopsy ??? CHOLECYSTECTOMY, OPEN 10/06/2000 ??? GASTRIC BYPASS SURGERY 10/06/2000 ??? LIVER BIOPSY 10/06/2000 ??? SHOULDER SURGERY right shoulder arthroscopic posterior labral repair, anterior inferior labral repair, biceps tenotomy, distal clavicle excision, and mini open subpectoral biceps tenodesis on 06-26-14 ??? TUBAL LIGATION Social History Substance Use Topics ??? Smoking status: Current Every Day Smoker Packs/day: 0.50 Years: 20.00 ??? Smokeless tobacco: Not on file ??? Alcohol use No Family History Problem Relation Age of Onset ??? Cancer Maternal Aunt ??? Cancer Maternal Grandmother Current Outpatient Prescriptions Medication Sig Dispense Refill ??? acetaminophen (TYLENOL) 500 mg tablet Take 1,000 mg by mouth as needed for Pain. ??? cyclobenzaprine (FLEXERIL) 10 mg tablet Take 10 mg by mouth as needed. ??? FLUoxetine (PROZAC) 20 mg capsule Take 40 mg by mouth daily. ??? hydrOXYzine (VISTARIL) 50 mg capsule Take 50 mg by mouth daily ??? ibuprofen (MOTRIN) 200 mg tablet Take 200 mg by mouth every 6 hours as needed. No current facility-administered medications for this visit. No Known Allergies Review of Systems Physical Exam Ortho Exam Neurologic Exam Other Orders Placed This Visit Procedures ??? Amb Pain Procedure documented in this encounter Plan of Treatment Scheduled Referrals Name Type Priority Associated Diagnoses Orde r Schedule AMB PAIN PROCEDURE Outpatient Referral Routine Low back pain radiating to right leg Ordered: 03/08/2017 documented as of this encounter Visit Diagnoses Diagnosis Low back pain radiating to right leg- Primary Lumbago documented in this encounter Care Teams Sheet Rock Installer Relationship Specialty Start Date End Date Phoenix Polanco MD [address] [facility] [place] [address] PCP - General 12/27/13 documented as of this encounter
--- OUTSIDE RECORDS SUMMARY | 2023-12-23 01:01 | XMS_ITS | Encounter Summary ---
Author Organization [facility] Address [address] [place] [address] Care Team Providers Care Propulsion Systems Engineer Name Role Phone Phoenix Polanco MD Primary Care Provider + Encounter Details Date Type Department Care Team (Latest Contact Info) Description 10/01/2019 10:22 EDT - 10/01/2019 11:43 EDT Hospital Encounter [facility] Non-Invasive Cardiology - [place] [address] [place] [address] Discharge Disposition: Home or Self [...] 1 Capsule by mouth 3 times daily. hydroxychloroquine (PLAQUENIL) 200 mg tabletIndications:Inflam matory arthritis Take 1 Tab by mouth 2 times daily. 60 Tab 2 07/31/2019 11/13/2019 documented as of this encounter Discharge Disposition Disposition Code Departure Means Destination Home or Self Care documented in this encounter Plan of Treatment Not on file documented as of this encounter Visit Diagnoses Not on filedocumented in this encounter Care Teams Propulsion Systems Engineer Relationship Specialty Start Date End Date Phoenix Polanco MD [address] [place] [phone] PCP - General 12/27/13 documented as of this encounter
--- OUTSIDE RECORDS SUMMARY | 2023-12-23 01:01 | XMS_ITS | Encounter Summary ---
Author Organization [facility] Address [address] [place] [address] Care Team Providers Care Transportation Coordinator Name Role Phone Phoenix Polanco MD Primary Care Provider + Encounter Details Date Type Department Care Team (Latest Contact Info) Description 03/06/2019 13:30 EST Phlebotomy Only [facility] Hematology & Oncology - [place] [address] [place], [place] [phone] Blood Doctor, [facility] Microcytic anemia (Primary Dx) Social History Tobacco Use Types [...] No 06/08/2017 documented as of this encounter Progress Notes * Patrizia Quiñonez MA - 03/06/2019 1330 EST Venipuncture performed for Umyarova Per orders of Umyarova Number of attempts 1 I was supervised by Lyly who was present and immediately available in the office suite. PATRIZIA QUIÑONEZ MA 03/06/2019 13:41 documented in this encounter Plan of Treatment Not on file documented as of this encounter Procedures Procedure Name Priority Date/Time Associated Diagnosis Comments CBC HEMOLYSIS REVIEW Today 03/06/2019 13:40 EST Microcytic anemia COMPREHENSIVE METABOLIC PANEL (ONCOLOGY USE ONLY-INC MG) STAT 03/06/2019 13:40 EST Microcytic anemia IBC Routine 03/06/2019 13:40 EST Microcytic anemia RETICULOCYTE COUNT Routine 03/06/2019 13 :40 EST Microcytic anemia COMPLETE BLOOD COUNT AND DIFFERENTIAL STAT 03/06/2019 13:40 EST Microcytic anemia IRON Routine 03/06/2019 13:40 EST Microcytic anemia FERRITIN Routine 03/06/2019 13:40 EST Microcytic anemia documented in this encounter Results * [facility] CBC HEMOLYSIS REVIEW (03/06/2019 13:40 EST) Schistocytes No increase in schistocytes seen 03/06/2019 15:16 EST [facility] Spherocytes No increase in spherocytes seen. 03/06/2019 15:16 EST [facility] Differential Comment There is no significant increase in schistocytes or spherocytes. There is no morphologic evidence of hemolysis. 03/06/2019 15:16 EST [facility] Blood VENOUS BLOOD / Unknown Venipuncture / Unknown 03/06/2019 13:40 EST 03/06/2019 14:26 EST Esperanza Arreguin MD HEMATOLOGY & PF4 OR DERABLES [facility] [address] [place] [address] * (ABNORMAL) IBC (03/06/2019 13:40 EST) Iron Binding Capacity 509(H) 265 - 497 ug/dL 03/06/2019 15:13 EST [facility] Blood VENOUS BLOOD / Unknown Venipuncture / Unknown 03/06/2019 13:40 EST 03/06/2019 14:26 EST Esperanza Arreguin MD CHEMISTRY & BLOOD G ORDERABLES Performing Organization Address City/[facility]/ZIP Co de Phone Number [facility] [address] [place] [address] * (ABNORMAL) IRON (03/06/2019 13:40 EST) Iron <15(L) 37 - 170 ug/dL 03/06/2019 15:05 EST [facility] Blood VENOUS BLOOD / Unknown Venipuncture / Unknown 03/06/2019 13:40 EST 03/06/2019 14:26 EST Esperanza Arreguin MD CHEMISTRY & BLOOD G ORDERABLES Performing Organization Address City/[facility]/ZIP Co de Phone Number [facility] [address] [place] [address] * (ABNORMAL) FERRITIN (03/06/2019 13:40 EST) Ferritin 2(L) 10 - 291 ng/mL 03/07/2019 9:34 EST [facility] Blood VENOUS BLOOD / Unknown Venipuncture / Unknown 03/06/2019 13:40 EST 03/06/2019 14:26 EST Esperanza Arreguin MD CHEMISTRY & BLOOD G ORDERABLES Performing Organization Address City/[facility]/ZIP Co de Phone Number [facility] [address] [place] [address] * RETICULOCYTE COUNT (03/06/2019 13:40 EST) Retic Ct (Uncorrected) 1.8 0.5 - 2.5 % 03/06/2019 14:47 [facility] Blood VENOUS BLOOD / Unknown Venipuncture / Unknown 03/06/2019 13:40 EST 03/06/2019 14:26 EST Esperanza Arreguin MD HEMATOLOGY & PF4 OR DERABLES [facility] [address] [place] [address] * (ABNORMAL) COMPREHENSIVE METABOLIC PANEL (ONCOLOGY USE ONLY-INC MG) (03/06/2019 13:40 EST) Sodium 138 136 - 145 mEq/L 03/06/2019 15:05 [facility] Potassium 4.4 3.5 - 5.0 mEq/L 03/06/2019 15:05 [facility] Chloride 103 96 - 110 mEq/L 03/06/2019 15:05 [facility] CO2 Total 26 22 - 32 mEq/L 03/06/2019 15:05 [facility] Glucose 91 70 - 100 mg/dL 03/06/2019 15:05 [facility] BUN 14 10 - 26 mg/dL 03/06/2019 15:05 [facility] Creatinine 0.43(L) 0.52 - 1.04 mg/dL 03/06/2019 15:05 [facility] eGFR 122 >60 mL/min/1.7 3m2 03/06/2019 15:05 [facility] Comment:eGFR calculated usin g CKD-EPI equation for non- Americans. Multiply eGFR by 1.16 for patients. Total Protein 7.0 6.3 - 8.2 g/dL 03/06/2019 15:05 [facility] Albumin 4.1 3.4 - 4.9 g/dL 03/06/2019 15:05 [facility] Alkaline Phosphatase 58 38 - 126 U/L 03/06/2019 15:05 [facility] AST 24 15 - 46 U/L 03/06/2019 15:05 [facility] ALT 18 <35 U/L 03/06/2019 15:05 [facility] Bilirubin, Total <0.5 <1.4 mg/dL 03/06/20 19 15:05 [facility] Calcium 9.0 8.5 - 10.5 mg/dL 03/06/2019 15:05 [facility] Calculated Calcium 8.9 8.5 - 10.5 mg/dL 03/06/2019 15:05 [facility] Magnesium 1.9 1.7 - 2.8 mg/dL 03/06/2019 15:05 [facility] Blood VENOUS BLOOD / Unknown Venipuncture / Unknown 03/06/2019 13:40 EST 03/06/2019 14:26 EST Esperanza Arreguin MD CHEMISTRY & BLOOD G ORDERABLES Performing Organization Address City/State/[facility] Co de Phone Number [facility] [address] [place] [address] * (ABNORMAL) COMPLETE BLOOD COUNT AND DIFFERENTIAL (03/06/2019 13:40 EST) WBC 6.18 4.00 - 12.40 K/cmm 03/06/2019 14:54 [facility] RBC 4.36 3.86 - 5.04 M/cmm 03/06/2019 14:54 [facility] Hemoglobin 7.5(L) 11.6 - 15.2 gm/dL 03/06/2019 14:54 [facility] HCT 27.6(L) 34.9 - 44.4 % 03/06/2019 14:54 [facility] MCV 63(L) 81 - 98 fl 03/06/2019 14:54 [facility] MCH 17.2(L) 26.7 - 33.3 pg 03/06/2019 14:54 [facility] Hypochromia 3+ 03/06/2019 14:54 [facility] MCHC 27.2(L) 32.1 - 35.9 gm/dL 03/06/2019 14:54 [facility] RDW-CV 23.6(H) <14.7 % 03/06/2019 14:54 [facility] RDW-SD 51.7(H) <50.4 fl 03/06/2019 14:54 [facility] Anisocytosis 2+ 03/06/2019 14:54 [facility] PLT 399(H) 141 - 377 K/cmm 03/06/2019 14:54 [facility] MPV 10.0 9.5 - 12.7 fl 03/06/2019 14:54 [facility] % Neutrophils 51.6 % 03/06/2019 14:54 [facility] % Lymphocytes 34.3 % 03/06/2019 14:54 [facility] % Monocytes 9.4 % 03/06/2019 14:54 [facility] % Eosinophils 2.6 % 03/06/2019 14:54 [facility] % Basophils 1.8 % 03/06/2019 14:54 [facility] % Immature Grans 0.3 % 03/06/20 19 14:54 [facility] Absolute Neutrophils 3.19 2.20 - 8.85 K/cmm 03/06/2019 14:54 [facility] Absolute Lymphocytes 2.12 1.09 - 3.30 K/cmm 03/06/2019 14:54 [facility] Absolute Monocytes 0.58 0.10 - 0.80 K/cmm 03/06/2019 14:54 [facility] Absolute Eosinophils 0.16 0.03 - 0.61 K/cmm 03/06/2019 14:54 [facility] ABS Basophils 0.11 0.01 - 0.11 K/cmm 03/06/2019 14:54 [facility] Absolute Immature Grans 0.02 0.00 - 0.06 K/cmm 03/06/2019 14:54 [facility] Type of Differential: Auto 03/06/2019 14:54 [facility] Blood VENOUS BLOOD / Unknown Venipuncture / Unknown 03/06/2019 13:40 EST 03/06/2019 14:26 EST Esperanza Arreguin MD PACKAGES & DNA PROB E ORDERABLES [facility] [address] [place] [address] documented in this encounter Visit Diagnoses Diagnosis Microcytic anemia- Primary Iron deficiency anemia, unspecified documented in this encounter Care Teams Transportation Coordinator Relationship Specialty Start Date End Date Phoenix Polanco MD [address] [place] [phone] PCP - General 12/27/13 documented as of this encounter
--- OUTSIDE RECORDS SUMMARY | 2023-12-23 01:01 | XMS_ITS | Encounter Summary ---
Author Organization [facility] Address [address] [place] [address] Care Team Providers Care Chipper Operator Name Role Phone Phoenix Polanco MD Primary Care Provider + Reason for Visit * Reason Onset Date Comments Appointment Related 02/16/2019 Encounter Details Date Type Department Care Team (Late st Contact Info) Description 02/16/2019 Telephone [facility] Cancer Center Hematology & Oncology - [facility] [address] [place], [place] [phone] Esperanza Arreguin MD [address] [place], [place] [phone] Appointment Related Social History Tobacco Use Types [...] encounter Miscellaneous Notes * Telephone Encounter - Anette Agrawal - 02/16/2019 0831 EDT 02/16 @ 8:30 scheduled with EU on 03/06 @2:00 earlier for labs Letter out documented in this encounter Plan of Treatment Not on file documented as of this encounter Visit Diagnoses Not on filedocumented in this encounter Care Teams Chipper Operator Relationship Specialty Start Date End Date Phoenix Polanco MD [address] [place] [address] PCP - General 12/27/13 documented as of this encounter
--- OUTSIDE RECORDS SUMMARY | 2023-12-23 01:01 | XMS_ITS | Encounter Summary ---
Author Organization [facility] Address [address] [place] [address] Care Team Providers Care Patient Transport Officer Name Role Phone Phoenix Polanco MD Primary Care Provider + Reason for Visit * Reason Onset Date Comments Appointment Related 08/04/2017 Encounter Details Date Type Department Care Team (Late st Contact Info) Description 08/04/2017 Telephone [facility] Interventional Pain [address] [place], [place] [phone] Michael Dexter MD [address] [place], [place] [phone] Appointment Related Social History Tobacco Use Types [...] encounter Miscellaneous Notes * Telephone Encounter - Kailey Roa - 08/04/2017 0631 EDT Patient called to cancel appointment with Michael Dexter MD on 08/04/17 at 10 AM due to ilness. Patient would like a call back to reschedule? Patient will call. documented in this encounter Plan of Treatment Not on file documented as of this encounter Visit Diagnoses Not on filedocumented in this encounter Additional Health Concerns Infection Onset Date Last Indicated Resolved Time R/O COVID-19 08/22/2022 08/22/2022 08/22/2022 11:1 1 EDT R/O COVID-19 03/15/2023 03/15/2023 03/15/2023 17:4 2 EST documented as of this encounter Care Teams Patient Transport Officer Relationship Specialty Start Date End Date Phoenix Polanco MD [address] [place] [phone] PCP - General 12/27/13 documented as of this encounter
--- OUTSIDE RECORDS SUMMARY | 2023-12-23 01:01 | XMS_ITS | Encounter Summary ---
Author Organization [facility] Address [address] [place] [address] Care Team Providers Care Erp Technical Lead Name Role Phone Phoenix Polanco MD Primary Care Provider + Reason for Visit * Reason Onset Date Comments Coordination Of Care 07/02/2019 Encounter Details Date Type Department Care Team (Late st Contact Info) Description 07/02/2019 Telephone [facility] Cancer Center Hematology & Oncology - [facility] [address] [place], [place] [phone] Esperanza Arreguin MD [address] [place], [place] [phone] Coordination Of Care Social History Tobacco Use [...] Yes 06/26/2019 documented as of this encounter Miscellaneous Notes * Telephone Encounter - Arlene Sinha, RN - 07/02/2019 1232 EDT 1232 Called and LMOM on nurse Audrey's line advising pt did not follow up here after multiple cancellations for infusions and has no future follow ups. Advised we defer to their office on recent labs.Also message was sent directly to Dr. Polanco from Dr. Arreguin. Return call if would like to discuss further. documented in this encounter Plan of Treatment Not on file documented as of this encounter Visit Diagnoses Not on filedocumented in this encounter Care Teams Erp Technical Lead Relationship Specialty Start Date End Date Phoenix Polanco MD [address] [place] [address] PCP - General 12/27/13 documented as of this encounter
--- OUTSIDE RECORDS SUMMARY | 2023-12-23 01:01 | XMS_ITS | Encounter Summary ---
Author Organization [facility] Address [address] [place] [address] Care Team Providers Care Manager Automotive Name Role Phone Phoenix Polanco MD Primary Care Provider + Reason for Visit * Reason Onset Date Comments Appointment Related 09/25/2019 Encounter Details Date Type Department Care Team (Late st Contact Info) Description 09/25/2019 Telephone [facility] Rheumatology & Immunology - [facility] [address] [place], [place] [phone] Romero Spears, DISABILITY LIAISON OFFICER [address] [facility] [place] [address] Appointment Related Social History Tobacco [...] encounter Miscellaneous Notes * Telephone Encounter - Nichole Jones - 09/25/2019 0837 EDT Called pt and rsc to 09/30 * Telephone Encounter - Araceli Lamb - 09/25/2019 0833 EDT Patient calling reschedule her 09/25 appointment with Romero Spears. Times after 2 work best. Please call back to reschedule. documented in this encounter Plan of Treatment Not on file documented as of this encounter Visit Diagnoses Not on filedocumented in this encounter Care Teams Manager Automotive Relationship Specialty Start Date End Date Phoenix Polanco MD [address] [place] [phone] PCP - General 12/27/13 documented as of this encounter
--- OUTSIDE RECORDS SUMMARY | 2023-12-23 01:01 | XMS_ITS | Encounter Summary ---
Author Organization [facility] Address [address] [place] [address] Care Team Providers Care Trouble Tracer Name Role Phone Phoenix Polanco MD Primary Care Provider + Reason for Referral * Radiology Services (Routine) - Closed Specialty Diagnoses / Procedures Referred By Contac t Referred To Contact Diagnoses Primary osteoarthritis involving multiple joints Pain in both knees, unspecified chronicity Procedures XR KNEE LEFT 1-2 VIEWS Romero Spears NP [address] [place] [phone] Referral ID Status Reason Start Date Expiration Date Visits Re quested Visits Authorized [id number] Closed 10/01/2019 1 1 Reason for Visit * Radiology Services (Routine) - Closed Specialty Diagnoses / Procedures Referred By Contac t Referred To Contact Diagnoses Primary osteoarthritis involving multiple joints Pain in both knees, unspecified chronicity Procedures XR KNEE LEFT 1-2 VIEWS Romero Spears NP [address] [place] [phone] Referral ID Status Reason Start Date Expiration Date Visits Re quested Visits Authorized [id number] Closed 10/01/2019 1 1 Encounter Details Date Type Department Care Team (Latest Contact Info) Description 10/01/2019 11:44 EDT - 10/01/2019 23:59 EDT [facility] X[facility] Outpatient - [address] [id number] Primary osteoarthritis involving multiple joints; Pain in both knees, unspecified chronicity Discharge Disposition: Home or Self [...] Comments XR KNEE LEFT 1-2 VIEWS Routine 10/01/2019 11:59 EDT Primary osteoarthritis involving multiple joints Pain in both knees, unspecified chronicity documented in this encounter Results * XR KNEE LEFT 1-2 VIEWS (10/01/2019 11:59 EDT) Anatomical Region Laterality Modality Lower Extremities Left Computed Radio graphy 10/01/2019 12:2 7 EDT Impressions 10/01/2019 12:27 EDT FINDINGS / IMPRESSION: Right knee: 2 views of the right knee show mild degenerative changes in the medial femorotibial and patellofemoral joint compartments. No acute fracture seen. A small suprapatellar knee joint effusion is demonstrated. Left knee: 2 views of the left knee show mild degenerative changes in the medial femorotibial and patellofemoral joint compartments. No acute fracture seen. A minimal size suprapatellar knee joint effusion is demonstrated. Narrative 10/01/2019 12:27 EDT EXAM/TECHNIQUE: XR KNEE LEFT 1-2 VIEWS, XR KNEE RIGHT 1-2 VIEWS ??10/01/2019 11:45 AM HISTORY: ?? bilateral knee pain COMPARISON: None. Procedure Note Armand Rothman MD - 10/01/2019 EXAM/TECHNIQUE: XR KNEE LEFT 1-2 VIEWS, XR KNEE RIGHT 1-2 VIEWS 10/01/2019 11:45 AM HISTORY: bilateral knee pain COMPARISON: None. IMPRESSION FINDINGS / IMPRESSION: Right knee: 2 views of the right knee show mild degenerative changes inthe medial femorotibial and patellofemoral joint compartments. No acutefracture seen. A small suprapatellar knee joint effusion isdemonstrated. Left knee: 2 views of the left knee show mild degenerative changes in themedial femorotibial and patellofemoral joint compartments. No acutefracture seen. A minimal size suprapatellar knee joint effusion isdemonstrated. Romero Spears NP IMG DIAGNOSTIC IMAG ING ORDERABLES documented in this encounter Visit Diagnoses Diagnosis Primary osteoarthritis involving multiple joints Pain in both knees, unspecified chronicity documented in this encounter Care Teams Trouble Tracer Relationship Specialty Start Date End Date Phoenix Polanco MD [address] [place] [phone] PCP - General 12/27/13 documented as of this encounter
--- OUTSIDE RECORDS SUMMARY | 2023-12-23 01:01 | XMS_ITS | Encounter Summary ---
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 Name Role Phone Phoenix Polanco MD Primary Care Provider + Reason for Visit * Reason Comments Follow-up joint pain, discuss meds and care plan Encounter Details Date Type Department Care Team (Latest Contact Info) Description 07/03/2019 11:40 EDT Office Visit [facility] Rhe[facility]ology & Immunology - [facility] [address], [place] [id number] Deonte Bass MD [address] [place] [phone] Inflammatory arthritis (Primary Dx); QT prolongation; Primary osteoarthritis involving multiple joints Social History Tobacco Use Types Packs/Day Years [...] Sign Reading Time Taken Comments Blood Pressure 125/70 07/03/2019 1118 EDT Pulse 80 07/03/2019 1118 EDT Temperature - - Respiratory Rate 16 07/03/2019 1118 EDT Oxygen Saturation - - Inhaled Oxygen Concentration - - Weight 112.5 kg (248 lb) 07/03/2019 1118 EDT Height 164.3 cm (5' 4.69) 07/03/2019 1118 EDT Body Mass Index 41.67 07/03/2019 1118 EDT documented in this encounter Functional Status [...] * Patient Instructions* Deonte Bass MD - 07/03/2019 11:40 EDT 1. Work up for seropositive rheumatoid arthritis and connective tissue disease was normal/negative 2. Chest x-ray was normal 3. Hand x-rays did show findings of early/mild wear and tear osteoarthritis 4. You do have tenderness and some mild swelling of the MCP joints (large knuckles) and ankles 5. We can try a medication called hydroxychloroquine 200 mg orally every 12 hours 6. Please schedule a baseline eye examination with ophthalmology 7. Hydroxychloroquine with fluoxetine can cause changes in the electrical activity of the heart. 8. We will get a baseline EKG today then repeat this at your next follow up visit. 9. See if the topical diclofenac gel 1% is at your pharmacy. If not, I can try to reorder this for you 10. Contact Dr. Polanco to discuss breathing symptoms. 11. Follow up in September 2019 as scheduled HYDROXYCHLOROQUINE (PLAQUENIL) - Patient Fact Sheet WHAT IS IT? Hydroxychloroquine (Plaquenil) is considered a disease-modifying anti-rheumatic drug (DMARD). It can decrease the pain and swelling of arthritis, prevent joint damage and reduce the risk of long-termdisability. Hydroxychloroquine is in a class of medications that was first used to prevent and treat malaria. Today, it is used to treat rheumatoid arthritis, some symptoms of lupus, childhood arthrit is (also known as juvenile idiopathic arthritis) and other autoimmune diseases. It is not clear whyhydroxychloroquine is effective at treating autoimmune diseases. It is believed that hydroxychloroquine interferes with communication of cells in the immune system. HOW TO TAKE IT Hydroxychloroquine comes in an oral tablet. Adult dosing ranges from 200mg or 400mg per day (5 mg per kg of actual body weight). In some cases, higher doses can be used. It is recommended one tablet twice daily if taking more than one tablet. It is also recommended to be taken with food. Symptoms can start to improve in one to two months, but it may take up to six months before full benefits of this medication are experienced. SIDE EFFECTS Hydroxychloroquine typically is very well tolerated. Serious side effects are rare. The most commonside effects are nausea and diarrhea, which often improve with time. Less common side effects include rash, changes in skin pigment (such as darkening or dark spots), hair changes, and muscle weakness. Rarely, hydroxychloroquine can lead to anemia in some individuals. This can happen in individualswith a condition known as G6PD deficiency or porphyria. In rare cases, hydroxychloroquine can cause visual changes or loss of vision. Such vision problems are more likely to occur in individuals taking high doses for many years, in individuals 60 years orolder, or in those with significant kidney disease. At the recommended dose, development of visual problems due to the medication is rare. It is recommended that you have an eye exam within the firstyear of use, then repeat every 1 to 5 years based on current guidelines. TELL YOUR DOCTOR Although there are few drug interactions with hydroxychloroquine, to be safe be sure to tell your doctor about all of the medications you are taking, including fekk-asf-ppvmalg drugs and natural remedies. Be sure to notify your other physicians when taking this drug. This drug does not have a strong effect on the immune system, so vaccines recommended by other physicians are generally acceptable. Notify your eye doctor when you are on this medication so regular visual screening tests can be performed. If you are , considering becoming , or lactating, please discuss this with your doctor before taking this medication. However, hydroxychloroquine has been shown to be safe during and breast feeding. ?? 2019 [employer] documented in this encounter Ordered Prescriptions Prescription Sig Dispensed Refills Start Date End Da te hydroxychloroquine (PLAQUENIL) 200 mg tabletIndications:Inflamma tory arthritis Take 1 Tab by mouth 2 times daily. 60 Tab 2 07/03/2019 07/31/2019 documented in this encounter Progress Notes * Agueda Sawant MA - 07/03/2019 1140 EDT REVIEW OF SYSTEMS: Yes No Yes No Fever Joint pain Weight gain or loss pounds (lbs) Duration of AM joint stiffness hours / min Eye pain or dryness Numbness/tingling Mouth or nose sores Heart burn / Nausea Chest pain Diarrhea Shortness of Breath Blood in stool Cough Burning on urination Skin rash Hand/Foot color change in cold Are our immunization records accurate per patient report? (i.e. influenza, pneumococcal, shingles) Yes No If no, note change(s) below and update record (patient declines filling out as she was just here a week ago * Deonte Bass MD - 07/03/2019 1140 EDT DIVISION OF RHEUMATOLOGY AND CLINICAL IMMUNOLOGY PROGRESS / FOLLOW-UP VISIT NOTE Date of Service: 07/03/2019 Pertinent Rheumatological History: > Chief Complaint Patient presents with ??? Follow-up joint pain, discuss meds and care plan SUBJECTIVE: Ms. Nela Granger is a 49 y.o. female with history of anxiety/depression and history of heavy alcohol use sober since 2014, gastric bypass surgery (2000), right shoulder arthroscopic posterior labral repair, anterior inferior labral repair, biceps tenotomy, distal clavicle excision, and mini open subpectoral biceps tenodesis on 06-26-14, iron deficiency anemia who presents today for a follow-up visit. she was last seen in clinic on 06/26/2019 Since her last visit: - Hand, wrist and elbow pain persists. - diffuse stiffness - fatigue present. - has not picked up topical diclofenac gel as this was not provided at the pharmacy. REVIEW OF SYSTEMS: Review of systems as documented by Nurses/MA's during this visit and reviewed by me. MEDICATIONS: Current Outpatient Medications: acetaminophen (TYLENOL) 500 mg tablet Take 1,000 mg by mouth as needed for Pain. diclofenac sodium 1 % gel Apply 2g-4g of 1% gel to affected area 4 times daily. Maximum total body dose of 1% gel should not exceed 32 g per day (Patient not taking: Reported on 07/03/2019) DULoxetine (CYMBALTA) 60 mg capsule Take 60 mg by mouth daily. fluoxetine HCl (PROZAC ORAL) Take 40 mg by mouth daily. pregabalin (LYRICA) 100 mg capsule Take 100 mg by mouth 2 times daily. OBJECTIVE: Blood pressure 125/70, pulse 80, resp. rate 16, height 164.3 cm (64.69), weight (!) 112.5 kg (248 lb). General: No acute distress. Alert, fully oriented, pleasant, conversant. HEENT: Conjunctivae/corneas clear. Pupils equal, Sclerae anicteric. Mucus membranes moist; oropharynx clear. Neck supple, symmetrical, trachea midline Lungs: Clear to auscultation bilaterally. Heart: Regular rate and rhythm, S1, S2 present, no murmur Abdomen: Soft, non-tender, non-distended. Extremities: Extremities without cyanosis or edema. Skin: No rashes or lesions Musculoskeletal: Spine: No significant tenderness. Normal range of motion of the spine. Shoulder/Elbow: No significant tenderness, swelling, effusions, erythema or warmth is present. Appropriate range of motion present. Wrist/Hand: Right 2nd-3rd MCP and PIP joint tenderness. Left 1st CMC joint tenderness. Left 2nd-3rdMCP and PIP joint tenderness. No other significant tenderness, swelling, effusions, erythema or warmth is present. Appropriate range of motion present. Hips/Knee: No significant tenderness, swelling, effusions, erythema or warmth is present. Appropriate range of motion present. Ankle/Foot: Tenderness/discomfort over the dorsum of the right and left foot without MTP, PIP and DIP tenderness.No other significant tenderness, swelling, effusions, erythema or warmth is present. Appropriate range of motion present. DIAGNOSTIC DATA: Labs: Lab Results Component Value Date WBC 6.50 06/26/2019 WBC 6.50 06/26/2019 WBC 6.18 03/06/2019 WBC 5.50 09/13/2004 WBC 6.41 10/29/2002 HGB 7.2 (L) 06/26/2019 HGB 7.2 (L) 06/26/2019 HGB 7.5 (L) 03/06/2019 HGB 8.9 (L) 09/13/2004 HGB 11.3 (L) 10/29/2002 HCT 26.0 (L) 06/26/2019 HCT 26.0 (L) 06/26/2019 HCT 27.6 (L) 03/06/2019 HCT 28.4 (L) 09/13/2004 HCT 33.0 (L) 10/29/2002 MCV 60 (L) 06/26/2019 MCV 60 (L) 06/26/2019 MCV 63 (L) 03/06/2019 MCV 64 (L) 09/13/2004 MCV 78 (L) 10/29/2002 PLT 357 06/26/2019 PLT 357 06/26/2019 PLT 399 (H) 03/06/2019 PLT 364 (H) 09/13/2004 PLT 306 10/29/2002 Lab Results Component Value Date BUN 16 06/26/2019 CREATININE 0.49 (L) 06/26/2019 AST 23 06/26/2019 ALT 16 06/26/2019 Lab Results Component Value Date CRP <0.7 03/28/2002 Lab Results Component Value Date RF <20 05/01/2000 MIKEY Positive (A) 01/31/2019 DSDNA <12.3 06/26/2019 Component Latest Ref Rng & Units 05/01/2000 07/06/2007 01/31/2019 06/26/2019 MIKEY Interpretation Negative <40 Positive (A) MIKEY Titer Pattern 1:320 Speckled Thyroglobulin Ab <=60 U/mL <15 Thyroperoxidase Ab <=60 U/mL <28 Rheumatoid Factor <20 IU/ml <20 TSH 0.35 - 5.00 uIU/mL 1.04 0.96 Rheumatoid Factor <12.5 IU/mL 8 CCP Antibodies <5.0 U/mL <2.5 TSH 0.47 - 4.68 uIU/mL 0.73 Anti DNA (DS) <30.0 IU/mL <12.3 Sm (Mcdermott) Antibody <20.0 Units 3.9 SSB Antibody <20.0 Units 4.7 SSA Antibody <20.0 Units 1.4 C3 Complement 81 - 157 mg/dL 158 (H) C4 Complement 13 - 39 mg/dL 26 BASKET HAND WEAVER Antibody <20.0 Units 4.5 Scleroderma Ab, SCL 70 Ab <1.0 (Negative) U <0.2 Imaging: XR HAND LEFT 1-2 VIEWS Order: [id number] Status: Final result ?Visible to patient: Yes (Arnol) Next appt: 07/05/2019 at 11:30 in Orthopedic Surgery (Mesfin Pena PA-C) Dx: Pain in joint, multiple sites; Elevat... Linked study orders: XR HAND RIGHT 1-2 VIEWS (Order: [id number]) Details Reading Physician Reading Date Result Priority Enrique Blanton MD 06/28/2019 Josh Estrada MD 06/28/2019 Narrative & Impression XR HAND RIGHT 1-2 VIEWS, XR HAND LEFT 1-2 VIEWS 06/26/2019 2:18 PM ?? Clinical History/Comments: Bilateral hand pain/PIP joints, MIKEY positive, RF negative, elevated ESR.? Inflammatory arthritis ?? Comparison: None. ?? IMPRESSION Findings/ Impression: ?? PA and AP ball-catcher's views of both [...] joints bilaterally. Soft tissues are grossly unremarkable. ?? I have personally reviewed the images and the above interpretation and agree with the findings. Specimen Collected: 06/28/19 14:35 Last Resulted: 06/28/19 14:35 Pathology: RAPID3 Summary Functional Status: Pain Tolerance: Global Estimate: Score: Interpretation: No flowsheet data found. IMPRESSION / PLAN: Ms. Nela Granger is a 49 y.o. female with 1. Polyarthralgia, MIKEY 1:320 (speckled), Borderline Elevated ESR, negative CRP, RF negative, Lyme Ab positive with negative western blot - ?? Denies other systemic symptoms including fevers, chills, night sweats, weight loss, skin rashes, photosensitivity,??iritis/uveitis, xerostomia, pleurisy, serositis, changes in bowel or bladder habits, hematocheiza, melena, dysuria, hematuria, frequency, itching, alopecia or Raynaud's phenomenon. ? Work up: 01/2019: - Microcytic anemia - No renal insufficiency - RF negative - ESR = 30 - CRP < 7.0 - Syphilis negative. - Lyme Ab positive with negative WB. ?? 2000: Negative chest x-ray 06/26/2019 - anti-dsDNA, mcdermott, BASKET HAND WEAVER, SSA/SSB, Scl-70 negative - anti-CCP Ab's negative - HCV and HBV negative - normal TSH - negative thyroid antibodies. - Normal renal function - microcytic anemia ?? On examination she hase right 1st CMC joint tenderness with symmetrical tenderness involving the 2nd-3rd MCP and PIP joints, bilaterally. Work up has remained negative for connective tissue disease or vasculitis without the following: photosensitive rash, sicca, xerostomia, hemoptysis, pleurisy or Raynaud's phenomenon. ? I do suspect that she also has underlying primary degnerative osteoarthritis which typically involves the 1st CMC joints , PIP and DIP joints but can involve the MCP joints. She does have degenerative osteoarthritis. Bilateral hand x-rays showed mild periarticular osteopenia, mild degnerative changes, more so at the wrists at the triscaphe joints and 1st CMC joints, bilaterally. ?? Due to HENRIK with possible peptic ucler/GI bleed with chronic NSAID use, oral NSAID's should be avoided. We can try a topical NSAID, diclofenac gel 1% up to 4x/day. If she develops stomach upset this should be avoided. 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 Due to the tenderness at the MCP joints and nature of symptoms, we can try a csDMARD, hydroxcyhloroquine (HCQ) 200 mg orally every 12 hours for 3-4 months to see if this may help alleviate symptoms. If so, she may have an early seronegative inflammatory arthritis. HCQ + fluoxetine may cause QT prolongation. A baseline EKG was ordered today. 07/03/2019: QT = 404, QTc = 443. A repeat EKG can be performed at her next visit. 2. Multilevel degenerative disc disease ?? 3. Right shoulder arthroscopic posterior labral repair, anterior inferior labral repair, biceps tenotomy, distal clavicle excision, and mini open subpectoral biceps tenodesis on 06-26-14 4. Iron deficiency anemia - Following with Dr. Arreguin in Hematology. Receiving IV iron supplementation. PATIENT INSTRUCTIONS: Patient Instructions 1. Work up for seropositive rheumatoid arthritis and connective tissue disease was normal/negative 2. Chest x-ray was normal 3. Hand x-rays did show findings of early/mild wear and tear osteoarthritis 4. You do have tenderness and some mild swelling of the MCP joints (large knuckles) and ankles 5. We can try a medication called hydroxychloroquine 200 mg orally every 12 hours 6. Please schedule a baseline eye examination with ophthalmology 7. Hydroxychloroquine with fluoxetine can cause changes in the electrical activity of the heart. 8. We will get a baseline EKG today then repeat this at your next follow up visit. 9. See if the topical diclofenac gel 1% is at your pharmacy. If not, I can try to reorder this for you 10. Contact Dr. Polanco to discuss breathing symptoms. 11. Follow up in September 2019 as scheduled HYDROXYCHLOROQUINE (PLAQUENIL) - Patient Fact Sheet WHAT IS IT? Hydroxychloroquine (Plaquenil) is considered a disease-modifying anti-rheumatic drug (DMARD). It can decrease the pain and swelling of arthritis, prevent joint damage and reduce the risk of long-termdisability. Hydroxychloroquine is in a class of medications that was first used to prevent and treat malaria. Today, it is used to treat rheumatoid arthritis, some symptoms of lupus, childhood arthrit is (also known as juvenile idiopathic arthritis) and other autoimmune diseases. It is not clear whyhydroxychloroquine is effective at treating autoimmune diseases. It is believed that hydroxychloroquine interferes with communication of cells in the immune system. HOW TO TAKE IT Hydroxychloroquine comes in an oral tablet. Adult dosing ranges from 200mg or 400mg per day (5 mg per kg of actual body weight). In some cases, higher doses can be used. It is recommended one tablet twice daily if taking more than one tablet. It is also recommended to be taken with food. Symptoms can start to improve in one to two months, but it may take up to six months before full benefits of this medication are experienced. SIDE EFFECTS Hydroxychloroquine typically is very well tolerated. Serious side effects are rare. The most commonside effects are nausea and diarrhea, which often improve with time. Less common side effects include rash, changes in skin pigment (such as darkening or dark spots), hair changes, and muscle weakness. Rarely, hydroxychloroquine can lead to anemia in some individuals. This can happen in individualswith a condition known as G6PD deficiency or porphyria. In rare cases, hydroxychloroquine can cause visual changes or loss of vision. Such vision problems are more likely to occur in individuals taking high doses for many years, in individuals 60 years orolder, or in those with significant kidney disease. At the recommended dose, development of visual problems due to the medication is rare. It is recommended that you have an eye exam within the firstyear of use, then repeat every 1 to 5 years based on current guidelines. TELL YOUR DOCTOR Although there are few drug interactions with hydroxychloroquine, to be safe be sure to tell your doctor about all of the medications you are taking, including muhf-fad-jnchmdd drugs and natural remedies. Be sure to notify your other physicians when taking this drug. This drug does not have a strong effect on the immune system, so vaccines recommended by other physicians are generally acceptable. Notify your eye doctor when you are on this medication so regular visual screening tests can be performed. If you are , considering becoming , or lactating, please discuss this with your doctor before taking this medication. However, hydroxychloroquine has been shown to be safe during and breast feeding. ?? 2019 [employer] There are no barriers to understanding/learning. Patient verbalizes understanding and agrees with plan. Deonte Bass MD 07/03/2019 Please note: Parts of this documentation was created using voice recognition software. Office Coordinator Receptionist errors may be present. 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 The ? Test Date: ?2019-07-03 Pat Name: ? NELA GRANGER ? Department: ?? EP5 RHEUM ? Room: ? Gender: ? Female ? Internet Designer: ?? [id number] : ?1970 ? Requested By: KEEGAN Hickman Order Number: [id number] ? Elliott KHOURY: ?? OLIVIA SINGLETON MD ? Measurements Intervals ?Morgan ? Rate: ? 72 ? P: ?18 IN: ? 147 ?QRS: ?19 QRSD: ? 93 ? T: ?20 QT: ? 404 ? QTc: ?443 ? Interpretive Statements SINUS RHYTHM Automated Interpretation. ??Provider Interpretation to follow. Compared to ECG 09/28/2000 13:04:00 No significant changes I reviewed the tracing and have either agreed or edited the findings in this report. Electronically Signed On 07-09-2019 14:15:30 EDT by OLIVIA SINGLETON MD. Procedure Note Olivia Singleton MD - 07/09/2019 The Test Date: 2019-07-03 Pat Name: NELA GRANGER Department: EP5 RHEUM Room: Gender: Female Internet Designer: [id number] : 1970 Requested By: KEEGAN Hickman Order Number: [id number] Reading MD: OLIVIA SINGLETON MD Measurements Intervals Morgan Rate: 72 P: 18 IN: 147 QRS: 19 QRSD: 93 T: 20 QT: 404 QTc: 443 Interpretive Statements SINUS RHYTHM Automated Interpretation. Provider Interpretation to follow. Compared to ECG 09/28/2000 13:04:00 No significant changes I reviewed the tracing and have either agreed or edited the findings inthis report. Electronically Signed On 07-09-2019 14:15:30 EDT by YUSUF KHOURY. 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
--- OUTSIDE RECORDS SUMMARY | 2023-12-23 01:01 | XMS_ITS | Encounter Summary ---
Author Organization [facility] Address [address] [place] [address] Care Team Providers Care Equipment Technician Name Role Phone Phoenix Polanco MD Primary Care Provider + Reason for Visit * Reason Comments Pain low back * Referral (Routine/Next Available) - Specialty Report Received Specialty Diagnoses / Procedures Referred By Janak miguel Referred To Contact Pain Medicine Diagnoses Low back pain radiating to right leg Mesfin Pena PA-C [address] [facility] [place] [address] [facility] [address] [place] [address] Referral ID Status Reason Start Date Expiration Date Visits Requested Visits Authorized [id number] Specialty Report Received Specialty Services Required 7 1 1 Encounter Details Date Type Department Care Team (Latest Contact Info) Description 06/08/2017 10:45 EST Office Visit [facility] - Interventional Pain [address] [place] [address] Aroldo Romero MD [address] [facility] [address] [place] [address] Spondylosis of lumbosacral region without myelopathy or radiculopathy (Primary Dx) Discharge Disposition: Auto Discharge Social History Tobacco Use Types Packs/Day Years [...] Sign Reading Time Taken Comments Blood Pressure 121/83 06/08/2017 1129 EST Pulse 68 06/08/2017 1129 EST Temperature 36.7 ??C (98 ??F) 06/08/2017 1039 EST Respiratory Rate 16 06/08/2017 1129 EST Oxygen Saturation - - Inhaled Oxygen Concentration - - Weight 90.7 kg (200 lb) 06/08/2017 1039 EST Height 165.1 cm (5' 5) 06/08/2017 1039 EST Body Mass Index 33.28 06/08/2017 1039 EST documented in this encounter Functional Status [...] as of this encounter Discharge Diagnoses Diagnosis M47.817 Spondylosis without myelopathy or radiculopathy, lumbosacral region-M47.817[ICD-10-CM] documented in this encounter Patient Instructions * Patient Instructions* Milagros Poole RN - 06/08/2017 10:45 EST [facility] [address] [address] Patient Instructions You have had your bilateral lumbar Facet Steroid Injection. The purpose of this procedure has [...] immediately. ??? If you develop increasingly severe neck/back pain, continued numbness or weakness of the arms/legs or changes in your bladder or bowel functions, please call our office immediately. Instructions for follow-up Patient Education Topic: Method: Handout and Verbal Taught to: Patient Barriers: None Outcomes: independent and verbalized understanding Signature: Milagros Raphael RN If you have any questions about your block, please call documented in this encounter Discharge Disposition Disposition Code Departure Means Destination Auto Discharge documented in this encounter Progress Notes * Kenzie Smith - 06/08/2017 1045 EST [facility] Rooming Note Does patient have a Gericare Aide Teacher? yes Is patient NPO? (Solids since midnight & liquids for 4 hrs) no Blood Thinners: no If yes, taking? If stopped, who authorized stopping? Related comments: Infections: Any recent infections, fever of illnesses? no If on antibiotics, is it 7-10 days past the date of completion of antibiotics? no : (for females of child-bearing age) no Is there a chance current ? Other: * Aroldo Romero - 06/08/2017 1045 EST Patient Name: Nela Granger : 1970 Date of Service: 06/08/17 Requesting physician: Mesfin Pena Sheet Roller Operator: Aroldo Romero MD Procedure: Therapeutic lumbar facet joint injections at L4L5, L5S1 b/l Interval History: Patient returns at the request of Mesfin Pena for evaluation and treatment recommendationsof her low back pain. Details of the current complaint are thoroughly described in the notes from Mesfin Pena's last encounter including pain onset, location, course, workup, therapeutic attempts, and associated functional limitations. The patient reports no recent changes in the character, quality, or distribution of the pain. There are no recent onset of new associated symptoms such aschanges in strength, sensation, or bladder control. All previous medical records including current medications, anticoagulation status, any signs of current infection, and new imaging were reviewed. Injection History: 06/11: repeat b/l facet injection L4L5, L5S1 01/07: lumbar facet joint injection at L4L5, L5S1 b/l - excellent relief for > 1 year Allergies: No Known Allergies Review of Systems: Negative for any fever, chills, nausea/vomiting, headaches, chest pain, palpitations, shortness of breath, bladder/bowel incontinence. No easy bruising, bleeding, anti-coagulation or known recent infections. Physical Exam: Vitals: BP 121/83 (BP Cuff Location: Right arm, Patient Position: Sitting) Pulse 68 Temp 36.7 ??C (98 ??F) (Tympanic) Resp 16 Ht 165.1 cm (65) Wt 90.7 kg (200 lb) BMI 33.28 kg/m2 General: Patient is alert and oriented, no acute distress Lungs: symmetric chest rise, no evidence of labored breathing Skin: clear, warm, dry and intact and no rashes, bruises or petechiae noted Musculoskeletal: Gait: patient ambulates independently with steady gait no obvious scoliosis or abnormal curvature of the spine Lumbar Spine: tenderness elicited upon palpation, pain elicited upon facet loading Lower Extremity: strength 5/5 in all major muscle groups b/l, sensory bilaterally equal to light touch Assessment/Plan: 1. Spondylosis of lumbosacral region without myelopathy or radiculopathy Ms. Nela Granger is a 47 y.o. female that presents to the pain clinic to undergo lumbar facetinjections in regards to her chronic back pain. All risks, benefits, and alternatives were thoroughly explained to Ms. Nela Granger who verbally communicated understanding of the management plan. Proceed with therapeutic facet joint injections at bilateral L4-L5 and L5-S1 Follow up: can repeat up to 3x per year if helpful. Procedure: The patient gave informed written consent to proceed with this procedure following a detailed discussion of the risks and benefits associated with lumbar facet joint injection including but not limited to infection, bleeding, intrathecal injection, allergic reaction, further exacerbation of current symptoms, neurological injury, and lack of efficacy.. The patient was then placed in the prone position, the skin over the lumbosacral area was prepped with chlorhexadine, and the site was marked anddraped with sterile towels. Strict sterile technique was maintained throughout the procedure. A time out was performed with full staff present to identify the patient, verify the procedure being performed, and review allergies. Flouroscopy was used to identify the lumbar anatomy and align the facet joints. The skin and subcutaneous tissue over the bilateral L4-L5 and L5-S1 facet joints was anesthetized with 2% lidocaine. A 22 guage 3.5 inch spinal needle was inserted under fluoroscopic guidance using coaxial technique into each of the aforementioned facet joints. After negative aspiration, each joint was injected with 0.5 mls 0.5% Bupivacaine and 20 mg Depo-Medrol. There were no paresthesias during needle placement and aspiration was negative at all times. The patient tolerated the procedure well, there were no apparent complications, and she was discharged in stable condition. Written and verbal discharge instructions were reviewed with the patient prior to discharge. Aroldo Romero MD documented in this encounter Plan of Treatment Not on file documented as of this encounter Visit Diagnoses Diagnosis Spondylosis of lumbosacral region without myelopathy or radiculopathy- Primary Lumbosacral spondylosis without myelopathy documented in this encounter Administered Medications Inactive Administered Medications - up to 3 most recent administrations Medication Order MAR Action Action Date Dose Rate Site bupivacaine (PF) (MARCAINE) 0.5 % (5 mg/mL) injection 10 mg 10 mg (2 mL), intra-articular, NOW X1, 1 dose, On Barbie 06/08/17 at 1200, Routine Given by Other 06/08/2017 11:37 EST 10 mg methylPREDNISolone ACETATE (DEPO-MEDROL) injection 80 mg 80 mg, intra-articular, NOW X1, 1 dose, On Barbie 06/08/17 at 1200, Routine Given by Other 06/08/2017 11:37 EST 80 mg documented in this encounter Care Teams Equipment Technician Relationship Specialty Start Date End Date Phoenix Polanco MD [address] [place] [phone] PCP - General 12/27/13 documented as of this encounter
--- OUTSIDE RECORDS SUMMARY | 2023-12-23 01:01 | XMS_ITS | Encounter Summary ---
Author Organization [facility] Address [address] [place] [address] Care Team Providers Care Dredge Worker Name Role Phone Phoenix Polanco MD Primary Care Provider + Reason for Referral * Radiology Services (Routine) - Closed Specialty Diagnoses / Procedures Referred By Contac t Referred To Contact Diagnoses Primary osteoarthritis involving multiple joints Pain in both knees, unspecified chronicity Procedures XR KNEE RIGHT 1-2 VIEWS Romero Spears NP [address] [place] [phone] Referral ID Status Reason Start Date Expiration Date Visits Re quested Visits Authorized [id number] Closed 10/01/2019 1 1 Reason for Visit * Radiology Services (Routine) - Closed Specialty Diagnoses / Procedures Referred By Contac t Referred To Contact Diagnoses Primary osteoarthritis involving multiple joints Pain in both knees, unspecified chronicity Procedures XR KNEE RIGHT 1-2 VIEWS Romero Spears NP [address] [place] [phone] Referral ID Status Reason Start Date Expiration Date Visits Re quested Visits Authorized [id number] Closed 10/01/2019 1 1 Encounter Details Date Type Department Care Team (Latest Contact Info) Description 10/01/2019 11:44 EDT - 10/01/2019 23:59 EDT Hospital [facility] Xray Outpatient - [address] [address] Primary osteoarthritis involving multiple joints; Pain in [...] Comments XR KNEE RIGHT 1-2 VIEWS Routine 10/01/2019 11:59 EDT Primary osteoarthritis involving multiple joints Pain in both knees, unspecified chronicity documented in this encounter Results * XR KNEE RIGHT 1-2 VIEWS (10/01/2019 11:59 EDT) Anatomical Region Laterality Modality Lower Extremities Right Computed Radio graphy 10/01/2019 12:2 7 EDT [...] chronicity documented in this encounter Care Teams Dredge Worker Relationship Specialty Start Date End Date Phoenix Polanco MD [address] [address] PCP - General 12/27/13 documented as of this encounter
--- OUTSIDE RECORDS SUMMARY | 2023-12-23 01:01 | XMS_ITS | Encounter Summary ---
Author Organization [facility] Address [address] [place] [address] Care Team Providers Care Client Specialist Name Role Phone Phoenix Polanco MD Primary Care Provider + Encounter Details Date Type Department Care Team (Late st Contact Info) Description 08/17/2017 Results Only [facility] [phone] Sukhwinder Harper MD [address] [place] [phone] Social History Tobacco Use Types Packs/Day Years [...] Name Priority Date/Time Associated Diagnosis Comments PAP TEST- RESULT ONLY Routine 08/17/2017 0:00 EDT documented in this encounter Results * PAP TEST- RESULT ONLY (08/17/2017 0:00 EDT) Pathology Report: CYTOPATHOLOGY REPORT Reports generated via electronic interface contain original data; however they are lacking the format of the original report. Caution should be taken when reading/interpreti ng unformatted reports. Name: ? CHELI, NELA Waggoner ? Accession #: ? [id number] ? : ? 1970 (Age: 47) ??F ?Collect Date: ? 08/17/2017 ? Location: ? [facility] ? Receive Date: ? 08/18/2017 ? Provider: SUKHWINDER HARPER MD Copy to: ? Final Report SPECIMEN ADEQUACY ? Satisfactory for Evaluation - transformation zone component present GENERAL CATEGORIZATION ? Negative for Intraepithelial Lesion or Malignancy ?? Specimen/Source: ??Pap Test, Cervix/Endocervix, ThinPrep Imaging System with manual evaluation Document reviewed and electronically signed by: ? TRUMAN Samuel(ASCP) ? Report ??Date: 08/24/2017 12:32 HPV with Pap Test ? Date Ordered: ? 08/24/2017 ? Status: ?? Signed Out ?Date Complete: ? 08/25/2017 ? By: ??System Interface ? Date Reported: ? 08/25/2017 ? Interpretation RESULT: Negative for HPV. No E6 or E7 mRNA is detected from HPV types 16,18,31,33,35, 39,45,51,52,56,58, 59,66, and 68 by horologist mediated amplification. Comments Document reviewed and electronically signed by: ? System Interface ? Report date: 08/25/2017 By the signature above, the attending physician certifies that he/she has personally conducted a gross and/or microscopic examination of the described specimens and rendered or confirmed the above diagnosis. End of Report [facility] 08/17/2017 08/18/2017 Sukhwinder Harper MD PATHOLOGY OR DERABLES Performing Organization Address City/State/[facility] Co de Phone Number [facility] [address] [place] [address] documented in this encounter Visit Diagnoses Not on filedocumented in this encounter Care Teams Client Specialist Relationship Specialty Start Date End Date Phoenix Polanco MD [address] [place], [place] [address] [phone] PCP - General 12/27/13 documented as of this encounter
--- OUTSIDE RECORDS SUMMARY | 2023-12-23 01:01 | XMS_ITS | Encounter Summary ---
Author Organization [facility] Address [address] [place] [address] Care Team Providers Care Camp Counselor Name Role Phone Phoenix Polanco MD Primary Care Provider + Reason for Visit * Reason Comments New Patient Visit * Consult (Routine) - Closed Specialty Diagnoses / Procedures Referred By Janak miguel Referred To Contact Hematology and Oncology Diagnoses Anemia Phoenix Polanco MD [address] [place] [phone] [facility] Ep2 Hem/Onc [address] [place] [address] Referral ID Status Reason Start Date Expiration Date Visits Re quested Visits Authorized [id number] Closed 1 1 Encounter Details Date Type Department Care Team (Late st Contact Info) Description 03/06/2019 14:00 EST Office Visit [facility] Hematology & Oncology - Main [place] [address] [place] [address] Dev Arreguin MD [address] [place] [phone] Iron deficiency anemia due to chronic blood loss (Primary Dx) Social History Tobacco Use Types [...] Sign Reading Time Taken Comments Blood Pressure 134/80 03/06/2019 1346 EST Pulse 80 03/06/2019 1346 EST Temperature 36.9 ??C (98.4 ??F) 03/06/2019 1346 EST Respiratory Rate 18 03/06/2019 1346 EST Oxygen Saturation 100% 03/06/2019 1346 EST Inhaled Oxygen Concentration - - Weight 108.4 kg (238 lb 14.4 oz) 03/06/2019 1346 EST Height 165 cm (5' 4.96) 03/06/2019 1346 EST Body Mass Index 39.8 03/06/2019 1346 EST documented in this encounter Functional Status [...] as of this encounter Progress Notes * Dev Arreguin MD - 03/06/2019 1400 EST Hematology consultation note. Date: 03/06/2019 DIAGNOSIS: microcytic Anemia, concerning for [facility] CURRENT THERAPY: none PRIOR THERAPY: 2u PRBC > 6 years ago CC: anemia, low blood counts HISTORY OF PRESENT ILLNESS: 48 y.o. white female with past medical history significant for depression and history of heavy alcohol use sober since 2014 had been referred for further evaluation of microcytic anemia. Patient's main complaint today include fatigue not relieved by rest, frequent headaches, occasional mouth sores,numbness and tingling her hands and feet muscle weakness and depression anxiety. Patient currently denies any bleeding or bruising although she admits to taking Aleve and ibuprofento control her generalized joint pain. She occasionally noticed darkening of her stool. Per patientshe had upper endoscopy and colonoscopy about 7 years ago with intent to evaluate for iron deficiency although does not know the results of the study (I was unable to locate those records). After that she underwent an uterine ablation in order to control anemia. She is not taking any p.o. iron supplements. She admits staying on the high iron diet with frequent red meat intake. Her outside labs reviewed and showed January 31, 2019 had WBC of 5.7 hemoglobin of 7.3 with MCV of 63 platelet counts of 337,000. No iron studies were done. C- reactive protein was less than 7 antinuclear antibody titer elevated to 1 05/27/2019 with speckled pattern sedimentation rate was 30 mm/h elevated. Rheumatoid factor was normal. ROS: 10 review of system is completed and is negative, except for the pertinent positives noted above. PAST MEDICAL HISTORY: Past Medical History: Diagnosis Date ??? Anemia ??? Anxiety ??? Arm pain ??? Arm weakness ??? Arthritis ??? Depression ??? Depression ??? Joint stiffness ??? Night sweats ??? Numbness ??? Substance abuse ([facility]) PAST SURGICAL HISTORY: Past Surgical History: Procedure Laterality Date ??? BREAST SURGERY biopsy ??? CHOLECYSTECTOMY, OPEN 10/06/2000 ??? GASTRIC BYPASS SURGERY 10/06/2000 ??? LIVER BIOPSY 10/06/2000 ??? SHOULDER SURGERY right shoulder arthroscopic posterior labral repair, anterior inferior labral repair, biceps tenotomy, distal clavicle excision, and mini open subpectoral biceps tenodesis on 06-26-14 ??? TUBAL LIGATION ??? UTERINE FIBROID SURGERY ALLERGIES: Patient has no known allergies. MEDICATIONS: FLUoxetine, acetaminophen, ibuprofen, naproxen sodium, and pregabalin SOCIAL HISTORY: Social History Socioeconomic History ??? Marital status: Spouse name: None ??? Number of children: None ??? Years of education: None ??? Highest education level: None Occupational History ??? None Social Needs ??? Financial resource strain: None ??? Food insecurity: Worry: None Inability: None ??? Transportation needs: Medical: None Non-medical: None Tobacco Use ??? Smoking status: Former Smoker Packs/day: 0.50 Years: 20.00 Pack years: 10.00 Last attempt to quit: 03/26/2017 Years since quittin.9 ??? Smokeless tobacco: Never Used Substance and Sexual Activity ??? Alcohol use: No Comment: quit 2014 ??? Drug use: No ??? Sexual activity: None Lifestyle ??? Physical activity: Days per week: None Minutes per session: None ??? Stress: None Relationships ??? Social connections: Talks on phone: None Gets together: None Attends zoroastrianism service: None Active member of club or organization: None Attends meetings of clubs or organizations: None Relationship status: None ??? Intimate partner violence: Fear of current or ex partner: None Emotionally abused: None Physically abused: None Forced sexual activity: None Other Topics Concern ??? None Social History Narrative ??? None FAMILY HISTORY: Family History Problem Relation Age of Onset ??? Cancer Mother breast cancer ??? Cancer Maternal Aunt breast cancer ??? Cancer Maternal Grandmother breast cancer PHYSICAL EXAMINATION: BP 134/80 Pulse 80 Temp 36.9 ??C (98.4 ??F) (Tympanic) Resp 18 Ht 165 cm (64.96) Wt (!) 108.4 kg (238 lb 14.4 oz) SpO2 100% BMI 39.80 kg/m?? Constitutional: alert and oriented to person, place, and time. Not in acute distress. Well-developed and well-nourished. HEENT: Head: Normocephalic and atraumatic. Eyes: Conjunctivae and EOM are intact. Pupils are equal, round, and reactive to light. No scleral icterus. Ears: External ears normal. Mouth/Throat: Oropharynx is clear and moist. No oropharyngeal exudate. Neck: Normal range of motion. Neck supple. No JVD present. No thyromegaly. Pulmonary/Chest: Vesicular breath sounds bilaterally. No respiratory distress. No wheezes, no rhoncae. Breasts: deferred. Cardiovascular: Normal S1, S2. Normal rate, regular rhythm, normal heart sounds. No murmurs. Intactdistal pulses. Abdominal: Flat. Soft. Bowel sounds are normal. No palpable mass or distension. There is no tenderness to palpation. No guarding. Genitourinary: not assessed during the visit. Musculoskeletal: Normal range of motion. No local joint deformity. No edema. No tenderness. Lymphadenopathy: none Neurological: alert and oriented to person, place, and time. CN II-XII are grossly intact. No focalneurologic deficits. Cerebellar function is intact. Skin: Intact, warm and dry. No rash, skin breakdown noted. Multiple tatoos Psychiatric: Judgment and thought content normal. LABS REVIEWED: Are in process, note to be updated IMAGING REVIEWED: No recent images ASSESSMENT AND PLAN: 48 y.o. white female with above-mentioned past medical history who was taking Aleve and ibuprofen for generalized joint pain has been referred for further evaluation of microcytic anemia. Microcytic anemia (MCV < 80) DDX: Iron deficiency, thalassemias, AOCD, Sideroblastic anemia, lead poisoning. - Patient with history NSAIDs intake and changes in the stool: I suspect iron deficiency anemia secondary to NSAID use and possible slow GI bleed although we will follow-up on the results of pending studies today - Based on the pending studies we will schedule her for IV iron replacement. - Patient was advised to hold off on NSAIDs - I would recommend to refer the patient to GI for further evaluation of darkening of her stool in the setting of high intake of NSAIDs. Tentatively set up for IV iron replacement RTC in 3 months with labs, earlier if symptoms arise, will repeat CBc in about 6 weeks. Dev Arreguin Hematology and Oncology I spent 45 minutes face to face time with the patient, and 30 minutes of that time were spent in counseling the patient on newly( established) diagnosis/ medication options, side effects and coordination of care. All their questions were answered to their satisfaction. The patient agreed with the management plan. Results for NELA GRANGER ( ) as of 03/06/2019 16:45 Ref. Range 03/06/2019 13:40 WBC Latest Ref Range: 4.00 - 12.40 K/cmm 6.18 RBC Latest Ref Range: 3.86 - 5.04 M/cmm 4.36 Hemoglobin Latest Ref Range: 11.6 - 15.2 gm/dL 7.5 (L) HCT Latest Ref Range: 34.9 - 44.4 % 27.6 (L) MCV Latest Ref Range: 81 - 98 fl 63 (L) MCH Latest Ref Range: 26.7 - 33.3 pg 17.2 (L) Hypochromia Unknown 3+ MCHC Latest Ref Range: 32.1 - 35.9 gm/dL 27.2 (L) RDW-CV Latest Ref Range: <14.7 % 23.6 (H) RDW-SD Latest Ref Range: <50.4 fl 51.7 (H) Anisocytosis Unknown 2+ PLT Latest Ref Range: 141 - 377 K/cmm 399 (H) MPV Latest Ref Range: 9.5 - 12.7 fl 10.0 Neutrophils Latest Units: % 51.6 Lymphocytes Latest Units: % 34.3 Monocytes Latest Units: % 9.4 Eosinophils Latest Units: % 2.6 Basophils Latest Units: % 1.8 Immature Grans Latest Units: % 0.3 ABS Neutrophils Latest Ref Range: 2.20 - 8.85 K/cmm 3.19 ABS Lymphs Latest Ref Range: 1.09 - 3.30 K/cmm 2.12 ABS Monocytes Latest Ref Range: 0.10 - 0.80 K/cmm 0.58 ABS Eosinophils Latest Ref Range: 0.03 - 0.61 K/cmm 0.16 ABS Basophils Latest Ref Range: 0.01 - 0.11 K/cmm 0.11 ABS Immature Grans Latest Ref Range: 0.00 - 0.06 K/cmm 0.02 Differential Comment Unknown There is no significant increase in schistocytes or spherocytes. Thereis no morphologic evidence... Type of Diff: Unknown Auto Retic Ct (Uncorrected) Latest Ref Range: 0.5 - 2.5 % 1.8 Schistocytes Unknown No increase in schistocytes seen Spherocytes Unknown No increase in spherocytes seen. Iron Latest Ref Range: 37 - 170 ug/dL <15 (L) TIBC Latest Ref Range: 265 - 497 ug/dL 509 (H) Results for NELA GRANGER ( ) as of 03/06/2019 16:45 Ref. Range 03/06/2019 13:40 Sodium Latest Ref Range: 136 - 145 mEq/L 138 Potassium Latest Ref Range: 3.5 - 5.0 mEq/L 4.4 CO2 Latest Ref Range: 22 - 32 mEq/L 26 Chloride Latest Ref Range: 96 - 110 mEq/L 103 BUN Latest Ref Range: 10 - 26 mg/dL 14 Creatinine Latest Ref Range: 0.52 - 1.04 mg/dL 0.43 (L) ALT Latest Ref Range: <35 U/L 18 GFR, Calculated Latest Ref Range: >60 mL/min/1.73m2 122 Glucose, Serum Latest Ref Range: 70 - 100 mg/dL 91 Calcium Latest Ref Range: 8.5 - 10.5 mg/dL 9.0 Calculated Calcium Latest Ref Range: 8.5 - 10.5 mg/dL 8.9 Magnesium Latest Ref Range: 1.7 - 2.8 mg/dL 1.9 Total Protein Latest Ref Range: 6.3 - 8.2 g/dL 7.0 Total Alkaline Phosphatase Latest Ref Range: 38 - 126 U/L 58 AST Latest Ref Range: 15 - 46 U/L 24 Bilirubin, Total Latest Ref Range: <1.4 mg/dL <0.5 ferritin - pending. Addendum: ferritin 2. Will schedule for IV iron replacement. Addendum: 06/26/2019 Results reviewed and stable. Continue with current plan as outlined above. Hb 7.2, multiple cancellations for visit and infusions. Alerted PCP team. documented in this encounter Miscellaneous Notes * Addendum Note - Dev Arreguin MD - 03/06/2019 1400 ESTAddended by: DEV ARREGUIN on: 03/06/2019 16:53 Modules accepted: Orders documented in this encounter Plan of Treatment Not on file documented as of this encounter Visit Diagnoses Diagnosis Iron deficiency anemia due to chronic blood loss- Primary Iron deficiency anemia secondary to blood loss (chronic) documented in this encounter Discontinued Medications Medication Sig Discontinue Reason Start Date End Da te cyclobenzaprine (FLEXERIL) 10 mg tablet Take 10 mg by mouth as needed. 03/06/2019 hydrOXYzine (VISTARIL) 50 mg capsule Take 50 mg by mouth daily 03/06/2019 documented as of this encounter Historical Medications * This list may reflect changes made after this encounter. Medication Sig Dispensed Refills Start Date End Date naproxen sodium (ALEVE) 220 mg capsule Take by mouth. 06/26/2019 pregabalin (LYRICA) 50 mg capsule Take 50 mg by mouth 3 times daily. 06/26/2019 added in this encounter Care Teams Camp Counselor Relationship Specialty Start Date End Date Phoenix Polanco MD [address] [facility] [place] [id number] PCP - General 12/27/13 documented as of this encounter
--- OUTSIDE RECORDS SUMMARY | 2023-12-23 01:01 | XMS_ITS | Encounter Summary ---
Author Organization [facility] Address [address] [place] [address] Care Team Providers Care Remelt Sugar Boiler Name Role Phone Phoenix Polanco MD Primary Care Provider + Reason for Referral * Radiology Services (Routine) - Closed Specialty Diagnoses / Procedures Referred By Contac t Referred To Contact Diagnoses Primary osteoarthritis involving multiple joints Pain in both knees, unspecified chronicity Procedures XR KNEE RIGHT 1-2 VIEWS Chary Spears NP [address] [place] [phone] Referral ID Status Reason Start Date Expiration Date Visits Re quested Visits Authorized [id number] Closed 10/01/2019 1 1 * Radiology Services (Routine) - Closed Specialty Diagnoses / Procedures Referred By Contac t Referred To Contact Diagnoses Primary osteoarthritis involving multiple joints Pain in both knees, unspecified chronicity Procedures XR KNEE LEFT 1-2 VIEWS Chary Spears NP [address] [phone] Referral ID Status Reason Start Date Expiration Date Visits Re quested Visits Authorized [id number] Closed 10/01/2019 1 1 * Cardiology (Routine) - Specialty Report Received Specialty Diagnoses / Procedures Referred By Janak miguel Referred To Contact Diagnoses Primary osteoarthritis involving multiple joints Encounter for long-term (current) use of medications Iron deficiency anemia, unspecified iron deficiency anemia type Pes planus of both feet Epicondylitis elbow, medial, left Pain in both knees, unspecified chronicity Procedures EKG 12-LEAD Chary Spears NP [address] [place] [phone] Referral ID Status Reason Start Date Expiration Date V isits Requested Visits Authorized [id number] Specialty Report Received 10/01/2019 1 1 Reason for Visit * Reason Comments Follow-up 3 months Joint Pain knees, elbows, ankle s Joint Swelling Fatigue Encounter Details Date Type Department Care Team (Late st Contact Info) Description 10/01/2019 9:30 EDT Office Visit [facility] Rheumatology & Immunology - [place] [phone] Chary Spears NP [address] [place] [phone] Primary osteoarthritis involving multiple joints (Primary Dx); Encounter for long-term (current) use of medications; Iron deficiency anemia, unspecified iron deficiency anemia type; Pes planus of both feet; Epicondylitis elbow, medial, left; Pain in both knees, unspecified chronicity Social History Tobacco Use Types Packs/Day Years [...] Sign Reading Time Taken Comments Blood Pressure 138/70 10/01/2019 0928 EDT Pulse 74 10/01/2019927 EDT Temperature - - Respiratory Rate 18 10/01/2019927 EDT Oxygen Saturation - - Inhaled Oxygen Concentration - - Weight 115.2 kg (254 lb) 10/01/2019927 EDT Height 164.5 cm (5' 4.76) 10/01/2019927 EDT Body Mass Index 42.58 10/01/2019927 EDT documented in this encounter Functional Status [...] this encounter Patient Instructions * Patient Instructions* Chary Spears APRN - 10/01/2019 9:30 EDT 1. Please get EKG to screen for QTc prolongation 2. The patient is on Plaquenil (hydroxychloroquine). Patient instructed to see their eye doctor 1-2times per year, or more frequently if recommended by their eye doctor, to monitor for side effects. 3. Tylenol arthritis 1300mg every 8 hours scheduled - can skip bedtime dose if it is not needed To get improved pain control, and avoid NSAIDs including advil 4. Continue with diclofenac gel 5. Please get bilateral knee xrays today 6. Please get EKG today 7. Recommend arch supports and supportive sneakers - can try danform - on route 7 8. DME for left medial epicondylitis - wear daily, watch for heat rash, should improved in 2-3 months If not improved would refer to hand ortho 9. F/u [address] Bass or Chary Spears NP documented in this encounter Progress Notes * Chary Spears APRN - 10/01/2019929 EDT Patient ID: Nela Bower is a 49 y.o. y.o. female Subjective: Chief Complaint: Follow-up (3 months); Joint Pain (knees, elbows, ankles); Joint Swelling; and Fatigue HPI: Ms. Nela Bower is a 49 y.o. female with history of anxiety/depression and history of heavy alcohol use sober since 2014, gastric bypass surgery??(2000),??right shoulder arthroscopic posteriorlabral repair, anterior inferior labral repair, biceps tenotomy, distal clavicle excision, and miniopen subpectoral biceps tenodesis on 06-26-14, iron deficiency anemia who presents today for a follow-up visit. she was last seen in clinic on 07/03/2019??by Dr. Bass per his note: Since her last visit: - Hand, wrist and elbow pain persists. - diffuse stiffness - fatigue present. - has not picked up topical diclofenac gel as this was not provided at the pharmacy. ?? Changes since last visit OA- Due to HENRIK with possible peptic ucler/GI bleed with chronic NSAID use, oral NSAID's should be avoided HCQ + fluoxetine may cause QT prolongation. A baseline EKG was ordered today. 07/03/2019: QT = 404, QTc = 443. Has been on plaquenil since 07/03/2019 has not noticed a difference states knee swelling - had not had xrays of knees, pain is an ache, had not had PT Had been doing advil 600 mg every other day which helps knees Tylenol regular strength - possibly 3 tabs, or tylenol arthritis 1300mg once daily -using diclofenac gel 4-5 times per day which helps some Denies any other joint pains or swelling. AM stiffness: 1 hour Physical activity: Doing aqua therapy Patient Active Problem List Diagnosis ??? Anemia ??? Right shoulder pain ??? SLAP (superior labrum from anterior to posterior) tear ??? Superior glenoid labrum lesion ??? AC (acromioclavicular) joint arthritis ??? Glenoid labral tear ??? Low back pain radiating to right leg ??? Depression Past Medical History: Diagnosis Date ??? Anemia ??? Anxiety ??? Arm pain ??? Arm weakness ??? Arthritis ??? Depression ??? Depression ??? Joint stiffness ??? Night sweats ??? Numbness ??? Substance abuse ([facility]) Past Surgical History: Procedure Laterality Date ??? BREAST SURGERY biopsy ??? CHOLECYSTECTOMY, OPEN 10/06/2000 ??? GASTRIC BYPASS SURGERY 10/06/2000 ??? LIVER BIOPSY 10/06/2000 ??? SHOULDER SURGERY right shoulder arthroscopic posterior labral repair, anterior inferior labral repair, biceps tenotomy, distal clavicle excision, and mini open subpectoral biceps tenodesis on 06-26-14 ??? TUBAL LIGATION ??? UTERINE FIBROID SURGERY Allergies Allergen Reactions ??? Penicillins Rash Current Outpatient Medications: acetaminophen (TYLENOL) 500 mg tablet amitriptyline (ELAVIL) 5 mg/ml suspension diclofenac sodium 1 % gel DULoxetine (CYMBALTA) 60 mg capsule fluoxetine HCl (PROZAC ORAL) hydroxychloroquine (PLAQUENIL) 200 mg tablet pregabalin (LYRICA) 100 mg capsule No current facility-administered medications for this visit. ROS - SEE HPI I reviewed the 10 point ROS performed by the nurse which is as documented in Prism. Objective: BP 138/70 (BP Cuff Location: Right arm, BP Patient Position: Sitting, BP Cuff Sizes: Adult, regular) Pulse 74 Resp 18 Ht 164.5 cm (64.76) Wt (!) 115.2 kg (254 lb) LMP 05/25/2012 (Approximate) BMI 42.58 kg/m?? PHYSICAL EXAM: tylenol 650mg- pt states 2 fast acting General: No acute distress. Alert, fully oriented, [...] range of motion of the spine. Shoulder/Elbow: left medial epicondyl tenderness, no swelling No significant tenderness, swelling, effusions, erythema or warmth is present. Appropriate range ofmotion present. Wrist/Hand No other significant tenderness, swelling, effusions, erythema or warmth is present. Appropriate range of motion present. Hips/Knee: crepitous bilateral knees R>L, right medial knee pain to palpation and with flexion, bilateral trochanteric bursitis, left IT band syndrome, some Right IT as well,. No swelling to knees, Appropriate range of motion present. Ankle/Foot: sever pes planus, with valgus ankles, early plantar fasctitis L>R No other significant tenderness, swelling, effusions, erythema or warmth is present. Appropriate range of motion present. ?? LABS: Lab Results Component Value Date ?? WBC 6.50 06/26/2019 ?? WBC 6.50 06/26/2019 ?? WBC 6.18 03/06/2019 ?? WBC 5.50 09/13/2004 ?? WBC 6.41 10/29/2002 ?? HGB 7.2 (L) 06/26/2019 ?? HGB 7.2 (L) 06/26/2019 ?? HGB 7.5 (L) 03/06/2019 ?? HGB 8.9 (L) 09/13/2004 ?? HGB 11.3 (L) 10/29/2002 ?? HCT 26.0 (L) 06/26/2019 ?? HCT 26.0 (L) 06/26/2019 ?? HCT 27.6 (L) 03/06/2019 ?? HCT 28.4 (L) 09/13/2004 ?? HCT 33.0 (L) 10/29/2002 ?? MCV 60 (L) 06/26/2019 ?? MCV 60 (L) 06/26/2019 ?? MCV 63 (L) 03/06/2019 ?? MCV 64 (L) 09/13/2004 ?? MCV 78 (L) 10/29/2002 ?? PLT 357 06/26/2019 ?? PLT 357 06/26/2019 ?? PLT 399 (H) 03/06/2019 ?? PLT 364 (H) 09/13/2004 ?? PLT 306 10/29/2002 ?? Lab Results Component Value Date ?? BUN 16 06/26/2019 ?? CREATININE 0.49 (L) 06/26/2019 ?? AST 23 06/26/2019 ?? ALT 16 06/26/2019 ?? Lab Results Component Value Date ?? CRP <0.7 03/28/2002 ?? Lab Results Component Value Date ?? RF <20 05/01/2000 ?? MIKEY Positive (A) 01/31/2019 ?? DSDNA <12.3 06/26/2019 ?? Component Latest Ref Rng & Units 05/01/2000 07/06/2007 01/31/2019 06/26/2019 MIKEY Interpretation Negative <40 ?? Positive (A) ?? MIKEY Titer Pattern ? 1:320 Speckled ?? Thyroglobulin Ab <=60 U/mL ? <15 Thyroperoxidase Ab <=60 U/mL ? <28 Rheumatoid Factor <20 IU/ml <20 ? TSH 0.35 - 5.00 uIU/mL 1.04 0.96 ? Rheumatoid Factor <12.5 IU/mL ? 8 ?? CCP Antibodies <5.0 U/mL ? <2.5 TSH 0.47 - 4.68 uIU/mL ? 0.73 Anti DNA (DS) <30.0 IU/mL ? <12.3 Sm (Mcdermott) Antibody <20.0 Units ? 3.9 SSB Antibody <20.0 Units ? 4.7 SSA Antibody <20.0 Units ? 1.4 C3 Complement 81 - 157 mg/dL ? 158 (H) C4 Complement 13 - 39 mg/dL ? 26 LABEL PASTER Antibody <20.0 Units ? 4.5 Scleroderma Ab, SCL 70 Ab <1.0 (Negative) U ? <0.2 ? Imaging: XR HAND LEFT 1-2 VIEWS Order: [id number] Status: Final result ?Visible to patient: Yes (MyChart) Next appt: 07/05/2019 at 11:30 in Orthopedic Surgery (Mesfin Pena PA-C) Dx: Pain in joint, multiple sites; Elevat... Linked study orders: XR HAND RIGHT 1-2 VIEWS (Order: [id number]) Details ?? Reading Physician Reading Date Result Priority Enrique Blanton MD 06/28/2019 ?? Josh Estrada MD 06/28/2019 ? Narrative & Impression ? XR HAND RIGHT 1-2 VIEWS, XR HAND LEFT 1-2 VIEWS ??06/26/2019 2:18 PM ?? Clinical History/Comments: Bilateral hand [...] above interpretation and agree with the findings. ? Specimen Collected: 06/28/19 14:35 Last Resulted: 06/28/19 14:35 ?? XR KNEE LEFT 1-2 VIEWS (Order [id number]) XR KNEE RIGHT 1-2 VIEWS (Order [id number]) Status: Final result (Exam End: 10/01/2019 11:59) Results XR KNEE LEFT 1-2 VIEWS ( (Order [id number]) XR KNEE RIGHT 1-2 VIEWS ( (Order [id number]) XR KNEE LEFT 1-2 VIEWS Order: [id number] Status: Final result ?Visible to patient: No (Not Released) Next appt: 01/01/2020 at 09:40 in Rheumatology (Deonte Bass MD) Dx: Primary osteoarthritis involving mult... Linked study orders: XR KNEE RIGHT 1-2 VIEWS (Order: [id number]) Details Reading Physician Reading Date Result Priority Armand Rothman MD 10/01/2019 Narrative & Impression EXAM/TECHNIQUE: XR KNEE LEFT 1-2 VIEWS, XR KNEE RIGHT 1-2 VIEWS 10/01/2019 11:45 AM ?? HISTORY: bilateral knee pain ?? COMPARISON: None. ?? IMPRESSION FINDINGS / IMPRESSION: ?? Right knee: 2 views of the right knee show mild degenerative changes in the medial femorotibial andpatellofemoral joint compartments. No acute fracture seen. A small suprapatellar knee joint effusion is demonstrated. ?? Left knee: 2 views of the left knee show mild degenerative changes in the medial femorotibial and patellofemoral joint compartments. No acute fracture seen. A minimal size suprapatellar knee joint effusion is demonstrated. ?? Specimen Collected: 10/01/19 12:27 Last Resulted: 10/01/19 12:27 RAPID3 Summary Functional Status: 4 Pain Tolerance: Global Estimate: 6 Score: Interpretation: ASSESSMENT: 1. OA- started on HCQ around 07/03/2019- Due to HENRIK with possible peptic ucler/GI bleed with chronicNSAID use, oral NSAID's should be avoided. Pt has not noticed a difference, has used advil 600mg every other day prn d/t knee pain and swelling- this may be mechanical knee pain. Pt strongly recommended against using NSAIDS. Pt has bilateral trochanteric bursitis, left IT band syndrome, some on theright, crepitous bilateral knees R>L, right medial knee pain to palpation and flexion- without swelling. Pt states knees swelling worsens toward the end of the day. Pt also has severe pes planus likely contributing to low back pain, knee pain, foot pain and IT/bursal pain. Reviewed HCQ takes 3-6 months to start working, I would like to give it at least 3 more months, it should also help with bilateral trochanteric bursitis, and left medial epicondylitis. EKG- will get repeat EKG today for HCQ + fluoxetine may cause QT prolongation.07/03/2019: QT = 404, QTc = 443. 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 Primary osteoarthritis involving multiple joints Yes ??? Encounter for long-term (current) use of medications ??? Iron deficiency anemia, unspecified iron deficiency anemia type PLAN: 1. Please get EKG to screen for QTc prolongation 2. The patient is on Plaquenil (hydroxychloroquine). Patient instructed to see their eye doctor 1-2times per year, or more frequently if recommended by their eye doctor, to monitor for side effects. 3. Tylenol arthritis 1300mg every 8 hours scheduled - can skip bedtime dose if it is not needed To get improved pain control, and avoid NSAIDs including advil 4. Continue with diclofenac gel 5. Please get bilateral knee xrays today 6. Please get EKG today 7. Recommend arch supports and supportive sneakers - can try danform - on route 7 8. DME for left medial epicondylitis - wear daily, watch for heat rash, should improved in 2-3 months If not improved would refer to hand ortho 9. F/u [address] Bass or Chary Spears NP 1. Primary osteoarthritis involving multiple joints EKG 12-LEAD 2. Encounter for long-term (current) use of medications EKG 12-LEAD 3. Iron deficiency anemia, unspecified iron deficiency anemia type No orders of the defined types were placed in this encounter. Barriers to learning identified: No Patient verbalizes understanding and agrees with plan Yes I was directly supervised by: Dr. Hudson. They were present in clinic and available for consult if needed. Chary Spears APRN 10/01/2019 9:41 * Francine Jane MA - 10/01/2019 0930 EDT REVIEW OF SYSTEMS: Yes No Yes No Fever X Joint pain x Weight gain or loss pounds (lbs) Duration of AM joint stiffness x All day Eye pain or dryness X Numbness/tingling X legs,arm Mouth or nose sores X Heart burn / Nausea X Chest pain X Diarrhea X Shortness of Breath X Blood in stool X Cough X Burning on urination X Skin rash X Hand/Foot color change in cold X Are our immunization records accurate per patient report? (i.e. influenza, pneumococcal, shingles) Yes No If no, note change(s) below and update record x Pt reports not getting this one this year documented in this encounter Miscellaneous Notes * Addendum Note - Chary Spears APRN - 10/01/2019 0930 EDTAddended by: CHARY SPEARS on: 10/01/2019 11:42 Modules accepted: Orders documented in this encounter Plan of Treatment Not on file documented as of this encounter Procedures Procedure Name Priority Date/Time Associated Diagnosis Comments ECG REPORT - SCANNED 10/07/2019 10:55 EDT EKG 12-LEAD Routine 10/01/2019 11:14 EDT Primary osteoarthritis involving multiple joints Encounter for long-term (current) use of medications Iron deficiency anemia, unspecified iron deficiency anemia type Pes planus of both feet Epicondylitis elbow, medial, left Pain in both knees, unspecified chronicity documented in this encounter Results * ECG REPORT - SCANNED (10/07/2019 10:55 EDT) 10/07/2019 10:5 5 EDT Scan 2 Powder Blender PROCEDURE/MINOR SHILPA GICAL ORDERABLES * XR KNEE RIGHT 1-2 VIEWS (10/01/2019 [...] minimal size suprapatellar knee joint effusion isdemonstrated. Chary Spears NP IMG DIAGNOSTIC IMAG ING ORDERABLES * XR KNEE LEFT 1-2 VIEWS (10/01/2019 [...] minimal size suprapatellar knee joint effusion isdemonstrated. Chary Spears ELECTION ASSISTANT IMG DIAGNOSTIC IMAG ING ORDERABLES * EKG 12-LEAD (10/01/2019 11:14 EDT) 10/01/2019 11:1 4 EDT Narrative [facility] EKG - 10/07/2019 10:51 EDT ? [facility] ? Test Date: ?2019-10-01 Pat Name: ? NELA BENOIT ? Department: ?? [id number] ? Room: ? Gender: ? Female ? 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 [id number] : ?1970 ? 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 Elliott KHOURY: ?? JADE BYRD MD ? Measurements Intervals ?[place] ? Rate: ? 75 ? P: ?12 UT: ? 155 ?QRS: ?22 QRSD: ? 93 ? T: ?24 QT: ? 406 ? QTc: ?455 ? Interpretive Statements SINUS RHYTHM I reviewed the tracing and have either agreed or edited the findings in this report. Electronically Signed On 10-07-2019 10:51:08 EDT by JADE BYRD MD. 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 Electronically Signed On 10-07-2019 10:51:08 EDT by JADE HAMPTON. Chary Spears ELECTION ASSISTANT CARDIAC ECG ORDERAB LES [facility] EKG documented in this encounter Visit Diagnoses Diagnosis Primary osteoarthritis involving multiple joints- Primary Encounter for long-term (current) use of medications Encounter for long-term (current) use of other medications Iron deficiency anemia, unspecified iron deficiency anemia type Pes planus of both feet Epicondylitis elbow, medial, left Pain in both knees, unspecified chronicity Primary osteoarthritis involving multiple joints Pain in both knees, unspecified chronicity Primary osteoarthritis involving multiple joints Pain in both knees, unspecified chronicity documented in this encounter Historical Medications * This list may reflect changes made after this encounter. Medication Sig Dispensed Refills Start Date End Date amitriptyline (ELAVIL) 5 mg/ml suspension Take 15 mg by mouth at bedtime. added in this encounter Orders Equipment Count Last Ordered Date First Orde red Date GENERIC DME ORDER 1 10/01/2019 documented in this encounter Care Teams Remelt Sugar Boiler Relationship Specialty Start Date End Date Phoenix Polanco MD [address] [place] [phone] PCP - General 12/27/13 documented as of this encounter
--- OUTSIDE RECORDS SUMMARY | 2023-12-23 01:01 | XMS_ITS | Encounter Summary ---
Author Organization [facility] Address [address] [place] [address] Care Team Providers Care Rn Private Duty Name Role Phone Phoenix Polanco MD Primary Care Provider + Reason for Visit * Reason Onset Date Comments Appointment Related 11/22/2017 Sonya Miles lema, : 74 calling to cancel her appointment scheduled Nov 24 at 11:15am with [facility] with Dr Aroldo Romero. Encounter Details Date Type Department Care Team (Late st Contact Info) Description 11/22/2017 Telephone [facility] Interventional Pain [address] [place] [address] Aroldo Romero MD [address] [place] [address] Appointment Related (Sonya [place], : 74 calling to cancel her appointment scheduled Nov 24 at 11:15am with [facility] with Dr Aroldo Romero. ) Social History Tobacco Use Types Packs/Day Years [...] encounter Miscellaneous Notes * Telephone Encounter - Lili Pratt - 11/22/20171950 EDT PAS Message: Vannabereniceluis enrique [place], : 74 calling to cancel her appointment scheduled Nov 24 at11:15am with [facility] Pain with Dr Aroldo Romero. Patient is on an antibiotic. Patient will call back. documented in this encounter Plan of Treatment Not on file documented as of this encounter Visit Diagnoses Not on filedocumented in this encounter Care Teams Rn Private Duty Relationship Specialty Start Date End Date Phoenix Polanco MD [address] [place] [phone] PCP - General 12/27/13 documented as of this encounter
--- OUTSIDE RECORDS SUMMARY | 2023-12-23 01:01 | XMS_ITS | Encounter Summary ---
Author Organization [facility] Address [address] [place] [address] Care Team Providers Care Cigar Head Holer Name Role Phone Phoenix Polanco MD Primary Care Provider + Encounter Details Date Type Department Care Team (Late st Contact Info) Description 03/06/2019 Orders Only [facility] Cancer Center Hematology & Oncology - [facility] [address], [place] [id number] Esperanza Arreguin MD [address] [place] [phone] Microcytic anemia (Primary Dx) Social History Tobacco [...] as of this encounter Results * (ABNORMAL) IBC (03/06/2019 13:40 EST) Iron Binding Capacity 509(H) 265 - 497 ug/dL 03/06/2019 15:13 EST [facility] Blood VENOUS BLOOD / Unknown Venipuncture / Unknown 03/06/2019 13:40 EST 03/06/2019 14:26 EST Esperanza Arreguin MD CHEMISTRY & BLOOD G ORDERABLES Performing Organization Address City/[facility] Co de Phone Number [facility] [address] [place] [address] * (ABNORMAL) IRON (03/06/2019 13:40 EST) Iron <15(L) 37 - 170 ug/dL 03/06/2019 15:05 EST [facility] Blood VENOUS BLOOD / Unknown Venipuncture / Unknown 03/06/2019 13:40 EST 03/06/2019 14:26 EST Esperanza Arreguin MD CHEMISTRY & BLOOD G ORDERABLES Performing Organization Address City/[facility] Co de Phone Number [facility] [address] [place] [address] * (ABNORMAL) FERRITIN (03/06/2019 13:40 EST) Ferritin 2(L) 10 - 291 ng/mL 03/07/2019 9:34 EST [facility] Blood VENOUS BLOOD / Unknown Venipuncture / Unknown 03/06/2019 13:40 EST 03/06/2019 14:26 EST Esperanza Arreugin MD CHEMISTRY & BLOOD G ORDERABLES Performing Organization Address City/[facility]/ZIP Co de Phone Number [facility] [address] [place] [address] * RETICULOCYTE COUNT (03/06/2019 13:40 EST) Retic Ct (Uncorrected) 1.8 0.5 - 2.5 % 03/06/2019 14:47 [facility] Blood VENOUS BLOOD / Unknown Venipuncture / Unknown 03/06/2019 13:40 EST 03/06/2019 14:26 EST Esperanza Arreguin MD HEMATOLOGY & PF4 OR DERABLES Performing Organization Address City/State/[facility] Co de Phone Number [facility] [address] [place] [address] * (ABNORMAL) COMPREHENSIVE METABOLIC PANEL (ONCOLOGY USE ONLY-INC MG) (03/06/2019 13:40 EST) Sodium 138 136 - 145 mEq/L 03/06/2019 15:05 [facility] Potassium 4.4 3.5 - 5.0 mEq/L 03/06/2019 15:05 [facility] Chloride 103 96 - 110 mEq/L 03/06/2019 15:05 [facility] CO2 Total 26 22 - 32 mEq/L 03/06/2019 15:05 [facility] Glucose 91 70 - 100 mg/dL 03/06/2019 15:05 [facility] BUN 14 10 - 26 mg/dL 03/06/2019 15:05 [facility] Creatinine 0.43(L) 0.52 - 1.04 mg/dL 03/06/2019 15:05 [facility] eGFR 122 >60 mL/min/1.7 3m2 03/06/2019 15:05 [facility] Comment:eGFR calculated usin g CKD-EPI equation for non- Americans. Multiply eGFR by 1.16 for patients. Total Protein 7.0 6.3 - 8.2 g/dL 03/06/2019 15:05 [facility] Albumin 4.1 3.4 - 4.9 g/dL 03/06/2019 15:05 [facility] Alkaline Phosphatase 58 38 - 126 U/L 03/06/2019 15:05 [facility] AST 24 15 - 46 U/L 03/06/2019 15:05 [facility] ALT 18 <35 U/L 03/06/2019 15:05 [facility] Bilirubin, Total <0.5 <1.4 mg/dL 03/06/20 19 15:05 [facility] Calcium 9.0 8.5 - 10.5 mg/dL 03/06/2019 15:05 [facility] Calculated Calcium 8.9 8.5 - 10.5 mg/dL 03/06/2019 15:05 [facility] Magnesium 1.9 1.7 - 2.8 mg/dL 03/06/2019 15:05 [facility] Blood VENOUS BLOOD / Unknown Venipuncture / Unknown 03/06/2019 13:40 EST 03/06/2019 14:26 EST Esperanza Arreguin MD CHEMISTRY & BLOOD G ORDERABLES Performing Organization Address City/State/[facility] Co de Phone Number [facility] [address] [place] [phone] * (ABNORMAL) COMPLETE BLOOD COUNT AND DIFFERENTIAL (03/06/2019 13:40 EST) WBC 6.18 4.00 - 12.40 K/cmm 03/06/2019 14:54 [facility] RBC 4.36 3.86 - 5.04 M/cmm 03/06/2019 14:54 [facility] Hemoglobin 7.5(L) 11.6 - 15.2 gm/dL 03/06/2019 14:54 [facility] HCT 27.6(L) 34.9 - 44.4 % 03/06/2019 14:54 [facility] MCV 63(L) 81 - 98 fl 03/06/2019 14:54 [facility] MCH 17.2(L) 26.7 - 33.3 pg 03/06/2019 14:54 [facility] Hypochromia 3+ 03/06/2019 14:54 [facility] MCHC 27.2(L) 32.1 - 35.9 gm/dL 03/06/2019 14:54 [facility] RDW-CV 23.6(H) <14.7 % 03/06/2019 14:54 [facility] RDW-SD 51.7(H) <50.4 fl 03/06/2019 14:54 [facility] Anisocytosis 2+ 03/06/2019 14:54 [facility] PLT 399(H) 141 - 377 K/cmm 03/06/2019 14:54 [facility] MPV 10.0 9.5 - 12.7 fl 03/06/2019 14:54 [facility] % Neutrophils 51.6 % 03/06/2019 14:54 [facility] % Lymphocytes 34.3 % 03/06/2019 14:54 [facility] % Monocytes 9.4 % 03/06/2019 14:54 [facility] % Eosinophils 2.6 % 03/06/2019 14:54 [facility] % Basophils 1.8 % 03/06/2019 14:54 [facility] % Immature Grans 0.3 % 03/06/20 19 14:54 [facility] Absolute Neutrophils 3.19 2.20 - 8.85 K/cmm 03/06/2019 14:54 [facility] Absolute Lymphocytes 2.12 1.09 - 3.30 K/cmm 03/06/2019 14:54 [facility] Absolute Monocytes 0.58 0.10 - 0.80 K/cmm 03/06/2019 14:54 [facility] Absolute Eosinophils 0.16 0.03 - 0.61 K/cmm 03/06/2019 14:54 [facility] ABS Basophils 0.11 0.01 - 0.11 K/cmm 03/06/2019 14:54 [facility] Absolute Immature Grans 0.02 0.00 - 0.06 K/cmm 03/06/2019 14:54 [facility] Type of Differential: Auto 03/06/2019 14:54 [facility] Blood VENOUS BLOOD / Unknown Venipuncture / Unknown 03/06/2019 13:40 EST 03/06/2019 14:26 EST Esperanza Arreguin MD PACKAGES & DNA PROB E ORDERABLES [facility] [address] [place] [address] documented in this encounter Visit Diagnoses Diagnosis Microcytic anemia- Primary Iron deficiency anemia, unspecified documented in this encounter Care Teams Cigar Head Holer Relationship Specialty Start Date End Date Phoenix Polanco MD [address] [place] [address] PCP - General 12/27/13 documented as of this encounter
--- OUTSIDE RECORDS SUMMARY | 2023-12-23 01:01 | XMS_ITS | Encounter Summary ---
Author Organization [facility] Address [address] [place] [address] Care Team Providers Care Business Dean Name Role Phone Phoenix Polanco MD Primary Care Provider + Reason for Visit * Reason Onset Date Comments Appointment Related 05/21/2019 Encounter Details Date Type Department Care Team (Late st Contact Info) Description 05/21/2019 Telephone [facility] [address] [phone] Chelsy Worthy, RN [address] [place] [address] Appointment Related Social History Tobacco Use Types [...] Miscellaneous Notes * Telephone Encounter - Chelsy Worthy RN - 05/21/2019 1227 EST This [facility] nurse called pt at 12:25 to inquire if she was coming to her 1400 appointment today. ( Pharmacy requires a 2 hour call ahead to prepare medication) On her home # I left a generic request to call back at [phone]. Her work # identified pt's name, so I identified myself calling from the [facility] and requested a call back re her iron infusion today. documented in this encounter Plan of Treatment Not on file documented as of this encounter Visit Diagnoses Not on filedocumented in this encounter Care Teams Business Dean Relationship Specialty Start Date End Date Phoenix Polanco MD [address] [place] [address] PCP - General 12/27/13 documented as of this encounter
--- OUTSIDE RECORDS SUMMARY | 2023-12-23 01:01 | XMS_ITS | Encounter Summary ---
Author Organization [facility] Address [address] [place] [address] Care Team Providers Care Digital Marketing Lead Name Role Phone Phoenix Polanco MD Primary Care Provider + Reason for Referral * Prior Authorization (3 - 10 Business Days) - Authorization Not Required Specialty Diagnoses / Procedures Referred By Janak miguel Referred To Contact Diagnoses Other iron deficiency anemia Esperanza Arreguin MD [address] [place] [address] Referral ID Status Reason Start Date Expiration Date Visits Requested Visits Authorized [id number] Authorization Not Required Other 9 1 1 Question Answer Medication to be Prior Authorized: Injectafer [facility] Precertification Request for Medications 03/18/2019 URGENT: No Medication Administration: IV Patient Name: Nela Granger Patient : [id number] Ordering MD: Dr. Mccartyh Nurse: priya Phone: [phone] Is this a dosage change, renewal or a new medication? New Med Medication Start Date & Number of Cycles: 03/26 PT BSA: There is no height or weight on file to calculate BSA. What is the reason for taking this medication? Iron deficiency anemia Is this an on label usage of this medication? Yes What is the patient's current drug regimen? NA Similar drugs patient has been on and failed? An Please Prior Auth Medications Listed below: Injectafer 750mg x2, 1 week apart Encounter Details Date Type Department Care Team (Late st Contact Info) Description 03/18/2019 Orders Only [facility] Cancer Center Hematology & Oncology - [address] [address] Priya Sinha, RN Other iron deficiency anemia (Primary Dx) Social History Tobacco Use [...] as of this encounter Plan of Treatment Scheduled Referrals Name Type Priority Associated Diagnoses Order Schedule AMB MEDICATION PRIOR AUTHORIZATION Outpatient Referral Routine Other iron deficiency anemia Ordered: 03/18/2019 documented as of this encounter Visit Diagnoses Diagnosis Other iron deficiency anemia- Primary documented in this encounter Care Teams Digital Marketing Lead Relationship Specialty Start Date End Date Phoenix Polanco MD [address] [place] [address] PCP - General 12/27/13 documented as of this encounter
--- OUTSIDE RECORDS SUMMARY | 2023-12-23 01:01 | XMS_ITS | Encounter Summary ---
Author Organization [facility] Address [address] [place] [address] Care Team Providers Care Foundation Drill Operator Helper Name Role Phone Phoenix Polanco MD Primary Care Provider + Reason for Visit * Reason Onset Date Comments Medication Management 07/31/2019 Encounter Details Date Type Department Care Team (Late st Contact Info) Description 07/31/2019 Telephone [facility] Rheumatology & Immunology - [facility] [address] [place], [place] [phone] Deonte Bass MD [address] [place] [phone] Medication Management Social History Tobacco Use Types Packs/Day Years [...] Yes 06/26/2019 documented as of this encounter Ordered Prescriptions Prescription Sig Dispensed Refills Start Date End Da te hydroxychloroquine (PLAQUENIL) 200 mg tabletIndications:Inflamma tory arthritis Take 1 Tab by mouth 2 times daily. 60 Tab 2 07/31/2019 11/13/2019 documented in this encounter Miscellaneous Notes * Telephone Encounter - Deonte Bass MD - 08/02/2019 1303 EDT Noted. Thank rosita Bass MD * Telephone Encounter - Gertrudis Hernandez RN - 07/31/2019 1229 EDT I called twice but was unable to reach anyone at [facility]. On hold almost 30 minutes and then I hung up. Pt is unable to get her prescription for hydroxychloroquine there. She's willing to switch to [facility] in [place] for the prescription. I confirmed they had stock there. Order sent there. Pt was notified. * Telephone Encounter - Suha Fink - 07/31/2019 1200 EDT Patient went to pickling machine operator refill of hydroxychloroquine (PLAQUENIL) 200 mg tablet and pharmacy told her they would not be able to fill and to contact her doctor. Has only 2 more days worth. Please call to advise. documented in this encounter Plan of Treatment Not on file documented as of this encounter Visit Diagnoses Diagnosis Inflammatory arthritis Unspecified inflammatory polyarthropathy documented in this encounter Discontinued Medications Medication Sig Discontinue Reason Start Date End Da te hydroxychloroquine (PLAQUENIL) 200 mg tabletIndications:Inflamm atory arthritis Take 1 Tab by mouth 2 times daily. Reorder 07/03/2019 07/31/2019 hydroxychloroquine (PLAQUENIL) 200 mg tabletIndications:Inflamm atory arthritis Take 1 Tab by mouth 2 times daily. Reorder 07/03/2019 07/31/2019 documented as of this encounter Care Teams Foundation Drill Operator Helper Relationship Specialty Start Date End Date Phoenix Polanco MD [address] [place] [address] PCP - General 12/27/13 documented as of this encounter
--- OUTSIDE RECORDS SUMMARY | 2023-12-23 01:01 | XMS_ITS | Encounter Summary ---
Author Organization [facility] Address [address] [place] [address] Care Team Providers Care Grease Machine Worker Name Role Phone Phoenix Polanco MD Primary Care Provider + Reason for Referral * Radiology Services (Routine) - Closed Specialty Diagnoses / Procedures Referred By Contac t Referred To Contact Diagnoses Pain in joint, multiple sites Malaise and fatigue MIKEY positive Elevated sed rate Microcytic anemia Procedures XR HAND LEFT 1-2 VIEWS Deonte Bass MD [address] [employer] [address] [place] [phone] Referral ID Status Reason Start Date Expiration Date Visits Re quested Visits Authorized [id number] Closed 06/26/2019 1 1 Reason for Visit * Radiology Services (Routine) - Closed Specialty Diagnoses / Procedures Referred By Contac t Referred To Contact Diagnoses Pain in joint, multiple sites Malaise and fatigue MIKEY positive Elevated sed rate Microcytic anemia Procedures XR HAND LEFT 1-2 VIEWS Deonte Bass MD [address] [employer] [address] [place] [address] Referral ID Status Reason Start Date Expiration Date Visits Re quested Visits Authorized [id number] Closed 06/26/2019 1 1 Encounter Details Date Type Department Care Team (Latest Contact Info) Description 06/26/2019 14:17 EST - 06/26/2019 23:59 EST Hospital Encounter [facility] [place]iology [place] [address] Pain in joint, multiple sites; Malaise and [...] Priority Date/Time Associated Diagnosis Comments XR HAND LEFT 1-2 VIEWS Routine 06/26/2019 14:29 EST Pain in joint, multiple sites Malaise and fatigue MIKEY positive Elevated sed rate Microcytic anemia documented in this encounter Results * XR HAND LEFT 1-2 VIEWS (06/26/2019 [...] PM Clinical History/Comments: Bilateral hand pain/PIP joints, MIEKY positive, RF negative, elevated ESR. ? Inflammatory [...] unspecified documented in this encounter Care Teams Grease Machine Worker Relationship Specialty Start Date End Date Phoenix Polanco MD [address] [place] [address] PCP - General 12/27/13 documented as of this encounter
--- OUTSIDE RECORDS SUMMARY | 2023-12-23 01:01 | XMS_ITS | Encounter Summary ---
Author Organization [facility] Address [address] [place] [address] Care Team Providers Care Heat Treat Supervisor Name Role Phone Phoenix Polanco MD Primary Care Provider + Encounter Details Date Type Department Care Team (Late st Contact Info) Description 06/18/2019 Orders Only [facility] Cancer Center Hematology & Oncology - [address] [phone] Esperanza Arreguin MD [address] [place], [place] [phone] Iron deficiency anemia due to chronic blood [...] as of this encounter Results * (ABNORMAL) COMPREHENSIVE METABOLIC PANEL (ONCOLOGY USE ONLY-INC MG) (06/26/2019 14:53 EST) Sodium 137 136 - 145 mEq/L 06/26/2019 15:20 [facility] Potassium 4.4 3.5 - 5.0 mEq/L 06/26/2019 15:20 [facility] Chloride 102 96 - 110 mEq/L 06/26/2019 15:20 [facility] CO2 Total 26 22 - 32 mEq/L 06/26/2019 15:20 [facility] Glucose 88 70 - 100 mg/dL 06/26/2019 15:20 [facility] BUN 16 10 - 26 mg/dL 06/26/2019 15:20 [facility] Creatinine 0.49(L) 0.52 - 1.04 mg/dL 06/26/2019 15:20 [facility] eGFR 116 >60 mL/min/1.7 3m2 06/26/2019 15:20 [facility] Comment:eGFR calculated valdez reese CKD-EPI equation for non- Americans. Multiply eGFR by 1.16 for patients. Total Protein 7.8 6.3 - 8.2 g/dL 06/26/2019 15:20 [facility] Albumin 4.7 3.4 - 4.9 g/dL 06/26/2019 15:20 [facility] Alkaline Phosphatase 90 38 - 126 U/L 06/26/2019 15:20 [facility] AST 23 15 - 46 U/L 06/26/2019 15:20 [facility] ALT 16 <35 U/L 06/26/2019 15:20 [facility] Bilirubin, Total <0.5 <1.4 mg/dL 06/26/19 20 15:20 [facility] Calcium 9.6 8.5 - 10.5 mg/dL 06/26/2019 15:20 [facility] Calculated Calcium 9.0 8.5 - 10.5 mg/dL 06/26/2019 15:20 [facility] Magnesium 1.9 1.7 - 2.8 mg/dL 06/26/2019 15:20 [facility] Blood VENOUS BLOOD / Unknown Venipuncture / Unknown 06/26/2019 14:53 EST 06/26/2019 15:[address] [facility] - 06/26/2019 15:20 EST 2 Esperanza Arreguin MD CHEMISTRY & BLOOD G ORDERABLES [facility] [address] [place] [address] * (ABNORMAL) COMPLETE BLOOD COUNT AND DIFFERENTIAL (06/26/2019 14:53 EST) WBC 6.50 4.00 - 12.40 K/cmm 06/26/2019 15:19 [facility] RBC 4.33 3.86 - 5.04 M/cmm 06/26/2019 15:19 [facility] Hemoglobin 7.2(L) 11.6 - 15.2 gm/dL 06/26/2019 15:19 [facility] HCT 26.0(L) 34.9 - 44.4 % 06/26/2019 15:19 [facility] MCV 60(L) 81 - 98 fl 06/26/2019 15:19 [facility] MCH 16.6(L) 26.7 - 33.3 pg 06/26/2019 15:19 [facility] Hypochromia 3+ 06/26/2019 15:19 [facility] MCHC 27.7(L) 32.1 - 35.9 gm/dL 06/26/2019 15:19 [facility] RDW-CV 21.3(H) <14.7 % 06/26/2019 15:19 [facility] RDW-SD 43.8 <50.4 fl 06/26/2019 15:19 [facility] Anisocytosis 2+ 06/26/2019 15:19 [facility] PLT 357 141 - 377 K/cmm 06/26/2019 15:19 [facility] MPV 9.9 9.5 - 12.7 fl 06/26/2019 15:19 [facility] % Neutrophils 52.1 % 06/26/2019 15:19 [facility] % Lymphocytes 34.0 % 06/26/2019 15:19 [facility] % Monocytes 10.2 % 06/26/2019 15:19 [facility] % Eosinophils 1.7 % 06/26/2019 15:19 [facility] % Basophils 1.7 % 06/26/2019 15:19 [facility] % Immature Grans 0.3 % 06/26/19 15:19 [facility] Absolute Neutrophils 3.39 2.20 - 8.85 K/cmm 06/26/2019 15:19 [facility] Absolute Lymphocytes 2.21 1.09 - 3.30 K/cmm 06/26/2019 15:19 [facility] Absolute Monocytes 0.66 0.10 - 0.80 K/cmm 06/26/2019 15:19 [facility] Absolute Eosinophils 0.11 0.03 - 0.61 K/cmm 06/26/2019 15:19 [facility] ABS Basophils 0.11 0.01 - 0.11 K/cmm 06/26/2019 15:19 [facility] Absolute Immature Grans 0.02 0.00 - 0.06 K/cmm 06/26/2019 15:19 [facility] Type of Differential: Auto 06/26/2019 15:19 [facility] Blood VENOUS BLOOD / Unknown Venipuncture / Unknown 06/26/2019 14:53 EST 06/26/2019 15:01 EST Esperanza Arreguin MD PACKAGES & DNA PROB E ORDERABLES [facility] [address] [place] [address] documented in this encounter Visit Diagnoses Diagnosis Iron deficiency anemia due to chronic blood loss- Primary Iron deficiency anemia secondary to blood loss (chronic) documented in this encounter Orders Lab Orders Without Results Count Last Ordered D ate First Ordered Date FERRITIN 1 06/18/2019 documented in this encounter Care Teams Heat Treat Supervisor Relationship Specialty Start Date End Date Phoenix Polanco MD [address] [place] [address] PCP - General 12/27/13 documented as of this encounter
--- OUTSIDE RECORDS SUMMARY | 2023-12-23 01:01 | XMS_ITS | Encounter Summary ---
Author Organization [facility] Address [address] [place] [address] Care Team Providers Care Pharmaceutical Development Technician Name Role Phone Phoenix Polanco MD Primary Care Provider + Encounter Details Date Type Department Care Team (Latest Contact Info) Description 07/01/2016 8:24 EST - 07/01/2016 8:25 EST Hospital Encounter [facility] [place] [address] [place] [address] Phoenix Polanco MD [address] [place] [phone] Discharge Disposition: Home or Self Care [...] Yes 01/15/2016 documented as of this encounter Discharge Diagnoses Diagnosis R53.83 Other fatigue-R53.83[ICD-10-CM] documented in this encounter Medications at Time [...] on filedocumented in this encounter Care Teams Pharmaceutical Development Technician Relationship Specialty Start Date End Date Phoenix Polanco MD [address] [place] [address] PCP - General 12/27/13 documented as of this encounter
--- OUTSIDE RECORDS SUMMARY | 2023-12-23 01:01 | XMS_ITS | Encounter Summary ---
Author Organization [facility] Address [address] [place] [address] Care Team Providers Care Textile Machinery Instructor Name Role Phone Phoenix Polanco MD Primary Care Provider + Reason for Referral * Medication Prior Authorization (Routine) - Authorized Specialty Diagnoses / Procedures Referred By Janak miguel Referred To Contact Diagnoses Generalized osteoarthrosis, involving multiple sites Deonte Bass MD [address] [phone] Referral ID Status Reason Start Date Expiration Date Visits Requested Visits Authorized [id number] Authorized Medication Prior Authorization 06/27/2019 1 1 Question Answer Medication to be Prior Authorized: diclofenac gel 1% Comments The purpose of this consult request is to inform the scheduling staff that a medication needs to be prior-authorized before it is prescribed and/or administered. Encounter Details Date Type Department Care Team (Late st Contact Info) Description 06/27/2019 Orders Only [facility] Rheumatology & Immunology - [address] [address] Carolee Chang RN Generalized osteoarthrosis, involving multiple sites (Primary Dx) Social History Tobacco Use Types [...] AMB MEDICATION PRIOR AUTHORIZATION Outpatient Referral Routine Generalized osteoarthrosis, involving multiple sites Ordered: 06/27/2019 documented as of this encounter Visit Diagnoses Diagnosis Generalized osteoarthrosis, involving multiple sites- Primary documented in this encounter Care Teams Textile Machinery Instructor Relationship Specialty Start Date End Date Phoenix Polanco MD [address] [place] [address] PCP - General 12/27/13 documented as of this encounter
--- OUTSIDE RECORDS SUMMARY | 2023-12-23 01:01 | XMS_ITS | Encounter Summary ---
Author Organization [facility] Address [address] [place] [address] Care Team Providers Care Registered Nurse Practitioner Name Role Phone Phoenix Polanco MD Primary Care Provider + Encounter Details Date Type Department Care Team (Late st Contact Info) Description 02/13/2019 Documentation Visit [facility] Cancer Center Hematology & Oncology - [facility] [address] [place] [address] Suni Espinal, MEREDITH [address] [place] [address] Social History Tobacco Use Types Packs/Day Years [...] as of this encounter Progress Notes * Suni Espinal, MEREDITH - 02/13/2019 1054 EDT Pt referred c Hg of 7.3 needs iron studies, SPEP and find out if she has had a colonoscopy. Pt has had a colonoscopy and has had this anemia she states for years. In the past did have heavy menses. documented in this encounter Plan of Treatment Not on file documented as of this encounter Visit Diagnoses Not on filedocumented in this encounter Care Teams Registered Nurse Practitioner Relationship Specialty Start Date End Date Phoenix Polanco MD [address] [place] [address] [place] [phone] PCP - General 12/27/13 documented as of this encounter
--- OUTSIDE RECORDS SUMMARY | 2023-12-23 01:02 | XMS_ITS | Encounter Summary ---
Author Organization [facility] Address [address] [place] [address] Care Team Providers Care Economic Research Analyst Name Role Phone Phoenix Polanco MD Primary Care Provider + Reason for Visit * Reason Onset Date Comments Prior Auth, Other (i.e. radiology, etc.) 014 Encounter Details Date Type Department Care Team (Late st Contact Info) Description 04/11/2014 Telephone [facility] Sports Medicine Program - [address] [address] Mor Chanel MD [address] [place] [phone] Prior Auth, Other (i.e. radiology, etc.) Social History Tobacco Use Types Packs/Day Years Used Date Smoking Tobacco: Never Assessed Sex and Gender Information Value Date Recorded Sex Assigned at Female 02/05/2020 13:48 EDT Gender Identity Female 06/26/2019 14:43 EST Sexual Orientation Not on file documented as of this encounter Miscellaneous Notes * Telephone Encounter - Ingrid Canales - 04/11/2014 1137 EST AUTHORIZED ULTRASOUND-GUIDED CORTICOSTEROID SHOULDER INJECTION (CPT 49194 + 81854 + J1030 OR J1040)PER BALJINDER MORENO OF [email or web address] CLAIMS SERVICE WC CARRIER (D.O.I. 11/01/13), AUTHORIZATION TO BE SCANNED INTO PATIENT'S CHART. documented in this encounter Plan of Treatment Not on file documented as of this encounter Visit Diagnoses Not on filedocumented in this encounter Care Teams Economic Research Analyst Relationship Specialty Start Date End Date Phoenix Polanco MD [address] [place] [phone] PCP - General 12/27/13 documented as of this encounter
--- OUTSIDE RECORDS SUMMARY | 2023-12-23 01:02 | XMS_ITS | Encounter Summary ---
Author Organization [facility] Address [address] [place] [address] Care Team Providers Care Search Engineer Name Role Phone Phoenix Polanco MD Primary Care Provider + Reason for Visit * Reason Comments Shoulder Pain right Encounter Details Date Type Department Care Team (Late st Contact Info) Description 02/02/2015 10:30 EDT Office Visit [facility] Sports Medicine Program - [address] [address] Mor Chanel MD [address] [place] [phone] SLAP (superior labrum from anterior to posterior) tear, right, subsequent encounter (Primary Dx); Right shoulder pain; AC (acromioclavicular) joint arthritis; Glenoid labral tear, right, subsequent encounter Discharge Disposition: Auto Discharge Social History Tobacco [...] - Inhaled Oxygen Concentration - - Weight 88.5 kg (195 lb) 02/02/2015 1120 EDT Height 165.1 cm (5' 5) 02/02/2015 1120 EDT Body Mass Index 32.45 02/02/2015 1120 EDT documented in this encounter Discharge Diagnoses Diagnosis S43.431D Superior glenoid labrum lesion of right shoulder, subsequent encounter-S43.431D[ICD-10-CM] M25.511 Pain in right shoulder-M25.511[ICD-10-CM] M12.9 Arthropathy, unspecified-M12.9[ICD-10-CM] documented in this encounter Discharge Disposition Disposition Code Departure Means Destination Auto Discharge documented in this encounter Progress Notes * Mor Chanel MD - 02/02/2015 1544 EDT [facility] SPORTS MEDICINE PROGRAM PROGRESS / FOLLOWUP NOTE - 02/02/2015 PROCEDURE: Right arthroscopic anterior and posterior labral repairs, arthroscopic distal clavicle excision, mini-open subpectoral biceps tenodesis 06/26/2014. SUBJECTIVE: Ms Granger was seen for scheduled followup and reports that her right shoulder is doing well. She has very low-grade pain. At most, pain is 2/10. She does have some sense of weakness. She is still attending physical therapy on a weekly basis. OBJECTIVE: Active elevation 150 degrees. No Ashwin deformity. Passive external rotation with her arm at the side 60 degrees, internal rotation upper lumbar spine. ASSESSMENT AND PLAN: At this point, Ms Granger seems to be doing well clinically. She will continue physical therapy until she has reached maximal gains. Follow up in 5 months. Mor Chanel MD 11 31 AM - Mor Chanel MD ln Dictation ID: [id number] * Mor Chanel MD - 02/02/2015 1129 EDT This office note has been dictated. documented in this encounter Plan of Treatment Not on file documented as of this encounter Visit Diagnoses Diagnosis SLAP (superior labrum from anterior to posterior) tear, right, subsequent encounter- Primary Right shoulder pain Pain in joint, shoulder region AC (acromioclavicular) joint arthritis Unspecified arthropathy, shoulder region Glenoid labral tear, right, subsequent encounter documented in this encounter Historical Medications * This list may reflect changes made after this encounter. Medication Sig Dispensed Refills Start Date End Date FLUoxetine (PROZAC) 20 mg capsule Take 40 mg by mouth daily. 06/26/2019 added in this encounter Care Teams Search Engineer Relationship Specialty Start Date End Date Phoenix Polanco MD [address] [place] [phone] PCP - General 12/27/13 documented as of this encounter
--- OUTSIDE RECORDS SUMMARY | 2023-12-23 01:02 | XMS_ITS | Encounter Summary ---
Author Organization [facility] Address [address] [place] [address] Care Team Providers Care Optical Instruments Supervisor Name Role Phone Phoenix Polanco MD Primary Care Provider + Reason for Visit * Reason Comments Follow-up right shoulder Encounter Details Date Type Department Care Team (Late st Contact Info) Description 06/30/2015 9:45 EST Office Visit [facility] Sports Medicine Program - [address] [address] Mor Chanel MD [address] [place] [phone] Superior glenoid labrum lesion of right shoulder, subsequent encounter (Primary Dx); AC (acromioclavicular) joint arthritis Discharge Disposition: Auto Discharge Social History Tobacco Use Types Packs/Day Years Used Date Smoking Tobacco: Never Assessed Sex and Gender Information Value Date Recorded Sex Assigned at Female 02/05/2020 13:48 EDT Gender Identity Female 06/26/2019 14:43 EST Sexual Orientation Not on file documented as of this encounter Discharge Diagnoses Diagnosis S43.431D Superior glenoid labrum lesion of right shoulder, subsequent encounter-S43.431D[ICD-10-CM] M19.90 Unspecified osteoarthritis, unspecified site-M19.90[ICD-10-CM] documented in this encounter Discharge Disposition Disposition Code Departure Means Destination Auto Discharge documented in this encounter Progress Notes * Mor Chanel MD - 06/30/2015 1443 EST [facility] SPORTS MEDICINE PROGRAM PROGRESS / FOLLOWUP NOTE - 06/30/2015 PROCEDURE: Right arthroscopic anterior and posterior labral repairs, arthroscopic distal clavicle excision, mini open subpectoral biceps tenodesis, 06/26/2014. SUBJECTIVE: Ms Granger returns for scheduled 1-year followup. She reports that her shoulder is doingwell. She has low-grade pain, but her shoulder feels much better than before surgery. OBJECTIVE: No Ashwin deformity. Active elevation 150 degrees. Active external rotation with her armat the side 50 degrees. Internal rotation to the mid thoracic spine. ASSESSMENT AND PLAN: Nela has done well after surgery. She rates her shoulder at 75% of normal. Her sleep is not affected. She takes Advil and Tylenol intermittently. I believe she is now at medical end. She may resume activities as tolerated. Follow up p.r.n. Mor Chanel MD 10 18 AM - Mor Chanel MD cn Dictation ID: [id number] * Mor Chanel MD - 06/30/2015 1252 EST This office note has been dictated. documented in this encounter Plan of Treatment Not on file documented as of this encounter Visit Diagnoses Diagnosis Superior glenoid labrum lesion of right shoulder, subsequent encounter- Primary AC (acromioclavicular) joint arthritis Unspecified arthropathy, shoulder region documented in this encounter Discontinued Medications Medication Sig Discontinue Reason Start Date End Da te melatonin 2.5 mg tablet,chewableIndicati ons:at bedtime Take 3 mg by mouth daily Patient Stopped Taking 06/30/2015 documented as of this encounter Care Teams Optical Instruments Supervisor Relationship Specialty Start Date End Date Phoenix Polanco MD [address] [place] [phone] PCP - General 12/27/13 documented as of this encounter
--- OUTSIDE RECORDS SUMMARY | 2023-12-23 01:02 | XMS_ITS | Encounter Summary ---
Author Organization [facility] Address [address] [place] [address] Care Team Providers Care Proteomics Scientist Name Role Phone Phoenix Polanco MD Primary Care Provider + Reason for Visit * Reason Comments Shoulder Pain right Encounter Details Date Type Department Care Team (Late st Contact Info) Description 04/07/2014 10:00 EST Office Visit [facility] Sports Medicine Program - [address] [address] Mor Chanel MD [address] [place] [phone] Right shoulder pain (Primary Dx); SLAP (superior labrum from anterior to posterior) tear Discharge Disposition: Auto Discharge Social History Tobacco Use Types Packs/Day Years Used Date Smoking Tobacco: Never Assessed Sex and Gender Information Value Date Recorded Sex Assigned at Female 02/05/2020 13:48 EDT Gender Identity Female 06/26/2019 14:43 EST Sexual Orientation Not on file documented as of this encounter Discharge Diagnoses Diagnosis 719.41 JOINT PAIN-SHLDER[ICD-9-CM] 840.7 SUPERIOR GLENOID LABRUM LESIONS (SLAP)[ICD-9-CM] documented in this encounter Discharge Disposition Disposition Code Departure Means Destination Auto Discharge documented in this encounter Progress Notes * Mor Chanel MD - 04/07/2014 4347 EST This office note has been dictated. documented in this encounter Consult Notes * Mor Chanel MD - 04/07/2014 1430 EST [facility] SPORTS MEDICINE PROGRAM CONSULTATION - 04/07/2014 PROBLEM: Right shoulder pain. HISTORY OF PRESENT ILLNESS: A 43-year-old mainly left-hand dominant female with ongoing right shoulder pain after a work injury. Consultation requested by Eliot Sibley MD. Date of injury 11/01/2013. She was moving, trying to move heavy boxes. She had a traction injury to her right upper extremity. She had instant sharp pain deep in her shoulder and felt a crack. She has had persistent pain from the top of her shoulder, radiating down the front. She had no shoulder problems before the injury. Occasionally, she has pain into her wrist and numbness and tingling in all fingers. She was initially seen at [facility] and followed up with Dr Sibley. Pain is constant and worse with overuse and lifting. She has tried anti-inflammatory medication. She underwent a subacromial injection 01/23/2014 by Eliot Sibley under ultrasound guidance with minimal relief. She underwent a glenohumeral injection on 03/13/2014 by Eliot Sibley with 75 to 80% relief short-term. She has done physical therapy since mid-October. She says that she is healthy. She is working. 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 OBJECTIVE: She was alert and accompanied by her rn case manager hospice. BMI documented in [facility]. Two+ radial pulse on the right. Sensation grossly intact to light touch in her right upper extremity. Formal motor and reflex exam not performed. No visible atrophy, scars, rashes or deformity around her right shoulder. Active elevation 120 degrees right, 150 degrees left. Passive external rotation with arm at the side 50 degrees right, 65 degrees left. Internal rotation T9 right, T7 left. She was tender overthe AC joint. Five/5 strength with Catherine test, 5/5 external rotation strength, negative belly press test, negative lift-off test. Pain deep in the front of the shoulder with Buhler's test. DIAGNOSTIC DATA: Plain radiographs 12/27/2013 do not show any bony abnormalities. She has undergonean MRI at [facility] 11/20/2013 and MRA at [facility] 02/12/2014. MRA was reviewed and does appear to demonstrate a SLAP tear. No high-grade rotator cuff tear. There is mild degenerative change at theAC joint. ASSESSMENT AND PLAN: A 43-year-old female with persistent right deep anterior shoulder pain after atraction injury at work. History, physical examination, imaging studies and results of injection therapy, all consistent with a symptomatic SLAP tear. She may also have pain coming from the AC joint. Nonsurgical and surgical options were discussed. She is leaning toward surgery. Plan would be arthroscopic evaluation and biceps tenotomy versus tenodesis. Distal clavicle excision may also be indicated. She will undergo a preoperative injection into her AC joint by Eliot Sibley under ultrasound guidance with only local anesthetic. If no substantial improvement in symptoms, would not perform distal clavicle excision at the time of surgery. Risks were explained including infection, bleeding, nerve injury, skin numbness, blood clots, medical complications, need for additional surgery, stiffness,arthrosis, tenodesis failure, cosmetic deformity, muscle cramping, incomplete pain relief and incomp lete return of function. Mor Chanel MD 10 44 AM - Mor Chanel MD cn Dictation ID: [id number] documented in this encounter Plan of Treatment Not on file documented as of this encounter Visit Diagnoses Diagnosis Right shoulder pain- Primary Pain in joint, shoulder region SLAP (superior labrum from anterior to posterior) tear Superior glenoid labrum lesion documented in this encounter Care Teams Proteomics Scientist Relationship Specialty Start Date End Date Phoenix Polanco MD [address] [facility] [place] [phone] PCP - General 12/27/13 documented as of this encounter
--- OUTSIDE RECORDS SUMMARY | 2023-12-23 01:02 | XMS_ITS | Encounter Summary ---
Author Organization [facility] Address [address] [place] [address] Care Team Providers Care Online Advertising Manager Name Role Phone Phoenix Polanco MD Primary Care Provider + Reason for Referral * Radiology Services (Routine) - Closed Specialty Diagnoses / Procedures Referred By Janak t Referred To Contact Diagnoses Low back pain, unspecified back pain laterality, unspecified chronicity, with sciatica presence unspecified Procedures L SPINE 4 OR MORE VIEWS Mesfin Pena PA-C [address] [place] [phone] Referral ID Status Reason Start Date Expiration Date Visits Re quested Visits Authorized [id number] Closed 11/04/2015 1 1 Reason for Visit * Reason Onset Date Comments Back Pain 11/02/2015 Encounter Details Date Type Department Care Team (Late st Contact Info) Description 11/02/2015 Orders Only [facility] Spine Program [place] [address] Mesfin Pena PA-C [address] [place] [phone] Low back pain, unspecified back pain laterality, unspecified chronicity, with sciatica presence unspecified (Primary Dx) Social History Tobacco Use Types Packs/Day Years Used Date Smoking Tobacco: Never Assessed Sex and Gender Information Value Date Recorded Sex Assigned at Female 02/05/2020 13:48 EDT Gender Identity Female 06/26/2019 14:43 EST Sexual Orientation Not on file documented as of this encounter Plan of Treatment Not on file documented as of this encounter Procedures Procedure Name Priority Date/Time Associated Diagnosis Comments L SPINE 4 OR MORE VIEWS Routine 11/05/2015 10:11 EDT Low back pain, unspecified back pain laterality, unspecified chronicity, with sciatica presence unspecified documented in this encounter Results * L SPINE 4 OR MORE VIEWS (11/05/2015 10:11 EDT) Anatomical Region Laterality Modality Other 11/05/2015 10:1 1 EDT 11/05/2015 16:26 EDT Narrative 11/05/2015 16:26 EDT L SPINE 4 OR MORE VIEWS ??11/05/2015 10:11 AM Clinical History/Comments: M54.5-Low back pain-ICD-10; low back pain. Comparison: Lumbar spine MRI October 04, 2015. Technique: AP and lateral flexion, neutral and extension views of the lumbar spine were obtained. Findings: There is minimal lumbar dextroscoliotic curvature with the apex of the curve at the L4-L5 level. No eduar or retrolisthesis is demonstrated on flexion, neutral or extension films. Vertebral body heights are preserved. There is mild disc space narrowing at L2-L3, L3-L4 and L4-L5 consistent with disc degeneration. Diffuse lumbar facet hypertrophy is noted. Procedure Note Bernice Carbone MD - 11/05/2015 L SPINE 4 OR MORE VIEWS 11/05/2015 10:11 AM Clinical History/Comments: M54.5-Low back pain-ICD-10; low back pain. Comparison: Lumbar spine MRI October 04, 2015. Technique: AP and lateral flexion, neutral and extension views of the lumbar spine were obtained. Findings: There is minimal lumbar dextroscoliotic curvature with the apex of the curve at the L4-L5 level. No eduar or retrolisthesis is demonstrated on flexion, neutral or extension films. Vertebral body heights are preserved. There is mild disc space narrowing at L2-L3, L3-L4 and L4-L5 consistent with disc degeneration. Diffuse lumbar facet hypertrophy is noted. [facility] ORDER[facility]LES documented in this encounter Visit Diagnoses Diagnosis Low back pain, unspecified back pain laterality, unspecified chronicity, with sciatica presence unspecified- Primary documented in this encounter Care Teams Online Advertising Manager Relationship Specialty Start Date End Date Phoenix Polanco MD [address] [place] [phone] PCP - General 12/27/13 documented as of this encounter
--- OUTSIDE RECORDS SUMMARY | 2023-12-23 01:02 | XMS_ITS | Encounter Summary ---
Author Organization [facility] Address [address] [place] [address] Care Team Providers Care Attending Physician Name Role Phone Phoenix Polanco MD Primary Care Provider + Reason for Visit * Reason Comments Shoulder Pain right Encounter Details Date Type Department Care Team (Late st Contact Info) Description 05/08/2014 13:00 EST Office Visit [facility] Sports Medicine Program - [address] [address] Eliot Sibley MD [address] [place] [phone] Right shoulder pain (Primary Dx) Discharge Disposition: Auto Discharge Social History Tobacco Use Types Packs/Day Years Used Date Smoking Tobacco: Never Assessed Sex and Gender Information Value Date Recorded Sex Assigned at Female 02/05/2020 13:48 EDT Gender Identity Female 06/26/2019 14:43 EST Sexual Orientation Not on file documented as of this encounter Discharge Diagnoses Diagnosis 719.41 JOINT PAIN-SHLDER[ICD-9-CM] documented in this encounter Discharge Disposition Disposition Code Departure Means Destination Auto Discharge documented in this encounter Progress Notes * Eliot Sibley MD - 05/08/2014 8494 EST Chief Complaint Patient presents with ??? Shoulder Pain right SUBJECTIVE: Nela Granger is a 44 y.o. female who present for a ultrasound guided injection into her right AC joint with local anesthetic only. Patient has a diagnosis of right shoulder pain. She is scheduledfor surgery for a SLAP repair. 5 out of 10 pain. Risks, benefits and alternatives were discussed with the patient and consent was obtained. The final Verification/time out immediately prior to incision/procedure has been conducted by me and membersof the procedural team as appropriate to their involvement in the procedure. The patient???s identity, procedure, and when applicable the: side/site, patient position, availability of implants and any special equipment or special requirements was verbally confirmed prior to the procedure PROCEDURE NOTE: Right shoulder AC joint injection using musculoskeletal ultrasound After verbal consent given, area of superior aspect of shoulder was palpated and landmarks were noted, prepped with isopropyl alcohol. Under sterile conditions, AC joint was infused with 1 cc 2% lidocaine and 1 cc 0.5% marcaine without resistance. The needle tip was noted in the joint space. The joint capsule was noted to distend during injection. Cleansed with isopropyl alcohol and bandaged. The patient tolerated the procedure well. After care was reviewed including icing, use of NSAIDs prn and activity modification. Will follow up with Dr. Bossman Chanel. I discussed all of the above verbally with patient, no barriers to understanding. The patient indicated understanding and agrees to the above plan. Eliot Sibley M.D. 05/08/2014 13:55 * Lisseth Anguiano - 05/08/2014 1800 EST I. Patient is here for intraarticular injection-Lidocaine 2% 1. Med given in right Shoulder by intraarticular route. 2. Med lot number: [id number] 3. Exp date: 07/24/15 Total dosage in vial: 20ml Total dosage administered: 1ml Total dosage of waste: multi dose I. Patient is here for intraarticular injection-sensorcaine .5% 1. Med given in right shoulder by intraarticular route. 2. Med lot number: [id number] 3. Exp date: 05/25/15 Total dosage in vial: 10ml Total dosage administered: 1ml Total dosage of waste: 9ml documented in this encounter Plan of Treatment Not on file documented as of this encounter Visit Diagnoses Diagnosis Right shoulder pain- Primary Pain in joint, shoulder region documented in this encounter Care Teams Attending Physician Relationship Specialty Start Date End Date Phoenix Polanco MD [address] [place] [phone] PCP - General 12/27/13 documented as of this encounter
--- OUTSIDE RECORDS SUMMARY | 2023-12-23 01:02 | XMS_ITS | Encounter Summary ---
Author Organization [facility] Address [address] [place] [address] Care Team Providers Care Supervisor Sign Shop Name Role Phone Phoenix Polanco MD Primary Care Provider + Reason for Visit * Reason Comments Procedure Preop for right shou lder arthroscopy/DCE/mini open biceps tenodesis 06/26/14 Encounter Details Date Type Department Care Team (Late st Contact Info) Description 06/10/2014 Pre-Procedure Orders Encounter [facility] Sports Medicine Program - [address] [place], [place] [id number] Stacey Amaral, CREDIT PORTFOLIO ADVISOR [address] [place] [address] Superior glenoid labrum lesion (Primary Dx) Social History Tobacco Use Types Packs/Day Years Used Date Smoking Tobacco: Never Assessed Sex and Gender Information Value Date Recorded Sex Assigned at Female 02/05/2020 13:48 EDT Gender Identity Female 06/26/2019 14:43 EST Sexual Orientation Not on file documented as of this encounter Plan of Treatment Not on file documented as of this encounter Visit Diagnoses Diagnosis Superior glenoid labrum lesion- Primary documented in this encounter Care Teams Supervisor Sign Shop Relationship Specialty Start Date End Date Phoenix Polanco MD [address] [place] [phone] PCP - General 12/27/13 documented as of this encounter
--- OUTSIDE RECORDS SUMMARY | 2023-12-23 01:02 | XMS_ITS | Encounter Summary ---
Author Organization [facility] Address [address] [place] [address] Care Team Providers Care Salesperson Burial Needs Name Role Phone Phoenix Polanco MD Primary Care Provider + Reason for Visit * Reason Comments Shoulder Pain right Encounter Details Date Type Department Care Team (Latest Contact Info) Description 12/27/2013 10:45 EDT Office Visit [facility] Sports Medicine Program - [address] [address] Eliot Sibley MD [address] [place] [phone] Impingement syndrome of right shoulder (Primary Dx); Rotator cuff tendinitis; Arthralgia of acromioclavicular joint Social History Tobacco Use Types Packs/Day Years [...] - - Weight 90.7 kg (200 lb) 12/27/2013 1130 EDT Height 165.1 cm (5' 5) 12/27/2013 1130 EDT Body Mass Index 33.28 12/27/2013 1130 EDT documented in this encounter Progress Notes * Eliot Sibley MD - 12/27/2013 1141 EDT Chief Complaint Patient presents with ??? Shoulder Pain right Nela Granger is seen in consultation at the request of Donell Worrell MD for evaluation of right shoulder pain. SUBJECTIVE: Nela Granger is a 43 y.o. ambidextrous female who presents to the office with an 8 week historyof sudden onset right shoulder pain. Started at work. This is a workers compensation injury. DOI 11/01/13. She was pulling a box of copier paper along the ground out from under a counter and the handle gave way and she felt a pop in the shoulder. No prior shoulder issues. She had worsening pain over the course of several days. She declared the injury and went to [facility]. She started PT and then was switched to [facility]. We have progress notes from her PT. She had an MRI at [facility]. She has pain over the lateral shoulder, posterior shoulder, top of shoulder. Her pain goes down thearm and into the forearm. She describes the pain as aching. More pain with lifting and reaching. She has been using advil, ice and meloxicam. She continues to work. SANE score is 30%. Past Medical History Diagnosis Date ??? Anemia Past Surgical History Procedure Laterality Date ??? Gastric bypass surgery 10/06/2000 ??? Cholecystectomy, open 10/06/2000 ??? Liver biopsy 10/06/2000 Current Outpatient Prescriptions Medication Sig Dispense Refill ??? acetaminophen (TYLENOL) 500 mg tablet Take 1,000 mg by mouth as needed for Pain. ??? ACETAMINOPHEN WITH CODEINE (TYLENOL-CODEINE #3 ORAL) Take by mouth daily. ??? cyclobenzaprine (FLEXERIL) 10 mg tablet Take 10 mg by mouth daily. ??? ibuprofen (MOTRIN) 200 mg tablet Take 400 mg by mouth as needed for Pain. ??? MELOXICAM (MOBIC ORAL) Take by mouth 2 times daily. No current facility-administered medications for this visit. 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 OBJECTIVE: Ht 165.1 cm (65) Wt 90.719 kg (200 lb) BMI 33.28 kg/m2 General: awake, alert, NAD, pleasant EENT: extraocular motion grossly intact Pulmonary: normal respirations, non-labored breathing Psych: normal affect, thoughts are logical and sequential Examination of right shoulder: Inspection: no ecchymosis, no erythema, no deformity, no atrophy, no scars noted. Palpation: there is nonspecific tenderness to the supraspinatus insertion, AC joint, posterior shoulder Range of motion: Actively: 90 degrees forward elevation. 90 degrees abduction. 60 degrees ER at 0 degrees abduction, 80 degrees ER at 90 degrees abduction, IR to T9 vs T7 Passively: 90 degrees elevation and 90 degrees abduction. She appears to be willingly resisting passive motion Strength testin/5 motor in empty can/scaption with tenderness, 5/5 motor in resisted external rotation. 5/5 motor on subscapular lift off test. Impingement testing: positive Navarro Special tests: No increased anterior or posterior translation on load shift testing. neg sulcus sign. Distal neurovascular exam intact. DIAGNOSTIC DATA: Plain films taken today and independently reviewed by me including true AP, axillary and outlet views of right shoulder reveal no bony abnormalities. MRI of the right shoulder was independently reviewed. No full thickness rotator cuff tears. There is mild subaromial bursitis and hypertrophic ac arthropathy. Mild subscapularis tendinosis. ASSESSMENT: Complex work related right shoulder pain. The pain is much greater than the findings on MRI and theinjury mechanism. My sense is this is a chronic pain concern with myofascial pain. Musculogenic in nature. I don't sense a nerve injury. She does have findings on MRI including bursitis and AC joint arthropathy that could account for pain but it would be unlikely to have this much pain that lasted for this long. I can't seem to tie her history, injury and exam together. She did seem to guard and resist some of the exam willingly. PLAN: We discussed her pain level, injury, possibly diagnosis and next steps for treatment. She will continue with PT at the [facility]. I would like to start with selective injections to the shoulder with US guidance. We will start with injection to subacromial bursa. If this is not helpful, we will try an AC joint injection. If thisdoes not help, would recommend she seek alternative treatments for myofascial pain or be referred to pain clinic by her PCP. The patient verbalized understanding of the above and agreed with this plan. All of her questions were answered to her satisfaction today. 40 minutes of face to face time was spent with the patient, 25 minutes were spent on counseling andcoordination of care of the patient's right shoulder pain. I would like to thank Donell Worrell MD for this kind referral. I will keep you up to date on Nela Granger's progress. Eliot Sibley M.D. 12/27/2013 12:36 Cc: Phoenix Polanco MD documented in this encounter Plan of Treatment Pending Results Name Type Priority Associated Diagnoses Date /Time OUTSIDE CD - MRI [facility] 08/2013 11:53 EDT documented as of this encounter Visit Diagnoses Diagnosis Impingement syndrome of right shoulder- Primary Other affections of shoulder region, not elsewhere classified Rotator cuff tendinitis Disorders of bursae and tendons in shoulder region, unspecified Arthralgia of acromioclavicular joint Pain in joint, shoulder region documented in this encounter Historical Medications * This list may reflect changes made after this encounter. Medication Sig Dispensed Refills Start Date End Date acetaminophen (TYLENOL) 500 mg tablet Take 1,300 mg by mouth 3 times daily as needed for Pain. ibuprofen (MOTRIN) 200 mg tablet Take 400 mg by mouth as needed for Pain. 06/26/2014 cyclobenzaprine (FLEXERIL) 10 mg tablet Take 10 mg by mouth as needed. 03/06/2019 ACETAMINOPHEN WITH CODEINE (TYLENOL-CODEINE #3 ORAL) Take by mouth daily. 015 MELOXICAM (MOBIC ORAL) Take by mouth 2 times daily. 01/15/2016 added in this encounter Care Teams Salesperson Burial Needs Relationship Specialty Start Date End Date Phoenix Polanco MD [address] [place] [address] [place] [phone] PCP - General 12/27/13 documented as of this encounter
--- OUTSIDE RECORDS SUMMARY | 2023-12-23 01:02 | XMS_ITS | Encounter Summary ---
Author Organization [facility] Address [address] [place] [address] Care Team Providers Care Support Merchandiser Name Role Phone Gabo Mckinley MD Primary Care Provider [phone] Phoenix Polanco MD Primary Care Provider + Reason for Referral * Radiology Services (Routine) - Closed Specialty Diagnoses / Procedures [facility] To Contact Diagnoses Shoulder pain Procedures SHOULDER 2 OR MORE VIEWS Eliot Sibley MD [address] [place] [phone] Referral ID Status Reason Start Date Expiration Date Visits Re quested Visits Authorized [id number] Closed 12/26/2013 1 1 Reason for Visit * Reason Onset Date Comments Shoulder Pain 12/25/2013 right Encounter Details Date Type Department Care Team (Late st Contact Info) Description 12/25/2013 Orders Only [facility] Sports Medicine Program - [address] [place] [address] Eliot Sibley MD [address] [place] [phone] Shoulder pain (Primary Dx) Social History Tobacco Use [...] Procedure Name Priority Date/Time Associated Diagnosis Comments SHOULDER 2 OR MORE VIEWS Routine 12/27/2013 11:10 EDT Shoulder pain documented in this encounter Results * SHOULDER 2 OR MORE VIEWS (12/27/2013 11:10 EDT) Anatomical Region Laterality Modality Other 12/27/2013 11:1 0 EDT 01/01/2014 10:59 EDT Narrative 01/01/2014 10:59 EDT SHOULDER 2 OR MORE VIEW ??12/27/2013 11:10 AM Signs and Symptoms/Comments: ?? 719.41-Pain in joint, shoulder [id number]-[id number]; right shoulder pain Comparison: None. Findings: Grashey, transscapular, and axillary views of the right shoulder show no evidence of acute fracture or dislocation, the humeral head appears well positioned with respect to the glenoid. The acromioclavicular joint appears congruent as well. No significant degenerative changes are seen. Mineralization is age appropriate. Soft tissues are grossly unremarkable. Procedure Note 01/01/2014 SHOULDER 2 OR MORE VIEW 12/27/2013 11:10 AM Signs and Symptoms/Comments: 719.41-Pain in joint, shoulder [id number]; right shoulder pain Comparison: None. Findings: Grashey, transscapular, and axillary views of the right shoulder show no evidence of acute fracture or dislocation, the humeral head appears well positioned with respect to the glenoid. The acromioclavicular joint appears congruent as well. No significant degenerative changes are seen. Mineralization is age appropriate. Soft tissues are grossly unremarkable. Eliot Sibley MD [facility] DI[facility]NO[facility] ORDERABLES documented in this encounter Visit Diagnoses Diagnosis Shoulder pain- Primary Pain in joint, shoulder region documented in this encounter Care Teams Support Merchandiser Relationship Specialty Start Date End Date Gabo Mckinley MD PCP - General 9/4/14 9/4/14 Phoenix Polanco MD [address] [place] [phone] PCP - General 12/27/13 documented as of this encounter
--- OUTSIDE RECORDS SUMMARY | 2023-12-23 01:02 | XMS_ITS | Encounter Summary ---
Author Organization [facility] Address [address] [place] [address] Care Team Providers Care Lead Bi Developer Name Role Phone Phoenix Polanco MD Primary Care Provider + Encounter Details Date Type Department Care Team (Latest Contact Info) Description 10/04/2015 14:20 EDT - 10/04/2015 23:59 EDT Hospital Encounter [facility] [address] [place] [address] Phoenix Polanco MD [address] [place] [phone] Discharge Disposition: Home or Self Care Social History Tobacco Use Types Packs/Day Years Used Date Smoking Tobacco: Never Assessed Sex and Gender Information Value Date Recorded Sex Assigned at Female 02/05/2020 13:48 EDT Gender Identity Female 06/26/2019 14:43 EST Sexual Orientation Not on file documented as of this encounter Discharge Diagnoses Diagnosis Z01.89 Encounter for other specified special examinations-Z01.89[ICD-10-CM] documented in this encounter Medications at Time of Discharge Medication Sig Dispensed Refills Start Date End Date acetaminophen (TYLENOL) 500 mg tablet Take 1,300 mg by mouth 3 times daily as needed for Pain. cyclobenzaprine (FLEXERIL) 10 mg tablet Take 10 mg by mouth as needed. 03/06/2019 docusate sodium (COLACE) 100 mg capsule Take 1-2 Caps by mouth 2 times daily For constipation 20 Cap 1 06/26/2014 01/15/2016 FLUoxetine (PROZAC) 20 mg capsule Take 40 mg by mouth daily. 06/26/2019 hydrOXYzine (VISTARIL) 50 mg capsule Take 50 mg by mouth daily 03/06/2019 ibuprofen (MOTRIN) 200 mg tablet Take 200 mg by mouth every 6 hours as needed. 06/26/2019 MELOXICAM (MOBIC ORAL) Take by mouth 2 times daily. 01/15/2016 ondansetron (ZOFRAN-ODT) 4 mg disintegrating tablet Take 1 Tab by mouth every 8 hours as needed for Nausea 15 Tab 1 06/26/2014 01/15/2016 oxyCODONE (ROXICODONE) 5 mg immediate release tablet Take 1-2 Tabs by mouth every 4 hours as needed for Pain Earliest Fill Date: 07/21/14 Daily Max: 60 mg 20 Tab 0 07/21/2014 01/15/2016 documented as of this encounter Discharge Disposition Disposition Code Departure Means Destination Home or Self Long-Term documented in this encounter Plan of Treatment Not on file documented as of this encounter Visit Diagnoses Not on filedocumented in this encounter Care Teams Lead Bi Developer Relationship Specialty Start Date End Date Phoenix Polanco MD [address] [place] [address] [place] [phone] PCP - General 12/27/13 documented as of this encounter
--- OUTSIDE RECORDS SUMMARY | 2023-12-23 01:02 | XMS_ITS | Encounter Summary ---
Author Organization [facility] Address [address] [place] [address] Care Team Providers Care Office Professionals Name Role Phone Unavailable Primary Care Provider Unavailabl e Encounter Details Date Type Department Care Team (Late st Contact Info) Description 01/25/2010 Results Only [facility] - [facility] [place] [place] [address] [place], [place] [phone] Kaia Eng MD [address] [place], [place] [phone] Social History Tobacco Use Types Packs/Day Years Used Date Smoking Tobacco: Never Assessed Sex and Gender Information Value Date Recorded Sex Assigned at Female 02/05/2020 13:48 EDT Gender Identity Female 06/26/2019 14:43 EST Sexual Orientation Not on file documented as of this encounter Plan of Treatment Not on file documented as of this encounter Procedures Procedure Name Priority Date/Time Associated Diagnosis Comments CYTOPATHOLOGY Routine 01/25/2010 0:00 EDT documented in this encounter Results * CYTOPATHOLOGY (01/25/2010 0:00 EDT) Pathology Report: CYTOPATHOLOGY REPORT ? Reports generated via electronic interface contain original data; ? however they are lacking the format of the original report. ? Caution should be taken when reading/interpreti ng unformatted reports. ? Name: ? NELA GRANGER ? Accession #: ? [id number] ? : ? 1970 (Age: 39) ??F ?Collect Date: ? 01/25/2010 ? Location: ? [facility] ? Receive Date: ? 01/27/2010 ? Provider: KAIA KATIE MD ? Copy to: ? Final Report ? SPECIMEN ADEQUACY ? Satisfactory for Evaluation ? - transformation zone component present ? GENERAL CATEGORIZATION ? Negative for Intraepithelial Lesion or Malignancy ? INTERPRETATION ? Reactive cellular changes associated with inflammation present (includes ?? repair). ? Last Menstural Period: 01/10/2010 ? Other: Additional clinical information: all WNL ? HPVDX - HPV testing requested regardless of diagnosis on current ThinPrep Pap ?? test. ? Specimen/Source: ??Pap Test, Cervix, ThinPrep Imaging System with manual ? evaluation ? Document reviewed and electronically signed by: ? PRESTON SEXTON MD [facility] ? Report ??Date: 02/02/2010 17:57 ? HPV with Pap Test ? Date Ordered: ? 02/02/2010 ? Status: ?? Signed Out ?Date Complete: ? 02/08/2010 ? By: ??System Interface ? Date Reported: ? 02/08/2010 ? Interpretation ? RESULT: Negative for HPV types 16, 18, 31, 33, 35, 39, 45, 51, 52, ? 56, 58, 59, and 68. ? Comments ? Document reviewed and electronically signed by: ? System Interface ? Report date: 02/08/2010 ? By the signature above, the attending physician certifies that he/she has ? personally conducted a gross and/or microscopic examination of the described ? specimens and rendered or confirmed the above diagnosis. ? End of Report ? PAUL KUMAR 01/25/2010 01/27/2010 Kaia Eng MD PATHOLOGY ORDERABL ES [facility] [address] [place] [address] documented in this encounter Visit Diagnoses Not on filedocumented in this encounter
--- OUTSIDE RECORDS SUMMARY | 2023-12-23 01:02 | XMS_ITS | Encounter Summary ---
Author Organization [facility] Address [address] [place] [address] Care Team Providers Care Photogrammetric Engineer Name Role Phone Phoenix Polanco MD Primary Care Provider + Reason for Visit * Reason Comments Back Pain lumbar L4-L5 L5-S1 B /L facet f/u Encounter Details Date Type Department Care Team (Late st Contact Info) Description 01/29/2016 14:[address] [facility] Spine Program - [address] [place] [address] Mesfin Pena PA-C [address] [place] [address] [place] [phone] Low back pain radiating to [...] Progress Notes * Mesfin Pena PA - 01/29/2016 1415 EDT Nela Granger is being seen as a consultation from Dr. Polanco. Chief Complaint Patient presents with ??? Back Pain lumbar L4-L5 L5-S1 B/L facet f/u The encounter diagnosis was Low back pain radiating to right leg. HPI Ms. Granger is a 45 y.o. pleasant female who returns to the clinic today, 01/29/2016, for FU post L4-L5/L5-S1 B/L facet injections (01/15/2016). The patient reports 70% ongoing relief of symptoms after the injections. She is very please with the outcome. Ms. Granger presented to the clinic for [...] symptoms. She rates her pain as 1/10. HPI Patient Active Problem List Diagnosis ??? Anemia ??? Right shoulder pain ??? SLAP (superior labrum from anterior to posterior) tear ??? Superior glenoid labrum lesion ??? AC (acromioclavicular) joint arthritis ??? Glenoid labral tear ??? Low back pain radiating to right leg Past Medical History Diagnosis Date ??? Anemia ??? Anxiety ??? Arm pain ??? Arm weakness ??? Arthritis ??? Depression ??? Joint stiffness ??? Night sweats ??? Numbness ??? Substance abuse Past Surgical History Procedure Laterality Date ??? Gastric bypass surgery 10/06/2000 ??? Cholecystectomy, open 10/06/2000 ??? Liver biopsy 10/06/2000 ??? Shoulder surgery right shoulder arthroscopic posterior labral repair, anterior inferior labral repair, biceps tenotomy, distal clavicle excision, and mini open subpectoral biceps tenodesis on 06-26-14 ??? Tubal ligation ??? Breast surgery biopsy Social History Substance Use Topics ??? Smoking [...] Systems Physical Exam Ortho Exam Neurologic Exam Today, 01/29/2016, I independently reviewed the following: Plain radiographs (AP/Lat/Flex/Ex): 1. Five (5) non-rib bearing lumbar vertebrae 2. Facet arthropathy of the lower lumbar spine 3. Disc height reduction at L4-L5/L5-S1 conistent with degenerative disc disease 4. No fractures or pars defects noted ?? MRI from prior work up in September [...] hypertrophy produce mild bilateral neural foraminal narrowing. ?? Assessment 45 y.o. female with LBP most likely from degenerative disc and facet disease and RLE pain along theL5 dermatome and paresthesias along the medial aspect of her lower leg specifically at pens anserinus; MRI not clearly concordant with RLE symptoms. Recent lumbar facet injections provided 70% ongoing relief of symptoms. She has agreed to the following plan. No orders of the defined types were placed in this encounter. Plan: 1. Continue activity as tolerated 2. Return to clinic PRN - if symptoms return to pre-injections status, repeat B/L L4-L5/L5-S1 facetinjections CC: Dr. Sherri Sibley was the attending physician available in the clinic today if needed. A consultation was not required. documented in this encounter Plan of Treatment Not on file documented as of this encounter Visit Diagnoses Diagnosis Low back pain radiating to right leg- Primary Lumbago documented in this encounter Care Teams Photogrammetric Engineer Relationship Specialty Start Date End Date Phoenix Polanco MD [address] [facility] [place] [phone] PCP - General 12/27/13 documented as of this encounter
--- OUTSIDE RECORDS SUMMARY | 2023-12-23 01:02 | XMS_ITS | Encounter Summary ---
Author Organization [facility] Address [address] [place] [address] Care Team Providers Care Furnace Brazer Name Role Phone Phoenix Polanco MD Primary Care Provider + Reason for Visit * Reason Comments Post-OP Follow Up Encounter Details Date Type Department Care Team (Late st Contact Info) Description 06/30/2014 11:30 EDT Post-op Visit [facility] Sports Medicine Program - [address] [address] Mor Chanel MD [address] [place] [phone] SLAP (superior labrum from anterior to posterior) tear (Primary Dx); Right shoulder pain; AC (acromioclavicular) joint arthritis; Glenoid labral tear Social History Tobacco Use Types Packs/Day Years Used Date Smoking Tobacco: Never Assessed Sex and Gender Information Value Date Recorded Sex Assigned at Female 02/05/2020 13:48 EDT Gender Identity Female 06/26/2019 14:43 EST Sexual Orientation Not on file documented as of this encounter Ordered Prescriptions Prescription Sig Dispensed Refills Start Date End Da te oxyCODONE (ROXICODONE) 5 mg immediate release tablet Take 1-2 Tabs by mouth every 4 hours as needed for Pain Earliest Fill Date: 06/30/14 Daily Max: 60 mg 40 Tab 0 06/30/2014 07/21/2014 documented in this encounter Progress Notes * Mor Chanel MD - 06/30/2014 1243 EDT [facility] SPORTS MEDICINE PROGRAM PROGRESS / FOLLOWUP NOTE - 06/30/2014 PROCEDURE: Right arthroscopic anterior and posterior labral repairs, distal clavicle excision, miniopen subpectoral biceps tenodesis, 06/26/2014. SUBJECTIVE: Ms Granger was seen for scheduled postoperative followup in PT clinic. No unexpected postoperative problems reported. OBJECTIVE: Portal sites and axillary incision clean, dry and intact. Sensation intact to light touch in the distribution of the axillary nerve. ASSESSMENT: Satisfactory postoperative course. PLAN: Begin physical therapy per protocol. Follow up in 6 to 8 weeks. Mor Chanel MD 12 10 PM - Mor Chanel MD mn Dictation ID: [id number] * Mor Chanel MD - 06/30/2014 1205 EDT This office note has been dictated. documented in this encounter Plan of Treatment Not on file documented as of this encounter Visit Diagnoses Diagnosis SLAP (superior labrum from anterior to posterior) tear- Primary Superior glenoid labrum lesion Right shoulder pain Pain in joint, shoulder region AC (acromioclavicular) joint arthritis Unspecified arthropathy, shoulder region Glenoid labral tear Sprain and strain of other specified sites of shoulder and upper arm documented in this encounter Discontinued Medications Medication Sig Discontinue Reason Start Date End Da te oxyCODONE (ROXICODONE) 5 mg immediate release tablet Take 1-3 Tabs by mouth every 4 hours as needed for Pain Daily Max: 90 mg Reorder 06/26/2014 06/30/2014 documented as of this encounter Care Teams Furnace Brazer Relationship Specialty Start Date End Date Phoenix Polanco MD [address] [place] [address] [place] [phone] PCP - General 12/27/13 documented as of this encounter
--- OUTSIDE RECORDS SUMMARY | 2023-12-23 01:02 | XMS_ITS | Encounter Summary ---
Author Organization [facility] Address [address] [place] [address] Care Team Providers Care Screen Machine Operator Name Role Phone Phoenix Polanco MD Primary Care Provider + Reason for Referral * Consult (Routine/Next Available) - Specialty Report Received Specialty Diagnoses / Procedures Referred By Janak miguel Referred To Contact Pain Medicine Diagnoses Low back pain radiating to right leg Mesfin Pena PA-C [address] [place] [phone] [facility] [address] [place] [address] Referral ID Status Reason Start Date Expiration Date Visits Requested Visits Authorized [id number] Specialty Report Received Specialty Services Required 11/05/2015 1 1 Question Answer Reason for Request: Low back pain radiating to right leg Comments Recommend B/L L4-L5/L5-S1 facet injections Reason for Visit * Reason Comments Back Pain Encounter Details Date Type Department Care Team (Late st Contact Info) Description 11/05/2015 10:00 EDT Office Visit [facility] Spine Program - [address] [facility] [place] [address] Mesfin Pena PA-C [address] [place] [phone] Low back pain radiating to right leg [...] - Inhaled Oxygen Concentration - - Weight 74.8 kg (165 lb) 11/05/2015 1012 EDT Height 165.1 cm (5' 5) 11/05/2015 1012 EDT Body Mass Index 27.46 11/05/2015 1012 EDT documented in this encounter Discharge Diagnoses Diagnosis M54.5 Low back pain-M54.5[ICD-10-CM] documented in this encounter Progress Notes * Paul Saleem - 11/05/2015 1401 EDT Instructions/education provided to patient both verbally and in writing here in the office for upcoming injection. * Mesfin Pena PA - 11/05/2015 1019 EDT Nela Granger is being seen as a consultation from Dr. Polanco. Chief Complaint Patient presents with ??? Back Pain The encounter diagnosis was Low back pain radiating to right leg. HPI Ms. Granger is a 45 y.o. pleasant female who presents to the clinic today with 80% LBP and 20% RLE pain affecting the lateral aspect of her thigh; there is also continuous numbness in the medial aspect of her right knee. The patient reports acute onset of symptoms that started in December 2014. Shecannot recall any precipitating event. Symptoms subsided within [...] Medical History Diagnosis Date ??? Anemia ??? Night sweats ??? Arm pain ??? Numbness ??? Joint stiffness ??? Arm weakness Past Surgical History Procedure Laterality Date ??? Gastric bypass surgery 10/06/2000 ??? Cholecystectomy, open 10/06/2000 ??? Liver biopsy 10/06/2000 ??? Shoulder surgery right shoulder arthroscopic posterior labral repair, anterior inferior labral repair, biceps tenotomy, distal clavicle excision, and mini open subpectoral biceps tenodesis on 06-26-14 ??? Tubal ligation History Substance Use Topics ??? Smoking status: Current Every Day Smoker -- 0.50 packs/day for 20 years ??? Smokeless tobacco: Not on file ??? Alcohol Use: No Family History Problem Relation Age of Onset ??? Cancer Maternal Aunt ??? Cancer Maternal Grandmother Current Outpatient Prescriptions Medication Sig Dispense Refill ??? acetaminophen (TYLENOL) 500 mg tablet Take 1,000 mg by mouth as needed for Pain. ??? cyclobenzaprine (FLEXERIL) 10 mg tablet Take 10 mg by mouth as needed. ??? docusate sodium (COLACE) 100 mg capsule Take 1-2 Caps by mouth 2 times daily For constipation 20 Cap 1 ??? FLUoxetine (PROZAC) 20 mg capsule Take 40 mg by mouth daily. ??? hydrOXYzine (VISTARIL) 50 mg capsule Take 50 mg by mouth daily ??? ibuprofen (MOTRIN) 200 mg tablet Take 200 mg by mouth every 6 hours as needed. ??? MELOXICAM (MOBIC ORAL) Take by mouth 2 times daily. ??? ondansetron (ZOFRAN-ODT) 4 mg disintegrating tablet Take 1 Tab by mouth every 8 hours as neededfor Nausea 15 Tab 1 ??? oxyCODONE (ROXICODONE) 5 mg immediate release tablet Take 1-2 Tabs by mouth every 4 hours as needed for Pain Earliest Fill Date: 07/21/14 Daily Max: 60 mg 20 Tab 0 No current facility-administered medications for this visit. No Known Allergies Review of Systems Constitutional: Negative for activity change and unexpected weight change. Eyes: Negative for visual disturbance. Respiratory: Negative for chest tightness. Cardiovascular: Negative for chest pain. Gastrointestinal: Negative for constipation. Genitourinary: Negative for difficulty urinating. Musculoskeletal: Positive for back pain. Negative for neck pain. Skin: Negative for rash. Neurological: Positive for numbness. Psychiatric/Behavioral: Negative for behavioral problems and agitation. Physical Exam Constitutional: She is oriented to person, place, and time. She appears well- developed and well-nourished. HENT: Head: Normocephalic and atraumatic. Eyes: EOM are normal. Cardiovascular: Normal rate. Pulmonary/Chest: Effort normal. Neurological: She is alert and oriented to person, place, and time. Skin: Skin is warm and dry. No rash noted. Psychiatric: She has a normal mood and affect. Her behavior is normal. Back Exam Comments: GAIT: Normal. HEEL & TOE WALKING: NEG. LESIONS, RASHES OR HAIR JIMENA: NEG. FROM: TENDERNESS ON PALPATION: NEG. STRENGTH: 5/5 REFLEXES: Patellar 1/4 B/L; Achilles 1/4 B/L. BABINSKI: Down. CLONUS: NEG. DP: 2/2. SENSATION: Intact. SLR RIGHT: NEG. LEFT: NEG. HIP ROM: Full. NIKKI'S: NEG. Neurologic Exam Mental Status Oriented to person, place, and time. Cranial Nerves CN III, IV, Extraocular motions are normal. Today, 11/05/2015, I ordered plain radiographs and I independently reviewed the following: Plain radiographs (AP/Lat/Flex/Ex): 1. Five (5) non-rib bearing lumbar vertebrae 2. Facet arthropathy of the lower lumbar spine 3. Disc height reduction at L4-L5/L5-S1 conistent with degenerative disc disease 4. No fractures or pars defects noted MRI from prior work up in September [...] hypertrophy produce mild bilateral neural foraminal narrowing. Assessment 45 y.o. female with LBP most likely from degenerative disc and facet disease and RLE pain along theL5 dermatome and paresthesias along the medial aspect of her lower leg specifically at pens anserinus; MRI not clearly concordant with RLE symptoms. She has agreed to the following plan. Other Orders Placed This Visit Procedures ??? Amb Pain Procedure Plan: 1. Order L4-L5/L5-S1 B/L facet injections 2. Continue activity as tolerated 3. Return to clinic post facet injections 4. If no relief from facet injections, consider SPECT CT CC: Dr. Sherri Cooper was the attending physician available in the clinic today if needed. A consultation was not required. documented in this encounter Plan of Treatment Scheduled Referrals Name Type Priority Associated Diagnoses Orde r Schedule AMB PAIN PROCEDURE Outpatient Referral Routine Low back pain radiating to right leg Ordered: 11/05/2015 documented as of this encounter Visit Diagnoses Diagnosis Low back pain radiating to right leg- Primary Lumbago documented in this encounter Care Teams Screen Machine Operator Relationship Specialty Start Date End Date Phoenix Polanco MD [address] [place] [phone] PCP - General 12/27/13 documented as of this encounter
--- OUTSIDE RECORDS SUMMARY | 2023-12-23 01:02 | XMS_ITS | Encounter Summary ---
Author Organization [facility] Address [address] [place] [address] Care Team Providers Care Advertising Photographer Name Role Phone Phoenix Polanco MD Primary Care Provider + Encounter Details Date Type Department Care Team (Late st Contact Info) Description 02/11/2015 Results Only [facility] [phone] Kaia Wilson MD [address] [place] [phone] Social History Tobacco Use Types Packs/Day Years [...] Diagnosis Comments PAP TEST- RESULT ONLY Routine 02/11/2015 0:00 EDT documented in this encounter Results * PAP TEST- RESULT ONLY (02/11/2015 0:00 EDT) Pathology Report: CYTOPATHOLOGY REPORT Reports generated via electronic interface contain original data; however they are lacking the format of the original report. Caution should be taken when reading/interpreti ng unformatted reports. Name: ? NELA GRANGER ? Accession #: ? [id number] ? : ? 1970 (Age: 44) ??F ?Collect Date: ? 02/11/2015 ? Location: ? [facility] ? Receive Date: ? 02/13/2015 ? Provider: KAIA WILSON MD Copy to: ? Final Report SPECIMEN ADEQUACY ? Satisfactory for Evaluation - transformation zone component present GENERAL CATEGORIZATION ? Negative for Intraepithelial Lesion or Malignancy ?? Last Menstrual Period: January 2015 Specimen/Source: ??Pap Test, Cervix/Endocervix, ThinPrep Imaging System with manual evaluation Document reviewed and electronically signed by: ? Page Landeros, [place](ASCP) ? Report ??Date: 02/16/2015 13:30 HPV with Pap Test ? Date Ordered: ? 02/16/2015 ? Status: ?? Signed Out ?Date Complete: ? 02/20/2015 ? By: ??System Interface ? Date Reported: ? 02/20/2015 ? Interpretation RESULT: Negative for HPV. No E6 or E7 mRNA is detected from HPV types 16,18,31,33,35, 39,45,51,52,56,58, 59,66, and 68 by valance cutter mediated amplification. Comments Document reviewed and electronically signed by: ? System Interface ? Report date: 02/20/2015 By the signature above, the attending physician certifies that he/she has personally conducted a gross and/or microscopic examination of the described specimens and rendered or confirmed the above diagnosis. End of Report [facility] 02/11/2015 02/13/2015 Kaia Wilson MD PATHOLOGY ORDERABL ES Performing Organization Address City/State/[facility] Co de Phone Number [facility] [address] [place] [address] documented in this encounter Visit Diagnoses Not on filedocumented in this encounter Care Teams Advertising Photographer Relationship Specialty Start Date End Date Phoenix Polanco MD [address] [place], [place] [address] [phone] PCP - General 12/27/13 documented as of this encounter
--- OUTSIDE RECORDS SUMMARY | 2023-12-23 01:02 | XMS_ITS | Encounter Summary ---
Author Organization [facility] Address [address] [place] [address] Care Team Providers Care Engine Designer Name Role Phone Phoenix Polanco MD Primary Care Provider + Reason for Referral * PT/OT/ST (Routine) - Closed Specialty Diagnoses / Procedures Referred By Janak miguel Referred To Contact Rehab Therapies Diagnoses Labral tear of shoulder Mor Chanel MD [address] [place] [phone] [facility] [address] [place] [address] Referral ID Status Reason Start Date Expiration Date V isits Requested Visits Authorized [id number] Closed Specialty Services Required 06/30/2014 1 1 Question Answer Reason for Request: post op PT Surgery (and Date): right shoulder arthroscopic posterior labral repair, anterior inferior labral repair, biceps tenotomy, distal clavicle excision, and mini open subpectoral biceps tenodesis on 06-26-14 Comments Per protocol Reason for Visit * Reason Onset Date Comments Pre-visit Orders 06/30/2014 Encounter Details Date Type Department Care Team (Late st Contact Info) Description 06/30/2014 Orders Only [facility] Rehabilitation Therapy - [address] [address] Cherise Nunn, PT [address] [facility] [address] [place] [phone] Labral tear of shoulder (Primary Dx) Social History Tobacco Use Types [...] CONS/FOLLOW UP PHYSICAL THERAPY Outpatient Referral Routine Labral tear of shoulder Ordered: 06/30/2014 documented as of this encounter Visit Diagnoses Diagnosis Labral tear of shoulder- Primary Sprain and strain of other specified sites of shoulder and upper arm documented in this encounter Care Teams Engine Designer Relationship Specialty Start Date End Date Phoenix Polanco MD [address] [place] [phone] PCP - General 12/27/13 documented as of this encounter
--- OUTSIDE RECORDS SUMMARY | 2023-12-23 01:02 | XMS_ITS | Encounter Summary ---
Author Organization [facility] Address [address] [place] [address] Care Team Providers Care Equipment Technician Name Role Phone Phoenix Polanco MD Primary Care Provider + Encounter Details Date Type Department Care Team (Late st Contact Info) Description 07/01/2016 Results Only [facility] [phone] Phoenix Polanco MD [address] [place] [phone] Social History Tobacco Use Types Packs/Day [...] Yes 01/15/2016 documented as of this encounter Plan of Treatment Not on file documented as of this encounter Procedures Procedure Name Priority Date/Time Associated Diagnosis Comments VITAMIN D (25,OH) Routine 07/01/2016 11: 38 EST T3, TOTAL Routine 07/01/2016 11:38 EST TSH Routine 07/01/2016 11:38 EST T4 FREE Routine 07/01/2016 11:38 EST VITAMIN B12 Routine 07/01/2016 11:38 EST documented in this encounter Results * VITAMIN B12 (07/01/2016 11:38 EST) Vitamin B-12 324 211 - 911 pg/ml 07/01/2016 20:39 EST [facility] BLOOD SPECIMEN / Unknown 07/01/2016 11:38 EST 07/01/2016 19:43 EST Phoenix Polanco MD CHEMISTRY & BLOO D GAS ORDERABLES Performing Organization Address City/[facility]/ZIP Co de Phone Number [facility] [address] [place] [address] * (ABNORMAL) VITAMIN D (25,OH) (07/01/2016 11:38 EST) 25OH Vitamin D Tot 27.8(L) 30 - 100 ng/ml 07/04/2016 13:48 EDT [facility] Comment: Reference Range: Deficient = <10 ng/ml Insufficient = 10-30 ng/ml Sufficient = 30-100 ng/ml Toxic = >100 ng/ml BLOOD SPECIMEN / Unknown 07/01/2016 11:38 EST 07/01/2016 19:43 EST Phoenix Polanco MD CHEMISTRY & BLOO D GAS ORDERABLES Performing Organization Address City/[facility]/ZIP Co de Phone Number [facility] [address] [place] [address] * T4 FREE (07/01/2016 11:38 EST) Free T4 0.9 0.8 - 1.8 ng/dl 07/01/2016 20:39 EST [facility] BLOOD SPECIMEN / Unknown 07/01/2016 11:38 EST 07/01/2016 19:43 EST Phoenix Polanco MD CHEMISTRY & BLOO D GAS ORDERABLES Performing Organization Address City/[facility]/ZIP Co de Phone Number [facility] [address] [place] [address] * T3, TOTAL (07/01/2016 11:38 EST) T3, Total 101 60 - 181 ng/dl 07/01/2016 20:39 EST [facility] BLOOD SPECIMEN / Unknown 07/01/2016 11:38 EST 07/01/2016 19:43 EST Phoenix Polanco MD CHEMISTRY & BLOO D GAS ORDERABLES Performing Organization Address City/[facility]/ZIP Co de Phone Number [facility] [address] [place] [address] * TSH (07/01/2016 11:38 EST) TSH 1.14 0.55 - 4.78 uIU/ml 07/01/2016 20:39 EST [facility] BLOOD SPECIMEN / Unknown 07/01/2016 11:38 EST 07/01/2016 19:43 EST Phoenix Polanco MD CHEMISTRY & BLOO D GAS ORDERABLES Performing Organization Address City/[facility] Co de Phone Number [facility] [address] [place] [address] documented in this encounter Visit Diagnoses Not on filedocumented in this encounter Care Teams Equipment Technician Relationship Specialty Start Date End Date Phoenix Polanco MD [address] [place], [place] [address] [phone] PCP - General 12/27/13 documented as of this encounter
--- OUTSIDE RECORDS SUMMARY | 2023-12-23 01:02 | XMS_ITS | Encounter Summary ---
Author Organization [facility] Address [address] [place] [address] Care Team Providers Care Joiner Helper Name Role Phone Phoenix Polanco MD Primary Care Provider + Reason for Visit * Reason Onset Date Comments Medication Management 04/20/2016 Encounter Details Date Type Department Care Team (Late st Contact Info) Description 04/20/2016 Telephone [facility] Spine Program - [address] [address] Mesfin Pena PA-C [address] [place] [address] [place] [phone] Medication Management Social History Tobacco Use Types [...] encounter Miscellaneous Notes * Telephone Encounter - Lisseth Martines - 04/20/2016 0984 EST Patient called seeking pain medication as an alternative to injections as she has a 200 dollar copay for injections. I let her know about our patient financial assistance program as that may be helpful if she qualifies. I also let her know she can dicuss pain medications with her PCP. documented in this encounter Plan of Treatment Not on file documented as of this encounter Visit Diagnoses Not on filedocumented in this encounter Care Teams Joiner Helper Relationship Specialty Start Date End Date Phoenix Polanco MD [address] [place] [phone] PCP - General 12/27/13 documented as of this encounter
--- OUTSIDE RECORDS SUMMARY | 2023-12-23 01:02 | XMS_ITS | Encounter Summary ---
Author Organization [facility] Address [address] [place] [address] Care Team Providers Care Control Technician Name Role Phone Phoenix Polanco MD Primary Care Provider + Reason for Visit * Reason Comments Shoulder Pain right Encounter Details Date Type Department Care Team (Late st Contact Info) Description 01/23/2014 14:40 EDT Office Visit [facility] Sports Medicine Program - [address] [address] Eliot Sibley MD [address] [place] [phone] Right shoulder pain (Primary Dx) Social History Tobacco Use [...] - - Weight 90.7 kg (200 lb) 01/23/2014 1439 EDT Height 165.1 cm (5' 5) 01/23/2014 1439 EDT Body Mass Index 33.28 01/23/2014 1439 EDT documented in this encounter Progress Notes * Eliot Sibley MD - 01/23/2014 1719 EDT Chief Complaint Patient presents with ??? Shoulder Pain right SUBJECTIVE: Nela Granger is a 43 y.o. female who present for a ultrasound guided injection into her right subacromial space. Patient has a diagnosis of right shoulder pain. She has an upcoming MRA. She currently has a diagnosis of subacromial impingement, tendinosis and bursitis. She also has hypertrophic AC joint arthropathy. Her exam findings were quite severe. Risks, benefits and alternatives were discussed with [...] to the procedure PROCEDURE NOTE: Right shoulder subacromial injection under ultrasound guidance The patient was brought to the examination room. The correct side was identified in a daily moment to accurately inject the proper joint. After verbal consent obtained, area of superolateral shoulder was palpated and landmarks were noted. The patient did have pain with light touch during palpation for landmarks. The acromion, supraspinatus tendon and greater tuberosity were localized under ultrasound. Images were saved. Pt prepped with isopropyl alcohol and draped. The region to be injected was anesthestized using 3 cc of 2% lidocaine. Under sterile conditions and using ultrasound for guidance, the subacromial space was accessed witha 1.5 inch 22 gauge needle. The subacromial space was infused with 3 cc 2% lidocaine, 3 cc 0.5% marcaine and 2 cc 40 mg/cc kenalog without resistance. The bursa was noted to distend. Images were saved of the injection. Cleansed with isopropyl alcohol and bandaged. The patient tolerated the procedure well. After care was reviewed including icing, use of NSAIDs prn and activity modification. Will follow up in 4 weeks to review her response to the injection as well as the MRA images. If this is not helpful, we will try an AC joint injection. If this does not help, would recommend she seekalternative treatments for myofascial pain or be referred to pain clinic by her PCP. I discussed all of the above verbally with patient, no barriers to understanding. The patient indicated understanding and agrees to the above plan. Eliot Sibley MD 17:19 01/23/2014 * Asha Harrison - 01/23/2014 1513 EDT I. Patient is here for intraarticular injection-Lidocaine 2% 1. Med given in right shoulder by intraarticular route. 2. Med lot number: [id number], 3. Exp date: 05/25/2015 Total dosage in vial: 20ml Total dosage administered: 6ml Total dosage of waste: multi dose I. Patient is here for intraarticular injection-sensorcaine .5% 1. Med given in right shoulder by intraarticular route. 2. Med lot number: [id number] 3. Exp date: 03/24/2015 Total dosage in vial: 10ml Total dosage administered: 3ml Total dosage of waste: 7ml I. Patient is here for intraarticular injection-Kenalog 40 1. Med given in right shoulder by intraarticular route. 2. Med lot number: [id number] 3. Exp date: 10/2014 Total dosage in vial: 5ml Total dosage administered: 2ml Total dosage of waste: multi dose Asha Harrison 01/23/14 15:14 documented in this encounter Plan of Treatment Not on file documented as of this encounter Visit Diagnoses Diagnosis Right shoulder pain- Primary Pain in joint, shoulder region documented in this encounter Care Teams Control Technician Relationship Specialty Start Date End Date Phoenix Polanco MD [address] [place] [phone] PCP - General 12/27/13 documented as of this encounter
--- OUTSIDE RECORDS SUMMARY | 2023-12-23 01:02 | XMS_ITS | Encounter Summary ---
Author Organization [facility] Address [address] [place] [address] Care Team Providers Care Grain Mill Products Inspector Name Role Phone Phoenix Polanco MD Primary Care Provider + Reason for Visit * Reason Onset Date Comments Prior Auth, Other (i.e. radiology, etc.) 014 Encounter Details Date Type Department Care Team (Late st Contact Info) Description 02/20/2014 Telephone [facility] Sports Medicine Program - [address] [place] [address] Eliot Sibley MD [address] [place] [phone] Prior Auth, Other (i.e. radiology, etc.) Social History Tobacco Use Types Packs/Day Years Used Date Smoking Tobacco: Never Assessed Sex and Gender Information Value Date Recorded Sex Assigned at Female 02/05/2020 13:48 EDT Gender Identity Female 06/26/2019 14:43 EST Sexual Orientation Not on file documented as of this encounter Miscellaneous Notes * Telephone Encounter - Felicitas Mcdermott - 02/20/2014 1219 EDT Per Paula at /[place] of [place] authorization is not required for an ultrasound guided right shoulder glenohumeral joint injection. Payment will be based on medical necessity. CPT codes 32706 & 25215. documented in this encounter Plan of Treatment Not on file documented as of this encounter Visit Diagnoses Not on filedocumented in this encounter Care Teams Grain Mill Products Inspector Relationship Specialty Start Date End Date Phoenix Polanco MD [address] [place] [phone] PCP - General 12/27/13 documented as of this encounter
--- OUTSIDE RECORDS SUMMARY | 2023-12-23 01:02 | XMS_ITS | Encounter Summary ---
Author Organization [facility] Address [address] [place] [address] Care Team Providers Care Matcher Offbearer Name Role Phone Phoenix Polanco MD Primary Care Provider + Reason for Visit * Reason Onset Date Comments Results 03/19/2014 Encounter Details Date Type Department Care Team (Late st Contact Info) Description 03/19/2014 Telephone [facility] Sports Medicine Program - [address] [address] Eliot Sibley MD [address] [place] [phone] Results Social History Tobacco Use Types Packs/Day Years Used Date Smoking Tobacco: Never Assessed Sex and Gender Information Value Date Recorded Sex Assigned at Female 02/05/2020 13:48 EDT Gender Identity Female 06/26/2019 14:43 EST Sexual Orientation Not on file documented as of this encounter Miscellaneous Notes * Telephone Encounter - Eliot Sibley MD - 03/24/2014 0854 EST Please have her see me on March 28 (as scheduled) to discuss her response to the injection. Sheshould just keep that appointment. We can discuss scheduling for surgery at that time. Thanks. Eliot Sibley M.D. 03/24/2014 8:56 * Telephone Encounter - Daljit Cowan Jr. - 03/19/2014 2057 EST Pt called to say she had good success with the cortisone injection, and asked to do the referraland schedule it. According to Dr. Sibley's last note it looks like she is asking for a surgical consult. I will verify this and follow up with patient. documented in this encounter Plan of Treatment Not on file documented as of this encounter Visit Diagnoses Not on filedocumented in this encounter Additional Health Concerns Infection Onset Date Last Indicated Resolved Time R/O COVID-19 08/22/2022 08/22/2022 08/22/2022 11:1 1 EDT R/O COVID-19 03/15/2023 03/15/2023 03/15/2023 17:4 2 EST documented as of this encounter Care Teams Matcher Offbearer Relationship Specialty Start Date End Date Phoenix Polanco MD [address] [place] [phone] PCP - General 12/27/13 documented as of this encounter
--- OUTSIDE RECORDS SUMMARY | 2023-12-23 01:02 | XMS_ITS | Encounter Summary ---
Author Organization [facility] Address [address] [place] [address] Care Team Providers Care Cable Stretcher And Tester Name Role Phone Phoenix Polanco MD Primary Care Provider + Reason for Visit * Reason Onset Date Comments Follow-up 06/25/2014 Encounter Details Date Type Department Care Team (Late st Contact Info) Description 06/25/2014 Telephone [facility] Pediatric Orthopedics [place] [address] [place] [address] Luigi Davis, RN Follow-up Social History Tobacco Use Types Packs/Day Years Used Date Smoking Tobacco: Never Assessed Sex and Gender Information Value Date Recorded Sex Assigned at Female 02/05/2020 13:48 EDT Gender Identity Female 06/26/2019 14:43 EST Sexual Orientation Not on file documented as of this encounter Miscellaneous Notes * Telephone Encounter - Luigi Davis, RN - 06/25/2014 1038 EST Patient was contacted w/ preop information on home/work/cell phone. Message left on all available numbers. She was told to arrive @ 7 am on 06/26/14 @ [facility], nothing to eat or drink after midnight 06/25/14 , to shower the night before and morning of surgery with an antibacterial soap, to wear appropriate attire (baggy, loose fitting, etc), to leave all valuables at home and to bring crutches. Patient was told to follow instructions as noted on their sheet What to expect as an outpatient patient. Post op visit is 06/30/14 @ 11 am. Patient was instructed to call Dr. ALAMO' office at [phone] with any questions or concerns. Luigi Davis RN 06/25/2014 10:38 documented in this encounter Plan of Treatment Not on file documented as of this encounter Visit Diagnoses Not on filedocumented in this encounter Care Teams Cable Stretcher And Tester Relationship Specialty Start Date End Date Phoenix Polanco MD [address] [place] [phone] PCP - General 12/27/13 documented as of this encounter
--- OUTSIDE RECORDS SUMMARY | 2023-12-23 01:02 | XMS_ITS | Encounter Summary ---
Author Organization [facility] Address [address] [place] [address] Care Team Providers Care Post Closing Specialist Name Role Phone Unavailable Primary Care Provider Unavailabl e Encounter Details Date Type Department Care Team (Late st Contact Info) Description 07/06/2007 Results Only [facility] - Map conversion [address] [place] [address] Gabo Mckinley MD [address] [place] [phone] Social History Tobacco Use Types Packs/Day Years Used Date Smoking Tobacco: Never Assessed Sex and Gender Information Value Date Recorded Sex Assigned at Female 02/05/2020 13:48 EDT Gender Identity Female 06/26/2019 14:43 EST Sexual Orientation Not on file documented as of this encounter Plan of Treatment Not on file documented as of this encounter Procedures Procedure Name Priority Date/Time Associated Diagnosis Comments THYROID CASCADE Routine 07/06/2007 14:50 EDT PHOSPHORUS Routine 07/06/2007 14:50 EDT MAGNESIUM Routine 07/06/2007 14:50 EDT IRON Routine 07/06/2007 14:50 EDT VITAMIN B12 Routine 07/06/2007 14:50 EDT documented in this encounter Results * THYROID CASCADE (07/06/2007 14:50 EDT) TSH 0.96 0.35 - 5.00 uIU/mL [facility] Comment: TSH cascade is not recommended for patients in which pituitary or hypothalamic disorders are suspected. 07/06/2007 14:5 0 EDT 07/09/2007 11:26 EDT Gabo Mckinley MD CHEMISTRY & BLOOD GAS ORDERABLES Performing Organization Address [facility] de Phone Number [facility] [address] [place] [address] * PHOSPHORUS (07/06/2007 14:50 EDT) Phosphorus 3.3 2.5 - 4.5 mg/dl [facility] 07/06/2007 14:5 0 EDT 07/09/2007 11:26 EDT Gabo Mckinley MD CHEMISTRY & BLOOD GAS ORDERABLES Performing Organization Address [facility] de Phone Number [facility] [address] [place] [address] * MAGNESIUM (07/06/2007 14:50 EDT) Magnesium 1.8 1.7 - 2.8 mg/dl [facility] 07/06/2007 14:5 0 EDT 07/09/2007 11:26 EDT Gabo Mckinley MD CHEMISTRY & BLOOD GAS ORDERABLES Performing Organization Address [facility] de Phone Number [facility] [address] [place] [address] * (ABNORMAL) IRON (07/06/2007 14:50 EDT) Iron <12(L) 60 - 180 ug/dl [facility] 07/06/2007 14:5 0 EDT 07/09/2007 11:26 EDT Gabo Mckinley MD CHEMISTRY & BLOOD GAS ORDERABLES Performing Organization Address [facility] de Phone Number [facility] [address] [place] [address] * (ABNORMAL) VITAMIN B12 (07/06/2007 14:50 EDT) Vitamin B-12 169(L) 250 - 1100 pg/ml [facility] 07/06/2007 14:5 0 EDT 07/09/2007 11:26 EDT Gabo Mckinley MD CHEMISTRY & BLOOD GAS ORDERABLES Performing Organization Address [facility] de Phone Number [facility] [address] [place] [address] documented in this encounter Visit Diagnoses Not on filedocumented in this encounter
--- OUTSIDE RECORDS SUMMARY | 2023-12-23 01:02 | XMS_ITS | Encounter Summary ---
Author Organization [facility] Address [address] [place] [address] Care Team Providers Care Retail Gift Card Merchandising Name Role Phone Phoenix Polanco MD Primary Care Provider + Encounter Details Date Type Department Care Team (Latest Contact Info) Description 02/12/2014 12:55 EDT - 02/12/2014 23:59 EDT Hospital Encounter [facility] [address] [place] [address] Donell Worrell MD [address] [place], [place] [phone] Discharge Disposition: Auto Discharge Social History Tobacco Use Types Packs/Day Years Used Date Smoking Tobacco: Never Assessed Sex and Gender Information Value Date Recorded Sex Assigned at Female 02/05/2020 13:48 EDT Gender Identity Female 06/26/2019 14:43 EST Sexual Orientation Not on file documented as of this encounter Discharge Diagnoses Diagnosis 831.00 DISLOC SHOULDER NOS-CLOSE[ICD-9-CM] documented in this encounter Medications at Time of Discharge Medication Sig Dispensed Refills Start Date End Date acetaminophen (TYLENOL) 500 mg tablet Take 1,300 mg by mouth 3 times daily as needed for Pain. ACETAMINOPHEN WITH CODEINE (TYLENOL-CODEINE #3 ORAL) Take by mouth daily. 015 cyclobenzaprine (FLEXERIL) 10 mg tablet Take 10 mg by mouth as needed. 03/06/2019 ibuprofen (MOTRIN) 200 mg tablet Take 400 mg by mouth as needed for Pain. 06/26/2014 MELOXICAM (MOBIC ORAL) Take by mouth 2 times daily. 01/15/2016 documented as of this encounter Discharge Disposition Disposition Code Departure Means Destination Auto Discharge Home documented in this encounter Procedure Notes * Bladimir Lin RA - 02/12/2014 1351 EDT IR Procedure Note Procedure: Fluoroscopy guided right shoulder injection for MRA Date Performed: 02/12/2014 Radiologist/Train Driver(s): Enrique Blanton MD/GILMA Curran Sedation/Anesthesia: 1% lidocaine Time Out: A time-out was completed prior to procedure verifying correct patient, procedure, site, positioning, and special equipment if applicable. Estimated Blood Loss: Unless otherwise noted, there was no blood loss, specimens removed, cultures obtained, or drains retained. Specimens: none Fluoroscopy Time: < 10 sec Contrast Volume: 2 cc Omnipaque 300 and 8 cc MRI contrast ( a mix of 1:200 solution of gadolinium and sterile saline) Complications: none Condition: good Post Procedure Diagnosis: Right shoulder pain Findings: Findings: The risks, benefits and alternatives were explained to the patient and informedconsent was obtained. The right shoulder was prepped and draped following sterile procedure and local anesthesia was administered. A 22g spinal needle was placed in the glenohumeral joint using an anterior approach. 2cc of sterile Omnipaque 300 was injected to confirm the location. This was followed by a 8cc injection of the MRI contrast. The patient tolerated the procedure well and was sent to MRI for imaging. Recommendations: Follow up with MRA results BLADIMIR LIN RA 02/12/2014 13:52 documented in this encounter Plan of Treatment Not on file documented as of this encounter Visit Diagnoses Not on filedocumented in this encounter Care Teams Retail Gift Card Merchandising Relationship Specialty Start Date End Date Phoenix Polanco MD [address] [place] [phone] PCP - General 12/27/13 documented as of this encounter
--- OUTSIDE RECORDS SUMMARY | 2023-12-23 01:02 | XMS_ITS | Encounter Summary ---
Author Organization [facility] Address [address] [place] [address] Care Team Providers Care Ultrasound Supervisor Name Role Phone Gabo Mckinley MD Primary Care Provider [phone] Phoenix Polanco MD Primary Care Provider + Encounter Details Date Type Department Care Team (Late st Contact Info) Description 04/15/2011 Documentation Visit [facility] Bariatric Surgery [address] [phone] Elisa Bennett, DRUG SAFETY SCIENTIST [address] [phone] Social History Tobacco Use Types Packs/Day Years [...] - Inhaled Oxygen Concentration - - Weight - - Height 165 cm (5' 4.96) 04/15/2011 1100 EST Body Mass Index - - documented in this encounter Plan of Treatment Not on file documented as of this encounter Visit Diagnoses Not on filedocumented in this encounter Additional Health Concerns Infection Onset Date Last Indicated Resolved Time R/O COVID-19 08/22/2022 08/22/202208/2208/22/2022 11:1 1 EDT R/O COVID-19 03/15/2023 03/15/2023 03/15/2023 17:4 2 EST documented as of this encounter Care Teams Ultrasound Supervisor Relationship Specialty Start Date End Date Gabo Mckinley MD PCP - General 12/26/13 12/26/13 Phoenix Polanco MD [address] [place] [address] PCP - General 12/27/13 documented as of this encounter
--- OUTSIDE RECORDS SUMMARY | 2023-12-23 01:02 | XMS_ITS | Encounter Summary ---
Author Organization [facility] Address [address] [place] [address] Care Team Providers Care Hand Molder Name Role Phone Phoenix Polanco MD Primary Care Provider + Reason for Visit * Reason Onset Date Comments Prior Auth, Other (i.e. radiology, etc.) 014 Encounter Details Date Type Department Care Team (Late st Contact Info) Description 12/30/2013 Telephone [facility] Sports Medicine Program - [address] [place] [address] Eliot Sibley MD [address] [place] [phone] Prior Auth, Other (i.e. radiology, etc.) Social History Tobacco Use Types Packs/Day Years Used Date Smoking Tobacco: Never Assessed Sex and Gender Information Value Date Recorded Sex Assigned at Female 02/05/2020 13:48 EDT Gender Identity Female 06/26/2019 14:43 EST Sexual Orientation Not on file documented as of this encounter Miscellaneous Notes * Telephone Encounter - Wendy Canalesy - 12/30/2013 1052 EDT AUTHORIZED RIGHT SHOULDER SA JOINT ULTRASOUND-GUIDED CORTICOSTEROID INJECTION (CPT 51916 + [id number]) PER TALITA NARAYANAN OF [facility] (D.O.I. 11/01/13) AUTHORIZATION TO BE SCANNED INTO PATIENT'S CHART. documented in this encounter Plan of Treatment Not on file documented as of this encounter Visit Diagnoses Not on filedocumented in this encounter Care Teams Hand Molder Relationship Specialty Start Date End Date Phoenix Polanco MD [address] [place] [phone] PCP - General 12/27/13 documented as of this encounter
--- OUTSIDE RECORDS SUMMARY | 2023-12-23 01:02 | XMS_ITS | Encounter Summary ---
Author Organization [facility] Address [address] [place] [address] Care Team Providers Care Audiometric Technician Name Role Phone Phoenix Polanco MD Primary Care Provider + Reason for Visit * Reason Onset Date Comments Other 12/31/2013 Encounter Details Date Type Department Care Team (Late st Contact Info) Description 12/31/2013 Telephone [facility] Sports Medicine Program - [address] [address] Eliot Sibley MD [address] [place] [phone] Other Social History Tobacco Use Types Packs/Day Years Used Date Smoking Tobacco: Never Assessed Sex and Gender Information Value Date Recorded Sex Assigned at Female 02/05/2020 13:48 EDT Gender Identity Female 06/26/2019 14:43 EST Sexual Orientation Not on file documented as of this encounter Miscellaneous Notes * Telephone Encounter - Asha Harrison - 12/31/2013 1106 EDT Called patient at home. LMOM. Patient scheduled for inj 01/23/14 at 2:40 [facility] the [facility] Asha Harrison 12/31/13 11:06 documented in this encounter Plan of Treatment Not on file documented as of this encounter Visit Diagnoses Not on filedocumented in this encounter Care Teams Audiometric Technician Relationship Specialty Start Date End Date Phoenix Polanco MD [address] [place] [address] [place] [phone] PCP - General 12/27/13 documented as of this encounter
--- OUTSIDE RECORDS SUMMARY | 2023-12-23 01:02 | XMS_ITS | Encounter Summary ---
Author Organization [facility] Address [address] [place] [address] Care Team Providers Care Adjunct Professor Name Role Phone Phoenix Polanco MD Primary Care Provider + Encounter Details Date Type Department Care Team (Late st Contact Info) Description 02/04/2014 Abstract [facility] Sports Medicine Program - [address] [address] Eliot Sibley MD [address] [place] [phone] Social History Tobacco Use Types Packs/Day Years [...] on filedocumented in this encounter Care Teams Adjunct Professor Relationship Specialty Start Date End Date Phoenix Polanco MD [address] [place] [phone] PCP - General 12/27/13 documented as of this encounter
--- OUTSIDE RECORDS SUMMARY | 2023-12-23 01:02 | XMS_ITS | Encounter Summary ---
Author Organization [facility] Address [address] [place] [address] Care Team Providers Care Utility Bag Assembler Name Role Phone Phoenix Polanco MD Primary Care Provider + Reason for Visit * Reason Comments Shoulder Pain right Encounter Details Date Type Department Care Team (Late st Contact Info) Description 02/20/2014 11:15 EDT Office Visit [facility] Sports Medicine Program - [address] [address] Eliot Sibley MD [address] [place] [phone] Right shoulder pain (Primary Dx); SLAP tear of shoulder Social History Tobacco Use Types Packs/Day Years [...] - - Weight 90.7 kg (200 lb) 02/20/2014 1121 EDT Height 165.1 cm (5' 5) 02/20/2014 1121 EDT Body Mass Index 33.28 02/20/2014 1121 EDT documented in this encounter Progress Notes * Eliot Sibley MD - 02/20/2014 1148 EDT Chief Complaint Patient presents with ??? Shoulder Pain right SUBJECTIVE: Nela Granger is a 43 y.o. ambidextrous female who presents to the office to follow up for her right shoulder pain. Work related. 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 She did not notice much improvement. 10% benefit. She points to the area all around her shoulder girdle. She localizes most of her pain to the front of the shoulder but has a hard time pinpointing that. She has been going to PT. 4 out of 10 pain. At worst is 6 out of 10. She presented several weeks ago with an 8 week history of sudden onset right shoulder pain. Startedat work. This is a workers compensation injury. DOI 11/01/13. She was pulling a box of copier paper along the ground out from under a counter and the handle gave way and she felt a pop in the shoulder. Past medical, past surgical, medications, allergies, social history and 12 system ROS were all documented on the intake form. These were reviewed and there are no changes. OBJECTIVE: Ht 165.1 cm (65) Wt 90.719 kg (200 lb) BMI 33.28 kg/m2 General: awake, alert, NAD, pleasant EENT: extraocular motion grossly intact Pulmonary: normal respirations, non-labored breathing Psych: normal affect, thoughts are logical and sequential Examination of right shoulder (she gives a modest effort on exam): Inspection: no ecchymosis, no erythema, no deformity, no atrophy, no scars noted. Palpation: there continues to be tenderness with light touch and nonspecific tenderness to the supraspinatus insertion, AC [...] on load shift testing. neg sulcus sign. Positive active compression test. Distal neurovascular exam intact. DIAGNOSTIC DATA: MRA of the right shoulder reveals evidence of a SLAP tear from 10 to 1 o'clock. Tendinosis to the supraspinatus, infraspinatus and subscapularis. Mild OA of the glenohumeral and AC joints. No cuff tear. Plain films taken previously and independently reviewed by me including true AP, axillary and outlet views of right shoulder reveal no bony abnormalities. ASSESSMENT: Complex work related right shoulder pain. The pain is quite severe and out of proportion to the findings on MRA. She did not respond to the subacromial injection. Her MRA does show a SLAP tear however it is hard to correlate the level of pain and motion loss. My sense is this is a chronic pain concern with myofascial pain. Musculogenic in nature. I don't sense a nerve injury. She did seem to guard and resist some of the exam willingly. PLAN: We discussed her pain level, injury, possibly diagnosis and next steps for treatment. We will do a diagnostic injection to glenohumeral joint with US guidance. If this does not help, would recommend she seek alternative treatments for myofascial pain or be referred to pain clinic by her PCP. The patient verbalized understanding of the above and agreed with this plan. All of her questions were answered to her satisfaction today. 25 minutes of face to face time was spent with the patient, 15 minutes were spent on counseling andcoordination of care of the patient's right shoulder pain. Eliot Sibley M.D. 02/20/2014 11:49 Cc: Phoenix Polanco MD documented in this encounter Plan of Treatment Not on file documented as of this encounter Visit Diagnoses Diagnosis Right shoulder pain- Primary Pain in joint, shoulder region SLAP tear of shoulder Superior glenoid labrum lesion documented in this encounter Care Teams Utility Bag Assembler Relationship Specialty Start Date End Date Phoenix Polanco MD [address] [place] [phone] PCP - General 12/27/13 documented as of this encounter
--- OUTSIDE RECORDS SUMMARY | 2023-12-23 01:02 | XMS_ITS | Encounter Summary ---
Author Organization [facility] Address [address] [place] [address] Care Team Providers Care Locomotive Crane Engineer Name Role Phone Unavailable Primary Care Provider Unavailabl e Encounter Details Date Type Department Care Team (Late st Contact Info) Description 04/15/2011 Abstract [facility] Bariatric Surgery - [place] [address] [place] [address] Elisa Bennett, BATCH ANALYST [address] [facility] [address] [place], [place] [phone] Social History Tobacco Use Types Packs/Day Years [...]
--- OUTSIDE RECORDS SUMMARY | 2023-12-23 01:02 | XMS_ITS | Encounter Summary ---
Author Organization [facility] Address [address] [place] [address] Care Team Providers Care Chief Communications Officer Name Role Phone Phoenix Polanco MD Primary Care Provider + Reason for Visit * Reason Onset Date Comments Medications Refill 07/21/2014 Encounter Details Date Type Department Care Team (Late st Contact Info) Description 07/21/2014 Refill [facility] Sports Medicine Program - [address] [place], [place] [phone] Galina Levine, RN Medications Refill Social History Tobacco Use Types Packs/Day Years [...] mg 20 Tab 0 07/21/2014 01/15/2016 documented in this encounter Miscellaneous Notes * Telephone Encounter - Galina Levine, RN - 07/21/2014 4687 EDT Still needs to occasionally take Oxycodone 5 mg for pain. Has # 5 left.Starting PT this week. Concerned she may need to take pain meds after exercising. Rx authorized by Mor Chanel MD for refill. She will potato picker signed RX when ready tomorrow. GALINA LEVINE, RN documented in this encounter Plan of Treatment Not on file documented as of this encounter Visit Diagnoses Not on filedocumented in this encounter Discontinued Medications Medication Sig Discontinue Reason Start Date End Da te oxyCODONE (ROXICODONE) 5 mg immediate release tablet Take 1-2 Tabs by mouth every 4 hours as needed for Pain Earliest Fill Date: 06/30/14 Daily Max: 60 mg Reorder 06/30/2014 07/21/2014 documented as of this encounter Care Teams Chief Communications Officer Relationship Specialty Start Date End Date Phoenix Polanco MD [address] [facility] [place] [address] PCP - General 12/27/13 documented as of this encounter
--- OUTSIDE RECORDS SUMMARY | 2023-12-23 01:02 | XMS_ITS | Encounter Summary ---
Author Organization [facility] Address [address] [place] [address] Care Team Providers Care Spot Sprayer Name Role Phone Phoenix Polanco MD Primary Care Provider + Reason for Visit * Reason Onset Date Comments Other 02/24/2014 Encounter Details Date Type Department Care Team (Late st Contact Info) Description 02/24/2014 Telephone [facility] Sports Medicine Program - [address] [address] Eliot Sibley MD [address] [place] [phone] Other Social History Tobacco Use Types Packs/Day Years Used Date Smoking Tobacco: Never Assessed Sex and Gender Information Value Date Recorded Sex Assigned at Female 02/05/2020 13:48 EDT Gender Identity Female 06/26/2019 14:43 EST Sexual Orientation Not on file documented as of this encounter Miscellaneous Notes * Telephone Encounter - Asha Harrison - 02/24/2014 1257 EST Called patient at home. LMOM. Patient scheduled for inj 03/13/14, at 2:[address] Eliot Sibley at the [facility]. Please bring sleeveless shirt. Asha Harrison 02/24/14 12:57 documented in this encounter Plan of Treatment Not on file documented as of this encounter Visit Diagnoses Not on filedocumented in this encounter Care Teams Spot Sprayer Relationship Specialty Start Date End Date Phoenix Polanco MD [address] [place] [address] PCP - General 12/27/13 documented as of this encounter
--- OUTSIDE RECORDS SUMMARY | 2023-12-23 01:02 | XMS_ITS | Encounter Summary ---
Author Organization [facility] Address [address] [place] [address] Care Team Providers Care Oceanographer Assistant Name Role Phone Phoenix Polanco MD Primary Care Provider + Encounter Details Date Type Department Care Team (Late st Contact Info) Description 09/28/2015 Results Only Imaging [facility] [phone] Phoenix Polanco MD [address] [place] [phone] Social History Tobacco Use Types Packs/Day [...] Name Priority Date/Time Associated Diagnosis Comments MR LUMBAR SPINE WO CONTRAST 10/04/2015 15:21 EDT documented in this encounter Results * MR LUMBAR SPINE WO CONTRAST (10/04/2015 15:21 EDT) Anatomical Region Laterality Modality Other 10/04/2015 15:2 1 EDT 10/05/2015 11:08 EDT Narrative 10/05/2015 11:08 EDT MR LUMBAR SPINE WO CONTRAST ??10/04/2015 3:21 PM Clinical History/Comments: Persistent low back [...] sacroiliac joints bilaterally, likely degenerative in nature. Procedure Note Bernice Carbone MD - 10/05/2015 MR LUMBAR SPINE WO CONTRAST 10/04/2015 3:21 [...] sacroiliac joints bilaterally, likely degenerative in nature. Phoenix Polanco MD IMG MRI ORDERABL ES documented in this encounter Visit Diagnoses Not on filedocumented in this encounter Care Teams Oceanographer Assistant Relationship Specialty Start Date End Date Phoenix Polanco MD [address] [place] [phone] PCP - General 12/27/13 documented as of this encounter
--- OUTSIDE RECORDS SUMMARY | 2023-12-23 01:02 | XMS_ITS | Encounter Summary ---
Author Organization [facility] Address [address] [place] [address] Care Team Providers Care Music Composer Name Role Phone Phoenix Polanco MD Primary Care Provider + Reason for Visit * Reason Comments Shoulder Pain right Encounter Details Date Type Department Care Team (Late st Contact Info) Description 05/19/2014 14:45 EST Office Visit [facility] Sports Medicine Program - [address] [address] Mor Chanel MD [address] [place] [phone] SLAP (superior labrum from anterior to posterior) tear (Primary Dx); Right shoulder pain Discharge Disposition: Auto Discharge Social History Tobacco Use Types Packs/Day Years Used Date Smoking Tobacco: Never Assessed Sex and Gender Information Value Date Recorded Sex Assigned at Female 02/05/2020 13:48 EDT Gender Identity Female 06/26/2019 14:43 EST Sexual Orientation Not on file documented as of this encounter Discharge Diagnoses Diagnosis 840.7 SUPERIOR GLENOID LABRUM LESIONS (SLAP)[ICD-9-CM] 719.41 JOINT PAIN-SHLDER[ICD-9-CM] documented in this encounter Patient Instructions * Patient Instructions* Galina Levine RN - 05/19/2014 15:20 EST Patient Education items provided at today's visit: - Dr. Chanel things to do sheet with pertinent dates, times, and contact numbers. - Pre-op Physical Packet - Patient Worksheet for pre-op phone call - Pre-op Advice - Dept. Of Anesthesia Consent Form (copy) - Surgery specific post-op information sheet - Cryo/Cuff Information Sheet -What to expect as an outpatient surgical patient -[facility] Info -Fasting Instructions GALINA LEVINE RN documented in this encounter Discharge Disposition Disposition Code Departure Means Destination Auto Discharge documented in this encounter Progress Notes * Mor Chanel MD - 05/19/2014 8648 EST [facility] SPORTS MEDICINE PROGRAM PROGRESS / FOLLOWUP NOTE - 05/19/2014 PROBLEM: Right shoulder pain, work-related injury 11/01/2013. SUBJECTIVE: Ms Granger was seen for followup in preoperative discussion. She underwent an image-guided AC joint injection by Eliot Sibley 05/08/2014, which did give her substantial relief, but not as much as the glenohumeral injection. OBJECTIVE: She was not formally examined. ASSESSMENT: Based on her history, physical examination, imaging studies and response to a variety of injections, I believe that her pain is related to a SLAP tear and possibly AC joint pain. Nonsurgical and surgical options were discussed. She has elected surgery. PLAN: Right shoulder arthroscopy, mini-open subpectoral biceps tenodesis and arthroscopic distal clavicle excision. Risks were discussed including infection, bleeding, nerve injury, skin numbness, blood clots, medical complications, need for additional surgery, stiffness, arthrosis, failure of the tenodesis, cosmetic deformity of the arm, muscle cramping, incomplete pain relief and incomplete return of function. This has been scheduled electively. I recommended smoking cessation preoperatively. Mor Chanel MD 02 55 PM - Mor Chanel MD ln Dictation ID: [id number] * Galina Levine RN - 05/19/2014 1519 EST Patient Education Topic: PREOP Method: Handout and Verbal Taught to: Patient Barriers: None Outcomes: verbalized understanding Signature: GALINA LEVINE RN * Mor Chanel MD - 05/19/2014 1455 EST This office note has been dictated. documented in this encounter Plan of Treatment Not on file documented as of this encounter Visit Diagnoses Diagnosis SLAP (superior labrum from anterior to posterior) tear- Primary Superior glenoid labrum lesion Right shoulder pain Pain in joint, shoulder region documented in this encounter Care Teams Music Composer Relationship Specialty Start Date End Date Phoenix Polanco MD [address] [place] [phone] PCP - General 12/27/13 documented as of this encounter
--- OUTSIDE RECORDS SUMMARY | 2023-12-23 01:02 | XMS_ITS | Encounter Summary ---
Author Organization [facility] Address [address] [place] [address] Care Team Providers Care Butter Printer Name Role Phone Phoenix Polanco MD Primary Care Provider + Reason for Visit * Reason Comments Back Pain Bilateral * Consult (Routine/Next Available) - Specialty Report Received Specialty Diagnoses / Procedures Referred By Janak miguel Referred To Contact Pain Medicine Diagnoses Low back pain radiating to right leg Mesfin Pena PA-C [address] [facility] [place] [address] [facility] [address] [place] [address] Referral ID Status Reason Start Date Expiration Date Visits Requested Visits Authorized [id number] Specialty Report Received Specialty Services Required 11/05/2015 1 1 Encounter Details Date Type Department Care Team (Latest Contact Info) Description 01/15/2016 10:15 EDT Office Visit [facility] Interventional Pain [address] [place] [address] [place] [address] [place] [phone] Aroldo Romero MD [address] [facility] [address] [place] [address] Spondylosis of lumbosacral region without myelopathy or [...] Sign Reading Time Taken Comments Blood Pressure 133/89 01/15/2016 1038 EDT Pulse 68 01/15/2016 1038 EDT Temperature 36.4 ??C (97.6 ??F) 01/15/2016 1019 EDT Respiratory Rate 17 01/15/2016 1038 EDT Oxygen Saturation - - Inhaled Oxygen Concentration - - Weight 74.8 kg (165 lb) 01/15/2016 1019 EDT Height 165.1 cm (5' 5) 01/15/2016 1019 EDT Body Mass Index 27.46 01/15/2016 1019 EDT documented in this encounter Functional Status [...] * Patient Instructions* Milagros Poole RN - 01/15/2016 10:45 EDT [facility] [address] [address] Patient Instructions You have had your bilateral [...] documented in this encounter Progress Notes * Aroldo Romero - 01/15/2016 1038 EDT Patient Name: Nela Granger : 1970 Date of Service: 01/15/2016 Requesting physician: Mesfin Pena Community Relations Liaison: Coy Wheeler MD Offender Employment Specialist: Aroldo Romero MD Procedure: Therapeutic lumbar facet joint injections at L4L5, L5S1 b/l Interval History: Patient presents at the request of Mesfin Pena for evaluation and treatment recommendations of her low back pain. Details of the current complaint are thoroughly described in the consultation notes from Mesfin Pena's last encounter including pain onset, location, course, workup, therapeutic attempts, and associated functional limitations. The patient reports no recent changes inthe character, quality, or distribution of the pain. There are no recent onset of new associated symptoms such as changes in strength, sensation, or bladder control. All previous medical records including current medications, anticoagulation status, any signs of current infection, and new imaging were reviewed. Injection History: 01/15/2016: lumbar facet joint injection at L4L5, L5S1 b/l Allergies: No Known Allergies Review of Systems: Negative for any fever, chills, nausea/vomiting, headaches, chest pain, palpitations, shortness of breath, bladder/bowel incontinence. No easy bruising, bleeding, anti-coagulation or known recent infections. Physical Exam: Vitals: Visit Vitals ??? BP 113/74 (BP Cuff Location: Left arm, Patient Position: Sitting, BP Cuff Sizes: Adult, regular) ??? Pulse 71 ??? Temp 36.4 ??C (97.6 ??F) (Tympanic) ??? Resp 14 ??? Ht 165.1 cm (65) ??? Wt 74.8 kg (165 lb) ??? BMI 27.46 kg/m2 General: Patient is alert and oriented, [...] or radiculopathy Ms. Nela Granger is a 45 y.o. female that presents to the pain clinic to undergo lumbar facetinjections in regards to her chronic back pain. All risks, benefits, and alternatives were thoroughly explained to Ms. Neal Granger who verbally communicated understanding of the management plan. Proceed with therapeutic facet joint injections at bilateral L4-L5 and L5-S1 Follow up: within 24 hrs by telephone to report results of diagnostic injection Procedure: The patient gave informed written consent [...] patient prior to discharge. Aroldo Romero MD Attending attestation: I saw and examined the patient with the resident/fellow. I agree with the findings and plan of care documented in the resident's/fellow's note. I was present and participated during the entire procedure. Coy Wheeler MD * Senait Gan RN - 01/15/2016 1023 EDT [facility] Rooming Note Does patient have a Child Development Assistant? yes Is patient NPO? (Solids since midnight & liquids for 4 hrs) na Blood Thinners: Is patient on Blood Thinners? no If yes, taking? If stopped, who authorized stopping? Related comments: Infections: Any recent infections, fever of illnesses? no If on antibiotics, is it 7-10 days past the date of completion of antibiotics? : (for females of child-bearing age) Is there a chance current ? no Other: documented in this encounter Plan of Treatment [...] mL), intra-articular, NOW X1, 1 dose, On Mon01/15/16 at 1115, Routine Given by Other 01/15/2016 10:51 EDT 10 mg methylPREDNISolone ACETATE (DEPO-MEDROL) injection 80 mg 80 mg, intra-articular, NOW X1, 1 dose, On Mon01/15/16 at 1115, Routine Given by Other 01/15/2016 10:52 EDT 80 mg documented in this encounter Discontinued Medications Medication Sig Discontinue Reason Start Date End Da te docusate sodium (COLACE) 100 mg capsule Take 1-2 Caps by mouth 2 times daily For constipation Discontinued by another clinician 06/26/2014 01/15/2016 MELOXICAM (MOBIC ORAL) Take by mouth 2 times daily. Discontinued by another clinician 01/15/2016 ondansetron (ZOFRAN-ODT) 4 mg disintegrating tablet Take 1 Tab by mouth every 8 hours as needed for Nausea Discontinued by another clinician 06/26/2014 01/15/2016 oxyCODONE (ROXICODONE) 5 mg immediate release tablet Take 1-2 Tabs by mouth every 4 hours as needed for Pain Earliest Fill Date: 07/21/14 Daily Max: 60 mg Discontinued by another clinician 07/21/2014 01/15/2016 documented as of this encounter Care Teams Butter Printer Relationship Specialty Start Date End Date Phoenix Polanco MD [address] [employer] [place] [phone] PCP - General 12/27/13 documented as of this encounter
--- OUTSIDE RECORDS SUMMARY | 2023-12-23 01:02 | XMS_ITS | Encounter Summary ---
Author Organization [facility] Address [address] [place] [address] Care Team Providers Care Nurse Head Name Role Phone Phoenix Polanco MD Primary Care Provider + Reason for Visit * Reason Comments Shoulder Pain right Encounter Details Date Type Department Care Team (Late st Contact Info) Description 11/04/2014 13:30 EDT Office Visit [facility] Sports Medicine Program - [address] [address] Mor Chanel MD [address] [place] [phone] SLAP (superior labrum from anterior to posterior) tear, right, subsequent encounter (Primary Dx); AC (acromioclavicular) joint arthritis; Glenoid labral tear, right, subsequent encounter Social History Tobacco Use Types Packs/Day [...] - Inhaled Oxygen Concentration - - Weight 95.3 kg (210 lb) 11/04/2014 1323 EDT Height 165.1 cm (5' 5) 11/04/2014 1323 EDT Body Mass Index 34.95 11/04/2014 1323 EDT documented in this encounter Progress Notes * Mor Chanel MD - 11/04/20149 EDT [facility] SPORTS MEDICINE PROGRAM PROGRESS / FOLLOWUP NOTE - 11/04/2014 PROCEDURE: Right arthroscopic anterior and posterior labral repairs, distal clavicle excision, miniopen subpectoral biceps tenodesis 06/26/2014. SUBJECTIVE: Ms Granger was seen for scheduled followup. She reports slow progress, but decreased pain. OBJECTIVE: Passive elevation 130 degrees. Passive external rotation with her arm at the side 50 degrees. Internal rotation above the iliac crest. ASSESSMENT: Satisfactory postoperative progress. PLAN: Work restrictions were updated. She will continue physical therapy. Followup 2 to 3 months. Mor Chanel MD 01 36 PM - Mor Chanel MD cn Dictation ID: [id number] * Mor Chanel MD - 11/04/2014 1336 EDT This office note has been dictated. documented in this encounter Plan of Treatment Not on file documented as of this encounter Visit Diagnoses Diagnosis SLAP (superior labrum from anterior to posterior) tear, right, subsequent encounter- Primary AC (acromioclavicular) joint arthritis Unspecified arthropathy, shoulder region Glenoid labral tear, right, subsequent encounter documented in this encounter Care Teams Nurse Head Relationship Specialty Start Date End Date Phoenix Polanco MD [address] [place] [address] [place] [phone] PCP - General 12/27/13 documented as of this encounter
--- OUTSIDE RECORDS SUMMARY | 2023-12-23 01:02 | XMS_ITS | Encounter Summary ---
Author Organization [facility] Address [address] [place] [address] Care Team Providers Care Photocopying Equipment Repairer Name Role Phone Phoenix Polanco MD Primary Care Provider + Reason for Referral * Radiology Services (Routine/Next Available) - Closed Specialty Diagnoses / Procedures Referred By Janak miguel Referred To Contact Diagnoses Shoulder pain Procedures MSK SHOULDER Eliot Sibley MD [address] [place] [phone] Referral ID Status Reason Start Date Expiration Date Visits Re quested Visits Authorized [id number] Closed 01/23/2014 1 1 Reason for Visit * Reason Onset Date Comments Shoulder Pain 01/23/2014 right Encounter Details Date Type Department Care Team (Late st Contact Info) Description 01/23/2014 Orders Only [facility] Sports Medicine Program - [place] [address] [place] [address] Eliot Sibley MD [address] [place] [phone] Shoulder pain (Primary Dx) Social History [...] Procedure Name Priority Date/Time Associated Diagnosis Comments MSK US SHOULDER Routine 01/31/2014 9:43 EDT Shoulder pain documented in this encounter Results * MSK US SHOULDER (01/31/2014 9:43 EDT) Anatomical Region Laterality Modality Other 01/31/2014 9:43 EDT Narrative 01/31/2014 9:43 EDT Non Reportable Exam Procedure Note 01/31/2014 Non Reportable Exam Eliot Sibley MD [facility] US ORDERABLES documented in this encounter Visit Diagnoses Diagnosis Shoulder pain- Primary Pain in joint, shoulder region documented in this encounter Care Teams Photocopying Equipment Repairer Relationship Specialty Start Date End Date Phoenix Polanco MD [address] [place] [address] [place] [phone] PCP - General 12/27/13 documented as of this encounter
--- OUTSIDE RECORDS SUMMARY | 2023-12-23 01:02 | XMS_ITS | Encounter Summary ---
Author Organization [facility] Address [address] [place] [address] Care Team Providers Care Post Closing Specialist Name Role Phone Phoenix Polanco MD Primary Care Provider + Reason for Visit * Reason Comments Shoulder Pain right Encounter Details Date Type Department Care Team (Late st Contact Info) Description 03/28/2014 10:30 EST Office Visit [facility] Sports Medicine Program - [address] [address] Eliot Sibley MD [address] [place] [phone] SLAP tear of shoulder (Primary Dx) Social History Tobacco Use Types Packs/Day Years Used Date Smoking Tobacco: Never Assessed Sex and Gender Information Value Date Recorded Sex Assigned at Female 02/05/2020 13:48 EDT Gender Identity Female 06/26/2019 14:43 EST Sexual Orientation Not on file documented as of this encounter Progress Notes * Eliot Sibley MD - 03/28/2014 1053 EST Chief Complaint Patient presents with ??? Shoulder Pain right SUBJECTIVE: Nela Granger is a 43 y.o. ambidextrous female who presents to the office to follow up for her right shoulder glenohumeral injection. She had more pain that night and then it started to go down. She then had very little. She is now about 80% improved. She has more motion and can sleep. She stillgets some catching. 1 out of 10 pain. She presented several weeks ago with an [...] atrophy, no scars noted. Palpation: there is no tenderness to the supraspinatus insertion, AC joint, posterior shoulder Range of motion: Actively: 150 degrees forward elevation. 125 degrees abduction. Passively, 60 degrees ER at 0 degrees abduction, 80 degrees ER at 90 degrees abduction, IR to T9 vs T7 Strength testin/5 motor in empty can/scaption with [...] abnormalities. ASSESSMENT: Complex work related right shoulder pain with an MRA finding of SLAP tear. She has responded quite well to a glenohumeral joint injection. 80% improved. She still has a sensation of catching but much less pain. She did not respond to a subacromial injection. It has been difficult to determine where most of her pain is coming from. PLAN: We discussed her response to injection, work injury, possibly diagnosis and next steps for treatment. Given that this is work related, she has been advised to discuss her shoulder with a surgeon. I have scheduled her with a surgeon. She would like to determine if surgery would help her. The patient verbalized understanding of the above and agreed with this plan. All of her questions were answered to her satisfaction today. 25 minutes of face to face time was spent with the patient, 15 minutes were spent on counseling andcoordination of care of the patient's right shoulder pain. Eliot Sibley M.D. 03/28/2014 10:53 Cc: Phoenix Polanco MD documented in this encounter Plan of Treatment Not on file documented as of this encounter Visit Diagnoses Diagnosis SLAP tear of shoulder- Primary Superior glenoid labrum lesion documented in this encounter Care Teams Post Closing Specialist Relationship Specialty Start Date End Date Phoenix Polanco MD [address] [place] [address] PCP - General 12/27/13 documented as of this encounter
--- OUTSIDE RECORDS SUMMARY | 2023-12-23 01:02 | XMS_ITS | Encounter Summary ---
Author Organization [facility] Address [address] [place] [address] Care Team Providers Care Hot Kettle Tender Name Role Phone Phoenix Polanco MD Primary Care Provider + Reason for Visit * Reason Comments Shoulder Pain right Encounter Details Date Type Department Care Team (Late st Contact Info) Description 04/14/2015 14:30 EST Office Visit [facility] Sports Medicine Program - [address] [address] Mor Chanel MD [address] [place] [phone] Right shoulder pain (Primary Dx); Superior glenoid labrum lesion of right shoulder, subsequent encounter; Glenoid labral tear, right, subsequent encounter; AC (acromioclavicular) joint arthritis Discharge Disposition: Auto [...] - Inhaled Oxygen Concentration - - Weight 86.2 kg (190 lb) 04/14/2015 1422 EST Height 165.1 cm (5' 5) 04/14/2015 1422 EST Body Mass Index 31.62 04/14/2015 1422 EST documented in this encounter Discharge Diagnoses Diagnosis M25.511 Pain in right shoulder-M25.511[ICD-10-CM] S43.431D Superior glenoid labrum lesion of right shoulder, subsequent encounter-S43.431D[ICD-10-CM] M19.90 Unspecified osteoarthritis, unspecified site-M19.90[ICD-10-CM] documented in this encounter Discharge Disposition Disposition Code Departure Means Destination Auto Discharge documented in this encounter Progress Notes * Mor Chanel MD - 04/14/2015 1516 EST [facility] SPORTS MEDICINE PROGRAM PROGRESS / FOLLOWUP NOTE - 04/14/2015 PROCEDURE: Right arthroscopic anterior and posterior labral repairs, arthroscopic distal clavicle excision, mini open subpectoral biceps tenodesis. SUBJECTIVE: Ms Granger was seen for unscheduled followup. Recently, she has developed increased painin her right shoulder for no clear reason. She has some stabbing pain posteriorly, similar to pain that she had before surgery, and some aching pain anterolaterally. She has been undergoing therapy and taking NSAIDs, and using heat and ice. OBJECTIVE: No visible atrophy around her right shoulder. No passive range of motion deficits. No new imaging obtained. ASSESSMENT AND PLAN: I am not sure what is causing her current pain, she had no trauma. I recommended watchful waiting, activity modification, continued NSAID use and therapy. If no improvement in symptoms, would consider injection therapy or repeat MRI. Mor Chanel MD 02 43 PM - Mor Chanel MD mn Dictation ID: [id number] * Mor Chanel MD - 04/14/2015 1438 EST This office note has been dictated. documented in this encounter Plan of Treatment Not on file documented as of this encounter Visit Diagnoses Diagnosis Right shoulder pain- Primary Pain in joint, shoulder region Superior glenoid labrum lesion of right shoulder, subsequent encounter Glenoid labral tear, right, subsequent encounter AC (acromioclavicular) joint arthritis Unspecified arthropathy, shoulder region documented in this encounter Historical Medications * This list may reflect changes made after this encounter. Medication Sig Dispensed Refills Start Date End Date melatonin 2.5 mg tablet,chewableIndication s:at bedtime Take 3 mg by mouth daily 06/30/2015 hydrOXYzine (VISTARIL) 50 mg capsule Take 50 mg by mouth daily 03/06/2019 added in this encounter Care Teams Hot Kettle Tender Relationship Specialty Start Date End Date Phoenix Polanco MD [address] [place] [phone] PCP - General 12/27/13 documented as of this encounter
--- OUTSIDE RECORDS SUMMARY | 2023-12-23 01:02 | XMS_ITS | Encounter Summary ---
Author Organization [facility] Address [address] [place] [address] Care Team Providers Care Screener And Blender Operator Name Role Phone Phoenix Polanco MD Primary Care Provider + Encounter Details Date Type Department Care Team (Latest Contact Info) Description 06/30/2014 10:55 EDT - 06/30/2014 23:59 EDT Hospital Encounter [facility] [place] [address] [place] [address] Phoenix Polanco MD [address] [place] [phone] Discharge Disposition: Home or Self Care Social History Tobacco Use Types Packs/Day Years Used Date Smoking Tobacco: Never Assessed Sex and Gender Information Value Date Recorded Sex Assigned at Female 02/05/2020 13:48 EDT Gender Identity Female 06/26/2019 14:43 EST Sexual Orientation Not on file documented as of this encounter Discharge Diagnoses Diagnosis 719.41 JOINT PAIN-SHLDER[ICD-9-CM] 719.50 JOINT STIFFNESS NEC-UNSPEC[ICD-9-CM] 840.4 SPRAIN ROTATOR CUFF[ICD-9-CM] documented in this encounter Medications at Time [...] For constipation 20 Cap 1 06/26/2014 01/15/2016 MELOXICAM (MOBIC ORAL) Take by [...] mg 40 Tab 0 06/30/2014 07/21/2014 documented as of this encounter Discharge Disposition Disposition Code Departure Means Destination Home or Self Group Home documented in this encounter Plan of Treatment Not on file documented as of this encounter Visit Diagnoses Not on filedocumented in this encounter Care Teams Screener And Blender Operator Relationship Specialty Start Date End Date Phoenix Polanco MD [address] [place] [phone] PCP - General 12/27/13 documented as of this encounter
--- OUTSIDE RECORDS SUMMARY | 2023-12-23 01:02 | XMS_ITS | Encounter Summary ---
Author Organization [facility] Address [address] [place] [address] Care Team Providers Care Chocolatier Name Role Phone Phoenix Polanco MD Primary Care Provider + Reason for Visit * Reason Comments Shoulder Pain right Encounter Details Date Type Department Care Team (Late st Contact Info) Description 08/26/2014 10:45 EDT Office Visit [facility] Sports Medicine Program - [address] [address] Mor Chanel MD [address] [place] [phone] SLAP (superior labrum from anterior to posterior) tear (Primary Dx); Right shoulder pain; AC (acromioclavicular) joint arthritis; Glenoid labral tear Discharge Disposition: Auto Discharge Social History [...] - - Weight 95.3 kg (210 lb) 08/26/2014 1057 EDT Height 165.1 cm (5' 5) 08/26/2014 1057 EDT Body Mass Index 34.95 08/26/2014 1057 EDT documented in this encounter Discharge Diagnoses Diagnosis 840.7 SUPERIOR GLENOID LABRUM LESIONS (SLAP)[ICD-9-CM] 719.41 JOINT PAIN-SHLDER[ICD-9-CM] 716.91 ARTHROPATHY NOS-SHLDER[ICD-9-CM] 840.8 SPRAIN SHOULDER/ARM NEC[ICD-9-CM] documented in this encounter Discharge Disposition Disposition Code Departure Means Destination Auto Discharge documented in this encounter Progress Notes * Mor Chanel MD - 08/26/2014 1233 EDT [facility] SPORTS MEDICINE PROGRAM PROGRESS / FOLLOWUP NOTE - 08/26/2014 PROCEDURE: Right arthroscopic anterior and posterior labral repairs, distal clavicle excision, miniopen subpectoral biceps tenodesis 06/26/2014. SUBJECTIVE: Ms Granger was seen for scheduled postoperative followup. She reports slow progress and ongoing discomfort. OBJECTIVE: She is still wearing her sling at times. She is attending physical therapy regularly. All incisions healed. No visible Ashwin deformity. Sensation intact to light touch in the distributionof the axillary nerve. She can actively abduct her shoulder. Passive elevation nearly 90 degrees with substantial guarding. Passive external rotation with her arm at the side 20 degrees. ASSESSMENT: Satisfactory but slow postoperative progress. PLAN: Continue physical therapy per protocol. Discontinue sling use. Follow up in 9 to 12 weeks. Mor Chanel MD 11 08 AM - Mor Chanel MD en Dictation ID: [id number] * Mor Chanel MD - 08/26/2014 1106 EDT This office note has been dictated. [...] and upper arm documented in this encounter Historical Medications * This list may reflect changes made after this encounter. Medication Sig Dispensed Refills Start Date End Date ibuprofen (MOTRIN) 200 mg tablet Take 200 mg by mouth every 6 hours as needed. 06/26/2019 added in this encounter Care Teams Chocolatier Relationship Specialty Start Date End Date Phoenix Polanco MD [address] [place] [phone] PCP - General 12/27/13 documented as of this encounter
--- OUTSIDE RECORDS SUMMARY | 2023-12-23 01:02 | XMS_ITS | Encounter Summary ---
Author Organization [facility] Address [address] [place] [address] Care Team Providers Care Wafer Slicer Name Role Phone Phoenix Polanco MD Primary Care Provider + Reason for Visit * Reason Onset Date Comments Injections 02/19/2016 Encounter Details Date Type Department Care Team (Late st Contact Info) Description 02/19/2016 Telephone [facility] Spine Program - [address] [place] [address] Mesfin Pena PA-C [address] [place] [address] [place] [phone] Injections Social History Tobacco Use Types Packs/Day Years [...] encounter Miscellaneous Notes * Telephone Encounter - BarbaraJaney hinkleLisseth - 02/19/2016 1523 EDT Patient called wanting to repeat the injection she had previously. I gave her number for [facility] and transferred directly since she's had the injection within the last 3 years. documented in this encounter Plan of Treatment Not on file documented as of this encounter Visit Diagnoses Not on filedocumented in this encounter Care Teams Wafer Slicer Relationship Specialty Start Date End Date Phoenix Polanco MD [address] [place], [place] [address] [phone] PCP - General 12/27/13 documented as of this encounter
--- OUTSIDE RECORDS SUMMARY | 2023-12-23 01:02 | XMS_ITS | Encounter Summary ---
Author Organization [facility] Address [address] [place] [address] Care Team Providers Care Escort Blind Name Role Phone Phoenix Polanco MD Primary Care Provider + Reason for Referral * Radiology Services (Routine/Next Available) - Closed Specialty Diagnoses / Procedures Referred By Janak miguel Referred To Contact Diagnoses Right shoulder pain Procedures MSK US SHOULDER Eliot Sibley MD [address] [place] [phone] Referral ID Status Reason Start Date Expiration Date Visits Re quested Visits Authorized [id number] Closed 05/08/2014 1 1 Encounter Details Date Type Department Care Team (Late st Contact Info) Description 05/08/2014 Orders Only [facility] Sports Medicine Program - [address] [address] Eliot Sibley MD [address] [place] [phone] Right shoulder pain (Primary Dx) Social History Tobacco Use Types Packs/Day Years Used Date Smoking Tobacco: Never Assessed Sex and Gender Information Value Date Recorded Sex Assigned at Female 02/05/2020 13:48 EDT Gender Identity Female 06/26/2019 14:43 EST Sexual Orientation Not on file documented as of this encounter Plan of Treatment Pending Results Name Type Priority Associated Diagnoses Date /Time MSK US SHOULDER Imaging Routine Right shoulder pain 05/08/2014 12:00 EST documented as of this encounter Visit Diagnoses Diagnosis Right shoulder pain- Primary Pain in joint, shoulder region documented in this encounter Care Teams Escort Blind Relationship Specialty Start Date End Date Phoenix Polanco MD [address] [facility] [place] [phone] PCP - General 12/27/13 documented as of this encounter
--- OUTSIDE RECORDS SUMMARY | 2023-12-23 01:02 | XMS_ITS | Encounter Summary ---
Author Organization [facility] Address [address] [place] [address] Care Team Providers Care Disability Examiner Name Role Phone Phoenix Polanco MD Primary Care Provider + Encounter Details Date Type Department Care Team (Latest Contact Info) Description 06/26/2014 7:02 EST - 06/26/2014 14:19 EST Hospital Encounter [facility] Perioperative Services - [address] [address] Mor Chanel MD [address] [place] [phone] Superior glenoid labrum lesion Discharge Disposition: Home or Self Care Social History Tobacco Use Types Packs/Day Years Used Date Smoking Tobacco: Never Assessed Sex and Gender Information Value Date Recorded Sex Assigned at Female 02/05/2020 13:48 EDT Gender Identity Female 06/26/2019 14:43 EST Sexual Orientation Not on file documented as of this encounter Last Filed Vital Signs Vital Sign Reading Time Taken Comments Blood Pressure 122/73 06/26/2014 1345 EST Pulse - - Temperature 36.3 ??C (97.3 ??F) 06/26/2014 1400 EST Respiratory Rate 16 06/26/2014 1400 EST Oxygen Saturation 93% 06/26/2014 1345 EST Inhaled Oxygen Concentration - - Weight 95.3 kg (210 lb) 06/19/2014 1005 EST Height 165.1 cm (5' 5) 06/19/2014 1005 EST Body Mass Index 34.95 06/19/2014 1005 EST documented in this encounter Discharge Instructions * Discharge Instructions* Cherie Haddad PA - 06/26/2014 11:12 EST Mor Chanel MD [facility] Sports Medicine [address] [place] [address] WHAT TO EXPECT AFTER ARTHROSCOPIC SHOULDER SURGERY Pain Control ??? It is normal to have swelling and discomfort in the shoulder for up to 6 weeks after surgery, or longer, depending on the nature of the procedure. ??? Plan ahead to take at least a few days off from work or school. Make sure there is someone around who can help you with basic tasks after surgery. ??? Apply ice bags or use the cryotherapy device you were given to control swelling. Ice should be applied 30 minutes at a time, every hour or two. Put a thin towel or T-shirt next to your skin if using ice in a plastic bag. Icing is most important in the first 72 hours, although many people find that continuing it lessens their postoperative pain weeks after their surgery. ??? If you had a nerve block, the local anesthetic may keep your arm numb for several hours. You will also be given a prescription for narcotic pain medication when you are discharged from the hospital. If you find you do not tolerate it well, call our office, preferably during business hours, so that we can better assist you. Do not drive a car or operate machinery while taking narcotics. ??? Some narcotics such as Percocet and Vicodin have Tylenol in them. Others such as Oxycodone and Dilaudid do not. If the medication you were prescribed does not contain Tylenol, you may supplement the narcotic pain medication with Tylenol at the recommended dose. Try to wean off the narcotic painmedication as soon as possible. Anti-inflammatories such as Ibuprofen, Aleve, Motrin, Naprosyn may be taken as well, depending on the type of surgery performed. You doctor will discuss this with you before you are discharged. Sleeping ??? Sleeping is often very difficult after shoulder surgery for several weeks. Sometimes patients are more comfortable sleeping in a recliner instead of lying down. Wound Care ??? Keep the post-op dressing clean and dry. Unless it becomes wet or too tight because of swelling, leave the bandages in place for at least two days. It is normal for some blood to soak through thebandages. If this occurs, you may reinforce the dressing with another clean one. ??? REMOVE YOUR BANDAGES 48 HOURS AFTER SURGERY UNLESS INSTRUCTED OTHERWISE BY YOUR DOCTOR. Cover the small incisions with Band-Aids to keep sutures from snagging. You may shower then as long as the incisions are completely dry with no drainage, but do not scrub the area. If there is active drainage when you remove the dressing, blot it dry and cover with a new dry dressing until the drainage stops. ??? Do not wet your incisions directly (bathing or swimming) until you have discussed this with your doctor at your first post-operative visit. ??? Should you have superficial sutures, they will be removed within 10 days of your surgery. Our office or your physical therapist can assist you with this. In some cases, we use absorbable sutures which do not need to be removed. Follow-up and Physical Therapy ??? We would like to see you back in the office approximately 1 week after surgery. If you don't have your first post-op visit scheduled, please call our office to make one. ??? You may be instructed to start physical therapy right away. If so, you will be given specific instructions upon discharge. Most patients will start therapy after their first post-operative visit.Please make arrangements before surgery for your post-operative therapy so there is no delay when you start. ??? Sling use and use of your arm depends on the nature of your surgery. This will be discussed with you before you are discharged. ??? If you experience continuous incisional drainage, redness, swelling, shortness of breath or fever, please call our office or go to the nearest emergency department. Driving ??? In general, you may resume driving when you have full control of your limbs, are pain free and off all narcotic pain medications. documented in this encounter Medications at Time [...] Take by mouth 2 times daily. 01/15/2016 morphine (MS CONTIN) 15 mg CR tablet Take 1 Tab by mouth every 12 hours for 3 days Daily Max: 30 mg 6 Tab 0 06/26/2014 06/29/2014 ondansetron (ZOFRAN-ODT) 4 mg disintegrating tablet Take 1 Tab by mouth every 8 hours as needed for Nausea 15 Tab 1 06/26/2014 01/15/2016 oxyCODONE (ROXICODONE) 5 mg immediate release tablet Take 1-3 Tabs by mouth every 4 hours as needed for Pain Daily Max: 90 mg 50 Tab 0 06/26/2014 06/30/2014 documented as of this encounter Ordered Prescriptions Prescription Sig Dispensed Refills Start Date End Da te docusate sodium (COLACE) 100 mg capsule Take 1-2 Caps by mouth 2 times daily For constipation 20 Cap 1 06/26/2014 01/15/2016 ondansetron (ZOFRAN-ODT) 4 mg disintegrating tablet Take 1 Tab by mouth every 8 hours as needed for Nausea 15 Tab 1 06/26/2014 01/15/2016 morphine (MS CONTIN) 15 mg CR tablet Take 1 Tab by mouth every 12 hours for 3 days Daily Max: 30 mg 6 Tab 0 06/26/2014 06/29/2014 oxyCODONE (ROXICODONE) 5 mg immediate release tablet Take 1-3 Tabs by mouth every 4 hours as needed for Pain Daily Max: 90 mg 50 Tab 0 06/26/2014 06/30/2014 documented in this encounter Discharge Disposition Disposition Code Departure Means Destination Home or Self Care documented in this encounter Progress Notes * Ginger Small RN - 06/19/2014 1021 EST Nela Granger has been instructed as follows regarding medication administration for the day of the scheduled procedure. Date of Surgery: 06/26/14 Instructions for Taking Medications Day of Surgery Medication Sig Last Dose Hold DOS Take DOS acetaminophen (TYLENOL) 500 mg tablet Take 1,000 mg by mouth as needed for Pain. Yes cyclobenzaprine (FLEXERIL) 10 mg tablet Take 10 mg by mouth daily. Yes ibuprofen (MOTRIN) 200 mg tablet Take 400 mg by mouth as needed for Pain. 06/19/14 yes MELOXICAM (MOBIC ORAL) Take by mouth 2 times daily. 06/22/14 yes documented in this encounter H&P Notes * Mor Chanel MD - 06/26/2014 0809 EST The preoperative history and physical which was performed within 30 days of this procedure has been reviewed and the clinically appropriate elements of the physical examination have been repeated. There are no changes to the documented history and physical or if so such changes are documented below Mor Chanel MD 06/26/2014 8:09 Source Note - IMPLANT POLISHER, SCAN 2 - 06/11/2014 14:43 EST * Mor Chanel MD - 06/26/2014 0808 EST The preoperative history and physical which was performed within 30 days of this procedure has been reviewed and the clinically appropriate elements of the physical examination have been repeated. There are no changes to the documented history and physical or if so such changes are documented below Mor Chanel MD 06/26/2014 8:08 Source Note - IMPLANT POLISHER, SCAN 2 - 06/11/2014 14:43 EST documented in this encounter OR Notes * OR Surgeon - Mor Chanel MD - 06/26/2014 1911 EST OPERATIVE REPORT SERVICE DATE: 06/26/2014 SURGEON: Mor Chanel MD EATING DISORDER SPECIALIST: OLEG Aguilar (There was no qualified orthopedic surgery resident available to assist.) PREOPERATIVE DIAGNOSES: 1. Right shoulder pain. 2. Right superior labrum anterior and posterior tear. 3. Right acromioclavicular joint arthrosis. POSTOPERATIVE DIAGNOSES: 1. Right shoulder pain. 2. Right superior labrum anterior and posterior tear. 3. Right acromioclavicular joint arthrosis. 4. Right posterior labral tear and right anterior labral tear. PROCEDURE: 1. Right arthroscopic posterior labral repair. 2. Right arthroscopic anterior inferior labral repair. 3. Right arthroscopic biceps tenotomy. 4. Right arthroscopic distal clavicle excision. 5. Right mini open subpectoral biceps tenodesis. ANESTHESIA: General plus local. ESTIMATED BLOOD LOSS: Minimal. FLUIDS: 850 of crystalloid. URINE OUTPUT: Not recorded. IMPLANTS: Four 2.3 mm single-loaded BIORAPTOR anchors and one 2.9 mm double- loaded OSTEORAPTOR anchor. SPECIMENS: None. DRAINS: None. COMPLICATIONS: None. DISPOSITION: PACU. INDICATIONS: A 44-year-old female with persistent right shoulder pain. See PRISM notes for full details of her history, physical examination and imaging studies. It was felt that her pain was relatedto a SLAP tear and AC joint arthrosis. She did not have satisfactory relief of her symptoms with nonoperative treatment and operative intervention was discussed as an option. She elected to proceed with surgery. The plan was and medial open subpectoral biceps tenodesis and arthroscopic distal clavicle excision. Risks were discussed including infection, bleeding, nerve injury, skin numbness, bloodclots, medical complications, need for additional surgery, shoulder stiffness, failure of the tenodesis, cosmetic deformity of the arm, biceps muscle cramping, incomplete pain relief and incomplete return of function. NARRATIVE: Informed consent was obtained from the patient and her right arm was marked in the preoperative hold area. She was brought to the operating room and placed supine on the operating table where general anesthetic was administered by the anesthesiology staff. She received 2 g of Kefzol within 1 hour of making the skin incision. She was placed into the beach chair position on the TENET table with care taken to pad all bony prominences. Head and neck were placed in neutral position. Examination under anesthesia revealed no passive range of motion deficits. Her right shoulder region was prepped and draped in the usual sterile fashion. A time-out was undertaken confirming the right shoulder as the correct operative site. A standard posterior glenohumeral portal was made and the joint was examined systematically. Findings are as follows: 1. The intraarticular portion of the proximal biceps tendon was normal. 2. The visible upper portion of the subscapularis tendon was normal. 3. The articular side of the supraspinatus and infraspinatus tendons was normal. 4. No loose bodies in the axillary recess. 5. There was a tear of the posterior labrum, which actually extended into a superior labral tear. The posterior labral tear extended to the 7 o'clock position. 6. There was a type 2 SLAP tear extending posteriorly. 7. There was an anterior inferior labral tear from 3 to 5 o'clock 8. ICRS 0 glenoid. 9. ICRS 0 humeral head. 10. No Hill-Sachs lesion. An anterior mid glenoid portal was created as well as an eduar-superolateral portal and a posterolateral portal. A motorized shaver was used to debride the frayed edges at the sites of the glenoid labral tears. A motorized shaver was used to debride the posterior glenoid adjacent to the articular surface to create a bleeding bony surface. This process was also performed anteriorly adjacent to the anterior inferior labral tear. Through the posterolateral portal, 2 single-loaded 2.3 mm BIORAPTORanchors were deployed at the junction of the glenoid bone and articular surface. Both anchors had excellent purchase. Sutures were passed in a horizontal mattress fashion and tied securely with standard knot-tying techniques. This process was also repeated anteriorly for the anterior inferior labral tear. Both repairs were felt to be very secure and this was confirmed with a probe. An arthroscopic biceps tenotomy was also performed to treat the SLAP tear. The arthroscope was placed in the subacromial space. A complete subacromial bursectomy was performed, but the coracoacromial ligament was left intact. The distal clavicle and AC joint was exposed jackson motorized glenn was used to resect a small amount of bone from the distal clavicle. The inferior border of the pectoralis major was palpated as the shoulder was placed in abduction, external rotation. A small incision was made centered over the inferior border of the pectoralis major. Blunt dissection was performed deep to the pectoralis major. The bicipital groove, proximal humeral shaft were palpated deep to the pectoralis major tendon. The proximal biceps tendon was retrievedthrough the incision. An elevator was used to debride soft tissue overlying the bicipital groove. The 2.9 mm double-loaded OSTEORAPTOR anchor was deployed in this region with excellent purchase. The sutures from this anchor were passed near the muscle tendon junction using a locking loop configuration. The sutures were tied, securing the tenodesis. Excess tendon was resected. The wound was copiously irrigated and closed in layers with 3-0 Monocryl and Dermabond. The portal sites were all closedwith 3-0 Prolene suture and 60 mL of 0.25% Marcaine with epinephrine was infiltrated into the subacromial space and the incisions. Sterile dressings were applied followed by a Cryo/Cuff and an UltraSling ER. She was extubated in the operating room and taken to PACU in satisfactory condition. I was present for the entire case. Unless otherwise noted, there were no complications, no blood loss, no cultures obtained, no specimens removed, and no drains retained. Mor Chanel MD 11 47 AM / Mor Chanel MD pn Confirmation: [id number] Dictation ID: [id number] cc:Phoenix Polanco MD documented in this encounter Miscellaneous Notes * Anesthesia Post-Eval - Esau Hylton MD - 06/26/2014 1358 EST Post Anesthesia Evaluation Note Date of Service: 06/26/2014 Nela Granger, a 44 y.o. year old female has received General Anesthesia today. She has been evaluated, assessed and discharged from anesthesia care with stable cardiorespiratory function and alert mental status. The last set of recorded vital signs and pain rating were reviewed: Temp: 36.7 ??C (98.1 ??F) (06/26/14 1315), Heart Rate: 87 BPM (06/26/14 1345), BP: 122/73 mmHg (06/26/14 1345), Resp: 14 (06/26/14 1345), SpO2: 93 % (06/26/14 1345),Numeric Pain Level (Scale 1-10): 4 Nela Granger participated in this evaluation unless otherwise noted. Her pain, nausea and vomiting have been managed and her body temperature and fluid balance have been restored. Additional monitoring and assessment needs have been addressed. If present, any postoperative events are documented below. Esau Hylton MD 06/26/2014 13:58 * Plan of Care - Karlee Mcdermott RN - 06/26/2014 1323 EST Easily returns to sleep when not disturbed * Brief Op Note - Cherie Haddad PA - 06/26/2014 1108 EST BRIEF OP NOTE Surgeon: Mor Chanel MD Assistants: OLEG Brown Pre op diagnosis/Indications: right shoulder pain, labral tear Post op diagnosis: Same Procedure: Right Shoulder Arthroscopy Distal clavicle Excision Mini Open biceps tenodesis, labral repair Anesthesia: generall Findings: See post op diagnosis and please see dictated note. Fluids: Blood loss: Minimal; IV fluids: Adequate Lactated Ringers; Urine output: Not recorded Specimens sent: None Cultures sent: None Tourniquet time: Not applicable Complications: None Condition: Stable Disposition: Pacu documented in this encounter Plan of Treatment Not on file documented as of this encounter Procedures Procedure Name Priority Date/Time Associated Diagnosis Comments PROCEDURE REPORTS - SCANNED 07/04/2014 7:18 EDT IMPLANT RECORD - SCANNED 06/30/2014 13:35 EDT ECG REPORT - SCANNED 06/30/2014 13:12 EDT TEST, URINE STAT 06/26/2014 6:20 EST documented in this encounter Results * PROCEDURE REPORTS - SCANNED (07/04/2014 7:18 EDT) 07/04/2014 7:18 EDT Scan 2 Human Resource Manager PROCEDURE/MINOR SHILPA GICAL ORDERABLES * IMPLANT RECORD - SCANNED (06/30/2014 13:35 EDT) 06/30/2014 13:3 5 EDT Scan 2 Human Resource Manager PROCEDURE/MINOR SHILPA GICAL ORDERABLES * ECG REPORT - SCANNED (06/30/2014 13:12 EDT) 06/30/2014 13:1 2 EDT Scan 2 Human Resource Manager PROCEDURE/MINOR SHILPA GICAL ORDERABLES * TEST, URINE (06/26/2014 6:20 EST) Result- Test, Ur Neg Neg 06/26/2014 7:34 EST [facility] Comment: NOTE: False negative results may occur in women who are beyond 5-8 weeks gestation. Diagnosis of should be based on a correlation of test results with typical clinical signs and symptoms. Urine specimen (specimen) URINE / Unknown 06/26/2014 6:20 EST 06/26/2014 7:30 EST Eliot Arreola MD URINALYSIS ORDERABLE S [facility] [address] [place] [address] documented in this encounter Visit Diagnoses Diagnosis Superior glenoid labrum lesion- Primary Superior glenoid labrum lesion documented in this encounter Administered Medications Inactive Administered Medications - up to 3 most recent administrations Medication Order MAR Action Action Date Dose Rate Site acetaminophen (TYLENOL) tablet 1,000 mg 1,000 mg, oral, PRE-OP ONCE, 1 dose, On Barbie 06/26/14 at 0800, Routine, Pre-Op DOS Rx Approved Given 06/26/2014 7:33 EST 1,000 mg ceFAZolin (ANCEF) syringe 2 g 2 g, intravenous, Administer over 10 Minutes, PRE-OP ONCE, 1 dose, On Barbie 06/26/14 at 0800, Routine, Pre-Op DOS Rx Approved Given by Other 06/26/2014 9:00 EST 2 g fentaNYL citrate (PF) 50 mcg/mL injection 25-100 mcg 25-100 mcg, intravenous, EVERY 5 MIN PRN, Starting on Barbie 315 at 1059, Until Barbie 315 at 1625, Pain, Routine, Recovery (only) Given 06/26/2014 11:42 EST 50 mcg Given 06/26/2014 11:33 EST 50 mcg fentaNYL citrate (PF) 50 mcg/mL injection 1 dose, Starting on Barbie 3 at 1130, Until Barbie 06/26/14 at 1133 HYDROmorphone (DILAUDID) tablet 2 mg 2 mg, oral, PRN, 2 doses, Starting on Barbie 3 at 1059, Until Barbie 3 at 1133, Pain, Routine, Recovery (only) Given 06/26/2014 11:33 EST 2 mg Given 06/26/2014 11:32 EST 2 mg HYDROmorphone (PF) (DILAUDID) 1 mg/mL injection 0.2-1 mg 0.2-1 mg, intravenous, EVERY 10 MINUTES PRN, Starting on Barbie 3 at 1059, Until Barbie 3 at 1625, Pain, Routine, Recovery (only) Given 06/26/2014 12 :23 EST 0.5 mg Given 06/26/2014 12:00 EST 0.5 mg lactated ringers (LR) infusion at 100 mL/hr, intravenous, CONTINUOUS, Starting on Barbie 06/26/14 at 0800, Until Barbie 06/26/14 at 1625, Routine, Pre-Op DOS Rx Approved Rate Change 06/26/2014 11:14 EST 100 mL/hr New Bag 06/26/2014 7:47 EST 25 mL/hr oxyCODONE (OXYCONTIN) CR tablet 10 mg 10 mg, oral, PRE-OP ONCE, 1 dose, On Barbie 06/26/14 at 0800, Routine, Pre-Op DOS Rx Approved Given 06/26/2014 7:33 EST 10 mg pregabalin (LYRICA) capsule 100 mg 100 mg, oral, PRE-OP ONCE, 1 dose, On Barbie 06/26/14 at 0800, Routine, Pre-Op DOS Rx Approved Given 06/26/2014 7:33 EST 100 mg documented in this encounter Discontinued Medications Medication Sig Discontinue Reason Start Date End Da te ACETAMINOPHEN WITH CODEINE (TYLENOL-CODEINE #3 ORAL) Take by mouth daily. Therapy completed 5 ibuprofen (MOTRIN) 200 mg tablet Take 400 mg by mouth as needed for Pain. 06/26/2014 documented as of this encounter Active and Recently Administered Medications Times are shown in EST. Scheduled Medication Order 06/24/2014 06/25/2014 06/26/2014 acetaminophen (TYLENOL) tablet 1,000 mg (COMPLETED) 1,000 mg, oral, PRE-OP ONCE, 1 dose, On Barbie 06/26/14 at 0800, Routine, Pre-Op DOS Rx Approved 0733 (Given - Provid er: Fidencio Zamora RN) ceFAZolin (ANCEF) syringe 2 g (COMPLETED) 2 g, intravenous, Administer over 10 Minutes, PRE-OP ONCE, 1 dose, On Barbie 06/26/14 at 0800, Routine, Pre-Op DOS Rx Approved 0900 (Given by Other - Provider: Kori Corbin RN - Comment: Given in OR by anesthesia Iliana) oxyCODONE (OXYCONTIN) CR tablet 10 mg (COMPLETED) 10 mg, oral, PRE-OP ONCE, 1 dose, On Barbie 06/26/14 at 0800, Routine, Pre-Op DOS Rx Approved 0733 (Given - Provid er: Fidencio Zamora RN) pregabalin (LYRICA) capsule 100 mg (COMPLETED) 100 mg, oral, PRE-OP ONCE, 1 dose, On Barbie 06/26/14 at 0800, Routine, Pre-Op DOS Rx Approved 0733 (Given - Provid er: Fidencio Zamora RN) Continuous Medication Order 06/24/2014 06/25/2014 06/26/2014 lactated ringers (LR) infusion (CANCELED) at 100 mL/hr, intravenous, CONTINUOUS, Starting on Barbie 06/26/14 at 0800, Until Barbie 06/26/14 at 1625, Routine, Pre-Op DOS Rx Approved 0747 (New Bag - Prov ider: Fidencio Zamora RN)1114 (Rate Change - Provider: Darlene Rodriguez RN) PRN Medication Order 06/24/2014 06/25/2014 06/26/2014 fentaNYL citrate (PF) 50 mcg/mL injection 25-100 mcg (CANCELED) 25-100 mcg, intravenous, EVERY 5 MIN PRN, Starting on Barbie 3/5/15 at 1059, Until Barbie 3/5/15 at 1625, Pain, Routine, Recovery (only) 1133 (Given - Provid er: Darlene Rodriguez RN)1142 (Given - Provider: Darlene Rodriguez, RN) HYDROmorphone (DILAUDID) tablet 2 mg (COMPLETED) 2 mg, oral, PRN, 2 doses, Starting on Barbie 3//15 at 1059, Until Barbie 3//15 at 1133, Pain, Routine, Recovery (only) 1132 (Given - Provid er: Darlene Rodriguez RN)1133 (Given - Provider: Darlene Rodriguez, RN) HYDROmorphone (PF) (DILAUDID) 1 mg/mL injection 0.2-1 mg (CANCELED) 0.2-1 mg, intravenous, EVERY 10 MINUTES PRN, Starting on Barbie 3//15 at 1059, Until Barbie 3//15 at 1625, Pain, Routine, Recovery (only) 1200 (Given - Provid er: Darlene Rodriguez RN)1223 (Given - Provider: Darlene Rodriguez, MEREDITH) documented in this encounter Orders Medications Ordered That Adin ht Not Have Been Administered Count Last Ordered Date First Ordered Date atropine 0.1 mg/mL syringe 0.5 mg 1 015 diphenhydrAMINE (BENADRYL) i njection 6.25 mg 1 06/26/2014 meperidine (PF) (DEMEROL) 25 mg/0.5 mL injection 12.5 mg 1 06/26/2014 metoCLOPramide (REGLAN) injection 10 mg 1 0 06/26/2014 nalOXone (NARCAN) injection 0.2 mg 1 2014 Nursing Count Last Ordered Date First Orde red Date APPLY WARMING BLANKET 1 06/26/2014 INSERT PERIPHERAL IV 1 06/26/2014 PLACE ANTI-EMBOLISM STOCKINGS 1 06/26/2014 PLACE SEQUENTIAL COMPRESSION DEVICE 1 06/26 Admission Count Last Ordered Date First Orde red Date STATUS: OUTPATIENT SURGICAL OP BED/SERVICES 1 06/26/2014 Transfer Count Last Ordered Date First Orde red Date NOTIFY PPS PACU PATIENT DISCHARGE 1 015 Discharge Count Last Ordered Date First Orde red Date DISCHARGE PATIENT 1 06/26/2014 documented in this encounter Care Teams Disability Examiner Relationship Specialty Start Date End Date Phoenix Polanco [facility] [address] [facility] [phone] PCP - General 12/27/13 documented as of this encounter
--- OUTSIDE RECORDS SUMMARY | 2023-12-23 01:02 | XMS_ITS | Encounter Summary ---
Author Organization [facility] Address [address] [place] [address] Care Team Providers Care Ell Teacher Name Role Phone Unavailable Primary Care Provider Unavailabl e Encounter Details Date Type Department Care Team (Late st Contact Info) Description 09/13/2004 10:09 EDT Hospital Encounter [facility] [address] [place] [address] May Madden MD [address] [place] [phone] Social History Tobacco Use Types Packs/Day Years [...] 8:41 EDT documented as of this encounter Plan of Treatment Not on file documented as of this encounter Procedures Procedure Name Priority Date/Time Associated Diagnosis Comments COMPLETE BLOOD COUNT Routine 09/13/2004 10:14 EDT VITAMIN B12 Routine 09/13/2004 10:14 EDT CALCIUM Routine 09/13/2004 10:14 EDT LIPID PROFILE (INCLUDES CHOLESTEROL, TRIGLYCERIDES, HDL, LDL) Routine 09/13/2004 10:14 EDT documented in this encounter Results * LIPID PROFILE (INCLUDES CHOLESTEROL, TRIGLYCERIDES, HDL, LDL) (09/13/2004 10:14 EDT) Cholesterol 144 mg/dl [facility] Comment: Desirable:<200 Borderline:200-239 High Risk:>wq=[id number] Triglycerides 89 35 - 160 mg/dl [facility] HDL 67 mg/dl [facility] Comment: Highly Desirable:>60 Desirable:35-60 High Risk:<35 LDL, Calculated 59 mg/dl [facility] Comment: Desirable:<130 Borderline:130-159 High Risk:>pe=905 Chol/HDL Ratio 2.1 [facility] Fasting? Yes Performed at [facility], [place], [place] PA[facility] 09/13/2004 10:1 4 EDT 09/13/2004 10:16 EDT May Madden MD CHEMISTRY & BLOOD GA S ORDERABLES Performing Organization Address City/State/[facility] Co de Phone Number [facility] [address] [place] [address] * (ABNORMAL) HEMAGRAM (09/13/2004 10:14 EDT) WBC 5.50 4.0 - 12.4 K/cmm [facility] RBC 4.44 3.86 - 5.04 M/cmm [facility] Hemoglobin 8.9(L) 11.6 - 15.2 gm/dl [facility] HCT 28.4(L) 34.9 - 44.4 % [facility] MCV 64(L) 81 - 98 fl [facility] MCH 20.1(L) 26.7 - 33.3 pg [facility] MCHC 31.4(L) 32.1 - 35.9 gm/dl [facility] PLT 364(H) 141 - 320 K/cmm [facility] RDW-CV 19.0(H) 11.7 - 14.6 % [facility] 09/13/2004 10:1 4 EDT 09/13/2004 10:16 EDT May Madden MD HEMATOLOGY & PF4 ORD ERABLES Performing Organization Address [facility] Co de Phone Number [facility] [address] [place] [address] * CALCIUM (09/13/2004 10:14 EDT) Calcium 8.9 8.5 - 10.5 mg/dl [facility] Calculated Calcium 9.2 8.5 - 10.5 mg/dl [facility] 09/13/2004 10:1 4 EDT 09/13/2004 10:16 EDT May Madden MD CHEMISTRY & BLOOD GA S ORDERABLES Performing Organization Address [facility] Co de Phone Number [facility] [address] [place] [address] * (ABNORMAL) VITAMIN B12 (09/13/2004 10:14 EDT) Vitamin B-12 173(L) 250 - 1100 pg/ml [facility] 09/13/2004 10:1 4 EDT 09/13/2004 10:16 EDT May Madden MD CHEMISTRY & BLOOD GA S ORDERABLES Performing Organization Address [facility] Co de Phone Number [facility] [address] [place] [address] documented in this encounter Visit Diagnoses Not on filedocumented in this encounter Additional Health Concerns Infection Onset Date Last Indicated Resolved Time R/O COVID-19 08/22/2022 08/22/2022 08/22/2022 11:1 1 EDT R/O COVID-19 03/15/2023 03/15/2023 03/15/2023 17:4 2 EST documented as of this encounter
--- OUTSIDE RECORDS SUMMARY | 2023-12-23 01:02 | XMS_ITS | Encounter Summary ---
Author Organization [facility] Address [address] [place] [address] Care Team Providers Care Heavy Rail Train Operator Name Role Phone Phoenix Polanco MD Primary Care Provider + Reason for Visit * Reason Comments Post-OP Follow Up suture removal Encounter Details Date Type Department Care Team (Late st Contact Info) Description 07/04/2014 11:00 EDT Office Visit [facility] Sports Medicine Program [place] [address] [place] [address] Unknown, Provider, Sports, Nurse SLAP (superior labrum from anterior to posterior) tear (Primary Dx); Glenoid labral tear; Superior glenoid labrum lesion; AC (acromioclavicular) joint arthritis; Right shoulder pain Social History Tobacco Use Types Packs/Day Years Used Date Smoking Tobacco: Never Assessed Sex and Gender Information Value Date Recorded Sex Assigned at Female 02/05/2020 13:48 EDT Gender Identity Female 06/26/2019 14:43 EST Sexual Orientation Not on file documented as of this encounter Progress Notes * Stacey Amaral - 07/04/2014 1106 EDT Patient presents for suture removal. S/p Right arthroscopic posterior and anterior inferior labral repair/biceps tenotomy/distal clavicle excision/mini open subpectoral biceps tenodesis 06/26/14. The sutures are removed. The scope sites are well healed without signs of infection. Wound care and activity instructions given. She is taking Tylenol during the day for comfort and Oxycodone at bedtime asneeded. PT to start 07/24/14 and follow up w/ is 08/26/14. Aware to call as needed. I was supervised by Dr.David Sibley who was present and immediately available in the office suite. Stacey Amaral LPN 07/04/2014 11:29 documented in this encounter Plan of Treatment Not on file documented as of this encounter Visit Diagnoses Diagnosis SLAP (superior labrum from anterior to posterior) tear- Primary Superior glenoid labrum lesion Glenoid labral tear Sprain and strain of other specified sites of shoulder and upper arm Superior glenoid labrum lesion AC (acromioclavicular) joint arthritis Unspecified arthropathy, shoulder region Right shoulder pain Pain in joint, shoulder region documented in this encounter Care Teams Heavy Rail Train Operator Relationship Specialty Start Date End Date Phoenix Polanco MD [address] [place] [address] PCP - General 12/27/13 documented as of this encounter
--- OUTSIDE RECORDS SUMMARY | 2023-12-23 01:02 | XMS_ITS | Encounter Summary ---
Author Organization [facility] Address [address] [place] [address] Care Team Providers Care Acid Pump Operator Name Role Phone Phoenix Polanco MD Primary Care Provider + Reason for Visit * Reason Onset Date Comments Appointment Related 02/19/2016 Encounter Details Date Type Department Care Team (Late st Contact Info) Description 02/19/2016 Telephone [facility] Interventional Pain [address] [place] [address] Aroldo Romero MD [address] [place] [address] Appointment Related Social History Tobacco [...] encounter Miscellaneous Notes * Telephone Encounter - Kathi Arboleda - 03/03/2016 1426 EST appt 05/10/16 * Telephone Encounter - Lisseth Muro - 03/02/2016 2337 EST The patient has BC/BS of [place]. Authorization is not required for a repeat facet vs MBB. Ready to schedule. * Telephone Encounter - Sergei Bourne RN - 02/22/2016 1354 EDT Injection History: 01/15/2016: lumbar facet joint injection at L4L5, L5S1 b/l: 70% x 3 weeks Forward to [facility] for repeat facet vs MBB * Telephone Encounter - Boo Mcmullen - 02/19/2016 1534 EDT Pt calling in to schedule another procedure with us at this time. Pt did get good relief but not for a very long period of time. Please review and call back as needed. Percentage of relief from last procedure - 70% Duration of relief - approximately 3 weeks documented in this encounter Plan of Treatment Not on file documented as of this encounter Visit Diagnoses Not on filedocumented in this encounter Care Teams Acid Pump Operator Relationship Specialty Start Date End Date Phoenix Polanco MD [address] [place] [phone] PCP - General 12/27/13 documented as of this encounter
--- OUTSIDE RECORDS SUMMARY | 2023-12-23 01:02 | XMS_ITS | Encounter Summary ---
Author Organization [facility] Address [address] [place] [address] Care Team Providers Care Cargo Services Coordinator Name Role Phone Phoenix Polanco MD Primary Care Provider + Reason for Referral * Radiology Services (Routine/Next Available) - Closed Specialty Diagnoses / Procedures Referred By Janak miguel Referred To Contact Diagnoses Shoulder pain Procedures MSK SHOULDER Eliot Sibley MD [address] [place] [phone] Referral ID Status Reason Start Date Expiration Date Visits Re quested Visits Authorized [id number] Closed 03/13/2014 1 1 Reason for Visit * Reason Onset Date Comments Shoulder Pain 03/13/2014 right Encounter Details Date Type Department Care Team (Late st Contact Info) Description 03/13/2014 Orders Only [facility] Sports Medicine Program - [address] [place] [address] Eliot Sibley MD [address] [place] [phone] Shoulder pain (Primary Dx) Social History Tobacco Use Types Packs/Day Years Used Date Smoking Tobacco: Never Assessed Interpersonal Safety Answer Date Record ed Physically [...] Associated Diagnosis Comments MSK US SHOULDER Routine 03/14/2014 8:19 EST Shoulder pain documented in this encounter Results * MSK US SHOULDER (03/14/2014 8:19 EST) Anatomical Region Laterality Modality Other 03/14/2014 8:19 EST Narrative 03/14/2014 8:19 EST Non Reportable Exam Procedure Note 03/14/2014 Non Reportable Exam Eliot Sibley MD IMG US ORDERABLES documented in this encounter Visit Diagnoses Diagnosis Shoulder pain- Primary Pain in joint, shoulder region documented in this encounter Care Teams Cargo Services Coordinator Relationship Specialty Start Date End Date Phoenix Polanco MD [address] [place] [phone] PCP - General 12/27/13 documented as of this encounter
--- OUTSIDE RECORDS SUMMARY | 2023-12-23 01:02 | XMS_ITS | Encounter Summary ---
Author Organization [facility] Address [address] [place] [address] Care Team Providers Care Marketing Designer Name Role Phone Phoenix Polanco MD Primary Care Provider + Reason for Visit * Reason Comments Shoulder Pain right Encounter Details Date Type Department Care Team (Late st Contact Info) Description 03/13/2014 14:00 EST Office Visit [facility] Sports Medicine Program - [address] [address] Eliot Sibley MD [address] [place] [phone] SLAP tear of shoulder (Primary Dx) Discharge Disposition: Auto Discharge Social [...] - - Weight 90.7 kg (200 lb) 03/13/2014 1408 EST Height 165.1 cm (5' 5) 03/13/2014 1408 EST Body Mass Index 33.28 03/13/2014 1408 EST documented in this encounter Discharge Diagnoses Diagnosis 840.7 SUPERIOR GLENOID LABRUM LESIONS (SLAP)[ICD-9-CM] documented in this encounter Discharge Disposition Disposition Code Departure Means Destination Auto Discharge documented in this encounter Progress Notes * Eliot Sibley MD - 03/13/2014 5760 EST Chief Complaint Patient presents with ??? Shoulder Pain right SUBJECTIVE: Nela Granger is a 43 y.o. female who present for a ultrasound guided injection into her right shoulder. Patient has a diagnosis of right shoulder pain. She has a SLAP tear but her pain is quite exaggerated and nonspecific. She did not respond to the subacromial injection. 4 out of 10 pain. Risks, benefits and [...] to the procedure PROCEDURE NOTE: Right shoulder glenohumeral injection under ultrasound guidance The patient was brought to the examination room. The correct side was identified in a daily moment to accurately inject the proper joint. After verbal consent obtained, area of posterior shoulder was palpated and landmarks were noted. The posterior labrum and posterior glenohumeral joint was localized under ultrasound. Images were saved. Pt prepped with isopropyl alcohol and draped. The region to be injected was anesthestized using 3 cc of 2% lidocaine. Under sterile conditions and using ultrasound for guidance, the glenohumeral joint was accessed with a 3.5 inch 22 gauge spinal needle. The glenohumeral joint was infused with 3 cc 2% lidocaine, 3 cc0.5% marcaine and 2 cc 40 mg/cc kenalog without resistance. The capsule was noted to distend. Cleansed with isopropyl alcohol and bandaged. The patient tolerated the procedure well. After care was reviewed including icing, use of NSAIDs prn and activity modification. The patient will keep a pain sheet with numeric response to injection and bring this to follow up. Will follow up in 2 weeks. If she is not noticing any benefit, will consider pain clinic or alternative treatments. If she notes good relief, will consider SLAP repair. I discussed all of the above verbally with patient, no barriers to understanding. The patient indicated understanding and agrees to the above plan. Eliot Sibley M.D. 03/13/2014 16:37 * Asha Harrison - 03/13/2014 1423 EST I. Patient is here for intraarticular injection-Lidocaine 2% 1. Med given in right shoulder by intraarticular route. 2. Med lot number: [id number] 3. Exp date: 12/23/2014 Total dosage in vial: 20ml Total dosage administered: 6ml Total dosage of waste: multi dose I. Patient is here for intraarticular injection-sensorcaine .5% 1. Med given in right shoulder by intraarticular route. 2. Med lot number: [id number] 3. Exp date: 03/24/2015 Total dosage in vial: 10ml Total dosage administered: 3ml Total dosage of waste: 7ml I. Patient is here for intraarticular injection-Kenalog 40 1. Med given in right shoulder by intraarticular route. 2. Med lot number: [id number] 3. Exp date: 05/2015 Total dosage in vial: 5ml Total dosage administered: 2ml Total dosage of waste: multi dose Asha Harrison 03/13/14 14:24 documented in this encounter Plan of Treatment Not on file documented as of this encounter Visit Diagnoses Diagnosis SLAP tear of shoulder- Primary Superior glenoid labrum lesion documented in this encounter Care Teams Marketing Designer Relationship Specialty Start Date End Date Phoenix Polanco MD [address] [place] [phone] PCP - General 12/27/13 documented as of this encounter
--- OUTSIDE RECORDS SUMMARY | 2023-12-23 01:02 | XMS_ITS | Encounter Summary ---
Author Organization [facility] Address [address] [place] [address] Care Team Providers Care Cellar Packer Name Role Phone Unavailable Primary Care Provider Unavailabl e Encounter Details Date Type Department Care Team (Late st Contact Info) Description 06/18/2004 Results Only [facility] Women's Services - [facility] [address] [place], [place] [id number] Cleo Shelby CNM Social History Tobacco Use Types Packs/Day Years [...] Priority Date/Time Associated Diagnosis Comments CYTOPATHOLOGY Routine 06/18/2004 0:00 EST documented in this encounter Results * CYTOPATHOLOGY (06/18/2004 0:00 EST) Pathology Report: CYTOPATHOLOGY REPORT Reports generated via electronic interface contain original data; however they are lacking the format of the original report. Caution should be taken when reading/interpreti ng unformatted reports. Name: ? NELA GRANGER ? Accession #: ? [id number] : ? 1970 (Age: 34) ??F ?Collect Date: ? 06/18/2004 Location: ? [facility] ? Receive Date: ? 06/21/2004 Provider: ?CLEO SHELBY CNM Copy to: ? Specimen/Source: ?ThinPrep Pap Test, Cervix/Endocervix Last Menstrual Period: ? 05/25/04 Other: ? HPVA - HPV testing requested if ASC-US on the current ThinPrep Pap test. ? SPECIMEN ADEQUACY ? Satisfactory for Evaluation - transformation zone component present GENERAL CATEGORIZATION ? Negative for Intraepithelial Lesion or Malignancy ? Document reviewed and electronically signed by: ? RUBIO Angeles(ASCP) ? Report Date: ??06/23/2004 13:17 End of Report [facility] 06/18/2004 06/21/2004 Cleo Shelby CNM PATHOLOGY ORDERABLES [facility] [address] [place] [address] documented in this encounter Visit Diagnoses Not on filedocumented in this encounter
--- OUTSIDE RECORDS SUMMARY | 2023-12-23 01:02 | XMS_ITS | Encounter Summary ---
Author Organization [facility] Address [address] [place] [address] Care Team Providers Care Casing Inspector Name Role Phone Unavailable Primary Care Provider Unavailabl e Encounter Details Date Type Department Care Team (Latest Contact Info) Description 07/06/2007 20:16 EDT Hospital Encounter [facility] - Other [address] [place] [address] Gabo Mckinley MD [address] [place] [phone] Discharge Disposition: Home or Self Care Social History Tobacco Use Types Packs/Day Years Used Date Smoking Tobacco: Never Assessed Sex and Gender Information Value Date Recorded Sex Assigned at Female 02/05/2020 13:48 EDT Gender Identity Female 06/26/2019 14:43 EST Sexual Orientation Not on file documented as of this encounter Discharge Disposition Disposition Code Departure Means Destination Home or Self Care documented in this encounter Plan of Treatment Not on file documented as of this encounter Procedures Procedure Name Priority Date/Time Associated Diagnosis Comments MR EXTREMITY SHOULDER W CONTRAST 02/12/2014 14:57 EDT FL GUIDE LOCATION, ASPIRATION, INJECTION, BIOPSY 02/12/2014 13:40 EDT CYTOPATHOLOGY Routine 12/05/2007 0:00 EDT documented in this encounter Results * MR EXTREMITY SHOULDER W CONTRAST (02/12/2014 14:57 EDT) Anatomical Region Laterality Modality Other 02/12/2014 14:5 7 EDT 02/17/2014 7:58 EDT [facility] 02/17/2014 7:58 EDT MR EXTREMITY SHOULDER W CONTRAST ??02/12/2014 2:57 PM Signs and Symptoms/Comments: Right shoulder catching. Comparison: Right shoulder radiographs dated 12/27/2013, MR right shoulder dated 11/20/2013 Technique: Routine multiplanar and multisequence MR arthrographic images of the right shoulder were obtained after the intra-articular administration of approx. 10 mL of 1:200 diluted gadolinium-based contrast mixed with Omnipaque 300, lidocaine 1%, and normal saline. An anterior approach was used under fluoroscopic guidance and without complications. Findings: There is successful intra-articular contrast within the right glenohumeral joint. There is no evidence of abnormal passage of contrast from the joint into the region of the subacromial subdeltoid bursa to suggest a full-thickness rotator cuff tear nor a communicating defect through the rotator interval capsule. There is mild tendinosis of the supraspinatus, infraspinatus, and subscapularis tendons without evidence of discrete tear. The teres minor is intact. Nonspecific atrophy and fatty infiltration of the teres minor muscle is noted without evidence of space occupying lesion involving the quadrilateral space. The long head of biceps tendon is intact and well situated at the level of the bicipital cami. A tear of the is labrum extends from the 10 o'clock position posterosuperiorly to near the 1 o'clock position anterosuperiorly. No extension into the long head of the biceps tendon is seen. The remaining portions of the the labrum has a more normal appearance. The articular cartilage appears normal. Minimal glenohumeral degenerative changes present. Mild degenerative changes of the acromioclavicular joint are seen. Impression: 1. Superior labral anterior and posterior tear extending from approximately the 10 o'clock position posterosuperiorly to near the 1 o'clock position anterosuperiorly. No extension into the long head of the biceps tendon is seen. The remaining portions of the labrum have a more normal appearance. 2. Mild tendinosis of the distal supraspinatus, infraspinatus, and subscapular tendons without a discrete rotator cuff tear seen. 3. Atrophy and fatty infiltration of the teres minor muscle without evidence of space-occupying lesion within the quadrilateral space. This appearance is nonspecific and can be seen with chronic muscle denervation from axillary neuropathy or sequelae of remote trauma. 4. Minimal glenohumeral and mild acromioclavicular degenerative changes. I have personally reviewed the images and the above interpretation and agree with the findings. Procedure Note 02/17/2014 MR EXTREMITY SHOULDER W CONTRAST 02/12/2014 2:57 PM Signs and Symptoms/Comments: Right shoulder catching. Comparison: Right shoulder radiographs dated 12/27/2013, MR right shoulder dated 11/20/2013 Technique: Routine multiplanar and multisequence MR arthrographic images of the right shoulder were obtained after the intra-articular administration of approx. 10 mL of 1:200 diluted gadolinium-based contrast mixed with Omnipaque 300, lidocaine 1%, and normal saline. An anterior approach was used under fluoroscopic guidance and without complications. Findings: There is successful intra-articular contrast within the right glenohumeral joint. There is no evidence of abnormal passage of contrast from the joint into the region of the subacromial subdeltoid bursa to suggest a full-thickness rotator cuff tear nor a communicating defect through the rotator interval capsule. There is mild tendinosis of the supraspinatus, infraspinatus, and subscapularis tendons without evidence of discrete tear. The teres minor is intact. Nonspecific atrophy and fatty infiltration of the teres minor muscle is noted without evidence of space occupying lesion involving the quadrilateral space. The long head of biceps tendon is intact and well situated at the level of the bicipital cami. A tear of the is labrum extends from the 10 o'clock position posterosuperiorly to near the 1 o'clock position anterosuperiorly. No extension into the long head of the biceps tendon is seen. The remaining portions of the the labrum has a more normal appearance. The articular cartilage appears normal. Minimal glenohumeral degenerative changes present. Mild degenerative changes of the acromioclavicular joint are seen. Impression: 1. Superior labral anterior and posterior tear extending from approximately the 10 o'clock position posterosuperiorly to near the 1 o'clock position anterosuperiorly. No extension into the long head of the biceps tendon is seen. The remaining portions of the labrum have a more normal appearance. 2. Mild tendinosis of the distal supraspinatus, infraspinatus, and subscapular tendons without a discrete rotator cuff tear seen. 3. Atrophy and fatty infiltration of the teres minor muscle without evidence of space-occupying lesion within the quadrilateral space. This appearance is nonspecific and can be seen with chronic muscle denervation from axillary neuropathy or sequelae of remote trauma. 4. Minimal glenohumeral and mild acromioclavicular degenerative changes. I have personally reviewed the images and the above interpretation and agree with the findings. Donell Worrell MD G MRI ORDERABLES * FL GUIDE LOCATION, ASPIRATION, INJECTION, BIOPSY (02/12/2014 13:40 EDT) Anatomical Region Laterality Modality Other 02/12/2014 13:4 0 EDT 02/17/2014 13:31 EDT Narrative 02/17/2014 13:31 EDT FL GUIDE LOCATION, ASPIRATION, INJECTION, BIOPSY ??02/12/2014 1:40 PM Signs and Symptoms/Comments: ?? Right shoulder catching. Comparison: Right shoulder radiographs dated December 27, 2013. Procedure: Right shoulder arthrogram under fluoroscopic guidance. Technique: The patient was met in the fluoroscopic suite where after proper identification; the risks, benefits, and alternatives to the procedure were explained in detail to the patient who gave informed oral and written consent to proceed. The patient was subsequently placed in supine position. A limited examination was performed and the appropriate site of entry on the right shoulder marked. The right shoulder was prepped and draped in the usual sterile fashion. A 1% lidocaine solution was infiltrated at the access site. Subsequently, under fluoroscopic guidance, using strict sterile technique, a 22-gauge spinal needle was advanced into the right glenohumeral joint, and fluoroscopic confirmation was obtained by injecting approximately 2 cc of sterile Omnipaque 300 solution within the joint space. Following this, approx. 8 mL of a sterile mix of 1:200 gadolinium mixed with epinephrine, 1% lidocaine, Omnipaque 300, and normal saline solution was injected into the right glenohumeral joint space. The needle was removed and the shoulder was passively mobilized. Fluoro spot views were saved during the procedure. The patient tolerated the procedure well. There were no immediate complications. The procedure was performed by Mecca Lin, radiology aide under the supervision of Dr. Blanton. The patient was escorted to the MRI suite for followup shoulder MRI. Impression: 1. Successful right shoulder arthrogram without complications. MR arthrogram to follow. Dr. Enrique Blanton was present during the injection for the arthrogram. Procedure Note 02/17/2014 FL GUIDE LOCATION, ASPIRATION, INJECTION, BIOPSY 02/12/2014 1:40 PM Signs and Symptoms/Comments: Right shoulder catching. Comparison: Right shoulder radiographs dated December 27, 2013. Procedure: Right shoulder arthrogram under fluoroscopic guidance. Technique: The patient was met in the fluoroscopic suite where after proper identification; the risks, benefits, and alternatives to the procedure were explained in detail to the patient who gave informed oral and written consent to proceed. The patient was subsequently placed in supine position. A limited examination was performed and the appropriate site of entry on the right shoulder marked. The right shoulder was prepped and draped in the usual sterile fashion. A 1% lidocaine solution was infiltrated at the access site. Subsequently, under fluoroscopic guidance, using strict sterile technique, a 22-gauge spinal needle was advanced into the right glenohumeral joint, and fluoroscopic confirmation was obtained by injecting approximately 2 cc of sterile Omnipaque 300 solution within the joint space. Following this, approx. 8 mL of a sterile mix of 1:200 gadolinium mixed with epinephrine, 1% lidocaine, Omnipaque 300, and normal saline solution was injected into the right glenohumeral joint space. The needle was removed and the shoulder was passively mobilized. Fluoro spot views were saved during the procedure. The patient tolerated the procedure well. There were no immediate complications. The procedure was performed by Mecca Lin, radiology aide under the supervision of Dr. Blanton. The patient was escorted to the MRI suite for followup shoulder MRI. Impression: 1. Successful right shoulder arthrogram without complications. MR arthrogram to follow. Dr. Enrique Blanton was present during the injection for the arthrogram. Donell Worrell MD IMG FLUOROSCOPY ORDE RABLES * CYTOPATHOLOGY (12/05/2007 0:00 EDT) Pathology Report: CYTOPATHOLOGY REPORT ? Reports generated via electronic interface contain original data; ? however they are lacking the format of the original report. ? Caution should be taken when reading/interpreti ng unformatted reports. ? Name: ? NELA GRANGER ? Accession #: ? [id number] ? : ? 1970 (Age: 37) ??F ?Collect Date: ? 12/05/2007 ? Location: ? [facility] ? Receive Date: ? 12/06/2007 ? Provider: ?KAIA KATIE MD ? Copy to: ? Specimen/Source: ?ThinPrep Pap Test, Cervix, processed on Cytyc ThinPrep ?? Imaging System, with manual evaluation ? Last Menstrual Period: ? SPECIMEN ADEQUACY ? Satisfactory for Evaluation ? - transformation zone component present ? GENERAL CATEGORIZATION ? Negative for Intraepithelial Lesion or Malignancy ? Document reviewed and electronically signed by: ? Page Lopezg, CT(ASCP) ? Report Date: ??12/11/2007 10:18 ? End of Report ? PAUL KUMAR 12/05/2007 12/06/2007 Kaia Eng MD PATHOLOGY ORDERABL ES [facility] [address] [place] [address] documented in this encounter Visit Diagnoses Not on filedocumented in this encounter Orders Lab Orders Without Results Count Last Ordered D ate First Ordered Date CYTOPATHOLOGY 1 12/05/2007 documented in this encounter
--- OUTSIDE RECORDS SUMMARY | 2023-12-23 01:03 | XMS_ITS | Encounter Summary ---
Author Organization [facility] Address [address] [place] [address] Care Team Providers Care Csr Name Role Phone Unavailable Primary Care Provider Unavailabl e Encounter Details Date Type Department Care Team (Late st Contact Info) Description 03/12/2003 9:27 EST Hospital Encounter [facility] - Other [address] [place] [address] Gabo Mckinley MD [address] [place] [phone] Social History Tobacco Use Types Packs/Day Years [...] Priority Date/Time Associated Diagnosis Comments CYTOPATHOLOGY Routine 03/12/2003 0:00 EST documented in this encounter Results * CYTOPATHOLOGY (03/12/2003 0:00 EST) Pathology Report: CYTOPATHOLOGY REPORT Reports generated via electronic interface contain original data; however they are lacking the format of the original report. Caution should be taken when reading/interpreti ng unformatted reports. Name: ? NELA GRANGER ? Accession #: ? [id number] : ? 1970 (Age: 32) ??F ?Collect Date: ? 03/12/2003 Location: ? [facility] ? Receive Date: ? 03/13/2003 Provider: ? GABO MCKINLEY MD Copy to: ? CYTOLOGIC DIAGNOSIS: ? Breast, left, cyst aspirate, cytologic evaluation: - No malignant cells identified; no epithelial cells present. Document reviewed and electronically signed by: ? PRESTON SEXTON MD [facility] Report Date: ??03/14/2003 12:40 By the signature above, the attending physician certifies that he/she has personally conducted a gross and/or microscopic examination of the described specimens and rendered or confirmed the above diagnosis. Specimen Type: ? Breast, Fine Needle Aspiration, Left Clinical History: ? Left breast lump ? Gross Description: ? 35cc' s of clear, colorless Formalin were received and processed by concentration technique. ? End of Report [facility] 03/12/2003 03/13/2003 10: 13 EST Gabo Mckinley MD PATHOLOGY ORDERABL ES [facility] [address] [place] [address] documented in this encounter Visit Diagnoses Not on filedocumented in this encounter Additional Health Concerns Infection Onset Date Last Indicated Resolved Time R/O COVID-19 08/22/2022 08/22/2022 08/22/2022 11:1 1 EDT R/O COVID-19 03/15/2023 03/15/2023 03/15/2023 17:4 2 EST documented as of this encounter
--- OUTSIDE RECORDS SUMMARY | 2023-12-23 01:03 | XMS_ITS | Encounter Summary ---
Author Organization [facility] Address [address] [place] [address] Care Team Providers Care Low Pressure Firer Name Role Phone Unavailable Primary Care Provider Unavailabl e Encounter Details Date Type Department Care Team (Late st Contact Info) Description 06/18/2004 10:48 EST Hospital Encounter [facility] - Other [address] [place] [address] Cleo Avery CNM Social History Tobacco Use Types Packs/Day [...] Procedure Name Priority Date/Time Associated Diagnosis Comments N. GONORRHOEAE AMPLIFIED PROBE Routine 06/18/2004 9:37 EST ZZCHLAMYDIA TRACHOMATIS AMPLIFIED PROBE Routine 06/18/2004 9:37 EST HSV (ONLY) CULTURE Routine 06/18/2004 9: 26 EST documented in this encounter Results * N. GONORRHOEAE AMPLIFIED PROBE (06/18/2004 9:37 EST) Result No Neisseria gonorrhoeae DNA detected by warp splitter mediated amplification. [facility] Report Status Final [id number] [facility] Specimen Description Cervix [facility] 06/18/2004 9:37 EST 06/19/2004 9:37 EST Cleo Avery CNM MICROBIOLOGY - GENER AL ORDERABLES Performing Organization Address [facility] de Phone Number [facility] [address] [place] [address] * CHLAMYDIA TRACHOMATIS AMPLIFIED PROBE (06/18/2004 9:37 EST) Specimen Description Cervix [facility] Result No Chlamydia trachomatis DNA detected by warp splitter mediated amplification. [facility] Report Status Final [id number] [facility] 06/18/2004 9:37 EST 06/19/2004 9:37 EST Cleo JIMENEZ MICROBIOLOGY - GENER AL ORDERABLES Performing Organization Address [facility] Co de Phone Number [facility] [address] [place] [address] * HSV (ONLY) CULTURE (06/18/2004 9:26 EST) Specimen Description Cervix [facility] Result No herpes simplex recovered [facility] Report Status Final [id number] [facility] 06/18/2004 9:26 EST 06/19/2004 9:26 EST Cleo JIMENEZ MICROBIOLOGY - GENER AL ORDERABLES Performing Organization Address [facility] Co de Phone Number [facility] [address] [place] [address] documented in this encounter Visit Diagnoses Not on filedocumented in this encounter Additional Health Concerns Infection Onset Date Last Indicated Resolved Time R/O COVID-19 08/22/2022 08/22/2022 08/22/2022 11:1 1 EDT R/O COVID-19 03/15/2023 03/15/2023 03/15/2023 17:4 2 EST documented as of this encounter
--- OUTSIDE RECORDS SUMMARY | 2023-12-23 01:03 | XMS_ITS | Encounter Summary ---
Author Organization [facility] Address [address] [place] [address] Care Team Providers Care Stamp Press Operator Name Role Phone Unavailable Primary Care Provider Unavailabl e Encounter Details Date Type Department Care Team (Late st Contact Info) Description 02/21/2003 15:34 EST Hospital Encounter [facility] - Other [address] [place] [address] Gabo Mckinley MD [address] [place] [phone] Social History Tobacco Use Types Packs/Day [...] Onset Date Last Indicated Resolved Time R/O COVID-08/22/2022 08/22/2022 08/22/2022 11:1 1 EDT R/O COVID-03/15/2023 03/15/2023 03/15/2023 17:4 2 EST documented as of this encounter
--- OUTSIDE RECORDS SUMMARY | 2023-12-23 01:03 | XMS_ITS | Encounter Summary ---
Author Organization [facility] Address [address] [place] [address] Care Team Providers Care Manager Educational Name Role Phone Unavailable Primary Care Provider Unavailabl e Encounter Details Date Type Department Care Team ([facility] st Contact Info) Description 05/28/1999 7:55 EST Hospital Encounter [address] [address] Lyssa Vincent MD Social History Tobacco Use Types Packs/Day Years [...] Procedure Name Priority Date/Time Associated Diagnosis Comments GLUCOSE TOLERANCE, 3HR GESTATIONAL Routine 05/28/1999 8:42 EST PROFILE Routine 05/28/1999 8:39 EST BACTERIAL CULTURE, URINE Routine 05/28/1999 8:20 EST documented in this encounter Results * GLUCOSE TOLERANCE, 3HR GESTATIONAL (05/28/1999 8:42 EST) Glucose Glenn, Fasting 74 <95 mg/dl [facility] Glucose Glenn, 1 hr 102 <180 mg/dl [facility] Glucose Glenn, 2hr 95 <155 mg/dl [facility] Gest Gluc Glenn, 3hr 57 <140 mg/dl [facility] Comment: The diagnosis of diabetes is made if two or more of the glucose values exceed the reference range listed. Glucose Dose Not Given g CURTIS KUMAR 05/28/1999 8:42 EST 05/28/1999 11:50 EST Lyssa Vincent MD PACKAGES & DNA PROBE ORDERABLES [facility] [address] [place] [address] * PROFILE (05/28/1999 8:39 EST) ABO and Rh Type AB POS [facility] Antibody Screen Neg [facility] WBC 9.14 4.0 - 12.4 K/cmm [facility] RBC 4.28 3.86 - 5.04 M/cmm [facility] Hemoglobin 12.7 11.6 - 15.2 gm/dl [facility] HCT 36.4 34.9 - 44.4 % [facility] MCV 85 81 - 98 fl [facility] MCH 29.6 26.7 - 33.3 pg [facility] MCHC 34.9 32.1 - 35.9 gm/dl [facility] PLT 208 141 - 320 K/cmm [facility] RDW-CV 13.0 11.7 - 14.6 % [facility] Hepatitis B Surface Ag Neg [facility] % Neutrophils 70.4 45.5 - 79.7 % [facility] % Lymphocytes 20.6 15.0 - 46.8 % [facility] % Monocytes 6.9 1.8 - 12.0 % [facility] % Eosinophils 1.6 0.6 - 6.9 % [facility] % Basophils 0.5 0.2 - 1.4 % [facility] ABS Neutrophils 6.44 2.20 - 8.85 K/cmm [facility] ABS Lymphs 1.88 1.09 - 3.30 K/cmm [facility] ABS Monocytes 0.63 0.1 - 0.8 K/cmm [facility] ABS Eosinophils 0.14 0.03 - 0.61 K/cmm [facility] ABS Basophils 0.05 0.01 - 0.11 K/cmm [facility] Type of Diff: Automated [facility] Syphilis Sero (RPR) NONREACT. NR Dils [facility] Rubella IgG Scr Antibody detected [facility] 05/28/1999 8:39 EST 05/28/1999 8:41 EST Lyssa Vincent MD PACKAGES & DNA PROBE ORDERABLES Performing Organization Address [facility] Co de Phone Number [facility] [address] [place] [address] * BACTERIAL CULTURE, URINE (05/28/1999 8:20 EST) Specimen Description Urine [facility] Result Less than 10,000 CFU/ml Mixed gram positive growth [facility] Report Status Final [id number] [facility] 05/28/1999 8:20 EST 05/28/1999 9:34 EST Lyssa Vincent MD MICROBIOLOGY - GENER AL ORDERABLES Performing Organization Address [facility] Co de Phone Number [facility] [address] [place] [address] documented in this encounter Visit Diagnoses Not on filedocumented in this encounter Additional Health Concerns Infection Onset Date Last Indicated Resolved Time R/O COVID-19 08/22/2022 08/22/2022 08/22/2022 11:1 1 EDT R/O COVID-19 03/15/2023 03/15/2023 03/15/2023 17:4 2 EST documented as of this encounter
--- OUTSIDE RECORDS SUMMARY | 2023-12-23 01:03 | XMS_ITS | Encounter Summary ---
Author Organization [facility] Address [address] [place] [address] Care Team Providers Care Merchandise Presentation Associate Name Role Phone Unavailable Primary Care Provider Unavailabl e Encounter Details Date Type Department Care Team (Late st Contact Info) Description 12/07/1999 7:40 EDT - 12/07/1999 11:59 EDT Hospital Encounter [facility] [place] [facility] [address] [place] [address] Kendra Pacheco MD [address] [facility], [address] [place] [address] Discharge Disposition: Home or Self Care Social [...] Procedure Name Priority Date/Time Associated Diagnosis Comments HEMAGRAM & DIFF Routine 12/07/1999 9:30 EDT documented in this encounter Results * (ABNORMAL) HEMAGRAM & DIFF (12/07/1999 9:30 EDT) WBC 12.07 4.0 - 12.4 K/cmm [facility] RBC 4.32 3.86 - 5.04 M/cmm [facility] Hemoglobin 11.7 11.6 - 15.2 gm/dl [facility] HCT 34.0(L) 34.9 - 44.4 % [facility] MCV 79(L) 81 - 98 fl [facility] MCH 27.0 26.7 - 33.3 pg [facility] MCHC 34.3 32.1 - 35.9 gm/dl [facility] PLT 222 141 - 320 K/cmm [facility] RDW-CV 14.1 11.7 - 14.6 % [facility] % Neutrophils 75.4 45.5 - 79.7 % [facility] % Lymphocytes 14.8(L) 15.0 - 46.8 % [facility] % Monocytes 8.6 1.8 - 12.0 % [facility] % Eosinophils 0.9 0.6 - 6.9 % [facility] % Basophils 0.3 0.2 - 1.4 % [facility] ABS Neutrophils 9.12(H) 2.20 - 8.85 K/cmm [facility] ABS Lymphs 1.78 1.09 - 3.30 K/cmm [facility] ABS Monocytes 1.04(H) 0.1 - 0.8 K/cmm [facility] ABS Eosinophils 0.10 0.03 - 0.61 K/cmm [facility] ABS Basophils 0.03 0.01 - 0.11 K/cmm [facility] Type of Diff: Automated [facility] 12/07/1999 9:30 EDT 12/07/1999 10:00 EDT Knedra Pacheco MD HISTORICAL LAB FOR SQ LOAD [facility] [address] [place] [address] documented in this encounter Visit Diagnoses Not on filedocumented in this encounter
--- OUTSIDE RECORDS SUMMARY | 2023-12-23 01:03 | XMS_ITS | Encounter Summary ---
Author Organization [facility] Address [address] [place] [address] Care Team Providers Care Er Nurse Name Role Phone Unavailable Primary Care Provider Unavailabl e Encounter Details Date Type Department Care Team (Late st Contact Info) Description 11/30/1999 6:49 EDT Hospital Encounter [facility] - Other [address] [place] [address] Lyssa [place] MD Unknown, Provider, Social History Tobacco Use Types Packs/Day Years [...] Procedure Name Priority Date/Time Associated Diagnosis Comments GROUP B STREPTOCOCCUS SUSCEPTIBILITY Routine 11/30/1999 16:40 EDT documented in this encounter Results * GROUP B STREPTOCOCCUS SUSCEPTIBILITY (11/30/1999 16:40 EDT) Specimen Description Vaginal and Rectal [facility] Result NO GROUP B BETA STREPTOCOCCI ISOLATED [facility] Report Status Final [id number] [facility] 11/30/1999 16:4 0 EDT 11/30/1999 16:40 EDT Lyssa [place] MD HISTORICAL LAB FOR S Q LOAD [facility] [address] [place] [address] documented in this encounter Visit Diagnoses Not on filedocumented in this encounter Additional Health Concerns Infection Onset Date Last Indicated Resolved Time R/O COVID-19 08/22/2022 08/22/2022 08/22/2022 11:1 1 EDT R/O COVID-19 03/15/2023 03/15/2023 03/15/2023 17:4 2 EST documented as of this encounter
--- OUTSIDE RECORDS SUMMARY | 2023-12-23 01:03 | XMS_ITS | Encounter Summary ---
Author Organization [facility] Address [address] [place] [address] Care Team Providers Care Cash Management Clerk Name Role Phone Unavailable Primary Care Provider Unavailabl e Encounter Details Date Type Department Care Team (Late st Contact Info) Description 03/28/2002 20:06 EST Hospital Encounter [facility] - Other [address] [place] [address] Gabo Mckinley MD [address] [place] [phone] Unknown, ProviderMD Social History Tobacco Use Types Packs/Day Years [...]
--- OUTSIDE RECORDS SUMMARY | 2023-12-23 01:03 | XMS_ITS | Encounter Summary ---
Author Organization [facility] Address [address] [place] [address] Care Team Providers Care Pump Machine Operator Name Role Phone Unavailable Primary Care Provider Unavailabl e Encounter Details Date Type Department Care Team (Late st Contact Info) Description 12/06/1999 Results Only [facility] - [facility] [address] [place], [place] [id number] Kendra Pacheco MD [address] [facility], [address] [place] [phone] Social History Tobacco Use Types [...] Procedure Name Priority Date/Time Associated Diagnosis Comments CREATININE Routine 12/06/1999 15:15 EDT HEMAGRAM & DIFF Routine 12/06/1999 15:15 EDT URINE MICROSCOPIC Routine 12/06/1999 15: 15 EDT URINALYSIS WITH MICROSCOPIC IF POSITIVE Routine 12/06/1999 15:15 EDT FIBRINOGEN Routine 12/06/1999 15:15 EDT URIC ACID Routine 12/06/1999 15:15 EDT BUN Routine 12/06/1999 15:15 EDT ALT Routine 12/06/1999 15:15 EDT AST Routine 12/06/1999 15:15 EDT documented in this encounter Results * (ABNORMAL) URINE MICROSCOPIC (12/06/1999 15:15 EDT) WBC, UA 5 to 10 0 - 5 /HPF [facility] RBC, UA 1 to 5 0 - 5 /HPF [facility] Squam Epithel, UA Innum(A) NS /HPF [facility] Renal Epithel, UA None seen NS /HPF [facility] Bacteria, UA Few(A) NS /HPF [facility] Crystals, UA None seen /HPF [facility] Hyaline Casts, UA None seen /LPF [facility] UA Comment Microscopic results are unreliable on urines unrefrig >2hrs or refrig >8hrs. [facility] 12/06/1999 15:1 5 EDT 12/06/1999 15:18 EDT Kendra Pacheco MD URINALYSIS ORDERAB LES [facility] [address] [place] [address] * (ABNORMAL) URINALYSIS (12/06/1999 15:15 EDT) Color, UA Yellow [facility] Clarity, UA Clear [facility] Glucose, UA Norm NORM [facility] Bilirubin, UA Neg NEG [facility] Ketones, UA Neg NEG [facility] Specific [place], Urine 1.015 1.005 - 1.02 [facility] Blood, UA Trace(A) NEG [facility] pH, UA 7.0 5.0 - 9.0 [facility] Protein, UA Neg NEG [facility] Urobilinogen, UA Norm NORM mg/dL [facility] Nitrite, UA Neg NEG [facility] Leuk Esterase Mod(A) NEG [facility] 12/06/1999 15:1 5 EDT 12/06/1999 15:18 EDT Kendra Pacheco MD URINALYSIS ORDERAB LES Performing Organization Address [facility] de Phone Number [facility] [address] [place] [address] * URIC ACID (12/06/1999 15:15 EDT) Uric Acid 4.8 2.2 - 7.7 mg/dl [facility] 12/06/1999 15:1 5 EDT 12/06/1999 15:17 EDT Kendra Pacheco MD CHEMISTRY & BLOOD GAS ORDERABLES Performing Organization Address [facility] Phone Number [facility] [address] [place] [address] * (ABNORMAL) FIBRINOGEN (12/06/1999 15:15 EDT) Fibrinogen 596(H) 180 - 433 mg/dl [facility] 12/06/1999 15:1 5 EDT 12/06/1999 15:17 EDT Kendra Pacheco MD HEMATOLOGY & PF4 O RDERABLES Performing Organization Address [facility] de Phone Number [facility] [address] [place] [address] * (ABNORMAL) CREATININE (12/06/1999 15:15 EDT) Creatinine 0.5(L) 0.7 - 1.5 mg/dl [facility] 12/06/1999 15:1 5 EDT 12/06/1999 15:17 EDT Kendra Pacheco MD HISTORICAL LAB FOR SQ LOAD Performing Organization Address [facility] Phone Number [facility] [address] [place] [address] * (ABNORMAL) HEMAGRAM & DIFF (12/06/1999 15:15 EDT) WBC 10.59 4.0 - 12.4 K/cmm [facility] RBC 4.23 3.86 - 5.04 M/cmm [facility] Hemoglobin 11.3(L) 11.6 - 15.2 gm/dl [facility] HCT 33.1(L) 34.9 - 44.4 % [facility] MCV 78(L) 81 - 98 fl [facility] MCH 26.8 26.7 - 33.3 pg [facility] MCHC 34.2 32.1 - 35.9 gm/dl [facility] PLT 214 141 - 320 K/cmm [facility] RDW-CV 14.0 11.7 - 14.6 % [facility] % Neutrophils 77.4 45.5 - 79.7 % [facility] % Lymphocytes 14.8(L) 15.0 - 46.8 % [facility] % Monocytes 6.9 1.8 - 12.0 % [facility] % Eosinophils 0.4(L) 0.6 - 6.9 % [facility] % Basophils 0.5 0.2 - 1.4 % [facility] ABS Neutrophils 8.21 2.20 - 8.85 K/cmm [facility] ABS Lymphs 1.56 1.09 - 3.30 K/cmm [facility] ABS Monocytes 0.73 0.1 - 0.8 K/cmm [facility] ABS Eosinophils 0.04 0.03 - 0.61 K/cmm [facility] ABS Basophils 0.05 0.01 - 0.11 K/cmm [facility] Type of Diff: Automated [facility] 12/06/1999 15:1 5 EDT 12/06/1999 15:17 EDT Kendra Pacheco MD HISTORICAL LAB FOR SQ LOAD [facility] [address] [place] [address] * (ABNORMAL) BUN (12/06/1999 15:15 EDT) BUN 4(L) 10 - 26 mg/dl [facility] 12/06/1999 15:1 5 EDT 12/06/1999 15:17 EDT Kendra Pacheco MD CHEMISTRY & BLOOD GAS ORDERABLES Performing Organization Address [facility] Co de Phone Number [facility] [address] [place] [address] * AST (12/06/1999 15:15 EDT) AST 15 8 - 50 U/L [facility] 12/06/1999 15:1 5 EDT 12/06/1999 15:17 EDT Kendra Pacheco MD CHEMISTRY & BLOOD GAS ORDERABLES Performing Organization Address [facility] Co de Phone Number [facility] [address] [place] [address] * (ABNORMAL) ALT (12/06/1999 15:15 EDT) ALT 9(L) 15 - 75 U/L [facility] 12/06/1999 15:1 5 EDT 12/06/1999 15:17 EDT Kendra Pacheco MD CHEMISTRY & BLOOD GAS ORDERABLES Performing Organization Address [facility] Co de Phone Number [facility] [address] [place] [address] documented in this encounter Visit Diagnoses Not on filedocumented in this encounter
--- OUTSIDE RECORDS SUMMARY | 2023-12-23 01:03 | XMS_ITS | Encounter Summary ---
Author Organization [facility] Address [address] [place] [address] Care Team Providers Care Conservation Enforcement Officer Name Role Phone Unavailable Primary Care Provider Unavailabl e Encounter Details Date Type Department Care Team (Latest Contact Info) Description 12/24/2002 8:35 EDT - 12/24/2002 11:59 EDT Hospital Encounter [address] [address] Gabo Mckinley MD [address] [place] [phone] Nakia Romeo PA-C Discharge Disposition: Auto Discharge Social History Tobacco Use Types Packs/Day Years Used Date Smoking Tobacco: Never Assessed Sex and Gender Information Value Date Recorded Sex Assigned at Female 02/05/2020 13:48 EDT Gender Identity Female 06/26/2019 14:43 EST Sexual Orientation Not on file documented as of this encounter Discharge Disposition Disposition Code Departure Means Destination Auto Discharge documented in this encounter Plan of Treatment Not on file documented as of this encounter Procedures Procedure Name Priority Date/Time Associated Diagnosis Comments RAD US ANTHONY BREAST UNILAT OR BILAT Routine 12/24/2002 10:12 EDT ANTON DX [facility] Routine 12/24/2002 9:00 EDT documented in this encounter Results * RAD US ANTHONY BREAST UNILAT OR BILAT (12/24/2002 10:12 EDT) Anatomical Region Laterality Modality Other 12/24/2002 10:1 2 EDT Narrative 12/22/2008 0:32 EDT DX [facility] W/ RT US TO FOLLOW RT BR LUMP @ 111-12:00, BASELINE LT ??[PCP GABO MCKINLEY] Procedure Note Pura Morel MD / Valeria Jiang MD - 12/22/2008 DX [facility] W/ RT US TO FOLLOW RT BR LUMP @ 111-12:00, BASELINE LT [PCP GABO MCKINLEY] Nakia Romeo PA-C IMG US ORDERABLES * ANTON DX [facility] (12/24/2002 9:00 EDT) Anatomical Region Laterality Modality Other 12/24/2002 9:00 EDT Impressions 12/22/2008 0:32 EDT IMPRESSION: LEFT BREAST - CATEGORY 1 Negative, no evidence of malignancy. Normal interval follow-up is recommended in 12 months. RIGHT BREAST - CATEGORY 3 1.An area of asymmetric breast tissue. Findings are probably benign. A short interval follow-up mammogram is recommended in 6 months. 2.Ultrasound demonstrates a cluster of simple cysts at 12-12:30 o'clock in the palpable area fo concern. The patient states that this was larger with her menstruation and is now smaller. I suspect fibrocystic change, but the palpable area is larger than the cystic change and close clinical follow up is recommended. Surgical consultation might be considered for consideration of biopsy if clinically indicated. A short interval follow-up ultrasound is recommended in 6 months. 3.Ultrasound demonstrates a vague hypoechoic area at 10 o'clock, not reproducible on my real time exam. Findings are probably benign. Recommend attention to this area at the time of the ultrasound follow-up. Results and recommendations for follow-up were discussed with the patient by the radiologist at the time of the exam. OVERALL ASSESSMENT - PROBABLY BENIGN END OF IMPRESSION Narrative 12/22/2008 0:32 EDT DX [facility]MO W/ RT US TO FOLLOW RT BR LUMP @ 111-12:00, BASELINE LT ??[PCP GABO MCKINLEY] Left Breast Findings: The breast is heterogeneously dense. This may lower the sensitivity of mammography. No significant masses, calcifications or other abnormalities are seen. Right Breast Findings (CAD used to interpret routine digital, digital additional and ultrasound projections): The breast is heterogeneously dense. This may lower the sensitivity of mammography. An area of asymmetric breast tissue is present centrally on the CC view, pliable with compression. There are no supicious findings, including in the area of concern marked with a BB. Ultrasound demonstrates a small cluster of simple cysts at 12:00-12:30 o'clock at the site of the clinically palpable mass. The palpable area is larger than the cysts, however. This most likely represents fibrocystic change, bit clinical follow-up is recommended. Ultrasound demonstrates a vague hypoechoic area at 10 o'clock, difficult to reproduce, and likely fibrous tissue. There is no palpable finding in this location on my exam. Procedure Note Pura Morel MD / Valeria Jiang MD - 12/22/2008 DX [facility]MO W/ RT US TO FOLLOW RT BR LUMP @ 111-12:00, BASELINE LT [PCP GABO MCKINLEY] Left Breast Findings: The breast is heterogeneously dense. This may lower the sensitivity of mammography. No significant masses, calcifications or other abnormalities are seen. Right Breast Findings (CAD used to interpret routine digital, digital additional and ultrasound projections): The breast is heterogeneously dense. This may lower the sensitivity of mammography. An area of asymmetric breast tissue is present centrally on the CC view, pliable with compression. There are no supicious findings, including in the area of concern marked with a BB. Ultrasound demonstrates a small cluster of simple cysts at 12:00-12:30 o'clock at the site of the clinically palpable mass. The palpable area is larger than the cysts, however. This most likely represents fibrocystic change, bit clinical follow-up is recommended. Ultrasound demonstrates a vague hypoechoic area at 10 o'clock, difficult to reproduce, and likely fibrous tissue. There is no palpable finding in this location on my exam. IMPRESSION IMPRESSION: LEFT BREAST - CATEGORY 1 Negative, no evidence of malignancy. Normal interval follow-up is recommended in 12 months. RIGHT BREAST - CATEGORY 3 1.An area of asymmetric breast tissue. Findings are probably benign. A short interval follow-up mammogram is recommended in 6 months. 2.Ultrasound demonstrates a cluster of simple cysts at 12-12:30 o'clock in the palpable area fo concern. The patient states that this was larger with her menstruation and is now smaller. I suspect fibrocystic change, but the palpable area is larger than the cystic change and close clinical follow up is recommended. Surgical consultation might be considered for consideration of biopsy if clinically indicated. A short interval follow-up ultrasound is recommended in 6 months. 3.Ultrasound demonstrates a vague hypoechoic area at 10 o'clock, not reproducible on my real time exam. Findings are probably benign. Recommend attention to this area at the time of the ultrasound follow-up. Results and recommendations for follow-up were discussed with the patient by the radiologist at the time of the exam. OVERALL ASSESSMENT - PROBABLY BENIGN END OF IMPRESSION Nakia Romeo PA-C [facility] documented in this encounter Visit Diagnoses Not on filedocumented in this encounter
--- OUTSIDE RECORDS SUMMARY | 2023-12-23 01:03 | XMS_ITS | Encounter Summary ---
Author Organization [facility] Address [address] [place] [address] Care Team Providers Care Network Security Officer Name Role Phone Unavailable Primary Care Provider Unavailabl e Encounter Details Date Type Department Care Team (Latest Contact Info) Description 12/23/1999 18:17 EDT Hospital Encounter [facility] Emergency Department - [facility] [address] [place], [place] [phone] Emergency, Default, MD Discharge Disposition: Home or Self Care Social [...] Associated Diagnosis Comments HEMAGRAM & DIFF Routine 12/23/1999 19:55 EDT documented in this encounter Results * (ABNORMAL) HEMAGRAM & DIFF (12/23/1999 19:55 EDT) WBC 11.44 4.0 - 12.4 K/cmm [facility] RBC 4.62 3.86 - 5.04 M/cmm [facility] Hemoglobin 12.1 11.6 - 15.2 gm/dl [facility] HCT 35.7 34.9 - 44.4 % [facility] MCV 77(L) 81 - 98 fl [facility] MCH 26.3(L) 26.7 - 33.3 pg [facility] MCHC 34.1 32.1 - 35.9 gm/dl [facility] PLT 327(H) 141 - 320 K/cmm [facility] RDW-CV 14.6 11.7 - 14.6 % [facility] % Neutrophils 73.9 45.5 - 79.7 % [facility] % Lymphocytes 18.8 15.0 - 46.8 % [facility] % Monocytes 5.3 1.8 - 12.0 % [facility] % Eosinophils 1.7 0.6 - 6.9 % [facility] % Basophils 0.3 0.2 - 1.4 % [facility] ABS Neutrophils 8.46 2.20 - 8.85 K/cmm [facility] ABS Lymphs 2.15 1.09 - 3.30 K/cmm [facility] ABS Monocytes 0.60 0.1 - 0.8 K/cmm [facility] ABS Eosinophils 0.20 0.03 - 0.61 K/cmm [facility] ABS Basophils 0.03 0.01 - 0.11 K/cmm [facility] Type of Diff: Automated [facility] 12/23/1999 19:5 5 EDT 12/23/1999 19:56 EDT Default Emergency HISTORICAL LAB FOR SQ LOAD [facility] [address] [place] [address] documented in this encounter Visit Diagnoses Not on filedocumented in this encounter
--- OUTSIDE RECORDS SUMMARY | 2023-12-23 01:03 | XMS_ITS | Encounter Summary ---
Author Organization [facility] Address [address] [place] [address] Care Team Providers Care Percussion Instrument Repairer Name Role Phone Unavailable Primary Care Provider Unavailabl e Encounter Details Date Type Department Care Team (Latest Contact Info) Description 11/17/2000 16:26 EDT Hospital Encounter [facility] Emergency Department - [facility] [address] [place], [place] [id number] Emergency, Default, MD Discharge Disposition: Home or [...] Procedure Name Priority Date/Time Associated Diagnosis Comments N.GONORRHOEAE PROBE Routine 11/17/2000 2 0:20 EDT CHLAMYDIA TRACHOMATIS PROBE Routine 11/17/2000 20:20 EDT ACUTE ABDOMEN SERIES Routine 11/17/2000 19:30 EDT HEMAGRAM & DIFF Routine 11/17/2000 19:22 EDT CREATININE Routine 11/17/2000 18:05 EDT TESTS ADDED BY PHONE Routine 11/17/2000 18:05 EDT BUN Routine 11/17/2000 18:05 EDT LIPASE Routine 11/17/2000 18:05 EDT AMYLASE Routine 11/17/2000 18:05 EDT ELECTROLYTES Routine 11/17/2000 18:05 EDT URINE SEDIMENT (MICRO) WITHOUT REFLEX TO CULTURE Routine 11/17/2000 17:59 EDT documented in this encounter Results * CHLAMYDIA TRACHOMATIS PROBE (11/17/2000 20:20 EDT) Specimen Description Unknown [facility] Result No Chlamydia trachomatis DNA detected by maintenance service technician mediated amplification. [facility] Report Status Final [id number] [facility] 11/17/2000 20:2 0 EDT 11/17/2000 20:20 EDT Default Emergency MD HISTORICAL LAB FOR SQ LOAD Performing Organization Address [facility] Co de Phone Number [facility] [address] [place] [address] * N.GONORRHOEAE PROBE (11/17/2000 20:20 EDT) Specimen Description Unknown [facility] Result No Neisseria gonorrhoeae DNA detected by maintenance service technician mediated amplification. [facility] Report Status Final [id number] [facility] 11/17/2000 20:2 0 EDT 11/17/2000 20:20 EDT Default Emergency MD HISTORICAL LAB FOR SQ LOAD Performing Organization Address [facility] Co de Phone Number [facility] [address] [place] [address] * ACUTE ABDOMEN SERIES (11/17/2000 19:30 EDT) Anatomical Region Laterality Modality Other 11/17/2000 19:3 0 EDT Impressions 03/04/2009 3:17 EST IMPRESSION: No evidence of obstruction or perforation. /dkd Narrative 03/04/2009 3:17 EST INCREASE ABD PAIN LLQ TENDER S/P RYGBP R/O PERF/ LEAK ACUTE ABDOMEN SERIES: 11/17/00 1850 HOURS. FINDINGS: A single upright view of the chest, as well as upright and lateral decubitus views of the abdomen show low lung volumes with no evidence of pneumonia or pleural fluid. The cardiomediastinal silhouette and pulmonary vascularity are normal. 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 There is no evidence of obstruction or perforation. Procedure Note Thai Henslye MD / Valeria Jiang MD - 03/04/2009 INCREASE ABD PAIN LLQ TENDER S/P RYGBP R/O PERF/ LEAK ACUTE ABDOMEN SERIES: 11/17/00 1850 HOURS. FINDINGS: A single upright view of the chest, as well as upright and lateral decubitus views of the abdomen show low lung volumes with no evidence of pneumonia or pleural fluid. The cardiomediastinal silhouette and pulmonary vascularity are normal. 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 There is no evidence of obstruction or perforation. IMPRESSION IMPRESSION: No evidence of obstruction or perforation. /joyce Bib Floyd MD IM DIAGNOST IC IMAGING ORDERABLES * HEMAGRAM & DIFF (11/17/2000 19:22 EDT) WBC 7.11 4.0 - 12.4 K/cmm [facility] RBC 4.98 3.86 - 5.04 M/cmm [facility] Hemoglobin 13.9 11.6 - 15.2 gm/dl [facility] HCT 41.4 34.9 - 44.4 % [facility] MCV 83 81 - 98 fl [facility] MCH 27.9 26.7 - 33.3 pg [facility] MCHC 33.5 32.1 - 35.9 gm/dl [facility] PLT 220 141 - 320 K/cmm [facility] RDW-CV 14.0 11.7 - 14.6 % [facility] % Neutrophils 60.1 45.5 - 79.7 % [facility] % Lymphocytes 29.1 15.0 - 46.8 % [facility] % Monocytes 7.9 1.8 - 12.0 % [facility] % Eosinophils 2.6 0.6 - 6.9 % [facility] % Basophils 0.3 0.2 - 1.4 % [facility] ABS Neutrophils 4.28 2.20 - 8.85 K/cmm [facility] ABS Lymphs 2.07 1.09 - 3.30 K/cmm [facility] ABS Monocytes 0.56 0.1 - 0.8 K/cmm [facility] ABS Eosinophils 0.18 0.03 - 0.61 K/cmm [facility] ABS Basophils 0.02 0.01 - 0.11 K/cmm [facility] Type of Diff: Automated [facility] 11/17/2000 19:2 2 EDT 11/17/2000 19:22 EDT Default Emergency HISTORICAL LAB FOR SQ LOAD Performing Organization Address [facility] Co de Phone Number [facility] [address] [place] [address] * ELECTROLYTES (11/17/2000 18:05 EDT) [facility] Sodium 140 136 - 145 mEq/L [facility] Comment:Test added by phone Potassium 3.5 3.5 - 5.0 mEq/L [facility] Comment:Test added by phone Chloride 103 96 - 110 mEq/L [facility] Comment:Test added by phone CO2 25 24 - 30 mEq/L [facility] Comment:Test added by phone 11/17/2000 18:0 5 EDT 11/17/2000 18:05 EDT Default Emergency CHEMISTRY & BLOOD G ORDERABLES [facility] [address] [place] [address] * LIPASE (11/17/2000 18:05 EDT) Lipase 151 0 - 210 U/L [facility] 11/17/2000 18:0 5 EDT 11/17/2000 18:05 EDT Default Emergency MD CHEMISTRY & BLOOD G ORDERABLES Performing Organization Address [facility] de Phone Number [facility] [address] [place] [address] * (ABNORMAL) CREATININE (11/17/2000 18:05 EDT) Creatinine 0.6(L) 0.7 - 1.5 mg/dl [facility] Comment:Test added by phone 11/17/2000 18:0 5 EDT 11/17/2000 18:05 EDT Default Emergency MD HISTORICAL LAB FOR SQ LOAD Performing Organization Address [facility] Phone Number [facility] [address] [place] [address] * BUN (11/17/2000 18:05 EDT) BUN 11 10 - 26 mg/dl [facility] Comment:Test added by phone 11/17/2000 18:0 5 EDT 11/17/2000 18:05 EDT Default Emergency MD CHEMISTRY & BLOOD G ORDERABLES Performing Organization Address [facility] Phone Number [facility] [address] [place] [address] * AMYLASE (11/17/2000 18:05 EDT) Amylase 35 30 - 110 U/L [facility] 11/17/2000 18:0 5 EDT 11/17/2000 18:05 EDT Default Emergency MD CHEMISTRY & BLOOD G ORDERABLES [facility] [address] [place] [address] * TESTS ADDED BY PHONE (11/17/2000 18:05 EDT) Tests to be added BUN,CREA,L YT STAT [facility] 11/17/2000 18:0 5 EDT 11/17/2000 18:05 EDT Default Emergency MD CHEMISTRY & BLOOD G ORDERABLES Performing Organization Address [facility] Co de Phone Number [facility] [address] [place] [address] * (ABNORMAL) URINE MICROSCOPIC ONLY (11/17/2000 17:59 EDT) WBC, UA 1 to 5 0 - 5 /HPF [facility] RBC, UA None seen 0 - 5 /HPF [facility] Squam Epithel, UA Frequent(A) NS /HPF [facility] Renal Epithel, UA None seen NS /HPF [facility] Bacteria, UA None seen NS /HPF [facility] Crystals, UA None seen /HPF [facility] Hyaline Casts, UA None seen /LPF [facility] UA Comment Microscopic results are unreliable on urines unrefrig >2hrs or refrig >8hrs. [facility] 11/17/2000 17:5 9 EDT 11/17/2000 17:59 EDT Default Emergency URINALYSIS ORDERABL ES Performing Organization Address City/[facility]/ZIP Co de Phone Number [facility] [address] [place] [address] documented in this encounter Visit Diagnoses Not on filedocumented in this encounter
--- OUTSIDE RECORDS SUMMARY | 2023-12-23 01:03 | XMS_ITS | Encounter Summary ---
Author Organization [facility] Address [address] [place] [address] Care Team Providers Care E Commerce Project Manager Name Role Phone Unavailable Primary Care Provider Unavailabl e Encounter Details Date Type Department Care Team (Late st Contact Info) Description 10/29/2002 Results Only [facility] General Surgery - [facility] [address] [place], [place] [id number] May Madden MD [address] [place] [address] [phone] Social History Tobacco Use Types Packs/Day Years [...] Associated Diagnosis Comments COMPLETE BLOOD COUNT Routine 10/29/2002 11:17 EDT VITAMIN B12 Routine 10/29/2002 11:17 EDT CALCIUM Routine 10/29/2002 11:17 EDT documented in this encounter Results * (ABNORMAL) HEMAGRAM (10/29/2002 11:17 EDT) WBC 6.41 4.0 - 12.4 K/cmm [facility] RBC 4.20 3.86 - 5.04 M/cmm [facility] Hemoglobin 11.3(L) 11.6 - 15.2 gm/dl [facility] HCT 33.0(L) 34.9 - 44.4 % [facility] MCV 78(L) 81 - 98 fl [facility] MCH 26.8 26.7 - 33.3 pg [facility] MCHC 34.2 32.1 - 35.9 gm/dl [facility] PLT 306 141 - 320 K/cmm [facility] RDW-CV 16.2(H) 11.7 - 14.6 % [facility] 10/29/2002 11:1 7 EDT 10/29/2002 11:18 EDT May Madden MD HEMATOLOGY & PF4 ORD ERABLES Performing Organization Address City/[facility] Co de Phone Number [facility] [address] [place] [address] * CALCIUM (10/29/2002 11:17 EDT) Calcium 9.3 8.5 - 10.5 mg/dl [facility] Calculated Calcium 9.6 8.5 - 10.5 mg/dl [facility] 10/29/2002 11:1 7 EDT 10/29/2002 11:18 EDT May Madden MD CHEMISTRY & BLOOD GA S ORDERABLES Performing Organization Address City/[facility]/ZIP Co de Phone Number [facility] [address] [place] [address] * (ABNORMAL) VITAMIN B12 (10/29/2002 11:17 EDT) Vitamin B-12 238(L) 250 - 1100 pg/ml [facility] 10/29/2002 11:1 7 EDT 10/29/2002 11:18 EDT May Madden MD CHEMISTRY & BLOOD GA S ORDERABLES [facility] [address] [place] [address] documented in this encounter Visit Diagnoses Not on filedocumented in this encounter
--- OUTSIDE RECORDS SUMMARY | 2023-12-23 01:03 | XMS_ITS | Encounter Summary ---
Author Organization [facility] Address [address] [place] [address] Care Team Providers Care Professional Fee Coder Name Role Phone Unavailable Primary Care Provider Unavailabl e Encounter Details Date Type Department Care Team (Latest Contact Info) Description 08/26/1999 9:13 EDT - 08/26/1999 11:59 EDT Hospital Encounter [facility] [address] [place] [address] Lyssa Vincent MD Discharge Disposition: Auto Discharge Social History Tobacco [...]
--- OUTSIDE RECORDS SUMMARY | 2023-12-23 01:03 | XMS_ITS | Encounter Summary ---
Author Organization [facility] Address [address] [place] [address] Care Team Providers Care Broadcast Field Supervisor Name Role Phone Unavailable Primary Care Provider Unavailabl e Encounter Details Date Type Department Care Team (Late st Contact Info) Description 12/06/1999 14:45 EDT Hospital Encounter [facility] [address] [place] [address] Kendra Pacheco MD [address] [facility], [address] [place] [address] Discharge Disposition: Home or Self [...] Procedure Name Priority Date/Time Associated Diagnosis Comments FLM AMNIOTIC FLUID Routine 12/06/1999 16 :01 EDT documented in this encounter Results * FLM AMNIOTIC FLUID (12/06/1999 16:01 EDT) Appearance, amn. fld. STRAW COLOR, SLIGHTLY CLOUDY [facility] Lung Maturity 61 mg/g [facility] Comment: Mature: 55 mg/g and above. Borderline: 40-54 mg/g Immature: less than or equal to 39 mg/g. Result may be invalid with renal anomaly. Note new reference range. 12/06/1999 16:0 1 EDT 12/06/1999 16:07 EDT Kendra Armand Pacheco MD GEN LAB UNIT COLLE CT ORDERABLES [facility] [address] [place] [address] documented in this encounter Visit Diagnoses Not on filedocumented in this encounter
--- OUTSIDE RECORDS SUMMARY | 2023-12-23 01:03 | XMS_ITS | Encounter Summary ---
Author Organization [facility] Address [address] [place] [address] Care Team Providers Care Production Sound Mixer Name Role Phone Unavailable Primary Care Provider Unavailabl e Encounter Details Date Type Department Care Team (Late st Contact Info) Description 12/03/1999 7:45 EDT - 12/03/1999 11:59 EDT Hospital Encounter [facility] [address] [place] [address] Kendra Pacheco MD [address] [facility], [address] [place] [address] Discharge Disposition: Auto Discharge Social History Tobacco [...] Priority Date/Time Associated Diagnosis Comments RAD US OBSTETRICAL COMPLETE Routine 12/03/1999 8:16 EDT documented in this encounter Results * RAD US OBSTETRICAL COMPLETE (12/03/1999 8:16 EDT) Anatomical Region Laterality Modality Other 12/03/1999 8:16 EDT Impressions 03/03/2009 15:05 EST IMPRESSION: Single viable intrauterine in cephalic presentation at 36 weeks, 1 day by prior dating, which agrees with today's ultrasound. No abnormalities are recognized on today's exam. /sb Narrative 03/03/2009 15:05 EST OB U/S- EXCESSIVE GROWTH (LMP- 12/29/98) OBSTETRICAL ULTRASOUND: 12/03/99 Multiple real-time images were taken through the maternal abdomen and uterus. A single viable intrauterine in cephalic presentation is noted. AMANDA based on prior dating is 12/30/99 consistent with 36 weeks and 1 day. BPD: 8.9 cm = 36+0 wks HC: 34.9 cm = 40+4 wks AC: 35.7 cm = 39+4 wks FL: 7.3 cm = 37+3 wks HUM: 6.3 cm = 36+4 wks EFW: 3,587 gm = >90th %ile FH: 146 bpm U/S COMP. AGE = 38+0 wks (consistent with prior dating). The placenta is located anteriorly. The amniotic fluid volume is within normal limits. The stomach, bladder and renal regions are identified and appear grossly normal. Longitudinal views of the spine appear without abnormality. A four-chamber view of the heart is seen. Procedure Note Josep Johnson MD - 03/03/2009 OB U/S- EXCESSIVE GROWTH (LMP- 12/29/98) OBSTETRICAL ULTRASOUND: 12/03/99 Multiple real-time images were taken through the maternal abdomen and uterus. A single viable intrauterine in cephalic presentation is noted. AMANDA based on prior dating is 12/30/99 consistent with 36 weeks and 1 day. BPD: 8.9 cm = 36+0 wks HC: 34.9 cm = 40+4 wks AC: 35.7 cm = 39+4 wks FL: 7.3 cm = 37+3 wks HUM: 6.3 cm = 36+4 wks EFW: 3,587 gm = >90th %ile FH: 146 bpm U/S COMP. AGE = 38+0 wks (consistent with prior dating). The placenta is located anteriorly. The amniotic fluid volume is within normal limits. The stomach, bladder and renal regions are identified and appear grossly normal. Longitudinal views of the spine appear without abnormality. A four-chamber view of the heart is seen. IMPRESSION IMPRESSION: Single viable intrauterine in cephalic presentation at 36 weeks, 1 day by prior dating, which agrees with today's ultrasound. No abnormalities are recognized on today's exam. /sb Kendra Pacheco MD IMG US ORDERABLES documented in this encounter Visit Diagnoses Not on filedocumented in this encounter
--- OUTSIDE RECORDS SUMMARY | 2023-12-23 01:03 | XMS_ITS | Encounter Summary ---
Author Organization [facility] Address [address] [place] [address] Care Team Providers Care Swimming Pool Maintenance Name Role Phone Unavailable Primary Care Provider Unavailabl e Encounter Details Date Type Department Care Team (Latest Contact Info) Description 12/21/2000 12:35 EDT Hospital Encounter [address] [address] May Madden MD [address] [place] [phone] Discharge Disposition: Auto Discharge Social History Tobacco [...] Associated Diagnosis Comments COMPLETE BLOOD COUNT Routine 12/21/2000 12:44 EDT URIC ACID Routine 12/21/2000 12:44 EDT TRANSFERRIN Routine 12/21/2000 12:44 EDT PREALBUMIN Routine 12/21/2000 12:44 EDT PHOSPHORUS Routine 12/21/2000 12:44 EDT MAGNESIUM Routine 12/21/2000 12:44 EDT HEMOGLOBIN A1C Routine 12/21/2000 12:44 EDT GGT Routine 12/21/2000 12:44 EDT FOLATE Routine 12/21/2000 12:44 EDT VITAMIN B12 Routine 12/21/2000 12:44 EDT LIPID PROFILE (INCLUDES CHOLESTEROL, TRIGLYCERIDES, HDL, LDL) Routine 12/21/2000 12:44 EDT COMPREHENSIVE METABOLIC PANEL (CMP) Routine 12/21/2000 12:44 EDT GROUP A STREP CULTURE Routine 12/21/2000 10:30 EDT documented in this encounter Results * URIC ACID (12/21/2000 12:44 EDT) Uric Acid 5.2 2.2 - 7.7 mg/dl [facility] 12/21/2000 12:4 4 EDT 12/21/2000 12:54 EDT May Madden MD CHEMISTRY & BLOOD GA S ORDERABLES Performing Organization Address [facility] de Phone Number [facility] [address] [place] [address] * TRANSFERRIN (12/21/2000 12:44 EDT) Transferrin 263 202 - 336 mg/dl [facility] 12/21/2000 12:4 4 EDT 12/21/2000 12:54 EDT May Madden MD CHEMISTRY & BLOOD GA S ORDERABLES Performing Organization Address [facility] Co de Phone Number [facility] [address] [place] [address] * PHOSPHORUS (12/21/2000 12:44 EDT) Phosphorus 3.3 2.5 - 4.5 mg/dl [facility] 12/21/2000 12:4 4 EDT 12/21/2000 12:54 EDT May Madden MD CHEMISTRY & BLOOD GA S ORDERABLES Performing Organization Address [facility] Phone Number [facility] [address] [place] [address] * PREALBUMIN (12/21/2000 12:44 EDT) Prealbumin 19 18 - 38 mg/dl [facility] 12/21/2000 12:4 4 EDT 12/21/2000 12:54 EDT May Madden MD CHEMISTRY & BLOOD GA S ORDERABLES Performing Organization Address [facility] [place] [address] * (ABNORMAL) MAGNESIUM (12/21/2000 12:44 EDT) Magnesium 1.3(L) 1.4 - 2.3 meq/L [facility] 12/21/2000 12:4 4 EDT 12/21/2000 12:54 EDT May Madden MD CHEMISTRY & BLOOD GA S ORDERABLES Performing Organization Address [facility] [place] [address] * LIPID PROFILE (INCLUDES CHOLESTEROL, TRIGLYCERIDES, HDL, LDL) (12/21/2000 12:44 EDT) Cholesterol 133 mg/dl [facility] Comment: Desirable:<200 Borderline:200-239 High Risk:>hg=649 Triglycerides 118 35 - 160 mg/dl [facility] HDL 35 mg/dl [facility] Comment: Highly Desirable:>60 Desirable:35-60 High Risk:<35 LDL, Calculated 74 mg/dl [facility] Comment: Desirable:<130 Borderline:130-159 High Risk:>bc=757 Chol/HDL Ratio 3.8 [facility] 12/21/2000 12:4 4 EDT 12/21/2000 12:54 EDT May Madden MD CHEMISTRY & BLOOD GA S ORDERABLES Performing Organization Address [facility] Phone Number [facility] [address] [place] [address] * GGT (12/21/2000 12:44 EDT) GGT 17 12 - 43 U/L [facility] 12/21/2000 12:4 4 EDT 12/21/2000 12:54 EDT May Madden MD CHEMISTRY & BLOOD GA S ORDERABLES Performing Organization Address [facility] Phone Number [facility] [address] [place] [address] * FOLATE (12/21/2000 12:44 EDT) Folate 6.9 2.8 - 18.0 ng/ml [facility] 12/21/2000 12:4 4 EDT 12/21/2000 12:54 EDT May Madden MD CHEMISTRY & BLOOD GA S ORDERABLES Performing Organization Address [facility] Phone Number [facility] [address] [place] [address] * (ABNORMAL) COMPREHENSIVE METABOLIC PANEL (12/21/2000 12:44 EDT) Potassium 4.0 3.5 - 5.0 mEq/L [facility] Sodium 141 136 - 145 mEq/L [facility] Chloride 104 96 - 110 mEq/L [facility] CO2 25 24 - 30 mEq/L [facility] Total Alkaline Phosphatase 60 38 - 126 U/L [facility] Bilirubin, Total 0.4 0.2 - 1.3 mg/dl [facility] AST 21 8 - 50 U/L [facility] ALT 49 15 - 75 U/L [facility] Albumin 4.4 3.0 - 5.5 g/dl [facility] Total Protein 7.1 6.0 - 8.5 g/dl [facility] Creatinine 0.6(L) 0.7 - 1.5 mg/dl [facility] BUN 11 10 - 26 mg/dl [facility] Calcium 9.5 8.5 - 10.5 mg/dl [facility] Calculated Calcium 9.5 8.5 - 10.5 mg/dl [facility] Glucose, Serum 81 70 - 110 mg/dl [facility] Albumin/Globulin Ratio 1.6 [facility] 12/21/2000 12:4 4 EDT 12/21/2000 12:54 EDT May Madden MD CHEMISTRY & BLOOD GA S ORDERABLES Performing Organization Address [facility] Co de Phone Number [facility] [address] [place] [address] * (ABNORMAL) HEMAGRAM (12/21/2000 12:44 EDT) WBC 8.29 4.0 - 12.4 K/cmm [facility] RBC 4.90 3.86 - 5.04 M/cmm [facility] Hemoglobin 14.1 11.6 - 15.2 gm/dl [facility] HCT 41.3 34.9 - 44.4 % [facility] MCV 84 81 - 98 fl [facility] MCH 28.8 26.7 - 33.3 pg [facility] MCHC 34.2 32.1 - 35.9 gm/dl [facility] PLT 208 141 - 320 K/cmm [facility] RDW-CV 14.8(H) 11.7 - 14.6 % [facility] 12/21/2000 12:4 4 EDT 12/21/2000 12:54 EDT May Madden MD HEMATOLOGY & PF4 ORD ERABLES Performing Organization Address City/[facility] Co de Phone Number [facility] [address] [place] [phone] * VITAMIN B12 (12/21/2000 12:44 EDT) Vitamin B-12 521 250 - 1100 pg/ml [facility] 12/21/2000 12:4 4 EDT 12/21/2000 12:54 EDT May Madden MD CHEMISTRY & BLOOD GA S ORDERABLES Performing Organization Address [facility] Co de Phone Number [facility] [address] [place] [address] * (ABNORMAL) HEMOGLOBIN A1C (12/21/2000 12:44 EDT) Hemoglobin A1C 4.0(LL) % [facility] Comment: Shortened red blood cell survival will decrease Hemoglobin A1C values. <6% Normal Range <7% Recommended goal by ADA guidelines 7-8% Suboptimal by ADA guidelines >8% Further action suggested by ADA guidelines 12/21/2000 12:4 4 EDT 12/21/2000 12:54 EDT May Madden MD CHEMISTRY & BLOOD GA S ORDERABLES Performing Organization Address [facility] de Phone Number [facility] [address] [place] [address] * CULTURE FOR GROUP A BETA STREPTOCOCCUS (12/21/2000 10:30 EDT) Specimen Description Throat [facility] Result NO GROUP A BETA STREPTOCOCCI ISOLATED [facility] Report Status Final [id number] [facility] 12/21/2000 10:3 0 EDT 12/21/2000 19:05 EDT Traci Rico MD MICROBIOLOGY - GENER AL ORDERABLES Performing Organization Address [facility] Co de Phone Number [facility] [address] [place] [address] documented in this encounter Visit Diagnoses Not on filedocumented in this encounter
--- OUTSIDE RECORDS SUMMARY | 2023-12-23 01:03 | XMS_ITS | Encounter Summary ---
Author Organization [facility] Address [address] [place] [address] Care Team Providers Care Cadd Manager Name Role Phone Unavailable Primary Care Provider Unavailabl e Encounter Details Date Type Department Care Team (Latest Contact Info) Description 05/19/1999 12:39 EST Hospital Encounter [facility] - Other [address] [place] [address] Lyssa Vincent MD Unknown, Provider, Discharge Disposition: Auto Discharge Social History Tobacco [...] Procedure Name Priority Date/Time Associated Diagnosis Comments BACTERIAL CULTURE, URINE Routine 05/19/1999 18:38 EST documented in this encounter Results * BACTERIAL CULTURE, URINE (05/19/1999 18:38 EST) Specimen Description Urine [facility] Result Less than 10,000 CFU/ml Mixed gram positive growth [facility] Report Status Final [id number] [facility] 05/19/1999 18:3 8 EST 05/19/1999 18:38 EST Lyssa Vincent MD MICROBIOLOGY - GENER AL ORDERABLES Performing Organization Address City/State/[facility] Co de Phone Number [address] [address] documented in this encounter Visit Diagnoses Not on filedocumented in this encounter
--- OUTSIDE RECORDS SUMMARY | 2023-12-23 01:03 | XMS_ITS | Encounter Summary ---
Author Organization [facility] Address [address] [place] [address] Care Team Providers Care Quality Specialist Name Role Phone Unavailable Primary Care Provider Unavailabl e Encounter Details Date Type Department Care Team (Late st Contact Info) Description 09/28/2000 10:38 EDT Hospital Encounter [facility] [address] [place] [address] May Madden MD [address] [place] [phone] Social History Tobacco Use Types Packs/Day [...] Procedure Name Priority Date/Time Associated Diagnosis Comments CHEST PA AND LATERAL Routine 09/28/2000 13:34 EDT ZZBLOOD GAS, G3 ISTAT Routine 09/28/2000 11:22 EDT ZZBLOOD GAS, G3 ISTAT Routine 09/28/2000 11:15 EDT documented in this encounter Results * CHEST PA AND LATERAL (09/28/2000 13:34 EDT) Anatomical Region Laterality Modality Other 09/28/2000 13:3 4 EDT Narrative 03/13/2009 1:09 EST PRE-OP ??GASTRIC BYPASS ??H/O ??PULM. DISEASE ?R/O [...] chest radiographs. D 09/28/00 T 10/02/00 /michelle Procedure Note Margarito Keller MD - 03/13/2009 PRE-OP GASTRIC BYPASS H/O PULM. DISEASE R/O ? CARDIOMEGALY , PULM. DX PA AND LATERAL CHEST 09/28/00, 1330 hours COMPARISON: PA and lateral chest 05/22/95 DESCRIPTION: The soft tissues and bony structures are intact. The heart is normal in size and configuration. The lungs are clear. Mediastinal and hilar contours are normal. There is no pleural abnormality seen. IMPRESSION: Normal PA and lateral chest radiographs. D 09/28/00 T 10/02/00 /michelle May Madden MD IMG DIAGNOSTIC IMAGI NG ORDERABLES * BLOOD GAS, G3 ISTAT (09/28/2000 11:22 EDT) pH, i-STAT 7.40 7.35 - 7.45 [facility] pCO2, i-STAT 39 35 - 45 mmHg [facility] pO2, i-STAT 95 85 - 100 mmHg [facility] TCO2, i-STAT 25 mEq/L [facility] O2 Saturation 97 % [facility] Temperature 37.0 C [facility] FIO2 .21 [facility] Sample Type Arterial [facility] route contractor ID [id number] Test Performed by Respiratory [facility] 09/28/2000 11:2 2 EDT 09/28/2000 14:03 EDT Connor Chow MD CHEMISTRY & BLOOD GA S ORDERABLES Performing Organization Address [facility] Co de Phone Number [facility] [address] [place] [address] * (ABNORMAL) BLOOD GAS, G3 ISTAT (09/28/2000 11:15 EDT) pH, i-STAT 7.38 7.35 - 7.45 [facility] pCO2, i-STAT 41 35 - 45 mmHg [facility] pO2, i-STAT 34(L) 85 - 100 mmHg [facility] TCO2, i-STAT 26 mEq/L [facility] O2 Saturation 65 % [facility] Temperature 37.0 C [facility] FIO2 .21 [facility] Sample Type Not Given [facility] route contractor ID [id number] Test Performed by Respiratory [facility] 09/28/2000 11:1 5 EDT 09/28/2000 14:02 EDT Connor Chow MD CHEMISTRY & BLOOD GA S ORDERABLES Performing Organization Address [facility] Co de Phone Number [facility] [address] [place] [address] documented in this encounter Visit Diagnoses Not on filedocumented in this encounter Additional Health Concerns Infection Onset Date Last Indicated Resolved Time R/O COVID-19 08/22/2022 08/22/2022 08/22/2022 11:1 1 EDT R/O COVID-19 03/15/2023 03/15/2023 03/15/2023 17:4 2 EST documented as of this encounter
--- OUTSIDE RECORDS SUMMARY | 2023-12-23 01:03 | XMS_ITS | Encounter Summary ---
Author Organization [facility] Address [address] [place] [address] Care Team Providers Care Risk Consultant Name Role Phone Unavailable Primary Care Provider Unavailabl e Encounter Details Date Type Department Care Team (Late st Contact Info) Description 10/01/1999 7:59 EDT Hospital Encounter [address] [address] Lyssa Vincent MD Social History Tobacco Use [...] Diagnosis Comments GLUCOSE TOLERANCE, 3HR GESTATIONAL Routine 10/01/1999 8:00 EDT documented in this encounter Results * GLUCOSE TOLERANCE, 3HR GESTATIONAL (10/01/1999 8:00 EDT) Glucose Glenn, Fasting 84 <95 mg/dl [facility] Glucose Glenn, 1 hr 167 <180 mg/dl [facility] Glucose Glenn, 2hr 124 <155 mg/dl [facility] Gest Gluc Glenn, 3hr 70 <140 mg/dl [facility] Comment: The diagnosis of diabetes is made if two or more of the glucose values exceed the reference range listed. Glucose Dose Not Given g [facility] 10/01/1999 8:00 EDT 10/01/1999 11:07 EDT Lyssa Vincent MD PACKAGES & DNA PROBE ORDERABLES [facility] [address] [place] [address] documented in this encounter Visit Diagnoses Not on filedocumented in this encounter Additional Health Concerns Infection Onset Date Last Indicated Resolved Time R/O COVID-19 08/22/2022 08/22/2022 08/22/2022 11:1 1 EDT R/O COVID-19 03/15/2023 03/15/2023 03/15/2023 17:4 2 EST documented as of this encounter
--- OUTSIDE RECORDS SUMMARY | 2023-12-23 01:03 | XMS_ITS | Encounter Summary ---
Author Organization [facility] Address [address] [place] [address] Care Team Providers Care Inventory Representative Name Role Phone Unavailable Primary Care Provider Unavailabl e Encounter Details Date Type Department Care Team (Late st Contact Info) Description 02/21/2003 Results Only [facility] [address] [place] [address] Gabo Mckinley MD [address] [place] [phone] Social History Tobacco Use Types Packs/Day Years Used Date Smoking Tobacco: Never Assessed Sex and Gender Information Value Date Recorded Sex Assigned at Female 02/05/2020 13:48 EDT Gender Identity Female 06/26/2019 14:43 EST Sexual Orientation Not on file documented as of this encounter Plan of Treatment Not on file documented as of this encounter Procedures Procedure Name Priority Date/Time Associated Diagnosis Comments IRON Routine 02/21/2003 12:00 EST FOLATE Routine 02/21/2003 12:00 EST FERRITIN Routine 02/21/2003 12:00 EST VITAMIN B12 Routine 02/21/2003 12:00 EST BASIC METABOLIC PANEL (BMP) Routine 02/21/2003 12:00 EST documented in this encounter Results * (ABNORMAL) IRON (02/21/2003 12:00 EST) Iron 16(L) 60 - 180 ug/dl [facility] 02/21/2003 12:0 0 EST 02/22/2003 10:18 EST Gabo Mckinley MD CHEMISTRY & BLOOD GAS ORDERABLES Performing Organization Address [facility] Phone Number [facility] [address] [place] [address] * FOLATE (02/21/2003 12:00 EST) Folate 19.2 ng/mL [facility] Comment: Deficient: ??Less than 3.4 ng/mL Indeterminate: ??3.4-5.4 ng/mL Normal: ??Greater than 5.4 ng/mL Note new reference range. 02/21/2003 12:0 0 EST 02/22/2003 10:18 EST Gabo Mckinley MD CHEMISTRY & BLOOD GAS ORDERABLES Performing Organization Address [facility] Phone Number [facility] [address] [place] [address] * (ABNORMAL) FERRITIN (02/21/2003 12:00 EST) Pathologist [facility] Ferritin 3(L) 8 - 151 ng/ml [facility] 02/21/2003 12:0 0 EST 02/22/2003 10:18 EST Gabo Mckinley MD CHEMISTRY & BLOOD GAS ORDERABLES Performing Organization Address [facility] Phone Number [facility] [address] [place] [address] * (ABNORMAL) BASIC METABOLIC PANEL (02/21/2003 12:00 EST) Sodium 140 136 - 145 mEq/L [facility] Potassium 4.2 3.5 - 5.0 mEq/L [facility] Chloride 106 96 - 110 mEq/L [facility] CO2 25 24 - 30 mEq/L [facility] BUN 8(L) 10 - 26 mg/dl [facility] Creatinine 0.6(L) 0.7 - 1.5 mg/dl [facility] Calcium 9.0 8.5 - 10.5 mg/dl [facility] Calculated Calcium 9.2 8.5 - 10.5 mg/dl [facility] Glucose, Serum 79 70 - 110 mg/dl [facility] 02/21/2003 12:0 0 EST 02/22/2003 10:18 EST Gabo Mckinley MD CHEMISTRY & BLOOD GAS ORDERABLES Performing Organization Address City/[facility] Co de Phone Number [facility] [address] [place] [address] * VITAMIN B12 (02/21/2003 12:00 EST) Vitamin B-12 476 250 - 1100 pg/ml [facility] 02/21/2003 12:0 0 EST 02/22/2003 10:18 EST Gabo Mckinley MD CHEMISTRY & BLOOD GAS ORDERABLES Performing Organization Address City/[facility] Co de Phone Number [facility] [address] [place] [address] documented in this encounter Visit Diagnoses Not on filedocumented in this encounter
--- OUTSIDE RECORDS SUMMARY | 2023-12-23 01:03 | XMS_ITS | Encounter Summary ---
Author Organization [facility] Address [address] [place] [address] Care Team Providers Care Cma Name Role Phone Unavailable Primary Care Provider Unavailabl e Encounter Details Date Type Department Care Team (Late st Contact Info) Description 04/11/2001 12:33 EST Hospital Encounter [facility] - Other [address] [place] [address] May Madden MD [address] [place] [address] [phone] Unknown, MD Evelina Social History Tobacco Use Types Packs/Day Years [...] Associated Diagnosis Comments COMPLETE BLOOD COUNT Routine 04/11/2001 15:25 EST URIC ACID Routine 04/11/2001 15:25 EST TRANSFERRIN Routine 04/11/2001 15:25 EST PREALBUMIN Routine 04/11/2001 15:25 EST PHOSPHORUS Routine 04/11/2001 15:25 EST MAGNESIUM Routine 04/11/2001 15:25 EST HEMOGLOBIN A1C Routine 04/11/2001 15:25 EST GGT Routine 04/11/2001 15:25 EST FOLATE Routine 04/11/2001 15:25 EST VITAMIN B12 Routine 04/11/2001 15:25 EST LIPID PROFILE (INCLUDES CHOLESTEROL, TRIGLYCERIDES, HDL, LDL) Routine 04/11/2001 15:25 EST COMPREHENSIVE METABOLIC PANEL (CMP) Routine 04/11/2001 15:25 EST documented in this encounter Results * URIC ACID (04/11/2001 15:25 EST) Uric Acid 4.7 2.2 - 7.7 mg/dl [facility] 04/11/2001 15:2 5 EST 04/11/2001 19:56 EST May Madden MD CHEMISTRY & BLOOD GA S ORDERABLES [facility] [address] [place] [address] * TRANSFERRIN (04/11/2001 15:25 EST) Transferrin 307 202 - 336 mg/dl [facility] 04/11/2001 15:2 5 EST 04/11/2001 19:56 EST May Madden MD CHEMISTRY & BLOOD GA S ORDERABLES Performing Organization Address [facility] Co [place] Phone Number [facility] [address] [place] [address] * PHOSPHORUS (04/11/2001 15:25 EST) Phosphorus 4.1 2.5 - 4.5 mg/dl [facility] 04/11/2001 15:2 5 EST 04/11/2001 19:56 EST May Madden MD CHEMISTRY & BLOOD GA S ORDERABLES Performing Organization Address [facility] Phone Number [facility] [address] [place] [address] * PREALBUMIN (04/11/2001 15:25 EST) Prealbumin 21 18 - 38 mg/dl [facility] 04/11/2001 15:2 5 EST 04/11/2001 19:56 EST May Madden MD CHEMISTRY & BLOOD GA S ORDERABLES Performing Organization Address [facility] Phone Number [facility] [address] [place] [address] * MAGNESIUM (04/11/2001 15:25 EST) Magnesium 1.8 1.7 - 2.8 mg/dl [facility] 04/11/2001 15:2 5 EST 04/11/2001 19:56 EST May Madden MD CHEMISTRY & BLOOD GA S ORDERABLES Performing Organization Address [facility] Co [place] Phone Number [facility] [address] [place] [address] * LIPID PROFILE (INCLUDES CHOLESTEROL, TRIGLYCERIDES, HDL, LDL) (04/11/2001 15:25 EST) Cholesterol 127 mg/dl [facility] Comment: Desirable:<200 Borderline:200-239 High Risk:>[id number] Triglycerides 107 35 - 160 mg/dl [facility] HDL 37 mg/dl [facility] Comment: Highly Desirable:>60 Desirable:35-60 High Risk:<35 LDL, Calculated 69 mg/dl [facility] Comment: Desirable:<130 Borderline:130-159 High Risk:>[id number]=560 Chol/HDL Ratio 3.4 [facility] 04/11/2001 15:2 5 EST 04/11/2001 19:56 EST May Madden MD CHEMISTRY & BLOOD GA S ORDERABLES Performing Organization Address City/[facility] Co de Phone Number [facility] [address] [place] [address] * GGT (04/11/2001 15:25 EST) GGT 20 12 - 43 U/L [facility] 04/11/2001 15:2 5 EST 04/11/2001 19:56 EST May Madden MD CHEMISTRY & BLOOD GA S ORDERABLES Performing Organization Address [facility] Co de Phone Number [facility] [address] [place] [address] * FOLATE (04/11/2001 15:25 EST) Folate 16.9 2.8 - 18.0 ng/ml [facility] 04/11/2001 15:2 5 EST 04/11/2001 19:56 EST May Madden MD CHEMISTRY & BLOOD GA S ORDERABLES Performing Organization Address City/[facility] Co de Phone Number [facility] [address] [place] [address] * (ABNORMAL) COMPREHENSIVE METABOLIC PANEL (04/11/2001 15:25 EST) Potassium 3.6 3.5 - 5.0 mEq/L [facility] Sodium 143 136 - 145 mEq/L [facility] Chloride 105 96 - 110 mEq/L [facility] CO2 26 24 - 30 mEq/L [facility] Total Alkaline Phosphatase 65 38 - 126 U/L [facility] Bilirubin, Total 0.3 0.2 - 1.3 mg/dl [facility] AST 19 8 - 50 U/L [facility] ALT 26 15 - 75 U/L [facility] Albumin 4.1 3.0 - 5.5 g/dl [facility] Total Protein 6.8 6.0 - 8.5 g/dl [facility] Creatinine 0.6(L) 0.7 - 1.5 mg/dl [facility] BUN 13 10 - 26 mg/dl [facility] Calcium 9.4 8.5 - 10.5 mg/dl [facility] Calculated Calcium 9.7 8.5 - 10.5 mg/dl [facility] Glucose, Serum 85 70 - 110 mg/dl [facility] Albumin/Globulin Ratio 1.5 [facility] 04/11/2001 15:2 5 EST 04/11/2001 19:56 EST May Madden MD CHEMISTRY & BLOOD GA S ORDERABLES Performing Organization Address City/State/[facility] Co de Phone Number [facility] [address] [place] [address] * HEMAGRAM (04/11/2001 15:25 EST) WBC 8.20 4.0 - 12.4 K/cmm [facility] RBC 4.51 3.86 - 5.04 M/cmm [facility] Hemoglobin 13.2 11.6 - 15.2 gm/dl [facility] HCT 39.0 34.9 - 44.4 % [facility] MCV 86 81 - 98 fl [facility] MCH 29.2 26.7 - 33.3 pg [facility] MCHC 33.8 32.1 - 35.9 gm/dl [facility] PLT 258 141 - 320 K/cmm [facility] RDW-CV 12.9 11.7 - 14.6 % [facility] 04/11/2001 15:2 5 EST 04/11/2001 19:56 EST May Madden MD HEMATOLOGY & PF4 ORD ERABLES Performing Organization Address [facility] Co de Phone Number [facility] [address] [place] [address] * VITAMIN B12 (04/11/2001 15:25 EST) Vitamin B-12 434 250 - 1100 pg/ml [facility] 04/11/2001 15:2 5 EST 04/11/2001 19:56 EST May Madden MD CHEMISTRY & BLOOD GA S ORDERABLES Performing Organization Address [facility] Co de Phone Number [facility] [address] [place] [address] * (ABNORMAL) HEMOGLOBIN A1C (04/11/2001 15:25 EST) Hemoglobin A1C 4.1(LL) % [facility] Comment: Shortened red blood cell survival will decrease Hemoglobin A1C values. <6% Normal Range <7% Recommended goal by ADA guidelines 7-8% Suboptimal by ADA guidelines >8% Further action suggested by ADA guidelines 04/11/2001 15:2 5 EST 04/11/2001 19:56 EST May Madden MD CHEMISTRY & BLOOD GA S ORDERABLES Performing Organization Address [facility] Co de Phone Number [facility] [address] [place] [address] documented in this encounter Visit Diagnoses Not on filedocumented in this encounter Additional Health Concerns Infection Onset Date Last Indicated Resolved Time R/O COVID-08/22/2022 08/22/2022 08/22/2022 11:1 1 EDT R/O COVID-19 03/15/2023 03/15/2023 03/15/2023 17:4 2 EST documented as of this encounter
--- OUTSIDE RECORDS SUMMARY | 2023-12-23 01:03 | XMS_ITS | Encounter Summary ---
Author Organization [facility] Address [address] [place] [address] Care Team Providers Care Executive Coach Name Role Phone Unavailable Primary Care Provider Unavailabl e Encounter Details Date Type Department Care Team (Latest Contact Info) Description 09/05/2003 7:44 EDT - 09/05/2003 11:59 EDT Hospital Encounter [address] [address] Gabo Mckinley MD [address] [place] [phone] Discharge Disposition: Auto Discharge Social History Tobacco [...] Priority Date/Time Associated Diagnosis Comments RAD US BREAST UNILATERAL OR BILATERAL Routine 09/05/2003 9:02 EDT NOE WILLIAM UNI DIGITAL Routine 09/05/2003 8:09 EDT documented in this encounter Results * RAD US BREAST UNILATERAL OR BILATERAL (09/05/2003 9:02 EDT) Anatomical Region Laterality Modality Other 09/05/2003 9:02 EDT Narrative 01/02/2009 10:54 EDT DX UNI MAMMO W/ RT US TO FOLLOW6 MO FU RT BR, HX RT BR ASYM TISSUE, HY POECHOIC AREA @ 10:00 ??[PCP GABO MCKINELY] Procedure Note Nichole French MD - 01/02/2009 DX UNI MAMMO W/ RT US TO FOLLOW6 MO FU RT BR, HX RT BR ASYM TISSUE, HY POECHOIC AREA @ 10:00 [PCP GABO MCKINLEY] Gabo Mckinley MD IMG US ORDERABLES * MA ANTON DIAG UNI DIGITAL (09/05/2003 8:09 EDT) Anatomical Region Laterality Modality Other 09/05/2003 8:09 EDT Impressions 01/02/2009 10:54 EDT IMPRESSION: RIGHT BREAST - CATEGORY 2 1.An area of asymmetric breast tissue in the central region. Benign, no evidence of malignancy. Age appropriate follow up is recommended. Current mammography screening guidelines recommend a yearly exam for women over age 40. 2.Negative ultrasound in the area of clinical concern. The patient reports that she had a palpation guided FNA since her imaging in her doctor's office. The patient reports this was normal. She also reports that there is pain associated with this lump that comes and goes. The breast imaging exam is negative in the region of clinical concern. If the clinical finding is felt to be suspicious, a surgical referral should be obtained. 3. The region at 10:00 continues to be consistent with normal fibrous tissue. OVERALL ASSESSMENT - BENIGN END OF IMPRESSION Narrative 01/02/2009 10:54 EDT DX UNI MAMMO W/ RT US TO FOLLOW6 MO FU RT BR, HX RT BR ASYM TISSUE, HY POECHOIC AREA @ 10:00 ??[PCP GABO MCKINLEY] Comparison is made to films from 12-24-2002 and 12-24-2002. Right Breast Findings (CAD used to interpret diagnostic digital, digital additional and ultrasound projections): The breast is heterogeneously dense. This may lower the sensitivity of mammography. An area of asymmetric breast tissue is present in the central region. This is stable and remains compressible. No new suspicious findings are seen on the mammogram. Realtime ultrasound demonstrates no sonographic abnormality at the site of the clinical concern pointed out by the patient at 12:00 about 4 cm out. Follow up of the area at 10:00 is performed and again this has the appearance of normal breast tissue. No suspicious masses are seen in the 10:00 area. This was a directed ultrasound. Procedure Note Nichole French MD - 01/02/2009 DX UNI MAMMO W/ RT US TO FOLLOW6 MO FU RT BR, HX RT BR ASYM TISSUE, HY POECHOIC AREA @ 10:00 [PCP GABO MCKINLEY] Comparison is made to films from 12-24-2002 and 12-24-2002. Right Breast Findings (CAD used to interpret diagnostic digital, digital additional and ultrasound projections): The breast is heterogeneously dense. This may lower the sensitivity of mammography. An area of asymmetric breast tissue is present in the central region. This is stable and remains compressible. No new suspicious findings are seen on the mammogram. Realtime ultrasound demonstrates no sonographic abnormality at the site of the clinical concern pointed out by the patient at 12:00 about 4 cm out. Follow up of the area at 10:00 is performed and again this has the appearance of normal breast tissue. No suspicious masses are seen in the 10:00 area. This was a directed ultrasound. IMPRESSION IMPRESSION: RIGHT BREAST - CATEGORY 2 1.An area of asymmetric breast tissue in the central region. Benign, no evidence of malignancy. Age appropriate follow up is recommended. Current mammography screening guidelines recommend a yearly exam for women over age 40. 2.Negative ultrasound in the area of clinical concern. The patient reports that she had a palpation guided FNA since her imaging in her doctor's office. The patient reports this was normal. She also reports that there is pain associated with this lump that comes and goes. The breast imaging exam is negative in the region of clinical concern. If the clinical finding is felt to be suspicious, a surgical referral should be obtained. 3. The region at 10:00 continues to be consistent with normal fibrous tissue. OVERALL ASSESSMENT - BENIGN END OF IMPRESSION Gabo Mckinley MD IMG MAMMOGRAPHY OR DERABLES documented in this encounter Visit Diagnoses Not on filedocumented in this encounter
--- OUTSIDE RECORDS SUMMARY | 2023-12-23 01:03 | XMS_ITS | Encounter Summary ---
Author Organization [facility] Address [address] [place] [address] Care Team Providers Care Resistance Welding Machine Operator Name Role Phone Unavailable Primary Care Provider Unavailabl e Encounter Details Date Type Department Care Team (Latest Contact Info) Description 10/06/2000 8:39 EDT - 10/09/2000 11:59 EDT Hospital Encounter [facility] [address] [place] [address] May Madden MD [address] [place] [phone] Discharge Disposition: Home or Self Care Social [...] Procedure Name Priority Date/Time Associated Diagnosis Comments SURGICAL PATHOLOGY Routine 10/06/2000 0:00 EDT documented in this encounter Results * SURGICAL PATHOLOGY (10/06/2000 0:00 EDT) Pathology Report: SURGICAL PATHOLOGY REPORT Reports generated via electronic interface contain original data; however they are lacking the format of the original report. Caution should be taken when reading/interpreti ng unformatted reports. Name: ? NELA GRANGER ? Accession #: ? [id number] ? : ? 1970 (Age: 30) ??F ? Collect Date: ? 10/06/2000 ? Location: ? B006 ? Receive Date: ? 10/06/2000 ? Provider: MAY MADDEN MD Copy to: ? Final Pathologic Diagnosis: A. ?Liver, biopsy: 1. ?Marked steatosis. ??See comment. B. ?Gallbladder, cholecystectomy: 1. ?Chronic cholecystitis. 2. ?Cholesterolosis. Comment: ? On the liver biopsy, the lobular architecture is well preserved. ??There are extensive micro- and macrovesicular fatty changes in zone 3 and zone 2. ??No centrilobular fibrosis is present (trichrome stain). ??No intralobular or portal chronic inflammation is identified. ??Iron stain is negative for iron storage. (Dr. Elena)/[facility] Document reviewed and electronically signed by: BAM VILLEGAS MD Report ??Date: 10/11/2000 08:04 By the signature above, the attending physician certifies that he/she has personally conducted a gross and/or microscopic examination of the described specimens and rendered or confirmed the above diagnosis. Specimen(s) Received: A. ?Liver bx (#1) B. ?Gallbladder (#2) Clinical History: ? Morbid obesity Gross Description: ? Received in formalin labelled Elkin and #1 liver bx is a brown-guzman linear soft tissue which measures 2.2 cm in length and 0.2 cm in diameter. ??The specimen is submitted intact as (A). ??Trichrome and iron stains have been ordered. Received in normal saline labelled Elkin and #2 gallbladder is a gallbladder which is received open and measures 7.0 cm in length and 2.5 cm in diameter. ??The cystic duct measures 0.7 cm in length and 0.5 cm in diameter. There is no cystic duct lymph node identified. ??The mucosa is pink-guzman, velvety and studded with numerous white-yellow plaques. ??The gallbladder wall measures 0.2 cm in average thickness. ??The serosa is pink-guzman, smooth and unremarkable. There is no perforations or gallstones identified. ??Three medical collections representative sections are submitted in one cassette as (B). ??(Dr. Elena)/[facility] End of Report [facility] 10/06/2000 10/06/2000 14: 55 EDT May Madden MD PATHOLOGY ORDERABLES [facility] [address] [place] [address] documented in this encounter Visit Diagnoses Not on filedocumented in this encounter
--- OUTSIDE RECORDS SUMMARY | 2023-12-23 01:03 | XMS_ITS | Encounter Summary ---
Author Organization [facility] Address [address] [place] [address] Care Team Providers Care Dishing Machine Operator Name Role Phone Unavailable Primary Care Provider Unavailabl e Encounter Details Date Type Department Care Team (Late st Contact Info) Description 07/10/2001 12:37 EST Hospital Encounter [facility] - Other [address] [place] [address] May Madden MD [address] [place] [phone] Unknown, MD Evelina Social History Tobacco Use [...] Associated Diagnosis Comments COMPLETE BLOOD COUNT Routine 07/10/2001 13:18 EST URIC ACID Routine 07/10/2001 13:18 EST TRANSFERRIN Routine 07/10/2001 13:18 EST PREALBUMIN Routine 07/10/2001 13:18 EST PHOSPHORUS Routine 07/10/2001 13:18 EST MAGNESIUM Routine 07/10/2001 13:18 EST HEMOGLOBIN A1C Routine 07/10/2001 13:18 EST GGT Routine 07/10/2001 13:18 EST FOLATE Routine 07/10/2001 13:18 EST VITAMIN B12 Routine 07/10/2001 13:18 EST LIPID PROFILE (INCLUDES CHOLESTEROL, TRIGLYCERIDES, HDL, LDL) Routine 07/10/2001 13:18 EST COMPREHENSIVE METABOLIC PANEL (CMP) Routine 07/10/2001 13:18 EST documented in this encounter Results * URIC ACID (07/10/2001 13:18 EST) Uric Acid 4.2 2.2 - 7.7 mg/dl [facility] 07/10/2001 13:1 8 EST 07/10/2001 13:19 EST May Madden MD CHEMISTRY & BLOOD GA S ORDERABLES [facility] [address] [place] [address] * TRANSFERRIN (07/10/2001 13:18 EST) Transferrin 283 202 - 336 mg/dl [facility] 07/10/2001 13:1 8 EST 07/10/2001 13:19 EST May Madden MD CHEMISTRY & BLOOD GA S ORDERABLES Performing Organization Address [facility] Co mo Phone Number [facility] [address] [place] [address] * PHOSPHORUS (07/10/2001 13:18 EST) Phosphorus 3.8 2.5 - 4.5 mg/dl [facility] 07/10/2001 13:1 8 EST 07/10/2001 13:19 EST May Madden MD CHEMISTRY & BLOOD GA S ORDERABLES Performing Organization Address [facility] Phone Number [facility] [address] [place] [address] * PREALBUMIN (07/10/2001 13:18 EST) Prealbumin 19 18 - 38 mg/dl [facility] 07/10/2001 13:1 8 EST 07/10/2001 13:19 EST May Madden MD CHEMISTRY & BLOOD GA S ORDERABLES Performing Organization Address [facility] Phone Number [facility] [address] [place] [address] * MAGNESIUM (07/10/2001 13:18 EST) Magnesium 1.8 1.7 - 2.8 mg/dl [facility] 07/10/2001 13:1 8 EST 07/10/2001 13:19 EST May Madden MD CHEMISTRY & BLOOD GA S ORDERABLES Performing Organization Address [facility] Co mo Phone Number [facility] [address] [place] [address] * LIPID PROFILE (INCLUDES CHOLESTEROL, TRIGLYCERIDES, HDL, LDL) (07/10/2001 13:18 EST) Cholesterol 116 mg/dl [facility] Comment: Desirable:<200 Borderline:200-239 High Risk:>[id number] Triglycerides 89 35 - 160 mg/dl [facility] HDL 40 mg/dl [facility] Comment: Highly Desirable:>60 Desirable:35-60 High Risk:<35 LDL, Calculated 58 mg/dl [facility] Comment: Desirable:<130 Borderline:130-159 High Risk:>[id number] Chol/HDL Ratio 2.9 [facility] 07/10/2001 13:1 8 EST 07/10/2001 13:19 EST May Madden MD CHEMISTRY & BLOOD GA S ORDERABLES Performing Organization Address City/[facility] Co de Phone Number [facility] [address] [place] [address] * GGT (07/10/2001 13:18 EST) GGT 14 12 - 43 U/L [facility] 07/10/2001 13:1 8 EST 07/10/2001 13:19 EST May Madden MD CHEMISTRY & BLOOD GA S ORDERABLES Performing Organization Address [facility] Co de Phone Number [facility] [address] [place] [address] * FOLATE (07/10/2001 13:18 EST) Folate 15.0 2.8 - 18.0 ng/ml [facility] 07/10/2001 13:1 8 EST 07/10/2001 13:19 EST May Madden MD CHEMISTRY & BLOOD GA S ORDERABLES Performing Organization Address [facility] Co de Phone Number [facility] [address] [place] [address] * (ABNORMAL) COMPREHENSIVE METABOLIC PANEL (07/10/2001 13:18 EST) Potassium 4.4 3.5 - 5.0 mEq/L [facility] Sodium 143 136 - 145 mEq/L [facility] Chloride 104 96 - 110 mEq/L [facility] CO2 30 24 - 30 mEq/L [facility] Total Alkaline Phosphatase 53 38 - 126 U/L [facility] Bilirubin, Total 0.2 0.2 - 1.3 mg/dl [facility] AST 19 8 - 50 U/L [facility] ALT 19 15 - 75 U/L [facility] Albumin 3.7 3.0 - 5.5 g/dl [facility] Total Protein 6.4 6.0 - 8.5 g/dl [facility] Creatinine 0.6(L) 0.7 - 1.5 mg/dl [facility] BUN 11 10 - 26 mg/dl [facility] Calcium 8.7 8.5 - 10.5 mg/dl [facility] Calculated Calcium 9.4 8.5 - 10.5 mg/dl [facility] Glucose, Serum 84 70 - 110 mg/dl [facility] Albumin/Globulin Ratio 1.4 [facility] 07/10/2001 13:1 8 EST 07/10/2001 13:19 EST May Madden MD CHEMISTRY & BLOOD GA S ORDERABLES Performing Organization Address City/State/[facility] Co de Phone Number [facility] [address] [place] [address] * HEMAGRAM (07/10/2001 13:18 EST) WBC 7.61 4.0 - 12.4 K/cmm [facility] RBC 4.26 3.86 - 5.04 M/cmm [facility] Hemoglobin 12.8 11.6 - 15.2 gm/dl [facility] HCT 36.7 34.9 - 44.4 % [facility] MCV 86 81 - 98 fl [facility] MCH 30.0 26.7 - 33.3 pg [facility] MCHC 34.9 32.1 - 35.9 gm/dl [facility] PLT 306 141 - 320 K/cmm [facility] RDW-CV 12.6 11.7 - 14.6 % [facility] 07/10/2001 13:1 8 EST 07/10/2001 13:19 EST May Madden MD HEMATOLOGY & PF4 ORD ERABLES Performing Organization Address [facility] Co de Phone Number [facility] [address] [place] [address] * VITAMIN B12 (07/10/2001 13:18 EST) Vitamin B-12 378 250 - 1100 pg/ml [facility] 07/10/2001 13:1 8 EST 07/10/2001 13:19 EST May Madden MD CHEMISTRY & BLOOD GA S ORDERABLES Performing Organization Address [facility] Co de Phone Number [facility] [address] [place] [address] * HEMOGLOBIN A1C (07/10/2001 13:18 EST) Hemoglobin A1C 4.1 % [facility] Comment: Shortened red blood cell survival will decrease Hemoglobin A1C values. <6% Normal Range <7% Recommended goal by ADA guidelines 7-8% Suboptimal by ADA guidelines >8% Further action suggested by ADA guidelines 07/10/2001 13:1 8 EST 07/10/2001 13:19 EST May Madden MD CHEMISTRY & BLOOD GA S ORDERABLES Performing Organization Address [facility] Co de Phone Number [facility] [address] [place] [address] documented in this encounter Visit Diagnoses Not on filedocumented in this encounter Additional Health Concerns Infection Onset Date Last Indicated Resolved Time R/O COVID-19 08/22/2022 08/22/2022 08/22/2022 11:1 1 EDT R/O COVID-19 03/15/2023 03/15/2023 03/15/2023 17:4 2 EST documented as of this encounter
--- OUTSIDE RECORDS SUMMARY | 2023-12-23 01:03 | XMS_ITS | Encounter Summary ---
Author Organization Health system Address [address] [place] [address] Care Team Providers Care Spraying Machine Operator Name Role Phone Unavailable Primary Care Provider Unavailabl e Encounter Details Date Type Department Care Team (Latest Contact Info) Description 10/14/1999 9:32 EDT - 10/14/1999 11:59 EDT Hospital Encounter [facility] [address] [place] [address] Lyssa Vincent MD Discharge Disposition: Auto Discharge [...] Diagnosis Comments RAD US OBSTETRICAL COMPLETE Routine 10/14/1999 10:54 EDT documented in this encounter Results * RAD US OBSTETRICAL COMPLETE (10/14/1999 10:54 EDT) Anatomical Region Laterality Modality Other 10/14/1999 10:5 4 EDT Impressions 03/03/2009 14:54 EST IMPRESSION: 1) Single living intrauterine with size consistent with menstrual dates. /vantonieta Narrative 03/03/2009 14:54 EST OB U/S FOR SIZE > DATES,LMP ? OB ULTRASOUND 10/14/99 Multiple sonographic images of the maternal uterus were obtained. LMP: 03/20/99 = 29 + 5 BPD: 7.5cm = 30 + 0 HC: 28.7cm = 31 + 4 AC: 26.8cm = 31 + 0 FL: 5.9cm = 30 + 6 HUM: 5.2cm = 30 + 3 EFW: 1652gm = 70th percentile The fetus is in a transverse lie with a breech presentation. The placenta was anterior with no evidence of placenta previa. Amniotic fluid volume is normal. Stomach, bladder, two kidneys, three vessel cord are identified. The heart is noted at 136 bpm. Procedure Note Savannah Crisostomo MD - 03/03/2009 OB U/S FOR SIZE > DATES,LMP ? OB ULTRASOUND 10/14/99 Multiple sonographic images of the maternal uterus were obtained. LMP: 03/20/99 = 29 + 5 BPD: 7.5cm = 30 + 0 HC: 28.7cm = 31 + 4 AC: 26.8cm = 31 + 0 FL: 5.9cm = 30 + 6 HUM: 5.2cm = 30 + 3 EFW: 1652gm = 70th percentile The fetus is in a transverse lie with a breech presentation. The placenta was anterior with no evidence of placenta previa. Amniotic fluid volume is normal. Stomach, bladder, two kidneys, three vessel cord are identified. The heart is noted at 136 bpm. IMPRESSION IMPRESSION: 1) Single living intrauterine with size consistent with menstrual dates. /nathaniel Lyssa Vincent MD IMG US ORDERABLES documented in this encounter Visit Diagnoses Not on filedocumented in this encounter
--- OUTSIDE RECORDS SUMMARY | 2023-12-23 01:03 | XMS_ITS | Encounter Summary ---
Author Organization [facility] Address [address] [place] [address] Care Team Providers Care Fashion Merchandiser Name Role Phone Unavailable Primary Care Provider Unavailabl e Encounter Details Date Type Department Care Team (Late st Contact Info) Description 06/22/2000 18:56 EST Hospital Encounter [facility] - Other [address] [place] [address] Ana Coates PA [address] [address] Unknown, Provider, Social History Tobacco Use Types [...] Priority Date/Time Associated Diagnosis Comments BACTERIAL CULTURE, GENITAL Routine 06/22/2000 13:00 EST documented in this encounter Results * BACTERIAL CULTURE, GENITAL (06/22/2000 13:00 EST) Specimen Description Vagina [facility] Result Few Usual vaginal shannon [facility] Report Status Final [id number] [facility] 06/22/2000 13:0 0 EST 06/22/2000 18:36 EST Ana [facility]JESUS [facility] FO R SQ LOAD [facility] [address] [place] [address] documented in this encounter Visit Diagnoses Not on filedocumented in this encounter Additional Health Concerns Infection Onset Date Last Indicated Resolved Time R/O COVID-19 08/22/2022 08/22/2022 08/22/2022 11:1 1 EDT R/O COVID-19 03/15/2023 03/15/2023 03/15/2023 17:4 2 EST documented as of this encounter
--- OUTSIDE RECORDS SUMMARY | 2023-12-23 01:03 | XMS_ITS | Encounter Summary ---
Author Organization [facility] Address [address] [place] [address] Care Team Providers Care Dining Manager Name Role Phone Unavailable Primary Care Provider Unavailabl e Encounter Details Date Type Department Care Team (Late st Contact Info) Description 12/08/1999 7:45 EDT - 12/11/1999 11:59 EDT Hospital Encounter [facility] [address] [place], [place] [address] Kendra Pacheco MD [address] [facility], [address] [place] [address] Discharge Disposition: Home or Self [...] Associated Diagnosis Comments COMPLETE BLOOD COUNT Routine 12/10/1999 8:20 EDT SURGICAL PATHOLOGY Routine 12/10/1999 0:00 EDT documented in this encounter Results * (ABNORMAL) HEMAGRAM (12/10/1999 8:20 EDT) Pathologist [facility] WBC 10.98 4.0 - 12.4 K/cmm [facility] RBC 3.65(L) 3.86 - 5.04 M/cmm [facility] Hemoglobin 10.0(L) 11.6 - 15.2 gm/dl [facility] HCT 28.9(L) 34.9 - 44.4 % [facility] MCV 79(L) 81 - 98 fl [facility] MCH 27.4 26.7 - 33.3 pg [facility] MCHC 34.6 32.1 - 35.9 gm/dl [facility] PLT 194 141 - 320 K/cmm [facility] RDW-CV 13.7 11.7 - 14.6 % [facility] 12/10/1999 8:20 EDT 12/10/1999 8:53 EDT Kendra Armand Pacheco MD HEMATOLOGY & PF4 O RDERABLES Performing Organization Address City/State/[facility] Co de Phone Number [facility] [address] [place] [address] * SURGICAL PATHOLOGY (12/10/1999 0:00 EDT) Pathologist [facility] Pathology Report: SURGICAL PATHOLOGY REPORT Reports generated via electronic interface contain original data; however they are lacking the format of the original report. Caution should be taken when reading/interpreti ng unformatted reports. Name: ? NELA GRANGER ? Accession #: ? [id number] ? : ? 1970 (Age: 29) ??F ? Collect Date: ? 12/10/1999 ? Location: ? SB05 ? Receive Date: ? 12/10/1999 ? Provider: KENDRA PACHECO MD Copy to: ? Final Pathologic Diagnosis: A. ?Fallopian tube, left, tubal ligation: 1. ?Segment of fallopian tube with complete cross section examined. B. ?Fallopian tube, right, tubal ligation: ? 1. ?Segment of fallopian tube with complete cross section examined. Document reviewed and electronically signed by: GELY SALAZAR MD Report ??Date: 12/14/1999 15:47 By the signature above, the attending physician certifies that he/she has personally conducted a gross and/or microscopic examination of the described specimens and rendered or confirmed the above diagnosis. Specimen(s) Received: A. ?Lt segment fallopian tube B. ?Rt segment fallopian tube Clinical History: ? Post bilateral tubal ligation; 12/08/ at 00:55 Gross Description: ? Received in normal saline labelled Elkin and left segment fallopian tube is a guzman-pink tubular 1.2 cm in length, 0.6 cm in diameter soft tissue surfaced by a guzman wrinkled serosa. ??Upon sectioning, the cut surfaces are guzman-white with a central pinpoint lumen. ??The specimen is serially sectioned and international representative sections are submitted as (A). Received in normal saline labelled Elkin and right segment fallopian tube is a guzman-pink tubular 1.5 cm in length, 0.6 cm in diameter soft tissue surfaced by a guzman wrinkled serosa. ??Upon sectioning, the cut surfaces are gibson-white with a central pinpoint lumen. ??The specimen is serially sectioned and international representative sections are submitted as (B). ??(Arun Chauhan)/monica End of Report [facility] 12/10/1999 12/10/1999 9:4 0 EDT Kendra Pacheco MD PATHOLOGY ORDERABL ES [facility] [address] [place] [address] documented in this encounter Visit Diagnoses Not on filedocumented in this encounter
--- OUTSIDE RECORDS SUMMARY | 2023-12-23 01:03 | XMS_ITS | Encounter Summary ---
Author Organization [facility] Address [address] [place] [address] Care Team Providers Care Chucking And Sawing Machine Operator Name Role Phone Unavailable Primary Care Provider Unavailabl e Encounter Details Date Type Department Care Team (Latest Contact Info) Description 10/29/2002 14:58 EDT Hospital Encounter [facility] - Other [address] [place] [address] May Madden MD [address] [place] [phone] Discharge Disposition: Auto Discharge Social History Tobacco [...]
--- OUTSIDE RECORDS SUMMARY | 2023-12-23 01:03 | XMS_ITS | Encounter Summary ---
Author Organization [facility] Address [address] [place] [address] Care Team Providers Care Drug Regulatory Affairs Specialist Name Role Phone Unavailable Primary Care Provider Unavailabl e Encounter Details Date Type Department Care Team (Late st Contact Info) Description 05/01/2000 20:17 EST Hospital Encounter [facility] - Other [address] [place] [address] Ravindra Clements MD [address] [place] [address] [address] [place] [address] Unknown, Provider, Social History Tobacco Use Types [...] Date/Time Associated Diagnosis Comments THYROID CASCADE Routine 05/01/2000 11:20 EST RHEUMATOID FACTOR Routine 05/01/2000 11: 20 EST ANTI NUCLEAR AB (MIKEY), IFA Routine 05/01/2000 11:20 EST documented in this encounter Results * THYROID CASCADE (05/01/2000 11:20 EST) TSH 1.04 0.35 - 5.50 uIU/ml [facility] Comment: TSH cascade is not recommended for patients in which pituitary or hypothalamic disorders are suspected. 05/01/2000 11:2 0 EST 05/01/2000 19:09 EST Ravindra Clements MD CHEMISTRY & BLOOD G ORDERABLES Performing Organization Address [facility] Phone Number [facility] [address] [place] [address] * RHEUMATOID FACTOR (05/01/2000 11:20 EST) Rheumatoid Factor <20 <20 IU/ml [facility] 05/01/2000 11:2 0 EST 05/01/2000 19:09 EST Ravindra Clements MD CHEMISTRY & BLOOD G ORDERABLES Performing Organization Address [facility] Phone Number [facility] [address] [place] [address] * ANTI NUCLEAR ANTIBODY (05/01/2000 11:20 EST) Anti Nuclear Ab <40 0 - 40 Dils [facility] 05/01/2000 11:2 0 EST 05/01/2000 19:09 EST Ravindra Clements MD IMMUNOLOGY AND SERO LOGY ORDERABLES Performing Organization Address [facility] de Phone Number [facility] [address] [place] [address] documented in this encounter Visit Diagnoses Not on filedocumented in this encounter Additional Health Concerns Infection Onset Date Last Indicated Resolved Time R/O COVID-19 08/22/2022 08/22/2022 08/22/2022 11:1 1 EDT R/O COVID-19 03/15/2023 03/15/2023 03/15/2023 17:4 2 EST documented as of this encounter
--- OUTSIDE RECORDS SUMMARY | 2023-12-23 01:03 | XMS_ITS | Encounter Summary ---
Author Organization [facility] Address [address] [place] [address] Care Team Providers Care Patient Transportation Driver Name Role Phone Unavailable Primary Care Provider Unavailabl e Encounter Details Date Type Department Care Team (Latest Contact Info) Description 10/05/2001 16:54 EDT Hospital Encounter [facility] - Other [address] [place] [address] Modesto Johnson MD Unknown, Provider, Discharge Disposition: Auto Discharge [...] Date/Time Associated Diagnosis Comments N.GONORRHOEAE PROBE Routine 10/05/2001 1 2:29 EDT CHLAMYDIA TRACHOMATIS PROBE Routine 10/05/2001 12:29 EDT HSV (ONLY) CULTURE Routine 10/05/2001 12 :29 EDT URINE CHEMICAL (DIP) & SEDIMENT (MICRO) WITHOUT REFLEX TO CULTURE Routine 10/05/2001 12:06 EDT BACTERIAL CULTURE, URINE Routine 10/05/2001 12:06 EDT CYTOPATHOLOGY Routine 10/05/2001 0:00 EDT documented in this encounter Results * HSV (ONLY) CULTURE (10/05/2001 12:29 EDT) Specimen Description Unknown [facility] Result HERPES SIMPLEX VIRUS TYPE II RECOVERED [facility] Report Status Final [id number] [facility] 10/05/2001 12:2 9 EDT 10/05/2001 12:29 EDT Modesto Johnson MD MICROBIOLOGY - GENER AL ORDERABLES Performing Organization Address [facility] Co de Phone Number [facility] [address] [place] [address] * N.GONORRHOEAE PROBE (10/05/2001 12:29 EDT) Specimen Description Cervix [facility] Result No Neisseria gonorrhoeae DNA detected by hospital social worker mediated amplification. [facility] Report Status Final [id number] [facility] 10/05/2001 12:2 9 EDT 10/05/2001 12:29 EDT Modesto Johnson MD HISTORICAL LAB FOR S Q LOAD Performing Organization Address [facility] Co de Phone Number [facility] [address] [place] [address] * CHLAMYDIA TRACHOMATIS PROBE (10/05/2001 12:29 EDT) Specimen Description Cervix [facility] Result No Chlamydia trachomatis DNA detected by hospital social worker mediated amplification. [facility] Report Status Final [id number] [facility] 10/05/2001 12:2 9 EDT 10/05/2001 12:29 EDT Modesto Johnson MD HISTORICAL LAB FOR S Q LOAD Performing Organization Address [facility] Co de Phone Number [facility] [address] [place] [address] * BACTERIAL CULTURE, URINE (10/05/2001 12:06 EDT) Specimen Description Urine [facility] Result No growth [facility] Report Status Final [id number] [facility] 10/05/2001 12:0 6 EDT 10/05/2001 12:06 EDT Modesto Johnson MD MICROBIOLOGY - GENER AL ORDERABLES [facility] [address] [place] [address] * (ABNORMAL) UA WITH MICROSCOPIC (10/05/2001 12:06 EDT) Color, UA Yellow [facility] Clarity, UA Hazy [facility] Glucose, UA Norm NORM [facility] Bilirubin, UA Neg NEG [facility] Ketones, UA Small(A) NEG [facility] Specific [place], Urine 1.025 1.005 - 1.02 [facility] Blood, UA Mod(A) NEG [facility] pH, UA 5.5 5.0 - 9.0 [facility] Protein, UA Trace(A) NEG [facility] Urobilinogen, UA 1.0(A) NORM mg/dL [facility] Nitrite, UA Neg NEG [facility] Leuk Esterase Trace(A) NEG [facility] WBC, UA 10 to 50 0 - 5 /HPF [facility] RBC, UA 10 to 50 0 - 5 /HPF [facility] Squam Epithel, UA Frequent(A) NS /HPF [facility] Renal Epithel, UA None seen NS /HPF [facility] Bacteria, UA Few(A) NS /HPF [facility] Crystals, UA None seen /HPF [facility] Hyaline Casts, UA None seen /LPF [facility] UA Comment Microscopic results are unreliable on urines unrefrig >2hrs or refrig >8hrs. [facility] 10/05/2001 12:0 6 EDT 10/05/2001 12:06 EDT Modesto Johnson MD URINALYSIS ORDERABLE [facility] [address] [place] [address] * CYTOPATHOLOGY (10/05/2001 0:00 EDT) Pathology Report: CYTOPATHOLOGY REPORT Reports generated via electronic interface contain original data; however they are lacking the format of the original report. Caution should be taken when reading/interpreti ng unformatted reports. Name: ? NELA BOWER ? Accession #: ? [id number] : ? 1970 (Age: 31) ??F ?Collect Date: ? 10/05/2001 Location: ? [facility] ? Receive Date: ? 10/08/2001 Provider: ?MODESTO JOHNSON MD Copy to: ? Specimen/Source: ?ThinPrep Pap Test, Cervix/Endocervix Last Menstrual Period: ? 09/27/01 Other: ? Additional clinical information: Hx of yeast vaginitis HPVA - HPV testing requested if ASC-US on the current ThinPrep Pap test. ? SPECIMEN ADEQUACY ? Satisfactory for Evaluation - transformation zone component present GENERAL CATEGORIZATION ? Negative for Intraepithelial Lesion or Malignancy INTERPRETATION ? Reactive cellular changes associated with inflammation present (includes repair). ? Document reviewed and electronically signed by: ? ORLANDO FAUSTIN MD ? Report Date: ??10/11/2001 13:25 End of Report [facility] 10/05/2001 10/08/2001 Modesto Johnson MD PATHOLOGY ORDERABLES Performing Organization Address City/State/[facility] Co de Phone Number [facility] [address] [place] [address] documented in this encounter Visit Diagnoses Not on filedocumented in this encounter
--- OUTSIDE RECORDS SUMMARY | 2023-12-23 01:03 | XMS_ITS | Encounter Summary ---
Author Organization [facility] Address [address] [place] [address] Care Team Providers Care Soft Hat Binder Name Role Phone Unavailable Primary Care Provider Unavailabl e Encounter Details Date Type Department Care Team (Latest Contact Info) Description 08/13/1999 13:21 EDT Hospital Encounter [facility] [address] [place] [address] Lyssa Vincent MD Discharge Disposition: Auto Discharge [...] Diagnosis Comments RAD US OBSTETRICAL COMPLETE Routine 08/13/1999 14:19 EDT documented in this encounter Results * RAD US OBSTETRICAL COMPLETE (08/13/1999 14:19 EDT) Anatomical Region Laterality Modality Other 08/13/1999 14:1 9 EDT Impressions 03/03/2009 12:25 EST IMPRESSION: 1. Single living intrauterine corresponding to 20+4 weeks. This does not correlate to the EDC of 01/19/00 which corresponds to 17+2 weeks. 2. Limited visualization secondary to patient body habitus. However, no gross albnormalities are identified. The attending radiologist has reviewed the images, and concurs with the findings described above. D-08/13/99 T-08/14/99/lg Narrative 03/03/2009 12:25 EST SHADIA- GESTATIONAL DIABETES, OBESITY (LMP ?) (EDC 01/19/00) OBSTETRICAL ULTRASOUND 08/13/99 1315 Hours No comparison films HISTORY: History of gestational diabetes. Rule out SHADIA. FINDINGS: Earlier scan done at an outside hospital demonstrated an EDC of 01/19/00 which corresponds to 17+2 weeks. The current examination demonstrates a single living intrauterine . The amniotic fluid is unremarkable. The placenta is anterior and fundal. A three vessel cord is identified inserting into a normal abdomen. The fetus is in varible positions during the examination. biometric data: EDC 01/19/00 = 17+2 weeks BPD 4.6 cm = 19+6 weeks HC 17.0 cm = 19+4 weeks AC 15.8 cm = 20+6 weeks FL 3.4 cm = 20+5 weeks HUM 3.5 cm = 20+0 weeks EFW 369 grams CM 3.4 mm FH 156 bpm U/S COMP AGE = 20+4 weeks The ultrasound composite age does not correspond to the LMP. Visualization of the structures is limited secondary to patient body habitus. There is limited visualization of the stomach, bladder, kidneys and extremities. No gross abnormalities identified. Four chamber view of the heart is limited. Pulmonary outflow tract was not seen. Limited view of the aortic outflow tract is unremarkable. Procedure Note Arnold Madrigal MD / Lila Diaz MD - 03/03/2009 SHADIA- GESTATIONAL DIABETES, OBESITY (LMP ?) (EDC 01/19/00) OBSTETRICAL ULTRASOUND 08/13/99 1315 Hours No comparison films HISTORY: History of gestational diabetes. Rule out SHADIA. FINDINGS: Earlier scan done at an outside hospital demonstrated an EDC of 01/19/00 which corresponds to 17+2 weeks. The current examination demonstrates a single living intrauterine . The amniotic fluid is unremarkable. The placenta is anterior and fundal. A three vessel cord is identified inserting into a normal abdomen. The fetus is in varible positions during the examination. biometric data: EDC 01/19/00 = 17+2 weeks BPD 4.6 cm = 19+6 weeks HC 17.0 cm = 19+4 weeks AC 15.8 cm = 20+6 weeks FL 3.4 cm = 20+5 weeks HUM 3.5 cm = 20+0 weeks EFW 369 grams CM 3.4 mm FH 156 bpm U/S COMP AGE = 20+4 weeks The ultrasound composite age does not correspond to the LMP. Visualization of the structures is limited secondary to patient body habitus. There is limited visualization of the stomach, bladder, kidneys and extremities. No gross abnormalities identified. Four chamber view of the heart is limited. Pulmonary outflow tract was not seen. Limited view of the aortic outflow tract is unremarkable. IMPRESSION IMPRESSION: 1. Single living intrauterine corresponding to 20+4 weeks. This does not correlate to the EDC of 01/19/00 which corresponds to 17+2 weeks. 2. Limited visualization secondary to patient body habitus. However, no gross albnormalities are identified. The attending radiologist has reviewed the images, and concurs with the findings described above. D-08/13/99 T-08/14/99/jerica Lyssa Vincent MD IMG US ORDERABLES documented in this encounter Visit Diagnoses Not on filedocumented in this encounter
--- OUTSIDE RECORDS SUMMARY | 2023-12-23 01:03 | XMS_ITS | Encounter Summary ---
Author Organization [facility] Address [address] [place] [address] Care Team Providers Care Automatic Gluing Machine Operator Name Role Phone Unavailable Primary Care Provider Unavailabl e Encounter Details Date Type Department Care Team (Late st Contact Info) Description 06/11/1999 9:36 EST Hospital Encounter [facility] Emergency Department - [facility] [address] [place], [place] [id number] Emergency, MD Kyle Social History Tobacco Use Types Packs/Day Years [...]
--- OUTSIDE RECORDS SUMMARY | 2023-12-23 01:03 | XMS_ITS | Encounter Summary ---
Author Organization [facility] Address [address] [place] [address] Care Team Providers Care Enforcement Safety Officer Name Role Phone Unavailable Primary Care Provider Unavailabl e Encounter Details Date Type Department Care Team (Late st Contact Info) Description 03/28/2002 Results Only [facility] - Map conversion [address] [place] [address] Gabo Mckinley MD [address] [place] [phone] Social History Tobacco Use Types Packs/Day Years [...] Associated Diagnosis Comments COMPLETE BLOOD COUNT Routine 03/28/2002 11:00 EST C REACTIVE PROTEIN Routine 03/28/2002 11 :00 EST FOLATE Routine 03/28/2002 11:00 EST VITAMIN B12 Routine 03/28/2002 11:00 EST documented in this encounter Results * FOLATE (03/28/2002 11:00 EST) Folate 14.6 ng/mL [facility] Comment: Deficient: ??Less than 3.4 ng/mL Indeterminate: ??3.4-5.4 ng/mL Normal: ??Greater than 5.4 ng/mL Note new reference range. 03/28/2002 11:0 0 EST 03/28/2002 19:21 EST Gabo Mckinley MD CHEMISTRY & BLOOD GAS ORDERABLES Performing Organization Address [facility] de Phone Number [facility] [address] [place] [address] * C-REACTIVE PROTEIN (03/28/2002 11:00 EST) C-Reactive Protein <0.7 <1.0 mg/dl [facility] 03/28/2002 11:0 0 EST 03/28/2002 19:21 EST Gabo Mckinley MD CHEMISTRY & BLOOD GAS ORDERABLES Performing Organization Address [facility] Phone Number [facility] [address] [place] [address] * HEMAGRAM (03/28/2002 11:00 EST) WBC 5.74 4.0 - 12.4 K/cmm [facility] RBC 4.60 3.86 - 5.04 M/cmm [facility] Hemoglobin 13.6 11.6 - 15.2 gm/dl [facility] HCT 39.9 34.9 - 44.4 % [facility] MCV 87 81 - 98 fl [facility] MCH 29.6 26.7 - 33.3 pg [facility] MCHC 34.1 32.1 - 35.9 gm/dl [facility] PLT 253 141 - 320 K/cmm [facility] RDW-CV 12.6 11.7 - 14.6 % [facility] 03/28/2002 11:0 0 EST 03/28/2002 19:21 EST Gabo Mckinley MD HEMATOLOGY & PF4 O RDERABLES Performing Organization Address [facility] Co de Phone Number [facility] [address] [place] [address] * VITAMIN B12 (03/28/2002 11:00 EST) Vitamin B-12 393 250 - 1100 pg/ml [facility] 03/28/2002 11:0 0 EST 03/28/2002 19:21 EST Gabo Mckinley MD CHEMISTRY & BLOOD GAS ORDERABLES Performing Organization Address [facility] Co de Phone Number [facility] [address] [place] [address] documented in this encounter Visit Diagnoses Not on filedocumented in this encounter
--- OUTSIDE RECORDS SUMMARY | 2023-12-23 01:03 | XMS_ITS | Encounter Summary ---
Author Organization [facility] Address [address] [place] [address] Care Team Providers Care Yacht Rigger Name Role Phone Unavailable Primary Care Provider Unavailabl e Encounter Details Date Type Department Care Team (Latest Contact Info) Description 02/09/2000 13:24 EDT Hospital Encounter [facility] - Other [address] [place] [address] Cally Eric MD Unknown, Provider, Discharge Disposition: Auto Discharge [...] Priority Date/Time Associated Diagnosis Comments CYTOPATHOLOGY Routine 02/09/2000 0:00 EDT documented in this encounter Results * CYTOPATHOLOGY (02/09/2000 0:00 EDT) Pathology Report: CYTOPATHOLOGY REPORT Reports generated via electronic interface contain original data; however they are lacking the format of the original report. Caution should be taken when reading/interpreti ng unformatted reports. Name: ? NELA GRANGER ? Accession #: ? [id number] : ? 1970 (Age: 29) ??F ?Collect Date: ? 02/09/2000 Location: ? [facility] ? Receive Date: ? 02/10/2000 Provider: ?CALLY ERIC MD Copy to: ? Specimen/Source: ?ThinPrep Pap Test, Cervix/Endocervix Last Menstrual Period: ? 02/07/00 Menstrual/Pregnanc y Status: ? Post ? SPECIMEN ADEQUACY ? Satisfactory for evaluation. GENERAL CATEGORIZATION ? Within Normal Limits ? Document reviewed and electronically signed by: ? TRUMAN Salgado(ASCP) ? Report Date: ??02/18/2000 14:07 End of Report PAUL KUMAR 02/09/2000 02/10/2000 Cally Eric MD PATHOLOGY ORDERABLES [facility] [address] [place] [address] documented in this encounter Visit Diagnoses Not on filedocumented in this encounter
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
[2023-12-23 01:19] LABS: INR 1.1 (0.9-1.1); PTT Activated 22.6 sec (23.6-32.8); Prothrombin Time 10.7 sec (9.1-11.1)
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
[2023-12-23] MEDS: Tetanus & Diphtheria Tox,ADULT 0.5 ML VIAL IM (03:05)
[2023-12-23] MEDS: ceFAZolin 1 GM/50 ML BAG IVPB (03:05)
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
== END 2023-12-23 03:23 | disposition short-term general hospital (02) ==
PROVIDERS: Emergency Provider Student in an Organized Health Care Education/Training Program
DX: S27.2XXA Traumatic hemopneumothorax, initial encounter; S01.112A Laceration without foreign body of left eyelid and periocular area, initial encounter; S01.81XA Laceration without foreign body of other part of head, initial encounter; S01.01XA Laceration without foreign body of scalp, initial encounter; V40.6XXA Car passenger injured in collision with pedestrian or animal in traffic accident, initial encounter; S22.42XA Multiple fractures of ribs, left side, initial encounter for closed fracture
CPT/HCPCS: 31500; 36415; 36416; 51702; 74177; 82947; 83690; 84520; 86850; 86900; 86901; 86920; 90714; 93005; 96374; 96375; 96376; 99291; 70450; 70486; 71045; 71260; 72125; 73130; 80320; 82150; 82310; 82374; 82435; 82565; 84132; 84295; 84484; 85025; 85610; 85730; 93010; J0690; J2003; J2405; J3010; J3490; P9016